=== PATIENT | female | born 1960 | race Caucasian/White ===

== ENCOUNTER 2017-06-15 10:55 | Inpatient (IN) | payer SELFPAY ==
[2017-06-15 11:48] LABS: #Basophils 0.1 thou/uL (0.0-0.2); #Eosinphils 0.2 thou/uL (0.0-0.7); #Lymphocytes 1.5 thou/uL (1.20-3.40); #Monocytes 0.4 thou/uL (0.11-0.59); #Neutrophils 4.1 thou/uL (1.40-6.50); %Basophils 1.2 % (0.0-1.0); %Eosinophils 2.7 % (0.0-10.0); %Lymphocytes 24.5 % (21.0-51.0); %Monocytes 6.5 % (0.0-10.0); Hematocrit 38.6 % (36.0-47.0); Red Blood Cell (RBC) Count 3.83 mill/uL (4.20-5.40); White Blood Cell (WBC) Count 6.3 thou/uL (4.8-10.8)
[2017-06-15 11:56] LABS: PTT 31.5 SEC (22.9-36.1); Prothrombin Time 13.4 SEC (12.0-14.7)
[2017-06-15 12:23] LABS: Digoxin Less than 0.15 ng/mL (0.8-2.0)
[2017-06-15 12:25] LABS: ALT (SGPT) 10 U/L (8-55); AST (SGOT) 24 U/L (5-34); Alkaline Phosphatase 63 U/L (40-150); Anion Gap 16 mmol/L (10-20); BUN (Urea Nitrogen) 21 mg/dL (9.8-20.1); Bilirubin, Total 0.4 mg/dL (0.2-1.2); CK (CPK) 1558 U/L (29-168); Calc. Creatinine Clearance 0 mL/min (70-130); Calcium 10.1 mg/dL (7.8-10.44); Carbon Dioxide 27 mmol/L (22-29); Chloride 98 mmol/L (98-107); Estimated GFR-MDRD 39; Lipase 15 U/L (8-78); Protein, Total 7.9 g/dL (6.0-8.3)
[2017-06-15 12:27] LABS: Troponin I 0.085 ng/mL (< 0.028)
--- NOTE | 2017-06-15 13:12 | RAD ---
PORTABLE AP CHEST: Date: 06-15-17 History: Right sided numbness and weakness since one day ago. Cough. High blood pressure. Comparison: None. FINDINGS: Patient is rotated to the right which accentuates the cardiac silhouette and bronchovascular marking s. There is evidence of bibasilar atelectasis. Pulmonary vasculature is within normal limits. Osseou s structures appear intact. IMPRESSION: 1. Bibasilar atelectasis. Otherwise, no acute cardiopulmonary process. 2. Limited evaluation of cardiac silhouette due to patient rotation. POS: AMADNEEP
[2017-06-15] MEDS ORDERED: hydrALAZINE 20 MG/ML VIAL ONE (13:28)
[2017-06-15] MEDS ORDERED: hydrALAZINE 20 MG/ML VIAL SLOW IVP PRN (14:12)
--- NOTE | 2017-06-15 14:12 | PDOC.EVN ---
Event Note - Event Note Event Note: 224107 H&P Dictated 1. R/O Stroke 2. HTN 3. Weakness 4. Rhabomyolysis 5. Abnormal cardiac enzymes Plan; see orders
--- NOTE | 2017-06-15 14:17 | CT ---
CT HEAD WITHOUT IV CONTRAST: Date: 06-15-17 History: Right sided weakness, unable to control saliva. Comparison: None. FINDINGS: There is a low density focus seen within the left basal ganglia, suggestive of a lacunar infarction of an indeterminate age. There is scattered low density areas of in the periventricular white matter which are nonspecific, probably reflective of mild chronic small vessel ischemic changes. There is no evidence of an acute cortical infarction, hemorrhage, or mass effect or midline shift. There is o pacification of right sided mastoid air cells. Left mastoid air cells and visualized paranasal sinus es are clear. Vascular calcifications are seen in the carotid siphons. IMPRESSION: 1. Lacunar infarction of indeterminate age left basal ganglia. 2. Mild chronic small vessel ischemic changes. 3. Mastoid effusions on the right. POS: KIMANI
[2017-06-15 15:28] LABS: Troponin I 0.105 ng/mL (< 0.028)
--- NOTE | 2017-06-15 16:12 | HP ---
CHIEF COMPLAINT: Fall, dysarthria, right-sided weakness. HISTORY OF PRESENT ILLNESS: The patient is a 56-year-old female with past medical history of hypert ension, now came to the ER because of the fall. The patient said she lives with her brother at home . She had a fall approximately 1 week back. Since then, she is having right-sided weakness and hav ing trouble speaking. The patient was also complaining of dysarthria and some right-sided facial dr oop. Today, the patient called paramedics because of brother was having elevated blood sugars, so [facility] brought both the patients to the ER. Upon ER arrival, the patient was found to have right -sided weakness, so the patient was currently getting admitted. The patient denies any headache, de nies any nausea, denies any vomiting, denies any chest pain, denies any trouble breathing, denies an y dizziness, does have some trouble speaking. Denies any complaints. Patient also complains of gen eralized weakness, not able to get up much from the bed. Denies any cough, denies sputum production . PAST MEDICAL HISTORY: As per HPI. PAST SURGICAL HISTORY: Hernia repair. SOCIAL HISTORY: Positive for smoking, denies alcohol, denies any drugs. FAMILY HISTORY: Positive for diabetes. MEDICATIONS: Not available at this time from the patient. ALLERGIES: PENICILLIN. REVIEW OF SYSTEMS: CONSTITUTIONAL: Denies any fever, denies any chills. HEENT: Eyes, no vision problems. Ears, denies hearing loss. Neck, denies any neck pain. CARDIOVASCULAR SYSTEM: Denies any chest pain. Denies any palpations. RESPIRATORY SYSTEM: Denies any cough, denies sputum production. GASTROINTESTINAL: Denies nausea or vomiting. CRANIAL NERVE SYSTEM: Positive for right-sided weakness. Positive for dysarthria. INTEGUMENTARY: Denies. GENITOURINARY: Denies dysuria. MUSCULOSKELETAL: Denies any joint deformities. All other review of systems are reviewed and are ne gative. PHYSICAL EXAMINATION: CONSTITUTIONAL/VITAL SIGNS: At the time of H\T\P performed, blood pressure is 130/70, afebrile, pul se ox 97%. GENERAL: The patient appears comfortable. HEENT: Pupils equal, round, and reactive to light. Anterior naris patent. Nose normal. Ears, nor mal. Teeth oral cavity, no teeth seen. Tongue is moist. NECK: Supple. No JVD. CARDIOVASCULAR SYSTEM: S1, S2 present. Regular rate and rhythm, no murmurs, no rubs, no gallops. RESPIRATORY SYSTEM: No wheezing, no rhonchi. Breath sounds bilaterally. GASTROINTESTINAL: Soft, nontender, no guarding, no organomegaly, no masses felt. MUSCULOSKELETAL: Right-sided weakness present. Right upper extremity strength is 2-3/5. Right low er extremity strength 3/5. Positive for dysarthria, positive for mild aphasia. Positive for right- sided facial droop. PSYCHIATRIC: Mood is appropriate at this time. INTEGUMENTARY: No obvious rashes seen. Positive for right lower extremity black eschar seen. Posi tive for aberration. LABORATORY DATA: At the time of H\T\P performed, white count 6.3, hemoglobin 12.9, platelet count i s 240. PT 13.4, INR 1. BMP showed sodium 137, potassium 4.3, chloride 98, CO2 27, BUN 21, creatini ne 1.39. CK 1558, CK-MB 7, troponin 0.085. BNP 81.5. Digoxin was less than 0.15. CT head report is pending. No obvious bleed seen. Chest x-ray, possible bibasilar atelectasis. ASSESSMENT AND PLAN: The patient is a 56-year-old female. 1. Rule out stroke, right-sided weakness plus dysarthria. Plan to consult Neurology to evaluate th e patient. Plan to do MRI brain and carotid ultrasound. Plan to monitor the patient closely. Plan to get PT, OT and rehabilitation evaluation. 2. Rhabdomyolysis. Monitor CK level closely. Continue serial CK levels. Continue IV fluids. 3. Abnormal cardiac enzymes. EKG, no acute ST changes by the ED physician. Plan to check serial c ardiac enzymes. Plan to check 2D echo. We will evaluate LV function. We will repeat EKG. 4. History of hypertension. Monitor blood pressure, slowly continue p.r.n. BP meds. 5. Generalized weakness. Plan to check TSH and vitamin B12 levels also. The case was discussed in detail with the patient.
[2017-06-15] MEDS: Sodium Chloride 0.9% 1,000 ML IV SCH (16:26)
--- NOTE | 2017-06-15 17:18 | CON ---
DATE OF CONSULTATION: 06/15/2017 NEUROLOGY CONSULTATION CONSULTING PHYSICIAN: Hospitalist Service. IMPRESSION: 1. Lacunar stroke with right-sided weakness. 2. Severe hypertension. 3. Hyperlipidemia. 4. Tobacco use. PLAN: 1. Continue aspirin. 2. Titrate a statin to address her cholesterol issues. 3. Carotid ultrasound. 4. Echocardiogram. 5. PT and OT evaluations. 6. Tobacco cessation. Ms. Livingston is a 56-year-old white female with a known history of hypertension and hyperlipidemia, w ho came in with right-sided weakness for the last [address] of the brain revealed a lacunar infarc tion in the left basal ganglia. There is no evidence of hemorrhage. She has no complaint of headac he, nausea, vomiting, vertigo, blurred vision, double vision, numbness or difficulty swallowing. Sh e has noted a change in her speech. PAST MEDICAL HISTORY: As listed above. ALLERGIES: PENICILLIN, SULFA. MEDICATIONS: Reviewed. SOCIAL HISTORY: One pack per day tobacco use. FAMILY HISTORY: Noncontributory. REVIEW OF SYSTEMS: Otherwise, negative. PHYSICAL EXAMINATION: GENERAL: She is an overweight middle-aged woman lying in bed, in no distress. HEENT: Pupils are equal and reactive. Conjunctivae clear. She has got periorbital edema bilateral ly. Oropharynx is clear. NECK: No lymphadenopathy. EXTREMITIES: No cyanosis. NEUROLOGIC: She was alert and cooperative. Her speech is fluent with a mildly dysarthric quality. Cranial nerves were notable only for right facial droop. Motor exam showed white partial antigravi ty strength in the right arm and leg. Sensation was subjectively intact bilaterally. Plantar respo nses were downgoing. Gait was not testable. CT images were reviewed. EKG shows normal sinus rhythm with a right bundle branch block and left anterior fascicular block. LABORATORY STUDIES: Showed an elevated CK with a positive MB and troponin and otherwise unremarkabl e. SUMMARY: A middle-aged woman with severe hypertension, who presents with a lacunar stroke in the le ft basal ganglia consistent with right-sided weakness. She also has a positive CK and troponin sugg estive of possible myocardial infarction, may require further cardiac workup at your discretion. Un fortunately, she does not have any finding. Therefore, rehab placement will be unlikely, need to ad dress her risk factors and probably discharge her home with family for recuperation.
[2017-06-15 18:29] LABS: Troponin I 0.097 ng/mL (< 0.028)
--- NOTE | 2017-06-15 20:58 | ULT ---
CAROTID DUPLEX ULTRASOUND 06/15/17 INDICATION: Rule out stenosis. FINDINGS: There is mild to moderate atherosclerotic irregularity seen diffusely throughout the common carotid and internal carotid arteries bilaterally. There is a prominent area of atherosclerotic irregularity involving the proximal right ICA. The peak systolic velocity measured within the right ICA was 179 cm/s and on the left ICA was 158 cm/s. The peak systolic velocity seen within the right CCA was 129 cm/s where as the left was 157 cm/s. The right IC/CC ratio is 1.5 and on the left is 1.1. There is antegrade flow within both vertebral a rteries. IMPRESSION: 1. Based on the velocity measurements, there is moderate atherosclerotic narrowing involving th e proximal right ICA. This is between 50 to 69% luminal caliber stenosis based on the systolic veloc ity measurements. There is high grade flow seen within the proximal right external carotid artery to 255 cm/s. Similar appearing elevated velocities are seen within the left ECA. Due to the extent of the atherosclerotic disease, the patient would likely benefit from a CTA of the neck utilizing IV co ntrast to further evaluate the regions of stenosis involving the distal carotid bulb and right ICA. 2. No hemodynamically significant stenosis involving the left internal carotid artery. POS: KIMANI
[2017-06-15] MEDS: Atorvastatin Calcium 40 MG TAB PO SCH (21:56)
[2017-06-15] MEDS: Heparin 5,000 UNITS/ML VIAL SC SCH (21:57)
[2017-06-15 23:31] LABS: Troponin I 0.083 ng/mL (< 0.028)
[2017-06-16] MEDS: Sodium Chloride 0.9% 1,000 ML IV SCH ×2 (01:13→13:57)
--- NOTE | 2017-06-16 03:44 | PDOC.EVN ---
Event Note - Event Note Event Note: RN called - Pt had 3 sec pause. Will monitor. TSH was abnormal. Will add free T4. ?Cardiology consult per primary MD
[2017-06-16 05:16] LABS: Anion Gap 13 mmol/L (10-20); BUN (Urea Nitrogen) 16 mg/dL (9.8-20.1); Calc. Creatinine Clearance 82 mL/min (70-130); Calcium 9.9 mg/dL (7.8-10.44); Carbon Dioxide 30 mmol/L (22-29); Chloride 99 mmol/L (98-107); Cholesterol 509 mg/dl (< 200 Desired); Estimated GFR-MDRD 45; Magnesium 2.4 mg/dL (1.6-2.6); Phosphorus 3.1 mg/dL (2.3-4.7)
[2017-06-16 05:26] LABS: Troponin I 0.076 ng/mL (< 0.028)
[2017-06-16] MEDS ORDERED: hydrALAZINE 20 MG/ML VIAL SLOW IVP PRN (07:05)
--- NOTE | 2017-06-16 08:56 | PDOC.PN ---
- Subjective Encounter Start Date: 06/16/17 Encounter Start Time: 09:00 Subjective: Patient with persistent right sided weakness, dysarthria, and dysphagia. No -: chest pain. No N/V. Did have a 3 second sinus pause overnight. - Objective MAR Reviewed: Yes Vital Signs & Weight: Vital Signs (12 hours) Temp Pulse Resp BP Pulse Ox 06/16/17 07:45 97.5 F L 85 24 H 191/101 H 95 06/16/17 04:15 97.8 F 65 18 203/118 H 92 L 06/16/17 00:00 97.9 F 57 L 16 167/91 H 98 Weight Weight 224 lb 7.983 oz I&O: 06/15/17 06/16/17 06/17/17 06:59 06:59 06:59 Intake Total 1400 Balance 1400 Result Diagrams: 06/15/17 11:42 06/16/17 04:27 Phys Exam - Physical Examination Constitutional: NAD HEENT: moist MMs Respiratory: no wheezing, no rales, no rhonchi Cardiovascular: RRR, no significant murmur Gastrointestinal: soft, positive bowel sounds decreased strength RU/LE, right facial droop Psychiatric: normal affect, A&O x 3 Dx/Plan (1) Acute CVA (cerebrovascular accident) Code(s): I63.9 - CEREBRAL INFARCTION, UNSPECIFIED Status: Acute Comment: Left basal ganglia lacunar stroke (2) Elevated troponin Code(s): R74.8 - ABNORMAL LEVELS OF OTHER SERUM ENZYMES Status: Acute Comment: indeterminate, trending down (3) Sinus pause Code(s): I45.5 - OTHER SPECIFIED HEART BLOCK Status: Acute Comment: 3 second pause (4) Hypertension Code(s): I10 - ESSENTIAL (PRIMARY) HYPERTENSION Status: Acute Comment: Severe elevations after stroke, start to bring down slowly (5) Rhabdomyolysis Code(s): M62.82 - RHABDOMYOLYSIS Status: Acute Plan: recheck CK (6) Hyperlipidemia Code(s): E78.5 - HYPERLIPIDEMIA, UNSPECIFIED Status: Acute Qualifiers: Hyperlipidemia type: mixed hyperlipidemia Qualified Code(s): E78.2 - Mixed hyperlipidemia Comment: LDL and TG in 500s. Starting statin. May need fenofibrate eventually as well. - Plan cont current plan of care Cardiology consultation. Appreciate neuro input. * . - Discharge Day Encounter end time: 10:00
[2017-06-16] MEDS ORDERED: Aspirin 81 mg Enteric Coated Tablet PO SCH (09:00)
[2017-06-16] MEDS: Heparin 5,000 UNITS/ML VIAL SC SCH ×2 (09:49→21:09)
[2017-06-16] MEDS ORDERED: Aspirin 300 MG Suppository PR SCH (11:30)
--- NOTE | 2017-06-16 19:38 | CON ---
DATE OF CONSULTATION: 06/16/2017 PRIMARY CARE PHYSICIAN: [facility]. REFERRING PHYSICIAN: Dr. Hairston. REASON FOR CARDIOLOGY CONSULTATION: Three-second pause and indeterminate troponins. HISTORY OF PRESENT ILLNESS: Mrs. Livingston is a 56-year-old female with a significant histo ry of hypertension, hypothyroidism, and dyslipidemia who started having numbness and slurred speech for 2 days. Actually, the patient's brother called EMS for his abnormal blood sugar level and when the EMS arrived her house, they noticed the patient having slurry speech and right arm numbness. Th e patient was transferred to the emergency department and patient was transferred to emergency depar tment and CT of the brain revealed she has was found to have lacunar infarction in her left basal ga nglia. Prior to these events, she has dyspnea on exertion when she walked long distance or doing ho usekeeping and also she has had leg swelling in her bilateral lower extremities which did improve ov ernight. She has a significant a medical history of hypertension, hypothyroidism, and dyslipidemia which she was diagnosed about 3-4 years ago at [facility]. However, she has not taken any medic ations since then because she did not have any financial support for her medications. During initia l cardiologic consult assessment, patient denies any headache, blurry vision, chest pain or discomfo rt in her chest or palpitations or fluttering in her chest, nausea, dizziness or lightheadedness, di aphoresis or any other cardiac complaints. Around 3:30 in the morning on 06/16/2017, her laboratory record shows 3-second of pause x1. At that time, she was sleeping. She did not have any cardiac related symptoms at that time and the patient 's echocardiogram today which revealed EF of 50%-55%, moderate left ventricular hypertrophy, mild mi tral valve regurgitation and tricuspid regurgitation and also patient's carotid Doppler study reveal ed she has moderate atherosclerotic narrowing in the proximal right ICA and elevated velocity in her left DAY. PAST MEDICAL HISTORY: 1. Hypertension. 2. Hypothyroidism. 3. Dyslipidemia. 4. Noncompliance to medications. 5. Current smoker. PAST SURGICAL HISTORY: Hernia repair. FAMILY HISTORY: Noncontributory because she is adopted. SOCIAL HISTORY: She is . She lives with her brother who was not blood related. She has 3 children who live well. She is a current smoker. She smokes one pack a day. She denies alcohol o r illicit drug abuse. ALLERGIES: She is allergic to PENICILLIN and SULFA drug. CURRENT MEDICATIONS: She was prescribed some blood pressure, thyroid and cholesterol medications ab out 3-4 years ago at the [facility], but she cannot remember at this time. REVIEW OF SYSTEMS: The following complete review of systems was negative, unless otherwise mentione d in the HPI or below. CONSTITUTIONAL: Weight loss, weight gain, sense of well being, ability to conduct usual activities, exercise tolerance before she had a stroke. SKIN: The skin rash, itching, change in hair growth or loss, nail change, breast lump, tenderness, swelling, nipple discharge. EYES: She wears glasses, but negative for vision change, double vision, tearing, blind spots, pain. HEENT: Headache, vertigo, lightheadedness, nose bleeding, obstruction, no discharge, dental difficu lty, gingival bleeding, denture, neck stiffness, pain, tenderness, mass in the thyroid or other area s. CARDIOVASCULAR: Precordial pain, substernal distress, palpitations, syncope, dyspnea on exertion, o rthopnea, nocturnal dyspnea, cyanosis, heart murmur, varicosis, claudication. RESPIRATORY: Pain, wheezes, stridor, cough, hemoptysis, fever or night sweats. GASTROINTESTINAL: Poor appetite, dysphagia, indigestion, abdominal pain, heartburn, irritation, donald sea, vomiting, jaundice, constipation, or diarrhea, abnormal stool, bloody stool, recent change in b owel habit. GENITOURINARY: Urgency, frequency, dysuria, nocturia, hematuria, polyuria, oliguria, unusual color in urine. MUSCULOSKELETAL: Pains, redness or heat of muscle or joint, limitation, of motion, muscular weaknes s, atrophy, cramps before stroke. NEUROLOGIC: Convulsion, paralysis, tremor, incoordination, difficulty with memory of speech, sensor y or motor disturbance or muscular discoordination. PSYCHIATRIC: Emotional problem, anxiety, depression, previous psychiatric care, unusual perception hallucination. PHYSICAL EXAMINATION: VITAL SIGNS: Blood pressure 189/106, heart rate 63, respiratory rate 18, O2 sat 94% with room air, temperature 97.9. GENERAL: Well-developed, well-nourished without any acute distress. HEAD: Normocephalic, atraumatic. EYES: Extraocular muscle movement intact. ENT: Oral and nasal mucosa are moist without lesion. NECK: No JVD. Supple and normal range of motion. LUNGS: Clear to auscultate bilaterally, but diminished at the bases. No wheezing, rales or rhonchi noted. CARDIOVASCULAR: Regular rate and rhythm. Normal S1, S2. There are no S3 or S4. No significant mu rmur, hives, thrill, bruit or rub noted. There are 2+ pulses in bilateral dorsal pedis, posterior t ibial, and popliteal. Carotid pulse present without bruit or thrill, no edema in her lower extremit ies. ABDOMEN: Soft and nontender or mass to palpate, nondistended. Bowel sounds are present. MUSCULOSKELETAL: Able to move all extremities except right lower extremities and some little moveme nt for right upper extremities. SKIN: Warm and dry. No skin rash, lesion or bruise noted. NEUROLOGIC: Alert, oriented x4, awake. Normal affect. Nonfocal, but slurry speech and facial droo ping on the right side. PSYCHIATRIC: Mood and affect are normal. EKG: A 12-lead EKG in the ER revealed normal sinus rhythm with heart rate 71 with right bundle bran ch block and left anterior fascicular block and the telemetry records at 323 in the morning of 06/16 showing the 3-second pause. At that time, patient's heart rates getting slower, slower and fi ed, the patient's heart rate going to 3 seconds and slowly coming back to normal rate. ASSESSMENT AND PLAN: 1. One episode of 3-second pause. At that time, patient's heart rates are getting slower and gradu ally going back to normal heart rate after that one episode of a 3-second pause and at that time she was symptomatic. She does not have any other episodes of pauses after this episode. At this momen t, we would like to continue to monitor the patient's heart rhythm and heart rate on the telemetry. 2. Lacunar infarction in the left basal ganglia. She was seen by neurologist. 3. Indeterminate troponin level. Her troponin level is trending down, could be due to demand ische dinesh from high blood pressure and hypertension urgency. However; due to the right bundle venu bloc k, there are no other EKG records showing whether this is her first time to have right bundle venu block, we do not have any medical records to compare, we might consider the patient to have a stres s test or further cardiac study. 5. Hypertension. Her blood pressure has been 150-200. However, due to her stroke, we like to keep the blood pressure tends to be higher than normal and we would like to start some blood pressure me dication as appropriate. 6. Hyperlipidemia. Once patient is able to start taking a p.o. medication, we would like to start some statin medication for her cholesterol level. 7. Hypothyroidism. Her TSH was 99.4241 on 06/15/2017. It might be benefit for the patient to star t having some thyroid medication. 8. Acute kidney insufficiency. The patient's creatinine level is slightly better than yesterday wi th normal saline. We would like to continue to monitor. 9. Rhabdomyolysis. The patient's CK-MB was 7.0. She is receiving normal saline at this moment. W e have to continue to monitor. Thank you very much for Cardiology Service to participate in the care of this patient. We will foll ow along with the patient care team and make further recommendations as appropriate.
[2017-06-16] MEDS: Atorvastatin Calcium 40 MG TAB PO SCH (21:10)
--- NOTE | 2017-06-16 23:36 | MRI ---
MRI OF THE BRAIN WITHOUT CONTRAST 06/16/17 INDICATION: Right sided weakness and slurred speech. TECHNIQUE: Multiplanar and multisequence MR images are obtained of the brain without IV contrast. Comparisons a re made with a CT examination dated 06/15/17. FINDINGS: As seen corresponding to the area of hypodensity within the recent noncontrast CT of the brain, is a n area of restricted diffusion involving the left caudate and left globus pallidus consistent with s mall lacunar infarctions. There is mild chronic small vessel white matter ischemic change. There is some corresponding T2 signal abnormality involving the lacunar infarctions. No additional suspicious region of restricted diffusion is evident. There are appropriate flow voids within the major intrac ranial vessels. No midline shift is evident. There is extensive effusion within the right mastoid ai r cells. IMPRESSION: 1. Subacute appearing lacunar infarctions involving the left basal ganglia, particularly the r egion of the left caudate body and left globus pallidus. 2. Mild chronic small vessel white matter ischemic change. 3. Right mastoid effusion. POS: AMANDEEP
--- NOTE | 2017-06-17 01:23 | ADD-CON ---
ADDENDUM DATE OF CONSULTATION: 06/16/2017 INDICATION FOR CONSULTATION: A 56-year-old female status post CVA with a 3-second pause, actually a ppears to be more of a bradycardia than an actual pause. The heart rate did slow down, however, and there was a distance of 3 seconds between the two QRSs. However, she was sleeping at that time, wa s most likely asymptomatic. She has had no previous cardiac history that she is aware of. She was brought to the emergency room after she had some right-sided weakness and was unable to either speak clearly or get out of the bed very easily. She lives with her brother, both of them were admitted to the hospital, both of them have diabetes. I believe he is in the Intensive Care Unit and she is on the Stroke Unit. It appears that she did have a CVA, but the heart rate appears to be stable. F rom a cardiac standpoint, she appears to be in good condition at this time. She did have an echocar diogram, which shows a normal ejection fraction and no other acute cardiac events have been noted. Her EKG did not show any acute changes. Her cardiac enzymes are indeterminate; they have actually s lightly gone up, but now is starting to trend downwards. The peak troponin I was 0.083, which certa inly could be indicative of her cerebral event. Her cholesterol level is also significantly elevate d as well as her triglyceride level, but there is no indication that she has had any previous cardia c history. Please refer to the notes already dictated by the nurse practitioner. I would agree with the assess ment and plan. We will continue to follow her very carefully. Should she have any further bradycar dic episodes, we will need to address that perhaps for this may just be due to hypoxia or due to her recurrent CVA. She will need to be carefully observed, but at this time, she appeared just to have some significant sinus bradycardia. The heart rate has recovered. If necessary, we can try a low dose of dopamine to increase the heart rate. In the emergency room, she did have a right bundle bra nch block with a left anterior fascicular block, but no acute ST segment changes were noted that wou ld indicate underlying ischemia and she denies any chest pain. Her chest was clear to auscultation. Cardiovascular exam revealed a regular rate and rhythm. She did have a systolic murmur at the [facility] er left anterior chest, most likely compatible with some mild pulmonary valve flow not necessarily r egurgitation. There were no gross echocardiogram findings to indicate any significant abnormalities as far as any stenotic lesions. She did have some very mild aortic valve regurgitation. At this t candy, we will be more than happy to continue to follow the patient with you. In the future, even she may need to undergo pacemaker insertion certainly with her right bundle branch block and left anter ior fascicular block with the bradycardia. She may eventually need a pacemaker, but would certainly want her to recover from her CVA and to determine whether or not she continues to have bradycardia or not.
[2017-06-17] MEDS: Sodium Chloride 0.9% 1,000 ML IV SCH (06:27)
--- NOTE | 2017-06-17 08:44 | PDOC.CTH ---
<Feliciano Mann - Last Filed: 06/17/17 09:59> Cardiology Progress Note - Objective Vital Signs Temp Pulse Resp BP BP BP Pulse Ox 06/17/17 07:20 97.8 F 68 14 159/97 H 94 L 06/17/17 04:06 97.4 F L 65 12 153/90 H 91 L 06/17/17 01:34 64 156/74 H 06/17/17 00:36 56 L 191/103 H 06/17/17 00:03 97.5 F L 56 L 12 191/103 H 94 L Admit Weight 224 lb 7.968 oz Weight 224 lb 7.968 oz 06/16/17 06/17/17 06/18/17 06:59 06:59 06:59 Intake Total 1400 1805 Balance 1400 1805 - Labs Result Diagrams: 06/15/17 11:42 06/16/17 04:27 Troponin/CKMB CK-MB (CK-2) 7.0 ng/mL (0-6.6) H* 06/15/17 11:36 Troponin I 0.076 ng/mL (< 0.028) H 06/16/17 04:27 - Assessment/Plan Pt. seen and eval. Several pauses last pm with up to 4.5 seconds. This appears to be sinus bradycardia that decreases further. The episodes occur while she is sleeping and she appears to have sleep apnea. If she does not have a problem with the swallowing study that is to be done today then I suggest we ask pulmonary to see her and try a CPAP mask. If she still has pauses ( which are still asymptomatic by the way ) then we can consider a pacemaker. In the interim we need to address her hypothyroidism. This may be the cause of the bradycardia, facial edema and swollen tongue. I pedro and evaluated the pt. and I agree with the remainder of the A/P by the [employer]. <Mayelin Hurley - Last Filed: 06/17/17 13:30> Cardiology Progress Note - Subjective The pt was seen and examined. No overnight events. No cardiac complaints. She has been up to bedside commode with assists. She can move her Rt extremities better than yesterday, especially her Rt lower ext. Another pause, 3.9 sec, early this AM with very low O2 Sat per RN. The pt was asymptomatic during the episode. - Objective Vital Signs Temp Pulse Resp BP BP BP Pulse Ox 06/17/17 07:20 97.8 F 68 14 159/97 H 94 L 06/17/17 04:06 97.4 F L 65 12 153/90 H 91 L 06/17/17 01:34 64 156/74 H 06/17/17 00:36 56 L 191/103 H 06/17/17 00:03 97.5 F L 56 L 12 191/103 H 94 L 06/16/17 21:08 97.4 F L 59 L 16 92 L Admit Weight 224 lb 7.968 oz Weight 224 lb 7.968 oz 06/16/17 06/17/17 06/18/17 06:59 06:59 06:59 Intake Total 1400 1805 Balance 1400 1805 - Physical Examination General/Neuro: alert & oriented x3 Neck: no JVD present Lungs: CTA Heart: RRR Abdomen: other: Extremities: other: (No edema) - Telemetry Telemetry Rhythm: SR 70-80s - Labs Result Diagrams: 06/15/17 11:42 06/16/17 04:27 Troponin/CKMB CK-MB (CK-2) 7.0 ng/mL (0-6.6) H* 06/15/17 11:36 Troponin I 0.076 ng/mL (< 0.028) H 06/16/17 04:27 - Assessment/Plan 1. Multiple pauses - 3.9 sec pause at 0321 on 06/17/17 with low O2Sat; also possible 2ndary to hypothyroidism; her thyroid medication was started from today 2. S/p Basal ganglia lacunar stroke - managed by neurologist 3. HTN - treding down slowly with current medication; cont. monitor 4. Hypothyroidism - Thyroid medication was started from today by PCP 5. Rhabdomyolysis - cont. monitor 6. myxoedema - her thyroid medication was started from today by PCP MAR Reviewed Review of Systems - Review of Systems Constitutional: reports: no symptoms reported EENTM: reports: no symptoms reported Respiratory: reports: no symptoms reported Cardiac (ROS): reports: no symptoms reported ABD/GI: reports: no symptoms reported : reports: no symptoms reported Musculoskeletal: reports: see HPI Skin: reports: no symptoms reported Neurological: reports: no symptoms reported Endocrine: reports: no symptoms reported
[2017-06-17] MEDS ORDERED: Aspirin 300 MG Suppository PR SCH (09:00)
[2017-06-17] MEDS: Heparin 5,000 UNITS/ML VIAL SC SCH ×2 (10:51→21:41)
[2017-06-17] MEDS ORDERED: Ondansetron ODT 4 MG TAB PO PRN (11:25)
[2017-06-17] MEDS ORDERED: Senokot 8.6 MG TAB PO PRN (11:25)
[2017-06-17] MEDS ORDERED: Nitroglycerin 0.4 MG TAB (25 Tab Bottle) PO PRN (11:25)
[2017-06-17] MEDS ORDERED: Ondansetron HCl/PF 4 MG/2 ML Vial IVP PRN (11:25)
[2017-06-17] MEDS ORDERED: Levothyroxine Sodium 150 MCG TAB PO SCH (11:30)
[2017-06-17] MEDS ORDERED: Sodium Chloride 0.9% 1,000 ML IV SCH (11:30)
[2017-06-17] MEDS ORDERED: Aspirin 325 MG TAB PO SCH (11:30)
--- NOTE | 2017-06-17 11:35 | PDOC.PN ---
- Subjective Encounter Start Date: 06/17/17 Encounter Start Time: 11:34 Patient seen and examined. No new complaints. No overnight events. No new focal deficits. - Objective Resuscitation Status: Resuscitation Status FULL:Full Resuscitation MAR Reviewed: Yes Vital Signs & Weight: Vital Signs (12 hours) Temp Pulse Resp BP BP BP Pulse Ox 06/17/17 11:15 97.2 F L 70 14 149/95 H 96 06/17/17 08:00 97.8 F 68 14 90 L 06/17/17 07:20 97.8 F 68 14 159/97 H 94 L 06/17/17 04:06 97.4 F L 65 12 153/90 H 91 L 06/17/17 01:34 64 156/74 H 06/17/17 00:36 56 L 191/103 H 06/17/17 00:03 97.5 F L 56 L 12 191/103 H 94 L Weight Admit Weight 224 lb 7.968 oz Weight 224 lb 7.968 oz I&O: 06/16/17 06/17/17 06/18/17 06:59 06:59 06:59 Intake Total 1400 1805 Balance 1400 1805 Result Diagrams: 06/18/17 04:42 06/18/17 04:42 Radiology Reviewed by me: Yes (MRI - Acute CVA) EKG Reviewed by me: Yes (Tele SB/ sinus pause earlier) Phys Exam - Physical Examination Constitutional: NAD HEENT: PERRLA, moist MMs, sclera anicteric tongue swollen Respiratory: no wheezing, no rales, no rhonchi Symmetrical Cardiovascular: RRR, no rub No heaves/pulsations Gastrointestinal: soft, non-tender, no distention, positive bowel sounds Musculoskeletal: edema present (1 + with chronic facial swelling) Neurological: moves all 4 limbs No new focal findings Psychiatric: normal affect, A&O x 3 Skin: no rash Dx/Plan (1) Acute CVA (cerebrovascular accident) Code(s): I63.9 - CEREBRAL INFARCTION, UNSPECIFIED Status: Acute Comment: Left basal ganglia lacunar stroke (2) Dyslipidemia Code(s): E78.5 - HYPERLIPIDEMIA, UNSPECIFIED Status: Chronic (3) Hypothyroidism Code(s): E03.9 - HYPOTHYROIDISM, UNSPECIFIED Status: Acute (4) Elevated troponin Code(s): R74.8 - ABNORMAL LEVELS OF OTHER SERUM ENZYMES Status: Acute Comment: indeterminate, trending down (5) Hypertension, uncontrolled Code(s): I10 - ESSENTIAL (PRIMARY) HYPERTENSION Status: Acute (6) Carotid stenosis, right Code(s): I65.21 - OCCLUSION AND STENOSIS OF RIGHT CAROTID ARTERY Status: Acute Comment: Moderate 50-69 % ( Stroke on the other side), Will avoid contrast exposure due to CKD/rhabdomyolysis (7) Sinus pause Code(s): I45.5 - OTHER SPECIFIED HEART BLOCK Status: Acute Comment: 3 second pause (8) Rhabdomyolysis Code(s): M62.82 - RHABDOMYOLYSIS Status: Acute (9) CKD (chronic kidney disease) stage 3, GFR 30-59 ml/min Code(s): N18.3 - CHRONIC KIDNEY DISEASE, STAGE 3 (MODERATE) Status: Chronic (10) Swallowing dysfunction Code(s): R13.10 - DYSPHAGIA, UNSPECIFIED Status: Acute (11) VALENTINA (obstructive sleep apnea) Code(s): G47.33 - OBSTRUCTIVE SLEEP APNEA (ADULT) (PEDIATRIC) Status: Suspected - Plan cont current plan of care, PT/OT, speech therapy, DVT proph w/heparin, DVT proph w/SCDs * Cardiology following * Start Levothyroxine * Change ASA to PO * Sleep study as outpt * Tob cessation * Add Procardia XL * Neurology input appreciated * CTA neck as outpt * DC IVF * Hold Statin due to Rhabdomyolysis Review of Systems - Review of Systems Respiratory: negative: Cough, Dry, Shortness of Breath, Hemoptysis, SOB with Excertion, Pleuritic Pain, Sputum, Wheezing Cardiovascular: negative: Chest Pain, Palpitations, Orthopnea, Paroxysmal Noc. Dyspnea, Edema, Light Headedness, Other Gastrointestinal: negative: Nausea, Vomiting, Abdominal Pain, Diarrhea, Constipation, Melena, Hematochezia, Other - Medications/Allergies Allergies/Adverse Reactions: Allergies Allergy/AdvReac Type Severity Reaction Status Date / Time Penicillins Allergy Verified 06/15/17 14:48 Sulfa (Sulfonamide Allergy Verified 06/15/17 14:48 Antibiotics) Medications: Current Medications Acetaminophen (Tylenol) 650 mg PO Q4H PRN PRN Reason: Headache/Fever or Pain Aspirin (Ecotrin) 325 mg PO DAILY [facility] Aspirin (Aspirin) 325 mg PO NOW [facility] Stop: 06/17/17 13:30 Atorvastatin Calcium (Lipitor) 40 mg PO HS [facility] Last Admin: 06/16/17 21:10 Dose: Not Given Docusate Sodium (Colace) 100 mg PO BID [facility] Famotidine (Pepcid) 20 mg PO BID [facility] Heparin Sodium (Porcine) (Heparin) 5,000 units SC Q12HR [facility] Last Admin: 06/17/17 10:51 Dose: 5,000 units Hydralazine HCl (Apresoline) 10 mg SLOW IVP Q4H PRN PRN Reason: BP > 180 Last Admin: 06/17/17 00:36 Dose: 10 mg Sodium Chloride (Normal Saline 0.9%) 1,000 mls @ 50 mls/hr IV .Q20H [facility] Levothyroxine Sodium (Synthroid) 150 mcg PO 0600 [facility] Levothyroxine Sodium (Synthroid) 150 mcg PO NOW [facility] Stop: 06/17/17 13:30 Nitroglycerin (Nitrostat) 0.4 mg PO Q5MIN PRN PRN Reason: Chest Pain Ondansetron HCl (Zofran Odt) 4 mg PO Q6H PRN PRN Reason: Nausea/Vomiting Ondansetron HCl (Zofran) 4 mg IVP Q6H PRN PRN Reason: Nausea/Vomiting Senna (Senokot) 2 tab PO HSPRN PRN PRN Reason: Constipation Sodium Chloride (Flush - Normal Saline) 10 ml IVF Q12HR [facility] Last Admin: 06/17/17 10:51 Dose: 10 ml Sodium Chloride (Flush - Normal Saline) 10 ml IVF PRN PRN PRN Reason: Saline Flush
[2017-06-17] MEDS ORDERED: NIFEdipine XL 30 MG TAB PO SCH (12:30)
--- NOTE | 2017-06-17 12:59 | RAD ---
MODIFIED BARIUM SWALLOW WITH SPEECH THERAPY: Date: 06/17/17 HISTORY: Dysphagia following cerebral infarction, I69.391. Dysphagia unspecified, R13.10. Feeding difficulties, R63.3. COMPARISON: None. TECHNIQUE/FINDINGS: The patient was brought to the fluoroscopy suite. All questions were answered. Fluoroscopy was perfo rmed for a speech pathologist. The patient was initially given thin liquid contrast. The patient azra erated this well. The swallowing was slightly delayed, although there is no penetration or aspiratio n. Next, pudding consistency contrast was given. Swallow was delayed, although no penetration or asp iration. With contrast-coated cracker, there is mild penetration which cleared. This did not go belo w the vocal cords. No aspiration. IMPRESSION: Fluoroscopy for speech pathologist. Please see their findings for further details. POS: KIMANI
[2017-06-17] MEDS: Acetaminophen 325 MG TAB PO PRN (15:13)
[2017-06-17] MEDS: Docusate 100 MG CAP PO SCH (21:40)
[2017-06-17] MEDS: Famotidine 20 MG TAB PO SCH (21:40)
[2017-06-17] MEDS: Atorvastatin Calcium 40 MG TAB PO SCH (21:40)
[2017-06-18 04:51] LABS: #Basophils 0.1 thou/uL (0.0-0.2); #Eosinphils 0.2 thou/uL (0.0-0.7); #Lymphocytes 1.5 thou/uL (1.20-3.40); #Monocytes 0.3 thou/uL (0.11-0.59); #Neutrophils 2.8 thou/uL (1.40-6.50); %Eosinophils 3.8 % (0.0-10.0); %Monocytes 6.7 % (0.0-10.0); Hematocrit 36.9 % (36.0-47.0); Red Blood Cell (RBC) Count 3.67 mill/uL (4.20-5.40); White Blood Cell (WBC) Count 4.8 thou/uL (4.8-10.8)
[2017-06-18 05:05] LABS: ALT (SGPT) 8 U/L (8-55); AST (SGOT) 23 U/L (5-34); Alkaline Phosphatase 60 U/L (40-150); Anion Gap 15 mmol/L (10-20); BUN (Urea Nitrogen) 13 mg/dL (9.8-20.1); Bilirubin, Total 0.5 mg/dL (0.2-1.2); CK (CPK) 1462 U/L (29-168); Calc. Creatinine Clearance 77 mL/min (70-130); Calcium 10.2 mg/dL (7.8-10.44); Carbon Dioxide 28 mmol/L (22-29); Chloride 97 mmol/L (98-107); Estimated GFR-MDRD 44; Globulin 2.9 g/dL (2.4-3.5); Protein, Total 7.5 g/dL (6.0-8.3)
[2017-06-18] MEDS: Levothyroxine Sodium 150 MCG TAB PO SCH (06:15)
--- NOTE | 2017-06-18 08:18 | PDOC.PN ---
- Subjective Encounter Start Date: 06/18/17 Encounter Start Time: 08:16 Patient seen and examined. No new complaints. No overnight events. Feels better. No new focal deficits. - Objective Resuscitation Status: Resuscitation Status FULL:Full Resuscitation MAR Reviewed: Yes Vital Signs & Weight: Vital Signs (12 hours) Temp Pulse Resp BP Pulse Ox 06/18/17 07:20 97.5 F L 61 18 144/89 H 93 L 06/18/17 04:26 97.5 F L 60 12 137/86 94 L 06/18/17 02:59 93 L 06/18/17 00:47 97.5 F L 93 16 117/76 92 L 06/17/17 20:28 97.5 F L 93 16 Weight Admit Weight 224 lb 7.968 oz Weight 218 lb 6.4 oz I&O: 06/17/17 06/18/17 06/19/17 06:59 06:59 06:59 Intake Total 1805 810 Balance 1805 810 Result Diagrams: 06/18/17 04:42 06/18/17 04:42 EKG Reviewed by me: Yes (Tele SR) Phys Exam - Physical Examination Constitutional: NAD Respiratory: no wheezing, no rhonchi Cardiovascular: RRR, no rub Gastrointestinal: soft, non-tender, no distention, positive bowel sounds Musculoskeletal: no edema Neurological: moves all 4 limbs No new focal deficits. Psychiatric: A&O x 3 Dx/Plan (1) Acute CVA (cerebrovascular accident) Code(s): I63.9 - CEREBRAL INFARCTION, UNSPECIFIED Status: Acute Comment: Left basal ganglia lacunar stroke (2) Dyslipidemia Code(s): E78.5 - HYPERLIPIDEMIA, UNSPECIFIED Status: Chronic Comment: No Statins due to Rhabdomyolysis (3) Hypothyroidism Code(s): E03.9 - HYPOTHYROIDISM, UNSPECIFIED Status: Acute (4) Elevated troponin Code(s): R74.8 - ABNORMAL LEVELS OF OTHER SERUM ENZYMES Status: Acute Comment: prob due to Acute CVA (5) Carotid stenosis, right Code(s): I65.21 - OCCLUSION AND STENOSIS OF RIGHT CAROTID ARTERY Status: Acute Comment: Moderate 50-69 % ( Stroke on the other side), Will avoid contrast exposure due to CKD/rhabdomyolysis (6) Sinus pause Code(s): I45.5 - OTHER SPECIFIED HEART BLOCK Status: Acute Comment: 3 second pause - prob due to sleep apnea in the setting of hypothyroidism (7) Rhabdomyolysis Code(s): M62.82 - RHABDOMYOLYSIS Status: Acute Comment: prob due to hypothyroidism (8) CKD (chronic kidney disease) stage 3, GFR 30-59 ml/min Code(s): N18.3 - CHRONIC KIDNEY DISEASE, STAGE 3 (MODERATE) Status: Chronic (9) Swallowing dysfunction Code(s): R13.10 - DYSPHAGIA, UNSPECIFIED Status: Acute Comment: on modified diet (10) VALENTINA (obstructive sleep apnea) Code(s): G47.33 - OBSTRUCTIVE SLEEP APNEA (ADULT) (PEDIATRIC) Status: Suspected (11) Tobacco dependence Code(s): F17.200 - NICOTINE DEPENDENCE, UNSPECIFIED, UNCOMPLICATED Status: Acute (12) Hypertension Code(s): I10 - ESSENTIAL (PRIMARY) HYPERTENSION Status: Acute - Plan cont current plan of care, PT/OT, speech therapy, DVT proph w/heparin, DVT proph w/SCDs * Cardiology/Neurology following * Cont Levothyroxine/ASA/Procardia XL * Sleep study as outpt * Tob cessation - counselled. * CTA neck as outpt * DC planning - ? Rehab - any Review of Systems - Review of Systems Constitutional: negative: Fever, Chills, Sweats, Weakness, Malaise, Other Respiratory: negative: Cough, Dry, Shortness of Breath, Hemoptysis, SOB with Excertion, Pleuritic Pain, Sputum, Wheezing Cardiovascular: negative: Chest Pain, Palpitations, Orthopnea, Paroxysmal Noc. Dyspnea, Edema, Light Headedness, Other Gastrointestinal: negative: Nausea, Vomiting, Abdominal Pain, Diarrhea, Constipation, Melena, Hematochezia, Other - Medications/Allergies Allergies/Adverse Reactions: Allergies Allergy/AdvReac Type Severity Reaction Status Date / Time Penicillins Allergy Verified 06/15/17 14:48 Sulfa (Sulfonamide Allergy Verified 06/15/17 14:48 Antibiotics) Medications: Current Medications Acetaminophen (Tylenol) 650 mg PO Q4H PRN PRN Reason: Headache/Fever or Pain Last Admin: 06/17/17 15:13 Dose: 650 mg Aspirin (Ecotrin) 325 mg PO DAILY [facility] Docusate Sodium (Colace) 100 mg PO BID [facility] Last Admin: 06/17/17 21:40 Dose: 100 mg Famotidine (Pepcid) 20 mg PO BID [facility] Last Admin: 06/17/17 21:40 Dose: 20 mg Heparin Sodium (Porcine) (Heparin) 5,000 units SC Q12HR [facility] Last Admin: 06/17/17 21:41 Dose: 5,000 units Hydralazine HCl (Apresoline) 10 mg SLOW IVP Q4H PRN PRN Reason: BP > 180 Last Admin: 06/17/17 00:36 Dose: 10 mg Levothyroxine Sodium (Synthroid) 150 mcg PO 0600 [facility] Last Admin: 06/18/17 06:15 Dose: 150 mcg Nifedipine (Procardia Xl) 30 mg PO DAILY [facility] Nitroglycerin (Nitrostat) 0.4 mg PO Q5MIN PRN PRN Reason: Chest Pain Ondansetron HCl (Zofran Odt) 4 mg PO Q6H PRN PRN Reason: Nausea/Vomiting Ondansetron HCl (Zofran) 4 mg IVP Q6H PRN PRN Reason: Nausea/Vomiting Senna (Senokot) 2 tab PO HSPRN PRN PRN Reason: Constipation Sodium Chloride (Flush - Normal Saline) 10 ml IVF Q12HR [facility] Last Admin: 06/17/17 21:41 Dose: 10 ml Sodium Chloride (Flush - Normal Saline) 10 ml IVF PRN PRN PRN Reason: Saline Flush
[2017-06-18] MEDS: Heparin 5,000 UNITS/ML VIAL SC SCH ×2 (09:53→21:17)
[2017-06-18] MEDS: Famotidine 20 MG TAB PO SCH ×2 (09:53→21:17)
[2017-06-18] MEDS: Aspirin 325 mg Enteric Coated Tablet PO SCH (09:53)
[2017-06-18] MEDS: Docusate 100 MG CAP PO SCH ×2 (09:53→21:17)
[2017-06-18] MEDS: NIFEdipine XL 30 MG TAB PO SCH (09:53)
--- NOTE | 2017-06-18 09:59 | PDOC.CTH ---
<Mayelin Hurley - Last Filed: 06/18/17 09:57> Cardiology Progress Note - Subjective The pt was seen and examined. No overnight events. No cardiac complaints. Overnight, her HR was down to 30s, but no pauses. She can move her Lt lower extremity well today. The pt would like to stop smoking - Objective Vital Signs Temp Pulse Resp BP Pulse Ox 06/18/17 09:55 93 L 06/18/17 07:20 97.5 F L 61 18 144/89 H 93 L 06/18/17 04:26 97.5 F L 60 12 137/86 94 L 06/18/17 02:59 93 L 06/18/17 00:47 97.5 F L 93 16 117/76 92 L Admit Weight 224 lb 7.968 oz Weight 218 lb 6.4 oz 06/17/17 06/18/17 06/19/17 06:59 06:59 06:59 Intake Total 1805 810 Balance 1805 810 - Physical Examination General/Neuro: alert & oriented x3 Neck: no JVD present Lungs: CTA Heart: RRR Abdomen: soft Extremities: other: (No edema) - Telemetry Telemetry Rhythm: SR 60s - Labs Result Diagrams: 06/18/17 04:42 06/18/17 04:42 Troponin/CKMB CK-MB (CK-2) 7.0 ng/mL (0-6.6) H* 06/15/17 11:36 Troponin I 0.076 ng/mL (< 0.028) H 06/16/17 04:27 - Assessment/Plan 1. Multiple pauses - Hx 3.9 sec pause at 0321 on 06/17/17 with low O2Sat; Bradycardia HR down to 30s but No pause over last night; her thyroid medication was started from yesterday 2. S/p Basal ganglia lacunar stroke - her mobility has been improved today; managed by neurologist 3. HTN - treding down slowly with current medication; cont. monitor 4. Hypothyroidism - Thyroid medication was started from today by PCP 5. Rhabdomyolysis - cont. monitor 6. myxoedema - her thyroid medication was started from today by PCP MAR Reviewed Review of Systems - Review of Systems Constitutional: reports: no symptoms reported EENTM: reports: no symptoms reported Respiratory: reports: no symptoms reported Cardiac (ROS): reports: no symptoms reported ABD/GI: reports: no symptoms reported : reports: no symptoms reported Musculoskeletal: reports: no symptoms reported <Feliciano Mann - Last Filed: 06/18/17 15:17> Cardiology Progress Note - Objective Vital Signs Temp Pulse Pulse Pulse Resp BP BP 06/18/17 13:45 66 77 141/87 H 143/94 H 06/18/17 11:20 97.6 F 64 16 06/18/17 09:55 06/18/17 09:53 61 06/18/17 08:00 97.5 F L 61 18 06/18/17 07:20 97.5 F L 61 18 06/18/17 04:26 97.5 F L 60 12 BP Pulse Ox Pulse Ox 06/18/17 13:45 93 L 06/18/17 11:20 142/87 H 93 L 06/18/17 09:55 93 L 06/18/17 09:53 06/18/17 08:00 06/18/17 07:20 144/89 H 93 L 06/18/17 04:26 137/86 94 L Admit Weight 224 lb 7.968 oz Weight 218 lb 6.4 oz 06/17/17 06/18/17 06/19/17 06:59 06:59 06:59 Intake Total 1805 810 Balance 1805 810 - Labs Result Diagrams: 06/18/17 04:42 06/18/17 04:42 Troponin/CKMB CK-MB (CK-2) 7.0 ng/mL (0-6.6) H* 06/15/17 11:36 Troponin I 0.076 ng/mL (< 0.028) H 06/16/17 04:27 - Assessment/Plan Pt. seen and eval. by me. She is feeling better already after starting thyroid replacement. The HR is stable while awake. I suspect this is due to the myxedema. I would not suggest a pacemaker at this time unless she has symptomatic bradycardia. Hopefully the bradycardia will resolve when the thyroid function returns.. I agree with the A/P by the [employer].
[2017-06-19] MEDS: Levothyroxine Sodium 150 MCG TAB PO SCH (05:45)
[2017-06-19] MEDS: Heparin 5,000 UNITS/ML VIAL SC SCH ×2 (08:52→20:44)
[2017-06-19] MEDS: Docusate 100 MG CAP PO SCH ×2 (08:53→20:43)
[2017-06-19] MEDS: NIFEdipine XL 30 MG TAB PO SCH (08:53)
[2017-06-19] MEDS: Aspirin 325 mg Enteric Coated Tablet PO SCH (08:53)
[2017-06-19] MEDS: Famotidine 20 MG TAB PO SCH ×2 (08:53→20:44)
--- NOTE | 2017-06-19 09:56 | PDOC.PN ---
- Subjective Encounter Start Date: 06/19/17 Encounter Start Time: 08:30 Patient seen and examined. No new complaints. No overnight events. Feels better. No CP/SOB/new focal deficits. - Objective Resuscitation Status: Resuscitation Status FULL:Full Resuscitation MAR Reviewed: Yes Vital Signs & Weight: Vital Signs (12 hours) Temp Pulse Resp BP BP Pulse Ox 06/19/17 08:53 62 132/90 06/19/17 04:30 93 L 06/19/17 03:20 96.3 F L 54 L 16 151/91 H 93 L 06/18/17 23:22 97.4 F L 61 12 138/90 92 L Weight Admit Weight 224 lb 7.968 oz Weight 218 lb 6.4 oz I&O: 06/18/17 06/19/17 06/20/17 06:59 06:59 05:59 Intake Total 810 1980 Balance 810 1979 Result Diagrams: 06/18/17 04:42 06/18/17 04:42 EKG Reviewed by me: Yes (Tele SR) Phys Exam - Physical Examination Constitutional: NAD Respiratory: no wheezing, no rhonchi Cardiovascular: RRR, no rub Gastrointestinal: soft, non-tender, positive bowel sounds Musculoskeletal: no edema Neurological: moves all 4 limbs No new focal deficits. Psychiatric: A&O x 3 Dx/Plan (1) Acute CVA (cerebrovascular accident) Code(s): I63.9 - CEREBRAL INFARCTION, UNSPECIFIED Status: Acute Comment: Left basal ganglia lacunar stroke (2) Dyslipidemia Code(s): E78.5 - HYPERLIPIDEMIA, UNSPECIFIED Status: Chronic Comment: No Statins due to Rhabdomyolysis (3) Hypothyroidism Code(s): E03.9 - HYPOTHYROIDISM, UNSPECIFIED Status: Acute (4) Elevated troponin Code(s): R74.8 - ABNORMAL LEVELS OF OTHER SERUM ENZYMES Status: Acute Comment: prob due to Acute CVA (5) Carotid stenosis, right Code(s): I65.21 - OCCLUSION AND STENOSIS OF RIGHT CAROTID ARTERY Status: Acute Comment: Moderate 50-69 % ( Stroke on the other side), Will avoid contrast exposure due to CKD/rhabdomyolysis (6) Sinus pause Code(s): I45.5 - OTHER SPECIFIED HEART BLOCK Status: Acute Comment: 3 second pause - prob due to sleep apnea in the setting of hypothyroidism (7) Rhabdomyolysis Code(s): M62.82 - RHABDOMYOLYSIS Status: Acute Comment: prob due to hypothyroidism (8) CKD (chronic kidney disease) stage 3, GFR 30-59 ml/min Code(s): N18.3 - CHRONIC KIDNEY DISEASE, STAGE 3 (MODERATE) Status: Chronic (9) Swallowing dysfunction Code(s): R13.10 - DYSPHAGIA, UNSPECIFIED Status: Acute Comment: on modified diet (10) VALENTINA (obstructive sleep apnea) Code(s): G47.33 - OBSTRUCTIVE SLEEP APNEA (ADULT) (PEDIATRIC) Status: Suspected Comment: Needs sleep study as outpt (11) Tobacco dependence Code(s): F17.200 - NICOTINE DEPENDENCE, UNSPECIFIED, UNCOMPLICATED Status: Acute Comment: Counselled (12) Hypertension Code(s): I10 - ESSENTIAL (PRIMARY) HYPERTENSION Status: Chronic - Plan cont current plan of care, DVT proph w/heparin, DVT proph w/SCDs * Cont Levothyroxine/ASA/Procardia XL * cont therapy * Sleep study as outpt * CTA neck as outpt * DC planning - ? Rehab - any * AM labs Review of Systems - Review of Systems Respiratory: negative: Cough, Dry, Shortness of Breath, Hemoptysis, SOB with Excertion, Pleuritic Pain, Sputum, Wheezing Cardiovascular: negative: Chest Pain, Palpitations, Orthopnea, Paroxysmal Noc. Dyspnea, Edema, Light Headedness, Other Gastrointestinal: negative: Nausea, Vomiting, Abdominal Pain, Diarrhea, Constipation, Melena, Hematochezia, Other - Medications/Allergies Allergies/Adverse Reactions: Allergies Allergy/AdvReac Type Severity Reaction Status Date / Time Penicillins Allergy Verified 06/15/17 14:48 Sulfa (Sulfonamide Allergy Verified 06/15/17 14:48 Antibiotics) Medications: Current Medications Acetaminophen (Tylenol) 650 mg PO Q4H PRN PRN Reason: Headache/Fever or Pain Last Admin: 06/17/17 15:13 Dose: 650 mg Aspirin (Ecotrin) 325 mg PO DAILY [facility] Last Admin: 06/19/17 08:53 Dose: 325 mg Docusate Sodium (Colace) 100 mg PO BID [facility] Last Admin: 06/19/17 08:53 Dose: 100 mg Famotidine (Pepcid) 20 mg PO BID [facility] Last Admin: 06/19/17 08:53 Dose: 20 mg Fish Oil (Fish Oil) 1,000 mg PO BID [facility] Heparin Sodium (Porcine) (Heparin) 5,000 units SC Q12HR [facility] Last Admin: 06/19/17 08:52 Dose: 5,000 units Hydralazine HCl (Apresoline) 10 mg SLOW IVP Q4H PRN PRN Reason: BP > 180 Last Admin: 06/17/17 00:36 Dose: 10 mg Levothyroxine Sodium (Synthroid) 150 mcg PO 0600 [facility] Last Admin: 06/19/17 05:45 Dose: 150 mcg Nifedipine (Procardia Xl) 30 mg PO DAILY [facility] Last Admin: 06/19/17 08:53 Dose: 30 mg Nitroglycerin (Nitrostat) 0.4 mg PO Q5MIN PRN PRN Reason: Chest Pain Ondansetron HCl (Zofran Odt) 4 mg PO Q6H PRN PRN Reason: Nausea/Vomiting Ondansetron HCl (Zofran) 4 mg IVP Q6H PRN PRN Reason: Nausea/Vomiting Senna (Senokot) 2 tab PO HSPRN PRN PRN Reason: Constipation Sodium Chloride (Flush - Normal Saline) 10 ml IVF Q12HR [facility] Last Admin: 06/19/17 08:52 Dose: 10 ml Sodium Chloride (Flush - Normal Saline) 10 ml IVF PRN PRN PRN Reason: Saline Flush
[2017-06-19] MEDS: Fish Oil 1,000 MG CAP PO SCH (20:43)
[2017-06-19] MEDS: Atorvastatin Calcium 40 MG TAB PO SCH (20:44)
[2017-06-20] MEDS ORDERED: ISOVUE-370 76%-LOCM 1 ML ONE (02:08)
[2017-06-20] MEDS: Acetaminophen 325 MG TAB PO PRN (02:36)
[2017-06-20 05:09] LABS: #Basophils 0.1 thou/uL (0.0-0.2); #Eosinphils 0.2 thou/uL (0.0-0.7); #Lymphocytes 1.9 thou/uL (1.20-3.40); #Monocytes 0.5 thou/uL (0.11-0.59); #Neutrophils 3.3 thou/uL (1.40-6.50); %Basophils 1.3 % (0.0-1.0); %Lymphocytes 31.7 % (21.0-51.0); %Monocytes 7.9 % (0.0-10.0); Hematocrit 36.5 % (36.0-47.0); Mean Platelet Volume 9.6 fL (7.4-10.4); Red Blood Cell (RBC) Count 3.63 mill/uL (4.20-5.40); White Blood Cell (WBC) Count 6.1 thou/uL (4.8-10.8)
[2017-06-20 05:25] LABS: Anion Gap 17 mmol/L (10-20); BUN (Urea Nitrogen) 15 mg/dL (9.8-20.1); CK (CPK) 1368 U/L (29-168); Calc. Creatinine Clearance 76 mL/min (70-130); Calcium 10.1 mg/dL (7.8-10.44); Carbon Dioxide 30 mmol/L (22-29); Chloride 95 mmol/L (98-107); Estimated GFR-MDRD 43
[2017-06-20] MEDS: Levothyroxine Sodium 150 MCG TAB PO SCH (06:26)
[2017-06-20] MEDS: Heparin 5,000 UNITS/ML VIAL SC SCH ×2 (08:24→21:06)
[2017-06-20] MEDS: NIFEdipine XL 30 MG TAB PO SCH (08:25)
[2017-06-20] MEDS: Fish Oil 1,000 MG CAP PO SCH ×2 (08:26→21:06)
[2017-06-20] MEDS: Docusate 100 MG CAP PO SCH ×2 (08:26→21:06)
[2017-06-20] MEDS: Famotidine 20 MG TAB PO SCH (08:26)
[2017-06-20] MEDS: Aspirin 325 mg Enteric Coated Tablet PO SCH (08:26)
--- NOTE | 2017-06-20 09:54 | CON ---
DATE OF ADMISSION: 06/15/2017 DATE OF CONSULTATION: 06/20/2017 HISTORY OF PRESENT ILLNESS: Ms. Livingston is a 57-year-old woman who presented to the emergency room with history of right arm weakness, fall, and speech difficulties lasting over a week at home. Her brother who would have trouble at home and ambulance came to pick him up and they brought her in at the same time. Since being in the hospital, she has had improvement of the weakness and improvement of her speech. She currently has movement of her right arm and some fly winder strength. There is still some discoordin ation present. She has difficulty feeding herself, but otherwise is able to get up and move with a walker. Her speech is still very difficult to understand and she hunts for word some but according to her has improved greatly since admission. Since admission, she has had a carotid ultrasound performed. Ultrasound shows peak systolic velocit ies in the left internal carotid artery of 158 cm per second, peak systolic velocity in the right in ternal carotid artery was 179 cm per second, ratio on the left is 1.1 and ratio on the right is 1.5. These were both consistent with 50-69% stenoses bilaterally. She has had no further anatomic work up for carotid systems. Of note, since she has been in the hospital, she has had a positive CK-MB w ith high of 7.0. Her troponin peaked at 0.10. She was seen by Dr. Mann and is currently being zhao gegenet conservatively. I have been asked to see her to further evaluate her carotid system. PAST MEDICAL HISTORY: None. PAST SURGICAL HISTORY: Hernia repair. SOCIAL HISTORY: She uses tobacco, but does not use alcohol or any other drugs. ALLERGIES: PENICILLIN. HOME MEDICATIONS: Aspirin only. REVIEW OF SYSTEMS: Reviewed in the chart and is negative except as above. PHYSICAL EXAMINATION: GENERAL: This is a well-developed and well-nourished woman, resting comfortably in bed. VITAL SIGNS: Temperature is 97.6, pulse is 65 and regular, and blood pressure is 172/96. NECK: Supple. She has no carotid bruits. CHEST: Clear bilaterally. HEART: Rhythm is regular, without murmur. ABDOMEN: Obese, soft and nontender. EXTREMITIES: No edema. VASCULAR: She has palpable carotid, radial and femoral pulses bilaterally. ASSESSMENT AND PLAN: This is a 57-year-old woman who was on no medical treatment at home and has lopez d a left lacunar infarct in her left cerebrum. Carotid ultrasound shows bilateral moderate-grade st enosis. I have ordered a CT angiogram to further evaluate her carotid systems, currently I would co ntinue her medical regimen as has been ordered. We will evaluate her carotid system with the CT ang iogram and make further recommendations.
--- NOTE | 2017-06-20 10:08 | PDOC.PN ---
- Subjective Encounter Start Date: 06/20/17 Encounter Start Time: 10:06 Patient seen and examined. No new complaints. No overnight events. No new focal deficits. No CP. Had BM. Feels better. - Objective Resuscitation Status: Resuscitation Status FULL:Full Resuscitation MAR Reviewed: Yes Vital Signs & Weight: Vital Signs (12 hours) Temp Pulse Resp BP BP Pulse Ox 06/20/17 08:25 65 172/96 H 06/20/17 07:41 97.6 F 65 12 172/96 H 95 06/20/17 04:19 98.5 F 63 14 146/89 H 96 06/20/17 03:33 95 06/20/17 00:00 97.6 F 59 L 14 134/87 95 Weight Admit Weight 224 lb 7.968 oz Weight 219 lb 12.8 oz I&O: 06/19/17 06/20/17 06/21/17 07:59 06:59 06:59 Intake Total 120 Balance 120 Result Diagrams: 06/20/17 04:14 06/20/17 04:14 EKG Reviewed by me: Yes (Tele SB, pause earlier today) Phys Exam - Physical Examination Constitutional: NAD Respiratory: no wheezing, no rhonchi Cardiovascular: RRR, no rub Gastrointestinal: soft, non-tender, positive bowel sounds Musculoskeletal: no edema Neurological: moves all 4 limbs Dx/Plan (1) Acute CVA (cerebrovascular accident) Code(s): I63.9 - CEREBRAL INFARCTION, UNSPECIFIED Status: Acute Comment: Left basal ganglia lacunar stroke (2) Dyslipidemia Code(s): E78.5 - HYPERLIPIDEMIA, UNSPECIFIED Status: Chronic (3) Hypothyroidism Code(s): E03.9 - HYPOTHYROIDISM, UNSPECIFIED Status: Acute (4) Elevated troponin Code(s): R74.8 - ABNORMAL LEVELS OF OTHER SERUM ENZYMES Status: Acute Comment: prob due to Acute CVA (5) Carotid stenosis, right Code(s): I65.21 - OCCLUSION AND STENOSIS OF RIGHT CAROTID ARTERY Status: Acute Comment: Moderate 50-69 % ( Stroke on the other side) (6) Sinus pause Code(s): I45.5 - OTHER SPECIFIED HEART BLOCK Status: Acute Comment: prob due to sleep apnea in the setting of hypothyroidism (7) Rhabdomyolysis Code(s): M62.82 - RHABDOMYOLYSIS Status: Acute Comment: prob due to hypothyroidism (8) CKD (chronic kidney disease) stage 3, GFR 30-59 ml/min Code(s): N18.3 - CHRONIC KIDNEY DISEASE, STAGE 3 (MODERATE) Status: Chronic (9) Swallowing dysfunction Code(s): R13.10 - DYSPHAGIA, UNSPECIFIED Status: Acute Comment: on modified diet (10) VALENTINA (obstructive sleep apnea) Code(s): G47.33 - OBSTRUCTIVE SLEEP APNEA (ADULT) (PEDIATRIC) Status: Suspected Comment: Needs sleep study as outpt (11) Tobacco dependence Code(s): F17.200 - NICOTINE DEPENDENCE, UNSPECIFIED, UNCOMPLICATED Status: Acute Comment: Counselled (12) Hypertension Code(s): I10 - ESSENTIAL (PRIMARY) HYPERTENSION Status: Chronic - Plan cont current plan of care, PT/OT, speech therapy, DVT proph w/heparin, DVT proph w/SCDs * Cont current meds including Levothyroxine/ASA/Procardia XL * Sleep study as outpt * CTA neck ordered. * DC planning - ? Rehab - any * cont supportive care * IVF after CTA due to CKD Review of Systems - Review of Systems Respiratory: negative: Cough, Dry, Shortness of Breath, Hemoptysis, SOB with Excertion, Pleuritic Pain, Sputum, Wheezing Cardiovascular: negative: Chest Pain, Palpitations, Orthopnea, Paroxysmal Noc. Dyspnea, Edema, Light Headedness, Other Gastrointestinal: negative: Nausea, Vomiting, Abdominal Pain, Diarrhea, Constipation, Melena, Hematochezia, Other - Medications/Allergies Allergies/Adverse Reactions: Allergies Allergy/AdvReac Type Severity Reaction Status Date / Time Penicillins Allergy Verified 06/15/17 14:48 Sulfa (Sulfonamide Allergy Verified 06/15/17 14:48 Antibiotics) Medications: Current Medications Acetaminophen (Tylenol) 650 mg PO Q4H PRN PRN Reason: Headache/Fever or Pain Last Admin: 06/20/17 02:36 Dose: 650 mg Aspirin (Ecotrin) 325 mg PO DAILY [facility] Last Admin: 06/20/17 08:26 Dose: 325 mg Atorvastatin Calcium (Lipitor) 40 mg PO HS [facility] Last Admin: 06/19/17 20:44 Dose: 40 mg Cyanocobalamin (Vitamin B-12) 1,000 mcg PO DAILY [facility] Docusate Sodium (Colace) 100 mg PO BID [facility] Last Admin: 06/20/17 08:26 Dose: 100 mg Fish Oil (Fish Oil) 1,000 mg PO BID [facility] Last Admin: 06/20/17 08:26 Dose: 1,000 mg Heparin Sodium (Porcine) (Heparin) 5,000 units SC Q12HR [facility] Last Admin: 06/20/17 08:24 Dose: 5,000 units Hydralazine HCl (Apresoline) 10 mg SLOW IVP Q4H PRN PRN Reason: BP > 180 Last Admin: 06/17/17 00:36 Dose: 10 mg Sodium Chloride (1/2 Normal Saline) 1,000 mls @ 50 mls/hr IV .Q20H [facility] Stop: 06/21/17 06:16 Levothyroxine Sodium (Synthroid) 150 mcg PO 0600 [facility] Last Admin: 06/20/17 06:26 Dose: 150 mcg Multivitamins (Theragran) 1 tab PO DAILY [facility] Nifedipine (Procardia Xl) 30 mg PO DAILY [facility] Last Admin: 06/20/17 08:25 Dose: 30 mg Nitroglycerin (Nitrostat) 0.4 mg PO Q5MIN PRN PRN Reason: Chest Pain Ondansetron HCl (Zofran Odt) 4 mg PO Q6H PRN PRN Reason: Nausea/Vomiting Ondansetron HCl (Zofran) 4 mg IVP Q6H PRN PRN Reason: Nausea/Vomiting Senna (Senokot) 2 tab PO HSPRN PRN PRN Reason: Constipation Sodium Chloride (Flush - Normal Saline) 10 ml IVF Q12HR [facility] Last Admin: 06/20/17 08:26 Dose: Not Given Sodium Chloride (Flush - Normal Saline) 10 ml IVF PRN PRN PRN Reason: Saline Flush
[2017-06-20] MEDS: Sodium Chloride 0.45% 1,000 ML IV SCH (15:05)
--- NOTE | 2017-06-20 19:02 | CT ---
CTA NECK WITH/WITHOUT CONTRAST AND 3D VOLUME RENDERING. Clinical history: Left hemispheric lacunar infarction. FINDINGS: There is prominent density encompassing the vasculature of the imaged mediastinum, currently incompl etely imaged. There is a rounded fluid density of the posterior subcutaneous tissues of the upper th orax to the left of midline. There is heterogeneity of the thyroid gland. Prominent soft tissues of the oropharynx, subglottic airway and larynx are present with associated narrowing of the aerodigest denice tract, mildly prominent at the supraglottic larynx. Scattered nonspecific lymph nodes are presen t. There is atherosclerotic irregularity with demonstrated calcified and non-calcified plaque at the imaged aortic arch. There is a moderate degree of focal stenosis involving the proximal left subcla vian artery due to calcified and noncalcified plaque. Mild atherosclerosis is seen at the right subc lavian artery. Motion artifact limits evaluation and distorts evaluation of the carotid arteries. Th ere is a moderate focal stenosis involving the junction at the distal right common carotid artery an d origin of the right internal carotid artery. There is prominent atherosclerotic plaque calcified a nd non-calcified involving the distal left common/proximal left cervical internal carotid artery wit h associated moderate stenosis. Suggestion of focal ectasia involving the intracranial aspect of the distal right carotid artery although [place] is not reliably assessed on the basis of this exam. There is also a component of dolichoectatic appearance of the terminal left ICA. Suggestion o f a focal high grade stenosis at the origin of the right vertebral artery which is nondominant. Eval uation of the left vertebral artery reveals atherosclerotic plaque at is proximal aspect with mild a ssociated stenosis. There is a considerable amount of degenerative change. IMPRESSION: 1. Prominent, advanced for age, vascular disease with prominent focal stenosis involving the junctio n of the distal right common and cervical right internal carotid artery as well as a prominent degre e of plaque involving the junction of the left common carotid and cervical ICA. 2. Focal high grade stenosis at origin of the right vertebral artery. 3. Prominent abnormal soft tissues at the mediastinum incompletely assessed as well as marked abnorm al soft tissue hypertrophy of the aerodigestive tract with prominent luminal attenuation at the leve l of the supraglottic larynx. For the density of the mediastinum, the possibility of periaortic benigno maame cannot be excluded and warrants close clinical management and followup imaging with dedicated C TA Thorax. Telephone call placed to patient's physician, Regino Jackson, at 1700 hours 06-20-17. POS: EMIGDIO
[2017-06-20] MEDS: Atorvastatin Calcium 40 MG TAB PO SCH (21:06)
[2017-06-21] MEDS: Levothyroxine Sodium 150 MCG TAB PO SCH (05:22)
[2017-06-21] MEDS: Sodium Chloride 0.45% 1,000 ML IV SCH (05:23)
--- NOTE | 2017-06-21 08:13 | PDOC.CTH ---
<Feliciano Mann - Last Filed: 06/21/17 17:00> Cardiology Progress Note - Objective Vital Signs Temp Pulse Resp BP Pulse Ox 06/21/17 15:30 97.9 F 79 18 116/94 H 06/21/17 11:30 98.4 F 67 20 172/101 H 92 L 06/21/17 08:30 97.5 F L 67 18 06/21/17 08:27 67 06/21/17 07:20 97.5 F L 67 18 136/95 H 93 L 06/21/17 05:21 94 L Admit Weight 224 lb 7.968 oz Weight 221 lb 6.4 oz 06/20/17 06/21/17 06/22/17 06:59 06:59 06:59 Intake Total 1190 Balance 1190 - Labs Result Diagrams: 06/20/17 04:14 06/20/17 04:14 Troponin/CKMB CK-MB (CK-2) 7.0 ng/mL (0-6.6) H* 06/15/17 11:36 Troponin I 0.076 ng/mL (< 0.028) H 06/16/17 04:27 - Assessment/Plan Pt. was seen and evaluated by me. She continues to improve. She has been ambulating in the sanchez with assistance.I agree with the A/P by the RN ADVICE. Chest is clear. CV: RRR. No significant edema. There is no indication for a pacemaker at this time. <Mayelin Hurley - Last Filed: 06/21/17 17:35> Cardiology Progress Note - Subjective The pt was seen and examined. No overnight events. No cardiac complaints. The pt can move all exts without any difficulties. - Objective Vital Signs Temp Pulse Resp BP Pulse Ox 06/21/17 07:20 97.5 F L 67 18 136/95 H 93 L 06/21/17 05:21 94 L 06/21/17 04:16 97.3 F L 69 12 186/98 H 94 L 06/20/17 23:43 97.5 F L 60 12 170/93 H 96 06/20/17 20:35 97.8 F 72 18 92 L Admit Weight 224 lb 7.968 oz Weight 221 lb 6.4 oz 06/20/17 06/21/17 06/22/17 06:59 06:59 06:59 Intake Total 1190 Balance 1190 - Physical Examination General/Neuro: alert & oriented x3 Neck: no JVD present Lungs: CTA Heart: RRR Abdomen: soft Extremities: other: (No edemas) - Telemetry Telemetry Rhythm: SR - Labs Result Diagrams: 06/20/17 04:14 06/20/17 04:14 Troponin/CKMB CK-MB (CK-2) 7.0 ng/mL (0-6.6) H* 06/15/17 11:36 Troponin I 0.076 ng/mL (< 0.028) H 06/16/17 04:27 - Assessment/Plan 1. Multiple pauses - Hx 3.9 sec pause at 0321 on 06/17/17 with low O2Sat; No more episodes of pauses 2. S/p Basal ganglia lacunar stroke - her mobility has been improved today; managed by neurologist 3. HTN - trending down slowly with current medication; cont. monitor 4. Hypothyroidism - She has tolerate Thyroid medication. She stated she will continue taking the medication with her BP med 5. Rhabdomyolysis - cont. monitor 6. myxoedema - She has tolerated thyroid medication 7. High grade stenosis in Rt vertebral artery - followed by CT surgeon YOUNG Reviewed Review of Systems - Review of Systems Constitutional: reports: no symptoms reported EENTM: reports: no symptoms reported Respiratory: reports: no symptoms reported Cardiac (ROS): reports: no symptoms reported ABD/GI: reports: no symptoms reported : reports: no symptoms reported Musculoskeletal: reports: no symptoms reported Skin: reports: no symptoms reported Neurological: reports: no symptoms reported
[2017-06-21] MEDS: Heparin 5,000 UNITS/ML VIAL SC SCH ×2 (08:27→20:34)
[2017-06-21] MEDS: Aspirin 325 mg Enteric Coated Tablet PO SCH (08:27)
[2017-06-21] MEDS: Cyanocobalamin (Vitamin B-12) 1,000 MCG TAB PO SCH (08:27)
[2017-06-21] MEDS: Docusate 100 MG CAP PO SCH ×2 (08:27→20:34)
[2017-06-21] MEDS: NIFEdipine XL 60 MG TAB PO SCH (08:27)
[2017-06-21] MEDS: Multivit, Therapeutic 1 TAB PO SCH (08:27)
[2017-06-21] MEDS: Fish Oil 1,000 MG CAP PO SCH ×2 (08:27→20:34)
--- NOTE | 2017-06-21 09:19 | CON ---
DATE OF CONSULTATION: 06/21/2017 The patient was seen in consultation by Dr. Regino Jackson for evaluation of stridor. BRIEF HISTORY: This is a 56-year-old female who was admitted for stroke-like symptoms. She has a r aspy hoarse voice. They did a CT angio as part of the stroke protocol and noticed a possible pinpoi nt airway of the glottic and superficial airway. Otherwise she reports some dyspnea on exertion and a hoarse voice that has been present for the past several years. She does have a history of signif icant smoking. PAST MEDICAL HISTORY: Hypertension, TIA/CVA. PHYSICAL EXAMINATION: GENERAL: The patient is resting fairly comfortably in the bed in no acute distress. HEENT: Voice is harsh and raspy, a mild amount of inspiratory stridor. Neck; no lymphadenopathy, n o masses. Oral cavity, pharynx and mucosa is intact. Nasal cavity is clear anteriorly. PROCEDURE: After topical anesthesia and decongestant, flexible laryngoscopy was performed at the [facility]. Nasal cavity and nasopharynx were clear. Bilateral true vocal cords were fully mobile. Pir iform sinuses, vallecula, epiglottis were all within normal limits. The tongue base appears to be w ithin normal limits as well. There is some mild posterior glottic edema and changes more cons istent with reflux than any concerning mucosal lesions. The subglottic airway that was visualized a ppears to be patent. ASSESSMENT: 1. Dysphonia likely related to history of smoking, chronic laryngitis and reflux disease, no acute airway concerns at this point. Please reconsult us for any further concerns at [phone]. 2. Also, recommend an ultrasound of thyroid and follow up as outpatient with us.
--- NOTE | 2017-06-21 13:36 | PDOC.PN ---
- Subjective Encounter Start Date: 06/21/17 Encounter Start Time: 09:00 Patient seen and examined. No new complaints. No overnight events - Objective Resuscitation Status: Resuscitation Status FULL:Full Resuscitation MAR Reviewed: Yes Vital Signs & Weight: Vital Signs (12 hours) Temp Pulse Resp BP Pulse Ox 06/21/17 11:30 98.4 F 67 20 172/101 H 92 L 06/21/17 08:30 97.5 F L 67 18 06/21/17 08:27 67 06/21/17 07:20 97.5 F L 67 18 136/95 H 93 L 06/21/17 05:21 94 L 06/21/17 04:16 97.3 F L 69 12 186/98 H 94 L Weight Admit Weight 224 lb 7.968 oz Weight 221 lb 6.4 oz I&O: 06/20/17 06/21/17 06/22/17 06:59 06:59 06:59 Intake Total 1190 Balance 1190 Result Diagrams: 06/20/17 04:14 06/20/17 04:14 EKG Reviewed by me: Yes (Tele SB) Phys Exam - Physical Examination Constitutional: NAD Respiratory: no wheezing, no rhonchi Cardiovascular: RRR, no rub Gastrointestinal: soft, non-tender, positive bowel sounds Musculoskeletal: no edema Neurological: moves all 4 limbs No new focal deficits. Psychiatric: A&O x 3 Dx/Plan (1) Acute CVA (cerebrovascular accident) Code(s): I63.9 - CEREBRAL INFARCTION, UNSPECIFIED Status: Acute Comment: Left basal ganglia lacunar stroke (2) Dyslipidemia Code(s): E78.5 - HYPERLIPIDEMIA, UNSPECIFIED Status: Chronic (3) Hypothyroidism Code(s): E03.9 - HYPOTHYROIDISM, UNSPECIFIED Status: Acute (4) Elevated troponin Code(s): R74.8 - ABNORMAL LEVELS OF OTHER SERUM ENZYMES Status: Acute Comment: prob due to Acute CVA (5) Sinus pause Code(s): I45.5 - OTHER SPECIFIED HEART BLOCK Status: Acute Comment: prob due to sleep apnea in the setting of hypothyroidism (6) Rhabdomyolysis Code(s): M62.82 - RHABDOMYOLYSIS Status: Acute Comment: prob due to hypothyroidism (7) CKD (chronic kidney disease) stage 3, GFR 30-59 ml/min Code(s): N18.3 - CHRONIC KIDNEY DISEASE, STAGE 3 (MODERATE) Status: Chronic (8) Swallowing dysfunction Code(s): R13.10 - DYSPHAGIA, UNSPECIFIED Status: Acute Comment: on modified diet (9) VALENTINA (obstructive sleep apnea) Code(s): G47.33 - OBSTRUCTIVE SLEEP APNEA (ADULT) (PEDIATRIC) Status: Suspected Comment: Needs sleep study as outpt (10) Tobacco dependence Code(s): F17.200 - NICOTINE DEPENDENCE, UNSPECIFIED, UNCOMPLICATED Status: Acute Comment: Counselled (11) Hypertension Code(s): I10 - ESSENTIAL (PRIMARY) HYPERTENSION Status: Chronic (12) Carotid stenosis Code(s): I65.29 - OCCLUSION AND STENOSIS OF UNSPECIFIED CAROTID ARTERY Status : Chronic - Plan cont current plan of care, DVT proph w/heparin, DVT proph w/SCDs * ENT input appreciated * CV following * Cont to monitor * Cont ASA/ Procardia XL/Levothyroxine * DC planning * Cont to monitor * Thyroid ultrasound per ENt rec. Review of Systems - Review of Systems Respiratory: negative: Cough, Dry, Shortness of Breath, Hemoptysis, SOB with Excertion, Pleuritic Pain, Sputum, Wheezing Cardiovascular: negative: Chest Pain, Palpitations, Orthopnea, Paroxysmal Noc. Dyspnea, Edema, Light Headedness, Other Gastrointestinal: negative: Nausea, Vomiting, Abdominal Pain, Diarrhea, Constipation, Melena, Hematochezia, Other - Medications/Allergies Allergies/Adverse Reactions: Allergies Allergy/AdvReac Type Severity Reaction Status Date / Time Penicillins Allergy Verified 06/15/17 14:48 Sulfa (Sulfonamide Allergy Verified 06/15/17 14:48 Antibiotics) Medications: Current Medications Acetaminophen (Tylenol) 650 mg PO Q4H PRN PRN Reason: Headache/Fever or Pain Last Admin: 06/20/17 02:36 Dose: 650 mg Aspirin (Ecotrin) 325 mg PO DAILY [facility] Last Admin: 06/21/17 08:27 Dose: 325 mg Atorvastatin Calcium (Lipitor) 40 mg PO HS [facility] Last Admin: 06/20/17 21:06 Dose: 40 mg Cyanocobalamin (Vitamin B-12) 1,000 mcg PO DAILY [facility] Last Admin: 06/21/17 08:27 Dose: 1,000 mcg Docusate Sodium (Colace) 100 mg PO BID [facility] Last Admin: 06/21/17 08:27 Dose: 100 mg Fish Oil (Fish Oil) 1,000 mg PO BID [facility] Last Admin: 06/21/17 08:27 Dose: 1,000 mg Heparin Sodium (Porcine) (Heparin) 5,000 units SC Q12HR [facility] Last Admin: 06/21/17 08:27 Dose: 5,000 units Hydralazine HCl (Apresoline) 10 mg SLOW IVP Q4H PRN PRN Reason: BP > 180 Last Admin: 06/17/17 00:36 Dose: 10 mg Levothyroxine Sodium (Synthroid) 150 mcg PO 0600 [facility] Last Admin: 06/21/17 05:22 Dose: 150 mcg Multivitamins (Theragran) 1 tab PO DAILY [facility] Last Admin: 06/21/17 08:27 Dose: 1 tab Nifedipine (Procardia Xl) 60 mg PO DAILY [facility] Last Admin: 06/21/17 08:27 Dose: 60 mg Nitroglycerin (Nitrostat) 0.4 mg PO Q5MIN PRN PRN Reason: Chest Pain Ondansetron HCl (Zofran Odt) 4 mg PO Q6H PRN PRN Reason: Nausea/Vomiting Ondansetron HCl (Zofran) 4 mg IVP Q6H PRN PRN Reason: Nausea/Vomiting Senna (Senokot) 2 tab PO HSPRN PRN PRN Reason: Constipation Sodium Chloride (Flush - Normal Saline) 10 ml IVF Q12HR [facility] Last Admin: 06/21/17 08:27 Dose: Not Given Sodium Chloride (Flush - Normal Saline) 10 ml IVF PRN PRN PRN Reason: Saline Flush
--- NOTE | 2017-06-21 14:26 | ULT ---
THYROID ULTRASOUND: DATE: 06/21/17. COMPARISON: None. HISTORY: Hypothyroidism, abnormal TSH levels. Neck swelling. TECHNIQUE: Multiplanar, pizarro scale sonographic imaging of the thyroid gland obtained. FINDINGS: The thyroid parenchyma is heterogeneous in echotexture, with diffuse decreased echogenicity noted. The right lobe of the thyroid gland measures 2.0 x 4.5 x 2.1 cm. The left lobe of the thyroid gland measures 1.5 x 4.3 x 1.4 cm. The thyroid isthmus measures 3 mm in AP dimension. No discrete thyro id nodule is seen. IMPRESSION: Diffuse mild heterogeneity of the thyroid parenchyma with no discrete thyroid nodule seen. POS: AMANDEEPH
--- NOTE | 2017-06-21 18:38 | CON ---
DATE OF CONSULTATION: 06/21/2017 SERVICE: Pulmonary Medicine. REASON FOR CONSULTATION: Abnormal CT findings. HISTORY OF PRESENT ILLNESS: The patient is a 57-year-old white female with past medical history sig nificant for tobacco abuse and gastroesophageal reflux disease. She was in her usual state of healt h when she presented to the hospital with stroke type symptoms. During the course of the hospital s bala, multiple studies were performed which ultimately led to additional things that needed to be wor ked up. On this particular instance, she was being worked up for her stroke and an image of the nec k was performed demonstrating some diffuse thickening of the larynx and supraglottic structures. EN T evaluation suggested that all the findings looked consistent with Alonzo's edema. Outpatient foll owup was indicated. She was also witnessed to have horrendous episodes of sleep apnea resulting in intermittent hypoxemia and sinus pauses. She has been long thought to have obstructive sleep apnea and has been asked to undergo outpatient polysomnogram. Unfortunately, she has never been able to a fford this type of procedure and is completely unfunded presently. She admits to me that she has ac tually never looked into getting on any health insurance program. Otherwise, she is slowly returnin g to her usual state of health and she has no specific complaints. PAST MEDICAL HISTORY: 1. Hypertension. 2. History of stroke. 3. Peripheral vascular disease. 4. Sinus pauses. 5. Obstructive sleep apnea, suspected. 6. Gastroesophageal reflux disease. PAST SURGICAL HISTORY: Hernia repair. SOCIAL HISTORY: The patient smokes a half pack a day and has done so for the better part of 40 year s. She denies any significant alcohol use. She denies illicit drug use at this time. FAMILY HISTORY: Noncontributory. ALLERGIES: PENICILLIN, SULFA. MEDICATIONS: List of inpatient medications were reviewed. No updates were made at this time. REVIEW OF SYSTEMS: General, head, ears, eyes, nose, throat, cardiovascular, respiratory, GI, , mu sculoskeletal, neurologic and skin is negative except as mentioned in the HPI. In particular, she h as no difficulty breathing, or cough outside of when she is eating. LABORATORY DATA: CBC is unremarkable other than a hemoglobin of 11.7. Creatinine 1.29 stable. Bas ic metabolic profile is otherwise unremarkable. CK 1368 which is down trending since presentation. Troponin is down trending to 0.076. Liver function studies were previously unremarkable. TSH was quite elevated with a T4 that was extraordinarily low. BNP was unremarkable. INR 1.0. IMAGIN. Thyroid ultrasound demonstrates a heterogeneous thyroid without any discrete nodules identified. 2. CTA of the head and neck demonstrates diffuse edema of the aerodigestive tract limited to the la rynx and supraglottic structures. There is no significant involvement of the trachea so far as I ca n tell. 3. Modified barium swallow demonstrates no evidence of penetration or aspiration. The swallow was slightly delayed. With cracker, she had minimal penetration with no aspiration. 4. MRI of the brain demonstrates subacute appearing lacunar infarct involving the left basal gangli a. Mild chronic ischemic changes are otherwise present. 5. Echocardiogram demonstrates an ejection fraction of 50-55% with moderate concentric left ventric ular hypertrophy. Small valvular abnormalities are otherwise identified. 6. Carotid Doppler demonstrates moderate narrowing of the proximal right ICA. 7. Chest x-ray demonstrates bibasilar atelectasis with no other acute cardiopulmonary abnormality. ASSESSMENT: 1. Alonzo's edema. 2. Obstructive sleep apnea, suspected. 3. Hypothyroidism, new diagnosis. 4. Peripheral vascular disease. 5. Sinus pauses. PLAN: The patient will require an outpatient polysomnogram to evaluate her sleep apnea. Most of th e edema that were identifying in the head and neck region is limited to the larynx and supraglottic structures and includes the digestive tract including proximal esophagus. Based on ENT''s evaluatio n, it is consistent with reflux disease and there is no discrete lesion that needs to be sampled. F urthermore, they were able to minimally see some of the trachea. They said that the glottic structu res were not involved. Based on my review of the CT scan, it does not look as though the trachea is edematous. Furthermore, she does not have any symptoms of difficulty breathing or cough that would be suggestive of a tracheal issue. I have asked for the patient to look into whether or not she co uld qualify for any resources in the outpatient setting. I will have case management work with the patient to see if they can find her an insurance program that she may qualify for her. If not, we w ill see if [facility] can arrange for an outpatient polysomnogram through one of their programs that may be available. I have asked her to follow up with me in the outpatient setting and that is her responsibility in order to set that appointment up. At this point, she has no further requirement f or inpatient pulmonary or critical care opinion. As such, I will sign off. Please call with additi onal questions or concerns moving forward.
[2017-06-21] MEDS: Atorvastatin Calcium 40 MG TAB PO SCH (20:34)
[2017-06-22] MEDS: Acetaminophen 325 MG TAB PO PRN (01:44)
[2017-06-22] MEDS: Levothyroxine Sodium 150 MCG TAB PO SCH (05:33)
[2017-06-22] MEDS: Heparin 5,000 UNITS/ML VIAL SC SCH ×2 (09:20→20:25)
[2017-06-22] MEDS: Docusate 100 MG CAP PO SCH ×2 (09:20→20:25)
[2017-06-22] MEDS: Cyanocobalamin (Vitamin B-12) 1,000 MCG TAB PO SCH (09:21)
[2017-06-22] MEDS: Fish Oil 1,000 MG CAP PO SCH ×2 (09:21→20:25)
[2017-06-22] MEDS: NIFEdipine XL 60 MG TAB PO SCH (09:21)
[2017-06-22] MEDS: Aspirin 325 mg Enteric Coated Tablet PO SCH (09:21)
[2017-06-22] MEDS: Multivit, Therapeutic 1 TAB PO SCH (09:22)
--- NOTE | 2017-06-22 10:02 | PDOC.CTH ---
<Mayelin Hurley - Last Filed: 06/22/17 10:03> Cardiology Progress Note - Subjective The pt was seen and examined. No cardiac complaints. Total 4 pauses overnight , longest was 4.7 sec at 0648. The pt was sleeping at that time. She walked 200ft without losing balance yesterday. - Objective Vital Signs Temp Pulse Resp BP Pulse Ox 06/22/17 09:21 70 06/22/17 08:00 97.7 F 70 18 177/101 H 93 L 06/22/17 06:59 93 L 06/22/17 03:43 97.7 F 79 16 151/109 H 91 L 06/21/17 23:38 97.7 F 63 14 153/93 H 93 L Admit Weight 224 lb 7.968 oz Weight 212 lb 6.4 oz 06/21/17 06/22/17 06/23/17 06:59 06:59 06:59 Intake Total 1190 1440 Balance 1190 1440 - Physical Examination General/Neuro: alert & oriented x3 Neck: no JVD present Lungs: CTA Heart: RRR Abdomen: soft Extremities: other: (No edemas) - Telemetry Telemetry Rhythm: SR - Labs Result Diagrams: 06/20/17 04:14 06/20/17 04:14 Troponin/CKMB CK-MB (CK-2) 7.0 ng/mL (0-6.6) H* 06/15/17 11:36 Troponin I 0.076 ng/mL (< 0.028) H 06/16/17 04:27 - Assessment/Plan 1. Multiple pauses - Multiple pauses overnight until this AM, longest was 4.7 sec pause at 0648 today. The pt was asymptomatic. 2. S/p Basal ganglia lacunar stroke - her mobility has been improved today; Per PT, she walked 200ft without any abnormalities. managed by neurologist 3. HTN - trending down slowly with current medication; cont. monitor 4. Hypothyroidism - She has tolerate Thyroid medication. She stated she will continue taking the medication with her BP med 5. Rhabdomyolysis - cont. monitor 6. myxoedema - She has tolerated thyroid medication 7. 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 Sleep Apnea - Sleep study as outpt per Derrick Car Operator 9. Tobocco abuse - Smoking cessation education given MAR Reviewed Review of Systems - Review of Systems Constitutional: reports: no symptoms reported EENTM: reports: no symptoms reported Respiratory: reports: no symptoms reported Cardiac (ROS): reports: no symptoms reported ABD/GI: reports: no symptoms reported : reports: no symptoms reported Musculoskeletal: reports: no symptoms reported <Feliciano Mann - Last Filed: 06/22/17 15:41> Cardiology Progress Note - Objective Vital Signs Temp Pulse Pulse Pulse Resp BP BP 06/22/17 15:36 97.7 F 73 18 06/22/17 11:35 97.9 F 67 18 06/22/17 09:21 70 06/22/17 08:42 77 77 202/111 H 156/101 H 06/22/17 08:00 97.7 F 70 18 06/22/17 06:59 06/22/17 03:43 97.7 F 79 16 BP Pulse Ox 06/22/17 15:36 132/69 91 L 06/22/17 11:35 139/73 92 L 06/22/17 09:21 06/22/17 08:42 06/22/17 08:00 177/101 H 93 L 06/22/17 06:59 93 L 06/22/17 03:43 151/109 H 91 L Admit Weight 224 lb 7.968 oz Weight 212 lb 6.4 oz 06/21/17 06/22/17 06/23/17 06:59 06:59 06:59 Intake Total 1190 1440 Balance 1190 1440 - Labs Result Diagrams: 06/20/17 04:14 06/20/17 04:14 Troponin/CKMB CK-MB (CK-2) 7.0 ng/mL (0-6.6) H* 06/15/17 11:36 Troponin I 0.076 ng/mL (< 0.028) H 06/16/17 04:27 - Assessment/Plan Pt. seen and evaluated by me.I agree with the A/P by the RIGGING SUPERVISOR.The only time the pt. has pauses is when she is sleeping. She appears to have sleep apnea. I would like to see if the pauses resolve with a CPAP mask.If not, the she will need a pacemaker. Overall she seems to be doing better. She is ambulating and the edema is decreasing.
--- NOTE | 2017-06-22 20:18 | PDOC.PN ---
- Subjective Encounter Start Date: 06/22/17 Encounter Start Time: 10:00 Patient seen and examined. No new complaints. No overnight events. Feels better - Objective Resuscitation Status: Resuscitation Status FULL:Full Resuscitation MAR Reviewed: Yes Vital Signs & Weight: Vital Signs (12 hours) Temp Pulse Pulse Pulse Resp BP BP 06/22/17 19:37 97.5 F L 71 18 06/22/17 15:36 97.7 F 73 18 06/22/17 13:35 86 76 147/83 H 169/82 H 06/22/17 11:35 97.9 F 67 18 06/22/17 09:21 70 06/22/17 08:42 77 77 202/111 H 156/101 H BP Pulse Ox Pulse Ox Pulse Ox 06/22/17 19:37 126/74 90 L 06/22/17 15:36 132/69 91 L 06/22/17 13:35 92 L 96 06/22/17 11:35 139/73 92 L 06/22/17 09:21 06/22/17 08:42 Weight Admit Weight 224 lb 7.968 oz Weight 212 lb 6.4 oz I&O: 06/21/17 06/22/17 06/23/17 06:59 06:59 06:59 Intake Total 1190 1440 700 Balance 1190 1440 700 Result Diagrams: 06/20/17 04:14 06/20/17 04:14 EKG Reviewed by me: Yes (Tele SB/pause) Phys Exam - Physical Examination Constitutional: NAD Respiratory: no wheezing, no rhonchi Cardiovascular: RRR, no rub Gastrointestinal: soft, non-tender, positive bowel sounds Musculoskeletal: no edema Neurological: moves all 4 limbs no new focal def. Dx/Plan (1) Acute CVA (cerebrovascular accident) Code(s): I63.9 - CEREBRAL INFARCTION, UNSPECIFIED Status: Acute Comment: Left basal ganglia lacunar stroke - started on ASA (2) Dyslipidemia Code(s): E78.5 - HYPERLIPIDEMIA, UNSPECIFIED Status: Chronic (3) Hypothyroidism Code(s): E03.9 - HYPOTHYROIDISM, UNSPECIFIED Status: Acute Comment: Started on Levothyroxine this admission (4) Elevated troponin Code(s): R74.8 - ABNORMAL LEVELS OF OTHER SERUM ENZYMES Status: Acute Comment: prob due to Acute CVA (5) Sinus pause Code(s): I45.5 - OTHER SPECIFIED HEART BLOCK Status: Acute Comment: prob due to sleep apnea in the setting of hypothyroidism (6) Rhabdomyolysis Code(s): M62.82 - RHABDOMYOLYSIS Status: Acute Comment: prob due to hypothyroidism (7) CKD (chronic kidney disease) stage 3, GFR 30-59 ml/min Code(s): N18.3 - CHRONIC KIDNEY DISEASE, STAGE 3 (MODERATE) Status: Chronic (8) Swallowing dysfunction Code(s): R13.10 - DYSPHAGIA, UNSPECIFIED Status: Acute Comment: on modified diet (9) VALENTINA (obstructive sleep apnea) Code(s): G47.33 - OBSTRUCTIVE SLEEP APNEA (ADULT) (PEDIATRIC) Status: Suspected Comment: Needs sleep study as outpt (10) Tobacco dependence Code(s): F17.200 - NICOTINE DEPENDENCE, UNSPECIFIED, UNCOMPLICATED Status: Acute Comment: Counselled (11) Hypertension Code(s): I10 - ESSENTIAL (PRIMARY) HYPERTENSION Status: Chronic (12) Carotid stenosis Code(s): I65.29 - OCCLUSION AND STENOSIS OF UNSPECIFIED CAROTID ARTERY Status : Chronic Comment: on ASA (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 - OTHER DISEASES OF VOCAL CORDS Status: Acute - Plan cont current plan of care, PT/OT, aids social worker, speech therapy, DVT proph w/ heparin, DVT proph w/SCDs * Cont current meds includingASA/ Procardia XL/Levothyroxine * DC planning - Await Rehab input * Cont to monitor Review of Systems - Review of Systems Respiratory: negative: Cough, Dry, Shortness of Breath, Hemoptysis, SOB with Excertion, Pleuritic Pain, Sputum, Wheezing Cardiovascular: negative: Chest Pain, Palpitations, Orthopnea, Paroxysmal Noc. Dyspnea, Edema, Light Headedness, Other Gastrointestinal: negative: Nausea, Vomiting, Abdominal Pain, Diarrhea, Constipation, Melena, Hematochezia, Other - Medications/Allergies Allergies/Adverse Reactions: Allergies Allergy/AdvReac Type Severity Reaction Status Date / Time Penicillins Allergy Verified 06/15/17 14:48 Sulfa (Sulfonamide Allergy Verified 06/15/17 14:48 Antibiotics) Medications: Current Medications Acetaminophen (Tylenol) 650 mg PO Q4H PRN PRN Reason: Headache/Fever or Pain Last Admin: 06/22/17 01:44 Dose: 650 mg Aspirin (Ecotrin) 325 mg PO DAILY [facility] Last Admin: 06/22/17 09:21 Dose: 325 mg Atorvastatin Calcium (Lipitor) 40 mg PO HS [facility] Last Admin: 06/21/17 20:34 Dose: 40 mg Cyanocobalamin (Vitamin B-12) 1,000 mcg PO DAILY [facility] Last Admin: 06/22/17 09:21 Dose: 1,000 mcg Docusate Sodium (Colace) 100 mg PO BID [facility] Last Admin: 06/22/17 09:20 Dose: 100 mg Fish Oil (Fish Oil) 1,000 mg PO BID [facility] Last Admin: 06/22/17 09:21 Dose: 1,000 mg Heparin Sodium (Porcine) (Heparin) 5,000 units SC Q12HR [facility] Last Admin: 06/22/17 09:20 Dose: 5,000 units Hydralazine HCl (Apresoline) 10 mg SLOW IVP Q4H PRN PRN Reason: BP > 180 Last Admin: 06/17/17 00:36 Dose: 10 mg Levothyroxine Sodium (Synthroid) 150 mcg PO 0600 [facility] Last Admin: 06/22/17 05:33 Dose: 150 mcg Multivitamins (Theragran) 1 tab PO DAILY [facility] Last Admin: 06/22/17 09:22 Dose: 1 tab Nifedipine (Procardia Xl) 60 mg PO DAILY [facility] Last Admin: 06/22/17 09:21 Dose: 60 mg Nitroglycerin (Nitrostat) 0.4 mg PO Q5MIN PRN PRN Reason: Chest Pain Ondansetron HCl (Zofran Odt) 4 mg PO Q6H PRN PRN Reason: Nausea/Vomiting Ondansetron HCl (Zofran) 4 mg IVP Q6H PRN PRN Reason: Nausea/Vomiting Senna (Senokot) 2 tab PO HSPRN PRN PRN Reason: Constipation Sodium Chloride (Flush - Normal Saline) 10 ml IVF Q12HR [facility] Last Admin: 06/22/17 20:16 Dose: Not Given Sodium Chloride (Flush - Normal Saline) 10 ml IVF PRN PRN PRN Reason: Saline Flush
[2017-06-22] MEDS: Atorvastatin Calcium 40 MG TAB PO SCH (20:25)
[2017-06-23] MEDS: Levothyroxine Sodium 150 MCG TAB PO SCH (05:05)
[2017-06-23] MEDS: NIFEdipine XL 60 MG TAB PO SCH (08:13)
[2017-06-23] MEDS: Cyanocobalamin (Vitamin B-12) 1,000 MCG TAB PO SCH (08:14)
[2017-06-23] MEDS: Aspirin 325 mg Enteric Coated Tablet PO SCH (08:14)
[2017-06-23] MEDS: Docusate 100 MG CAP PO SCH ×2 (08:15→20:57)
[2017-06-23] MEDS: Heparin 5,000 UNITS/ML VIAL SC SCH ×2 (08:16→20:59)
[2017-06-23] MEDS: Fish Oil 1,000 MG CAP PO SCH ×2 (08:18→21:00)
[2017-06-23] MEDS: Multivit, Therapeutic 1 TAB PO SCH (08:19)
[2017-06-23] MEDS: Acetaminophen 325 MG TAB PO PRN (08:19)
--- NOTE | 2017-06-23 08:35 | PDOC.CTH ---
<Mayelin Hurley - Last Filed: 06/23/17 08:28> Cardiology Progress Note - Subjective The pt was seen and examined. No cardiac complaints. No pauses overnight last night; however, her HR dropped to 30s early this AM. Asymptomatic. She could not tolerate Nasal CPAP last night due to burning like discomfort. She would like to try full mask CPAP tonight. - Objective Vital Signs Temp Pulse Resp BP BP Pulse Ox 06/23/17 08:13 65 134/80 06/23/17 07:14 98.0 F 65 16 134/80 93 L 06/23/17 06:34 92 L 06/23/17 03:49 97.5 F L 61 16 126/72 90 L 06/23/17 00:13 97.4 F L 77 16 139/78 93 L Admit Weight 224 lb 7.968 oz Weight 216 lb 11.2 oz 06/22/17 06/23/17 06/24/17 06:59 06:59 06:59 Intake Total 1440 1420 Balance 1440 1420 - Physical Examination General/Neuro: alert & oriented x3 Neck: no JVD present Lungs: CTA Heart: RRR Abdomen: soft Extremities: other: (No edemas) - Telemetry Telemetry Rhythm: SR 70s - Labs Result Diagrams: 06/20/17 04:14 06/20/17 04:14 Troponin/CKMB CK-MB (CK-2) 7.0 ng/mL (0-6.6) H* 06/15/17 11:36 Troponin I 0.076 ng/mL (< 0.028) H 06/16/17 04:27 - Assessment/Plan 1. Hx of Multiple pauses - longest was 4.7 sec pause at 0648 on 06/22/17. No pauses overnight last night; however, HR dropped to 30s early this AM. The pt was asymptomatic during the episodes. She could not tolerate nasal CPAP last night. Change to Full mask CPAP. Sleep Apnea education given to the pt. 2. S/p Basal ganglia lacunar stroke - her mobility has been improved today; Per Pt, she walked 230ft without any abnormalities yesterday; managed by neurologist 3. HTN - trending down slowly with current medication; cont. monitor 4. Hypothyroidism - She has tolerate Thyroid medication. Re-educated the benefit of thyroid medication to the pt today 5. Rhabdomyolysis - stable; cont. monitor 6. myxoedema - She has tolerated thyroid medication 7. 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 Sleep Apnea - Sleep study as outpt per Food Services Manager; Strongly recommend to wear CPAP overnight. The pt agreed to wear CPAP with Full mask. 9. Tobocco abuse - Smoking cessation education given MAR Reviewed Review of Systems - Review of Systems Constitutional: reports: see HPI EENTM: reports: no symptoms reported Respiratory: reports: see HPI Cardiac (ROS): reports: no symptoms reported ABD/GI: reports: no symptoms reported : reports: no symptoms reported Musculoskeletal: reports: no symptoms reported Skin: reports: no symptoms reported Neurological: reports: no symptoms reported <Feliciano Mann - Last Filed: 06/23/17 19:05> Cardiology Progress Note - Subjective Pt. seen and eval. by me. I agree with the A/P by the ALMOND HULLER. The pt. says she feels better overall and will try again to wear the CPAP mask. Chest clear, RRR. - Objective Vital Signs Temp Pulse Pulse Pulse Resp BP BP 06/23/17 15:17 98.4 F 79 20 06/23/17 11:09 98.1 F 71 20 06/23/17 08:41 69 69 183/82 H 06/23/17 08:13 65 134/80 06/23/17 08:00 98.0 F 65 16 06/23/17 07:14 98.0 F 65 16 BP BP Pulse Ox 06/23/17 15:17 175/91 H 92 L 06/23/17 11:09 125/86 94 L 06/23/17 08:41 144/97 H 06/23/17 08:13 06/23/17 08:00 97 06/23/17 07:14 134/80 93 L Admit Weight 224 lb 7.968 oz Weight 216 lb 11.2 oz 06/22/17 06/23/17 06/24/17 06:59 06:59 06:59 Intake Total 1440 1420 680 Balance 1440 1420 680 - Labs Result Diagrams: 06/20/17 04:14 06/20/17 04:14 Troponin/CKMB CK-MB (CK-2) 7.0 ng/mL (0-6.6) H* 06/15/17 11:36 Troponin I 0.076 ng/mL (< 0.028) H 06/16/17 04:27
--- NOTE | 2017-06-23 15:45 | PDOC.PN ---
- Subjective Encounter Start Date: 06/23/17 Encounter Start Time: 12:00 Patient seen and examined. No new complaints. No overnight events. - Objective Resuscitation Status: Resuscitation Status FULL:Full Resuscitation MAR Reviewed: Yes Vital Signs & Weight: Vital Signs (12 hours) Temp Pulse Pulse Pulse Resp BP BP 06/23/17 15:17 98.4 F 79 20 06/23/17 11:09 98.1 F 71 20 06/23/17 08:41 69 69 183/82 H 06/23/17 08:13 65 134/80 06/23/17 08:00 98.0 F 65 16 06/23/17 07:14 98.0 F 65 16 06/23/17 06:34 06/23/17 03:49 97.5 F L 61 16 BP BP Pulse Ox 06/23/17 15:17 175/91 H 92 L 06/23/17 11:09 125/86 94 L 06/23/17 08:41 144/97 H 06/23/17 08:13 06/23/17 08:00 97 06/23/17 07:14 134/80 93 L 06/23/17 06:34 92 L 06/23/17 03:49 126/72 90 L Weight Admit Weight 224 lb 7.968 oz Weight 216 lb 11.2 oz I&O: 06/22/17 06/23/17 06/24/17 06:59 06:59 06:59 Intake Total 1440 1420 Balance 1440 1420 Result Diagrams: 06/20/17 04:14 06/20/17 04:14 EKG Reviewed by me: Yes (Tele SB earlier) Phys Exam - Physical Examination Constitutional: NAD Respiratory: no wheezing, no rhonchi Cardiovascular: RRR, no rub Gastrointestinal: soft, non-tender, positive bowel sounds Musculoskeletal: no edema Neurological: non-focal, moves all 4 limbs Dx/Plan (1) Acute CVA (cerebrovascular accident) Code(s): I63.9 - CEREBRAL INFARCTION, UNSPECIFIED Status: Acute Comment: Left basal ganglia lacunar stroke - started on ASA (2) Dyslipidemia Code(s): E78.5 - HYPERLIPIDEMIA, UNSPECIFIED Status: Chronic Comment: on Statins (3) Hypothyroidism Code(s): E03.9 - HYPOTHYROIDISM, UNSPECIFIED Status: Acute Comment: Started on Levothyroxine this admission (4) Elevated troponin Code(s): R74.8 - ABNORMAL LEVELS OF OTHER SERUM ENZYMES Status: Acute Comment: prob due to Acute CVA (5) Sinus pause Code(s): I45.5 - OTHER SPECIFIED HEART BLOCK Status: Acute Comment: prob due to sleep apnea in the setting of hypothyroidism (6) Rhabdomyolysis Code(s): M62.82 - RHABDOMYOLYSIS Status: Acute Comment: prob due to hypothyroidism (7) CKD (chronic kidney disease) stage 3, GFR 30-59 ml/min Code(s): N18.3 - CHRONIC KIDNEY DISEASE, STAGE 3 (MODERATE) Status: Chronic (8) Swallowing dysfunction Code(s): R13.10 - DYSPHAGIA, UNSPECIFIED Status: Acute Comment: on modified diet (9) VALENTINA (obstructive sleep apnea) Code(s): G47.33 - OBSTRUCTIVE SLEEP APNEA (ADULT) (PEDIATRIC) Status: Suspected Comment: Needs sleep study as outpt, Unable to tolerate CPAP last night (10) Tobacco dependence Code(s): F17.200 - NICOTINE DEPENDENCE, UNSPECIFIED, UNCOMPLICATED Status: Acute Comment: Counselled (11) Hypertension Code(s): I10 - ESSENTIAL (PRIMARY) HYPERTENSION Status: Chronic (12) Carotid stenosis Code(s): I65.29 - OCCLUSION AND STENOSIS OF UNSPECIFIED CAROTID ARTERY Status : Chronic Comment: on ASA (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 - OTHER DISEASES OF VOCAL CORDS Status: Chronic - Plan cont current plan of care, PT/OT, social worker psychiatric, speech therapy, DVT proph w/ heparin, DVT proph w/SCDs * Cont supportive care * AM labs * DC to Rehab if accepted and cleared by Cardiology * CPAP trial tonight - autopap Review of Systems - Review of Systems Respiratory: negative: Cough, Dry, Shortness of Breath, Hemoptysis, SOB with Excertion, Pleuritic Pain, Sputum, Wheezing Cardiovascular: negative: Chest Pain, Palpitations, Orthopnea, Paroxysmal Noc. Dyspnea, Edema, Light Headedness, Other Gastrointestinal: negative: Nausea, Vomiting, Abdominal Pain, Diarrhea, Constipation, Melena, Hematochezia, Other - Medications/Allergies Allergies/Adverse Reactions: Allergies Allergy/AdvReac Type Severity Reaction Status Date / Time Penicillins Allergy Verified 06/15/17 14:48 Sulfa (Sulfonamide Allergy Verified 06/15/17 14:48 Antibiotics) Medications: Current Medications Acetaminophen (Tylenol) 650 mg PO Q4H PRN PRN Reason: Headache/Fever or Pain Last Admin: 06/23/17 08:19 Dose: 650 mg Aspirin (Ecotrin) 325 mg PO DAILY [facility] Last Admin: 06/23/17 08:14 Dose: 325 mg Atorvastatin Calcium (Lipitor) 40 mg PO HS [facility] Last Admin: 06/22/17 20:25 Dose: 40 mg Cyanocobalamin (Vitamin B-12) 1,000 mcg PO DAILY [facility] Last Admin: 06/23/17 08:14 Dose: 1,000 mcg Docusate Sodium (Colace) 100 mg PO BID [facility] Last Admin: 06/23/17 08:15 Dose: 100 mg Famotidine (Pepcid) 20 mg PO BID [facility] Fish Oil (Fish Oil) 1,000 mg PO BID [facility] Last Admin: 06/23/17 08:18 Dose: 1,000 mg Heparin Sodium (Porcine) (Heparin) 5,000 units SC Q12HR [facility] Last Admin: 06/23/17 08:16 Dose: 5,000 units Hydralazine HCl (Apresoline) 10 mg SLOW IVP Q4H PRN PRN Reason: BP > 180 Last Admin: 06/17/17 00:36 Dose: 10 mg Levothyroxine Sodium (Synthroid) 150 mcg PO 0600 [facility] Last Admin: 06/23/17 05:05 Dose: 150 mcg Multivitamins (Theragran) 1 tab PO DAILY [facility] Last Admin: 06/23/17 08:19 Dose: 1 tab Nifedipine (Procardia Xl) 60 mg PO DAILY [facility] Last Admin: 06/23/17 08:13 Dose: 60 mg Nitroglycerin (Nitrostat) 0.4 mg PO Q5MIN PRN PRN Reason: Chest Pain Ondansetron HCl (Zofran Odt) 4 mg PO Q6H PRN PRN Reason: Nausea/Vomiting Ondansetron HCl (Zofran) 4 mg IVP Q6H PRN PRN Reason: Nausea/Vomiting Senna (Senokot) 2 tab PO HSPRN PRN PRN Reason: Constipation Sodium Chloride (Flush - Normal Saline) 10 ml IVF Q12HR [facility] Last Admin: 06/23/17 08:24 Dose: Not Given Sodium Chloride (Flush - Normal Saline) 10 ml IVF PRN PRN PRN Reason: Saline Flush
[2017-06-23] MEDS: Famotidine 20 MG TAB PO SCH (20:59)
[2017-06-23] MEDS: Atorvastatin Calcium 40 MG TAB PO SCH (20:59)
[2017-06-24] MEDS: Acetaminophen 325 MG TAB PO PRN (02:24)
[2017-06-24] MEDS: Levothyroxine Sodium 150 MCG TAB PO SCH (05:35)
[2017-06-24 06:04] LABS: Hematocrit 35.2 % (36.0-47.0)
[2017-06-24 06:21] LABS: Anion Gap 19 mmol/L (10-20); BUN (Urea Nitrogen) 18 mg/dL (9.8-20.1); CK (CPK) 1236 U/L (29-168); Calc. Creatinine Clearance 94 mL/min (70-130); Calcium 9.9 mg/dL (7.8-10.44); Carbon Dioxide 25 mmol/L (22-29); Chloride 97 mmol/L (98-107); Estimated GFR-MDRD 55; Magnesium 2.4 mg/dL (1.6-2.6)
--- NOTE | 2017-06-24 08:23 | PDOC.CTH ---
<Mayelin Hurley - Last Filed: 06/24/17 08:19> Cardiology Progress Note - Subjective The pt was seen and examined. No overnight events. No cardiac complaints. She could tolerate Nasal CPAP for 3 hours last night. Multiple pauses last night, 2.7-3.9 sec. The pt was asymptomatic. - Objective Vital Signs Temp Pulse Resp BP Pulse Ox 06/24/17 04:00 98.0 F 72 16 133/85 93 L 06/23/17 23:48 98.3 F 71 16 124/75 94 L 06/23/17 20:52 98.3 F 71 16 94 L 06/23/17 20:45 97.7 F 73 20 108/71 92 L Admit Weight 224 lb 7.968 oz Weight 216 lb 11.2 oz 06/23/17 06/24/17 06/25/17 06:59 06:59 06:59 Intake Total 1420 1160 Output Total 2 Balance 1420 1158 - Physical Examination General/Neuro: alert & oriented x3 Neck: no JVD present Lungs: CTA Heart: RRR Abdomen: soft Extremities: other: (No edemas) - Telemetry Telemetry Rhythm: SR 66; hx of SB 30-40s - Labs Result Diagrams: 06/24/17 05:27 06/24/17 05:27 Troponin/CKMB CK-MB (CK-2) 7.0 ng/mL (0-6.6) H* 06/15/17 11:36 Troponin I 0.076 ng/mL (< 0.028) H 06/16/17 04:27 - Assessment/Plan 1. Hx of Multiple pauses - Mulpitple pauses overlast night, from 2.7-3.9 sec. with Bradycardia from 30-40s. The pt was asymptomatic during the episodes. She was on nasal Cpap about 3 hrs. Possible Change to Full mask CPAP tonight. Sleep Apnea education given to the pt. 2. S/p Basal ganglia lacunar stroke - her mobility has been improved. Managed by neurologist 3. HTN - stable with current medication; cont. monitor 4. Hypothyroidism - on Thyroid medication. 5. Rhabdomyolysis - stable; cont. monitor 6. 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 Sleep Apnea - Sleep study as outpt per Change Management Specialist; Strongly recommend to wear Facial CPAP overnight. 9. Tobocco abuse - Smoking cessation education given MAR Reviewed <Feliciano Mann - Last Filed: 06/24/17 16:09> Cardiology Progress Note - Objective Vital Signs Temp Pulse Pulse Pulse Resp BP BP 06/24/17 12:00 98.3 F 73 20 06/24/17 09:34 72 06/24/17 09:14 77 72 188/84 H 128/75 06/24/17 08:00 98.3 F 72 20 BP Pulse Ox Pulse Ox Pulse Ox 06/24/17 12:00 147/72 H 93 L 06/24/17 09:34 06/24/17 09:14 100 82 L 06/24/17 08:00 113/75 96 Admit Weight 224 lb 7.968 oz Weight 216 lb 11.2 oz 06/23/17 06/24/17 06/25/17 06:59 06:59 06:59 Intake Total 1420 1160 960 Output Total 2 Balance 1420 1158 960 - Labs Result Diagrams: 06/24/17 05:27 06/24/17 05:27 Troponin/CKMB CK-MB (CK-2) 7.0 ng/mL (0-6.6) H* 06/15/17 11:36 Troponin I 0.076 ng/mL (< 0.028) H 06/16/17 04:27 - Assessment/Plan Pt. seen and eval. I agree with the A/P by the EXTRUSION DIE COORDINATOR.Still having pauses when sleeping, actually she has braycardia. No definite pauses. She may eventually need a pacemaker. It would be beneficial to observe if she continues to have bradycardia if she has a CPAP mask that she can wear.
[2017-06-24] MEDS: Fish Oil 1,000 MG CAP PO SCH ×2 (09:33→20:29)
[2017-06-24] MEDS: Famotidine 20 MG TAB PO SCH ×2 (09:33→20:29)
[2017-06-24] MEDS: Cyanocobalamin (Vitamin B-12) 1,000 MCG TAB PO SCH (09:33)
[2017-06-24] MEDS: Aspirin 325 mg Enteric Coated Tablet PO SCH (09:33)
[2017-06-24] MEDS: Docusate 100 MG CAP PO SCH ×2 (09:33→20:29)
[2017-06-24] MEDS: Multivit, Therapeutic 1 TAB PO SCH (09:34)
[2017-06-24] MEDS: Heparin 5,000 UNITS/ML VIAL SC SCH ×2 (09:34→20:30)
[2017-06-24] MEDS: NIFEdipine XL 60 MG TAB PO SCH (09:34)
[2017-06-24 12:44] VITALS: BMI 38.3
--- NOTE | 2017-06-24 13:00 | PDOC.PN ---
- Subjective Encounter Start Date: 06/24/17 Encounter Start Time: 10:00 Patient seen and examined. No new complaints. Overnight events noted - sinus pause last night - Objective Resuscitation Status: Resuscitation Status FULL:Full Resuscitation MAR Reviewed: Yes Vital Signs & Weight: Vital Signs (12 hours) Temp Pulse Resp BP Pulse Ox 06/24/17 12:00 98.3 F 73 20 147/72 H 93 L 06/24/17 09:34 72 06/24/17 08:00 98.3 F 72 20 113/75 96 06/24/17 04:00 98.0 F 72 16 133/85 93 L Weight Admit Weight 224 lb 7.968 oz Weight 216 lb 11.2 oz I&O: 06/23/17 06/24/17 06/25/17 06:59 06:59 06:59 Intake Total 1420 1160 480 Output Total 2 Balance 1420 1158 480 Result Diagrams: 06/24/17 05:27 06/24/17 05:27 EKG Reviewed by me: Yes (Tele SB) Phys Exam - Physical Examination Constitutional: NAD Respiratory: no wheezing, no rhonchi Cardiovascular: RRR, no rub Gastrointestinal: soft, non-tender, positive bowel sounds Neurological: moves all 4 limbs no new focal deficits. Dx/Plan (1) Acute CVA (cerebrovascular accident) Code(s): I63.9 - CEREBRAL INFARCTION, UNSPECIFIED Status: Acute Comment: Left basal ganglia lacunar stroke - started on ASA (2) Dyslipidemia Code(s): E78.5 - HYPERLIPIDEMIA, UNSPECIFIED Status: Chronic Comment: on Statins (3) Hypothyroidism Code(s): E03.9 - HYPOTHYROIDISM, UNSPECIFIED Status: Acute Comment: Started on Levothyroxine this admission (4) Elevated troponin Code(s): R74.8 - ABNORMAL LEVELS OF OTHER SERUM ENZYMES Status: Acute Comment: prob due to Acute CVA (5) Sinus pause Code(s): I45.5 - OTHER SPECIFIED HEART BLOCK Status: Acute Comment: prob due to sleep apnea in the setting of hypothyroidism (6) Rhabdomyolysis Code(s): M62.82 - RHABDOMYOLYSIS Status: Acute Comment: prob due to hypothyroidism (7) CKD (chronic kidney disease) stage 3, GFR 30-59 ml/min Code(s): N18.3 - CHRONIC KIDNEY DISEASE, STAGE 3 (MODERATE) Status: Chronic (8) Swallowing dysfunction Code(s): R13.10 - DYSPHAGIA, UNSPECIFIED Status: Acute Comment: on modified diet (9) VALENTINA (obstructive sleep apnea) Code(s): G47.33 - OBSTRUCTIVE SLEEP APNEA (ADULT) (PEDIATRIC) Status: Suspected Comment: Needs sleep study as outpt, Unable to tolerate CPAP last night (10) Tobacco dependence Code(s): F17.200 - NICOTINE DEPENDENCE, UNSPECIFIED, UNCOMPLICATED Status: Acute Comment: Counselled (11) Hypertension Code(s): I10 - ESSENTIAL (PRIMARY) HYPERTENSION Status: Chronic (12) Carotid stenosis Code(s): I65.29 - OCCLUSION AND STENOSIS OF UNSPECIFIED CAROTID ARTERY Status : Chronic Comment: on ASA (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 - OTHER DISEASES OF VOCAL CORDS Status: Chronic - Plan cont current plan of care, PT/OT, social media analyst, speech therapy, DVT proph w/ heparin, DVT proph w/SCDs * Cont current meds as below * DC to rehab if accepted if ok with Cardiology * Unable to tolerate nasal or nasal pillows CPAP * Will need Sleep study as outpt * Meds from $4 list at dc (Zehra Rendon) Review of Systems - Review of Systems Respiratory: negative: Cough, Dry, Shortness of Breath, Hemoptysis, SOB with Excertion, Pleuritic Pain, Sputum, Wheezing Cardiovascular: negative: Chest Pain, Palpitations, Orthopnea, Paroxysmal Noc. Dyspnea, Edema, Light Headedness, Other Gastrointestinal: negative: Nausea, Vomiting, Abdominal Pain, Diarrhea, Constipation, Melena, Hematochezia, Other - Medications/Allergies Allergies/Adverse Reactions: Allergies Allergy/AdvReac Type Severity Reaction Status Date / Time Penicillins Allergy Verified 06/15/17 14:48 Sulfa (Sulfonamide Allergy Verified 06/15/17 14:48 Antibiotics) Medications: Current Medications Acetaminophen (Tylenol) 650 mg PO Q4H PRN PRN Reason: Headache/Fever or Pain Last Admin: 06/24/17 02:24 Dose: 650 mg Aspirin (Ecotrin) 325 mg PO DAILY [facility] Last Admin: 06/24/17 09:33 Dose: 325 mg Atorvastatin Calcium (Lipitor) 10 mg PO [facility] Cyanocobalamin (Vitamin B-12) 1,000 mcg PO DAILY [facility] Last Admin: 06/24/17 09:33 Dose: 1,000 mcg Docusate Sodium (Colace) 100 mg PO BID [facility] Last Admin: 06/24/17 09:33 Dose: 100 mg Famotidine (Pepcid) 20 mg PO BID [facility] Last Admin: 06/24/17 09:33 Dose: 20 mg Fish Oil (Fish Oil) 1,000 mg PO BID [facility] Last Admin: 06/24/17 09:33 Dose: 1,000 mg Heparin Sodium (Porcine) (Heparin) 5,000 units SC Q12HR [facility] Last Admin: 06/24/17 09:34 Dose: 5,000 units Hydralazine HCl (Apresoline) 10 mg SLOW IVP Q4H PRN PRN Reason: BP > 180 Last Admin: 06/17/17 00:36 Dose: 10 mg Levothyroxine Sodium (Synthroid) 150 mcg PO 0600 [facility] Last Admin: 06/24/17 05:35 Dose: 150 mcg Multivitamins (Theragran) 1 tab PO DAILY [facility] Last Admin: 06/24/17 09:34 Dose: 1 tab Nifedipine (Procardia Xl) 60 mg PO DAILY [facility] Last Admin: 06/24/17 09:34 Dose: 60 mg Nitroglycerin (Nitrostat) 0.4 mg PO Q5MIN PRN PRN Reason: Chest Pain Ondansetron HCl (Zofran Odt) 4 mg PO Q6H PRN PRN Reason: Nausea/Vomiting Ondansetron HCl (Zofran) 4 mg IVP Q6H PRN PRN Reason: Nausea/Vomiting Senna (Senokot) 2 tab PO HSPRN PRN PRN Reason: Constipation Sodium Chloride (Flush - Normal Saline) 10 ml IVF Q12HR [facility] Last Admin: 06/24/17 09:35 Dose: Not Given Sodium Chloride (Flush - Normal Saline) 10 ml IVF PRN PRN PRN Reason: Saline Flush
[2017-06-24] MEDS: Atorvastatin Calcium 10 MG TAB PO SCH (20:30)
[2017-06-25] MEDS: Levothyroxine Sodium 150 MCG TAB PO SCH (05:05)
[2017-06-25] MEDS: Fish Oil 1,000 MG CAP PO SCH ×2 (09:13→20:48)
[2017-06-25] MEDS: Cyanocobalamin (Vitamin B-12) 1,000 MCG TAB PO SCH (09:13)
[2017-06-25] MEDS: NIFEdipine XL 60 MG TAB PO SCH (09:13)
[2017-06-25] MEDS: Heparin 5,000 UNITS/ML VIAL SC SCH ×2 (09:14→20:47)
[2017-06-25] MEDS: Multivit, Therapeutic 1 TAB PO SCH (09:14)
[2017-06-25] MEDS: Famotidine 20 MG TAB PO SCH ×2 (09:14→20:47)
[2017-06-25] MEDS: Docusate 100 MG CAP PO SCH ×2 (09:14→20:47)
[2017-06-25] MEDS: Aspirin 325 mg Enteric Coated Tablet PO SCH (09:14)
[2017-06-25] MEDS ORDERED: guaiFENesin ER 600 MG TAB PO SCH (11:00)
--- NOTE | 2017-06-25 11:33 | PDOC.CTH ---
<Mayelin Hurley - Last Filed: 06/25/17 12:54> Cardiology Progress Note - Subjective The pt was seen and examined. No overnight events. No cardiac complaints. She has walked for 360ft today with a walker. - Objective Vital Signs Temp Pulse Resp BP Pulse Ox 06/25/17 07:33 98.5 F 83 14 140/79 92 L 06/25/17 07:24 94 L 06/25/17 04:27 98.3 F 55 L 18 177/84 H 90 L 06/25/17 04:02 98 F 71 16 112/69 06/25/17 00:50 98 F 71 16 112/69 92 L Admit Weight 224 lb 7.968 oz Weight 216 lb 12.8 oz 06/24/17 06/25/17 06/26/17 06:59 06:59 06:59 Intake Total 1160 1560 Output Total 2 Balance 1158 1560 - Physical Examination General/Neuro: alert & oriented x3 Neck: no JVD present Lungs: CTA Heart: RRR Abdomen: soft Extremities: other: (No edema) - Telemetry Telemetry Rhythm: SR with HR 70s - Labs Result Diagrams: 06/24/17 05:27 06/24/17 05:27 Troponin/CKMB CK-MB (CK-2) 7.0 ng/mL (0-6.6) H* 06/15/17 11:36 Troponin I 0.076 ng/mL (< 0.028) H 06/16/17 04:27 - Assessment/Plan 1. Hx of Multiple pauses - No pauses, but HR down to 40-50s last night. She was on nasal Cpap about 30 minutes. Sleep Apnea education given to the pt. D/c home with 30 days EVR 2. S/p Basal ganglia lacunar stroke - her mobility has been improved. Managed by neurologist 3. HTN - stable with current medication; cont. monitor 4. Hypothyroidism - on Thyroid medication. 5. Rhabdomyolysis - stable; cont. monitor 6. myxoedema - Improving with thyroid medication 7. 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 Sleep Apnea - Sleep study as outpt per Quality Director; Strongly recommend to wear Facial CPAP overnight. 9. Tobocco abuse - Smoking cessation education given MAR Reviewed * The pt will d/c with 30 day-EVR for monitoring her HR. Review of Systems - Review of Systems Constitutional: reports: no symptoms reported EENTM: reports: no symptoms reported Respiratory: reports: no symptoms reported Cardiac (ROS): reports: no symptoms reported ABD/GI: reports: no symptoms reported : reports: no symptoms reported Musculoskeletal: reports: no symptoms reported Skin: reports: no symptoms reported Neurological: reports: no symptoms reported <Feliciano Mann - Last Filed: 06/25/17 13:34> Cardiology Progress Note - Objective Vital Signs Temp Pulse Pulse Pulse Resp BP BP 06/25/17 11:33 98.6 F 75 16 06/25/17 08:38 79 73 140/79 172/80 H 06/25/17 07:47 98.5 F 83 14 06/25/17 07:33 98.5 F 83 14 06/25/17 07:24 06/25/17 04:27 98.3 F 55 L 18 06/25/17 04:02 98 F 71 16 BP Pulse Ox Pulse Ox Pulse Ox 06/25/17 11:33 154/69 H 93 L 06/25/17 08:38 95 92 L 06/25/17 07:47 92 L 06/25/17 07:33 140/79 92 L 06/25/17 07:24 94 L 06/25/17 04:27 177/84 H 90 L 06/25/17 04:02 112/69 Admit Weight 224 lb 7.968 oz Weight 216 lb 12.8 oz 06/24/17 06/25/17 06/26/17 06:59 06:59 06:59 Intake Total 1160 1560 Output Total 2 Balance 1158 1560 - Labs Result Diagrams: 06/24/17 05:27 06/24/17 05:27 Troponin/CKMB CK-MB (CK-2) 7.0 ng/mL (0-6.6) H* 06/15/17 11:36 Troponin I 0.076 ng/mL (< 0.028) H 06/16/17 04:27 - Assessment/Plan Pt. seen and eval. I agreee with the A/P bythe LENS GENERATING MACHINE TENDER . No pacemaker indicated at this time.Event monitor may be helpful to determine if she has any symptomatic bradycardia. thus far she has had asymptomatic tiffany.
--- NOTE | 2017-06-25 12:17 | PDOC.PN ---
- Subjective Encounter Start Date: 06/25/17 Encounter Start Time: 12:16 Subjective: c/o short lasting episode of right arm weakness-few seconds -: no facial droop,speech problems -: refusing to wear CPAP - Objective Resuscitation Status: Resuscitation Status FULL:Full Resuscitation MAR Reviewed: Yes Vital Signs & Weight: Vital Signs (12 hours) Temp Pulse Resp BP Pulse Ox 06/25/17 11:33 98.6 F 75 16 154/69 H 93 L 06/25/17 07:47 98.5 F 83 14 92 L 06/25/17 07:33 98.5 F 83 14 140/79 92 L 06/25/17 07:24 94 L 06/25/17 04:27 98.3 F 55 L 18 177/84 H 90 L 06/25/17 04:02 98 F 71 16 112/69 06/25/17 00:50 98 F 71 16 112/69 92 L Weight Admit Weight 224 lb 7.968 oz Weight 216 lb 12.8 oz I&O: 06/24/17 06/25/17 06/26/17 06:59 06:59 06:59 Intake Total 1160 1560 Output Total 2 Balance 1158 1560 Result Diagrams: 06/24/17 05:27 06/24/17 05:27 Additional Labs: Laboratory Tests 06/15/17 06/15/17 06/16/17 11:42 11:42 04:27 Creatinine 1.39 H 1.23 H Creatine Kinase 1558 H Free T4 TSH 3rd Generation 99.4241 H 06/16/17 06/18/17 06/20/17 04:27 04:42 04:14 Creatinine 1.26 H 1.29 H Creatine Kinase 1462 H 1368 H Free T4 Less than 0.40 L TSH 3rd Generation 06/24/17 05:27 Creatinine 1.03 Creatine Kinase 1236 H Free T4 TSH 3rd Generation Phys Exam - Physical Examination Constitutional: NAD HEENT: PERRLA, moist MMs, sclera anicteric, oral pharynx no lesions Neck: no nodes, no JVD, supple, full ROM Respiratory: no wheezing, no rales, no rhonchi, clear to auscultation bilateral Cardiovascular: RRR, no significant murmur, no rub, gallop Gastrointestinal: soft, non-tender, no distention, positive bowel sounds Musculoskeletal: no edema, pulses present Dx/Plan (1) Acute CVA (cerebrovascular accident) Code(s): I63.9 - CEREBRAL INFARCTION, UNSPECIFIED Status: Acute Comment: Left basal ganglia lacunar stroke - started on ASA (2) Hypothyroidism Code(s): E03.9 - HYPOTHYROIDISM, UNSPECIFIED Status: Acute Comment: Started on Levothyroxine this admission (3) Rhabdomyolysis Code(s): M62.82 - RHABDOMYOLYSIS Status: Acute Comment: prob due to hypothyroidism (4) Sinus pause Code(s): I45.5 - OTHER SPECIFIED HEART BLOCK Status: Acute Comment: prob due to sleep apnea in the setting of hypothyroidism (5) Swallowing dysfunction Code(s): R13.10 - DYSPHAGIA, UNSPECIFIED Status: Acute Comment: on modified diet (6) Tobacco dependence Code(s): F17.200 - NICOTINE DEPENDENCE, UNSPECIFIED, UNCOMPLICATED Status: Acute Comment: Counselled (7) CKD (chronic kidney disease) stage 3, GFR 30-59 ml/min Code(s): N18.3 - CHRONIC KIDNEY DISEASE, STAGE 3 (MODERATE) Status: Chronic (8) Carotid stenosis Code(s): I65.29 - OCCLUSION AND STENOSIS OF UNSPECIFIED CAROTID ARTERY Status : Chronic Comment: on ASA (9) Dyslipidemia Code(s): E78.5 - HYPERLIPIDEMIA, UNSPECIFIED Status: Chronic Comment: on Statins (10) Hypertension Code(s): I10 - ESSENTIAL (PRIMARY) HYPERTENSION Status: Chronic (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 Review of Systems - Review of Systems Constitutional: negative: Fever, Chills, Sweats, Weakness, Malaise, Other Respiratory: negative: Cough, Dry, Shortness of Breath, Hemoptysis, SOB with Excertion, Pleuritic Pain, Sputum, Wheezing Cardiovascular: negative: Chest Pain, Palpitations, Orthopnea, Paroxysmal Noc. Dyspnea, Edema, Light Headedness, Other Gastrointestinal: negative: Nausea, Vomiting, Abdominal Pain, Diarrhea, Constipation, Melena, Hematochezia, Other Genitourinary: negative: Dysuria, Frequency, Incontinence, Hematuria, Retention , Other Musculoskeletal: negative: Neck Pain, Shoulder Pain, Arm Pain, Back Pain, Hand Pain, Leg Pain, Foot Pain, Other Neurological: Weakness - Medications/Allergies Allergies/Adverse Reactions: Allergies Allergy/AdvReac Type Severity Reaction Status Date / Time Penicillins Allergy Verified 06/15/17 14:48 Sulfa (Sulfonamide Allergy Verified 06/15/17 14:48 Antibiotics) Medications: Current Medications Acetaminophen (Tylenol) 650 mg PO Q4H PRN PRN Reason: Headache/Fever or Pain Last Admin: 06/24/17 02:24 Dose: 650 mg Aspirin (Ecotrin) 325 mg PO DAILY [facility] Last Admin: 06/25/17 09:14 Dose: 325 mg Atorvastatin Calcium (Lipitor) 10 mg PO HS [facility] Last Admin: 06/24/17 20:30 Dose: 10 mg Cyanocobalamin (Vitamin B-12) 1,000 mcg PO DAILY [facility] Last Admin: 06/25/17 09:13 Dose: 1,000 mcg Docusate Sodium (Colace) 100 mg PO BID [facility] Last Admin: 06/25/17 09:14 Dose: 100 mg Famotidine (Pepcid) 20 mg PO BID [facility] Last Admin: 06/25/17 09:14 Dose: 20 mg Fish Oil (Fish Oil) 1,000 mg PO BID [facility] Last Admin: 06/25/17 09:13 Dose: 1,000 mg Guaifenesin (Mucinex) 1,200 mg PO Q12HR [facility] Guaifenesin (Mucinex) 1,200 mg PO NOW [facility] Stop: 06/25/17 13:00 Last Admin: 06/25/17 11:11 Dose: 1,200 mg Heparin Sodium (Porcine) (Heparin) 5,000 units SC Q12HR [facility] Last Admin: 06/25/17 09:14 Dose: 5,000 units Hydralazine HCl (Apresoline) 10 mg SLOW IVP Q4H PRN PRN Reason: BP > 180 Last Admin: 06/17/17 00:36 Dose: 10 mg Levothyroxine Sodium (Synthroid) 150 mcg PO 0600 [facility] Last Admin: 06/25/17 05:05 Dose: 150 mcg Multivitamins (Theragran) 1 tab PO DAILY [facility] Last Admin: 06/25/17 09:14 Dose: 1 tab Nifedipine (Procardia Xl) 60 mg PO DAILY [facility] Last Admin: 06/25/17 09:13 Dose: 60 mg Nitroglycerin (Nitrostat) 0.4 mg PO Q5MIN PRN PRN Reason: Chest Pain Ondansetron HCl (Zofran Odt) 4 mg PO Q6H PRN PRN Reason: Nausea/Vomiting Ondansetron HCl (Zofran) 4 mg IVP Q6H PRN PRN Reason: Nausea/Vomiting Senna (Senokot) 2 tab PO HSPRN PRN PRN Reason: Constipation Sodium Chloride (Flush - Normal Saline) 10 ml IVF Q12HR [facility] Last Admin: 06/25/17 09:14 Dose: Not Given Sodium Chloride (Flush - Normal Saline) 10 ml IVF PRN PRN PRN Reason: Saline Flush
[2017-06-25] MEDS: Atorvastatin Calcium 10 MG TAB PO SCH (20:48)
[2017-06-25] MEDS: guaiFENesin ER 600 MG TAB PO SCH (20:49)
[2017-06-26] MEDS: Levothyroxine Sodium 150 MCG TAB PO SCH (06:04)
[2017-06-26] MEDS: Aspirin 325 mg Enteric Coated Tablet PO SCH (09:17)
[2017-06-26] MEDS: guaiFENesin ER 600 MG TAB PO SCH (09:17)
[2017-06-26] MEDS: Famotidine 20 MG TAB PO SCH (09:17)
[2017-06-26] MEDS: NIFEdipine XL 60 MG TAB PO SCH (09:17)
[2017-06-26] MEDS: Docusate 100 MG CAP PO SCH (09:17)
[2017-06-26] MEDS: Cyanocobalamin (Vitamin B-12) 1,000 MCG TAB PO SCH (09:18)
[2017-06-26] MEDS: Fish Oil 1,000 MG CAP PO SCH (09:18)
[2017-06-26] MEDS: Multivit, Therapeutic 1 TAB PO SCH (09:18)
[2017-06-26] MEDS: Heparin 5,000 UNITS/ML VIAL SC SCH (09:18)
--- NOTE | 2017-06-26 10:31 | PDOC.CTH ---
Cardiology Progress Note - Subjective The pt was seen and examined. No overnight events. No cardiac complaints. Per Tele record, no pauses but HR down to 40s at 0443 this AM. She was sleeping at that time and asymptomatic. - Objective Vital Signs Temp Pulse Resp BP Pulse Ox 06/26/17 09:17 75 06/26/17 07:17 98.0 F 75 18 162/79 H 94 L 06/26/17 06:58 94 L 06/26/17 04:16 97.7 F 78 16 173/85 H 94 L 06/25/17 23:09 98.1 F 81 16 162/85 H 93 L Admit Weight 224 lb 7.968 oz Weight 216 lb 12.8 oz 06/25/17 06/26/17 06/27/17 06:59 06:59 06:59 Intake Total 1560 1200 Balance 1560 1200 - Physical Examination General/Neuro: alert & oriented x3 Neck: no JVD present Lungs: CTA Heart: RRR Abdomen: soft Extremities: other: (No edemas) - Telemetry Telemetry Rhythm: SR - Labs Result Diagrams: 06/24/17 05:27 06/24/17 05:27 Troponin/CKMB CK-MB (CK-2) 7.0 ng/mL (0-6.6) H* 06/15/17 11:36 Troponin I 0.076 ng/mL (< 0.028) H 06/16/17 04:27 - Assessment/Plan 1. Hx of Multiple pauses - No pauses, but again HR down to 40s last night. No pacemaker indicated at this time. Sleep Apnea education given to the pt. D/c home with 30 days EVR 2. S/p Basal ganglia lacunar stroke - her mobility has been improved. Managed by neurologist 3. HTN - Start Lisinopril 10mg daily. cont. monitor 4. Hypothyroidism - on Thyroid medication. 5. Rhabdomyolysis - stable; cont. monitor 6. myxoedema - Improving with thyroid medication 7. 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 Sleep Apnea - Sleep study as outpt per Software Packaging Engineer; Strongly recommend to wear Facial CPAP overnight. 9. Tobocco abuse - Smoking cessation education given MAR Reviewed * 30 day-EVR will be sent to [facility]. Review of Systems - Review of Systems Constitutional: reports: no symptoms reported EENTM: reports: no symptoms reported Respiratory: reports: no symptoms reported Cardiac (ROS): reports: no symptoms reported ABD/GI: reports: no symptoms reported : reports: no symptoms reported Musculoskeletal: reports: no symptoms reported Skin: reports: no symptoms reported
[2017-06-26] MEDS ORDERED: Lisinopril 10 MG TAB PO SCH (11:00)
--- NOTE | 2017-06-26 11:05 | PDOC.PN ---
- Subjective Encounter Start Date: 06/26/17 Encounter Start Time: 11:04 Subjective: feels good. no new complains. mo overnight events.eager to go to rehab -: no muscle weakness - Objective Resuscitation Status: Resuscitation Status FULL:Full Resuscitation MAR Reviewed: Yes Vital Signs & Weight: Vital Signs (12 hours) Temp Pulse Resp BP Pulse Ox 06/26/17 09:17 75 06/26/17 07:17 98.0 F 75 18 162/79 H 94 L 06/26/17 06:58 94 L 06/26/17 04:16 97.7 F 78 16 173/85 H 94 L 06/25/17 23:09 98.1 F 81 16 162/85 H 93 L Weight Admit Weight 224 lb 7.968 oz Weight 216 lb 12.8 oz I&O: 06/25/17 06/26/17 06/27/17 06:59 06:59 06:59 Intake Total 1560 1200 Balance 1560 1200 Result Diagrams: 06/24/17 05:27 06/24/17 05:27 Phys Exam - Physical Examination Constitutional: NAD HEENT: PERRLA, moist MMs, sclera anicteric, oral pharynx no lesions Neck: no nodes, no JVD, supple, full ROM Respiratory: no wheezing, no rales, no rhonchi, clear to auscultation bilateral Cardiovascular: RRR, no significant murmur, no rub, gallop Gastrointestinal: soft, non-tender, no distention, positive bowel sounds Musculoskeletal: no edema, pulses present Neurological: non-focal, normal sensation, moves all 4 limbs Psychiatric: normal affect, A&O x 3 Skin: no rash Dx/Plan (1) Acute CVA (cerebrovascular accident) Code(s): I63.9 - CEREBRAL INFARCTION, UNSPECIFIED Status: Acute Comment: Left basal ganglia lacunar stroke - started on ASA (2) Hypothyroidism Code(s): E03.9 - HYPOTHYROIDISM, UNSPECIFIED Status: Acute Comment: Started on Levothyroxine this admission (3) Rhabdomyolysis Code(s): M62.82 - RHABDOMYOLYSIS Status: Acute Comment: prob due to hypothyroidism (4) Sinus pause Code(s): I45.5 - OTHER SPECIFIED HEART BLOCK Status: Acute Comment: prob due to sleep apnea in the setting of hypothyroidism. (5) Swallowing dysfunction Code(s): R13.10 - DYSPHAGIA, UNSPECIFIED Status: Acute Comment: on modified diet (6) Tobacco dependence Code(s): F17.200 - NICOTINE DEPENDENCE, UNSPECIFIED, UNCOMPLICATED Status: Acute Comment: Counselled (7) CKD (chronic kidney disease) stage 3, GFR 30-59 ml/min Code(s): N18.3 - CHRONIC KIDNEY DISEASE, STAGE 3 (MODERATE) Status: Chronic (8) Carotid stenosis Code(s): I65.29 - OCCLUSION AND STENOSIS OF UNSPECIFIED CAROTID ARTERY Status : Chronic Comment: on ASA (9) Dyslipidemia Code(s): E78.5 - HYPERLIPIDEMIA, UNSPECIFIED Status: Chronic Comment: on Statins (10) Hypertension Code(s): I10 - ESSENTIAL (PRIMARY) HYPERTENSION Status: Chronic (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 -: reminded of the need to keep all OP appointments. -: tobaccoo counselling doen. meds reconciled. -: Event monitor to be delivered to her per cardiology.Discussed w cardiology -: cont ASA,statin * . Review of Systems - Review of Systems Constitutional: negative: Fever, Chills, Sweats, Weakness, Malaise, Other Respiratory: negative: Cough, Dry, Shortness of Breath, Hemoptysis, SOB with Excertion, Pleuritic Pain, Sputum, Wheezing Cardiovascular: negative: Chest Pain, Palpitations, Orthopnea, Paroxysmal Noc. Dyspnea, Edema, Light Headedness, Other Gastrointestinal: negative: Nausea, Vomiting, Abdominal Pain, Diarrhea, Constipation, Melena, Hematochezia, Other Genitourinary: negative: Dysuria, Frequency, Incontinence, Hematuria, Retention , Other Musculoskeletal: negative: Neck Pain, Shoulder Pain, Arm Pain, Back Pain, Hand Pain, Leg Pain, Foot Pain, Other Neurological: negative: Weakness, Numbness, Incoordination, Change in Speech, Confusion, Seizures, Other - Medications/Allergies Allergies/Adverse Reactions: Allergies Allergy/AdvReac Type Severity Reaction Status Date / Time Penicillins Allergy Verified 06/15/17 14:48 Sulfa (Sulfonamide Allergy Verified 06/15/17 14:48 Antibiotics) Medications: Current Medications Acetaminophen (Tylenol) 650 mg PO Q4H PRN PRN Reason: Headache/Fever or Pain Last Admin: 06/24/17 02:24 Dose: 650 mg Aspirin (Ecotrin) 325 mg PO DAILY [facility] Last Admin: 06/26/17 09:17 Dose: 325 mg Atorvastatin Calcium (Lipitor) 10 mg PO HS [facility] Last Admin: 06/25/17 20:48 Dose: 10 mg Cyanocobalamin (Vitamin B-12) 1,000 mcg PO DAILY [facility] Last Admin: 06/26/17 09:18 Dose: 1,000 mcg Docusate Sodium (Colace) 100 mg PO BID [facility] Last Admin: 06/26/17 09:17 Dose: 100 mg Famotidine (Pepcid) 20 mg PO BID [facility] Last Admin: 06/26/17 09:17 Dose: 20 mg Fish Oil (Fish Oil) 1,000 mg PO BID [facility] Last Admin: 06/26/17 09:18 Dose: 1,000 mg Guaifenesin (Mucinex) 1,200 mg PO Q12HR [facility] Last Admin: 06/26/17 09:17 Dose: 1,200 mg Heparin Sodium (Porcine) (Heparin) 5,000 units SC Q12HR [facility] Last Admin: 06/26/17 09:18 Dose: 5,000 units Hydralazine HCl (Apresoline) 10 mg SLOW IVP Q4H PRN PRN Reason: BP > 180 Last Admin: 06/17/17 00:36 Dose: 10 mg Levothyroxine Sodium (Synthroid) 150 mcg PO 0600 [facility] Last Admin: 06/26/17 06:04 Dose: 150 mcg Lisinopril (Zestril) 10 mg PO DAILY [facility] Lisinopril (Zestril) 10 mg PO NOW [facility] Stop: 06/26/17 13:00 Multivitamins (Theragran) 1 tab PO DAILY [facility] Last Admin: 06/26/17 09:18 Dose: 1 tab Nifedipine (Procardia Xl) 60 mg PO DAILY [facility] Last Admin: 06/26/17 09:17 Dose: 60 mg Nitroglycerin (Nitrostat) 0.4 mg PO Q5MIN PRN PRN Reason: Chest Pain Ondansetron HCl (Zofran Odt) 4 mg PO Q6H PRN PRN Reason: Nausea/Vomiting Ondansetron HCl (Zofran) 4 mg IVP Q6H PRN PRN Reason: Nausea/Vomiting Senna (Senokot) 2 tab PO HSPRN PRN PRN Reason: Constipation Sodium Chloride (Flush - Normal Saline) 10 ml IVF Q12HR [facility] Last Admin: 06/26/17 09:18 Dose: Not Given Sodium Chloride (Flush - Normal Saline) 10 ml IVF PRN PRN PRN Reason: Saline Flush
--- NOTE | 2017-06-26 11:22 | DIS ---
DATE OF ADMISSION: 06/15/2017 DATE OF DISCHARGE: 06/26/2017 CONDITION AT THE TIME OF DISCHARGE: Stable and improved. DISCHARGE DISPOSITION: Inpatient rehabilitation at [facility]. DISCHARGE MEDICATIONS: Are as follows; Mucinex 1200 mg p.o. q.12 hours as needed, Senokot 2 tablets as needed, Zofran oral 4 mg every 6 hours as needed, sublingual nitroglycerin 0.4 mg every 5 minute s as needed, nifedipine 60 mg daily, multivitamin daily, Synthroid 150 mcg daily, fish oil 1000 mg p .o. b.i.d., famotidine 20 mg p.o. b.i.d., docusate 100 mg p.o. b.i.d., vitamin B12 1000 mcg daily, L ipitor 10 mg daily, aspirin 325 mg daily, and Tylenol extra strength as needed. DISCHARGE DIAGNOSES: 1. Acute left basal ganglia lacunar stroke. 2. New diagnosis of hypothyroidism. 3. Rhabdomyolysis. 4. Sinus pauses and sinus bradycardia. 5. Swallowing dysfunction on a modified diet. 6. Tobacco dependence. 7. Chronic kidney disease stage 2 to 3. 8. New diagnosis of carotid stenosis. 9. Dyslipidemia. 10. Hypertension. 11. Alonzo's edema of vocal cords. 12. Obstructive sleep apnea. CONSULTATIONS IN-HOUSE: Include, 1. Neurology, Dr. Marlo West. 2. Cardiology, Dr. Mann. 3. Vascular Surgery, Dr. Regino Jackson. 4. ENT, Dr. Rubén Glass. 5. Pulmonary medicine, Dr. Rodney. PRIMARY CARE PHYSICIAN: [facility]. PROCEDURES DONE IN THE HOSPITAL: 1. CT scan of the brain upon presentation on 06/15/2017, which showed lacunar infarction of indeter minate age in the left basal ganglia and chronic small vessel ischemic changes. 2. Carotid Doppler ultrasound which shows moderate stenosis in the proximal right ICA and high grad e flow seen within the proximal right external carotid artery. 3. Transthoracic echocardiogram which shows concentric left ventricular hypertrophy and an ejection fraction estimated at 50% to 55% with mild mitral, aortic, and tricuspid regurgitation. 4. MRI of the brain on 06/16/2017, which showed subacute appearing lacunar infarcts in the left bas al ganglia and right mastoid effusion. 5. Modified barium swallow speech test, which shows no penetration or aspiration. 6. CT angio of the neck on 06/20/2017, which shows prominent vascular disease with prominent focal stenosis at the junction of the distal right common and cervical right internal carotid artery as we ll as block in the left common carotid and cervical internal carotid artery. Focal high grade steno sis at the origin of the right vertebral artery was seen as well. Incidental finding in this CT sca n was abnormal prominence of the soft tissue at the mediastinum as well as marked abnormal soft tiss ue hypertrophy of aerodigestive tract with prominent luminal attenuation at the level of supraglotti c larynx was seen. 7. Thyroid ultrasound on 06/21/2017 which shows diffuse mild heterogenicity without any discrete no dules. HISTORY OF PRESENT ILLNESS: Mr. Livingston is a 57-year-old lifelong smoker without any significant wi dical care, who presented to the emergency room for complaints of right-sided weakness and trouble s peaking. She had right-sided facial droop as well. Upon presentation, a CT scan of the head was do ne, which suggested age indeterminate lacunar infarction. The patient gave history of a fall one we ek prior to presentation. Her creatinine kinase was found to be elevated at 1558 with troponin of 0 .085 and CK-MB of 7. Otherwise, she was hemodynamically stable and was admitted to stroke floor to rule out stroke and treatment of rhabdomyolysis. Her elevated cardiac enzymes were thought to be li noah secondary to rhabdomyolysis, but echocardiogram was ordered as part of the stroke workup. Eliud mckeon see admission history and physical for further details. HOSPITAL COURSE: The patient was seen initially by Neurology for the CT scan findings. These findi ngs were confirmed by MRI and the patient was started on aspirin and statin. Team was consulted and the patient had improvement in her weakness and dysarthria. Speech therapy was also consulted and she underwent modified barium speech swallow testing. Diet was adjusted based on the speech therapi st recommendation. Because of elevated cardiac enzymes, transthoracic echocardiogram was ordered with the above-mention ed results. The patient was also experiencing pauses on telemetry and for this reason, Cardiology w as consulted. Dr. Mann saw the patient and she was monitored throughout the hospitalization. She w as found to have severe sleep apnea and CPAP was recommended to her. There was a question whether h er sinus pauses and bradycardia is being caused by severe sleep apnea when she sleeps. The patient was rather asymptomatic during these episodes. CPAP was ordered for her, but she was rather intoler ant of it and would not wear it despite multiple attempts. Eventually, it was thought that she woul d benefit from an event monitor. She continued to have sinus pauses here and there with heart rate down to 30s or 40s without symptoms while she was sleeping at night. Cardiology will arrange the ev ent monitor after discharge. They have so far clear the patient for discharge. With regards to her sleep apnea: Pulmonary Medicine was consulted and Dr. Rodney saw the patient. His recommendations were to continue to encourage the use of CPAP and outpatient sleep study. She is instructed to follow up with Pulmonary Medicine as an outpatient. Given the findings of significant swelling in the mediastinum: ENT was consulted and Dr. Glass saw the patient. He performed a flexible laryngoscopy at bedside and his diagnosis was mild posterior glottic edema consistent with reflux with chronic laryngitis. No acute intervention was recommended . He did recommend thyroid ultrasound, which was done with the above-mentioned results. [facility] and her TSH was grossly elevated at 99.4. Free T3 was less than 0.4. For this reason, she was started on levothyroxine. Her cardiac enzymes eventually trended down. She was also seen by vascular surgeon, Dr. Jackson, for the findings of carotid ultrasound concerning for right-sided stenosis. CT angio was done with the above-mentioned results. Dr. Jackson's recommen dations were once again outpatient followup and medical management with aspirin and statins for now. Eventually, the patient recovered up to the point where she could be discharged and rehabilitation w as arranged for her. She was unfunded and a any bed was made available at [facility] with the help of the case management. At this morning, she has been accepted and will be discharged issues remained hemodynamically stable and is walking in the hallways with the help of the physical therapist. She was seen and examined today prior to discharge. Please see hospitalist progress note for further detail including face-to -face interaction. Total time spent in the discharge of this patient 38 minutes. All medications were reconciled and d ischarge plan was discussed with the patient who verbalized understanding.
[2017-06-26 12:22] VITALS: BP 134/80
[2017-06-26 12:59] VITALS: TEMP 98
--- NOTE | 2017-06-26 14:18 | EKG ---
Test Reason : Blood Pressure : / mmHG Vent. Rate : 071 BPM Atrial Rate : 071 BPM P-R Int : 154 ms QRS Dur : 154 ms QT Int : 434 ms P-R-T Axes : 049 -83 026 degrees QTc Int : 471 ms Normal sinus rhythm Right bundle branch block Left anterior fascicular block Bifascicular block Abnormal ECG Confirmed by RENATO REDDING ([id number]), science editor IRMA ROGERS ([id number] on 06/26/2017 2:18:27 PM Referred By: Confirmed By:RENATO REDDING
[2017-06-27] MEDS ORDERED: Lisinopril 10 MG TAB PO SCH (09:00)
== END 2017-06-26 11:36 | DRG 65 ==
LOC: ERS 10:55 → 2SE 15:33
PROVIDERS: ADMIT Internal Medicine; ATTEND Internal Medicine
DX: I63.59 Cerebral infarction due to unspecified occlusion or stenosis of other cerebral artery (principal); G81.91 Hemiplegia, unspecified affecting right dominant side; M62.82 Rhabdomyolysis; N17.9 Acute kidney failure, unspecified; J38.4 Edema of larynx; N18.3 Chronic kidney disease, stage 3 (moderate); I45.2 Bifascicular block; Z91.81 History of falling; F17.210 Nicotine dependence, cigarettes, uncomplicated; E03.9 Hypothyroidism, unspecified; R00.1 Bradycardia, unspecified; I12.9 Hypertensive chronic kidney disease with stage 1 through stage 4 chronic kidney disease, or unspecified chronic kidney disease; E78.5 Hyperlipidemia, unspecified; G47.33 Obstructive sleep apnea (adult) (pediatric); I65.21 Occlusion and stenosis of right carotid artery; I08.3 Combined rheumatic disorders of mitral, aortic and tricuspid valves; J37.0 Chronic laryngitis; K21.9 Gastro-esophageal reflux disease without esophagitis; Z86.73 Personal history of transient ischemic attack (TIA), and cerebral infarction without residual deficits; I73.9 Peripheral vascular disease, unspecified; Z88.0 Allergy status to penicillin; Z88.2 Allergy status to sulfonamides; Z91.14 Patient's other noncompliance with medication regimen; I65.01 Occlusion and stenosis of right vertebral artery
CPT/HCPCS: 36415; 70450; 70498; 70551; 71010; 74230; 76536; 80048; 80053; 80061; 80162; 82550; 82553; 82607; 83690; 83735; 83880; 84100; 84439; 84443; 84484; 85014; 85018; 85025; 85049; 85610; 85730; 93005; 93306; 93880; 94660; 94760; 96361; 96374; A4216; G8978-GP-CM; G8979-GP-CK; G8987-GO-CK; G8988-GO-CI; G8996-GN-CI; G8996-GN-CL; G8996-GN-CN; G8997-GN-CI; G8997-GN-CJ; G8997-GN-CL; J0360; J1644

== ENCOUNTER 2017-10-16 14:14 | Emergency (ER) | payer SELFPAY ==
[2017-10-16] MEDS ORDERED: Lidocaine 1% (PF) 30 ML VIAL ONE (14:44)
[2017-10-16] MEDS ORDERED: Adacel (T-DAP) 0.5 ML VIAL ONE (14:47)
== END 2017-10-16 16:05 | disposition home or self-care (01) ==
LOC: ERS 14:14
DX: L72.3 Sebaceous cyst (principal); E03.9 Hypothyroidism, unspecified; E78.5 Hyperlipidemia, unspecified; I10 Essential (primary) hypertension; F17.210 Nicotine dependence, cigarettes, uncomplicated; Z79.82 Long term (current) use of aspirin; Z79.899 Other long term (current) drug therapy
CPT/HCPCS: 10060; 90471; 90715; J2001

== ENCOUNTER 2017-10-19 17:28 | Emergency (ER) | payer MEDICAID, SELFPAY | END 2017-10-19 19:03 | disposition home or self-care (01) | LOC: ERS 17:28 | DX: Z48.817 Encounter for surgical aftercare following surgery on the skin and subcutaneous tissue (principal); E78.5 Hyperlipidemia, unspecified; I10 Essential (primary) hypertension; E03.9 Hypothyroidism, unspecified; F17.210 Nicotine dependence, cigarettes, uncomplicated | CPT/HCPCS: 99282 ==

== ENCOUNTER 2017-10-20 17:34 | Inpatient (IN) | payer MEDICAID, SELFPAY ==
[2017-10-20] MEDS ORDERED: methylPREDNISolone Sod Succ/PF 125 MG/2 ML VIAL ONE (17:37)
[2017-10-20] MEDS ORDERED: Magnesium Sulfate 2 GM/100 ML BAG ONE (17:38)
[2017-10-20] MEDS ORDERED: Albuterol Sulfate 2.5 mg/3 ml Neb ONE (17:44)
[2017-10-20] MEDS ORDERED: Albuterol Sulfate 2.5 mg/0.5 ml Neb ONE (17:44)
[2017-10-20 17:59] LABS: INR-International Normal Ratio 1.1; PTT 29.2 SEC (22.9-36.1); Prothrombin Time 14.3 SEC (12.0-14.7)
[2017-10-20 18:09] LABS: Hemoglobin 11.2 g/dL (12.0-16.0); Mean Corpuscular Volume 91.6 fl (81.0-99.0); Red Blood Cell (RBC) Count 3.88 mill/uL (4.20-5.40)
[2017-10-20 18:10] LABS: Mean Corpuscular HGB CONC 31.6 g/dL (32.0-36.0); Mean Corpuscular Hemoglobin 28.9 pg (27.0-31.0); Platelet Count 512 thou/uL (130-400); RBC Distribution Width 14.6 % (11.5-14.5)
[2017-10-20 18:13] LABS: BHCG - Serum Negative (NEGATIVE); Pregs Control Background? CLEAR/WHITE (CLR/WHITE); Pregs Control Bar Appear? YES (CONTROL BAR)
[2017-10-20] MEDS ORDERED: fentaNYL Citrate/PF 2,000 MCG in Sodium Chloride 0.9% 60 ML IV SCH (18:15)
[2017-10-20 18:23] LABS: ALT (SGPT) 10 U/L (8-55); AST (SGOT) 12 U/L (5-34); Acetaminophen Less than 6.0 mcg/mL (10.0-30.0); Albumin 3.6 g/dL (3.5-5.0); Alcohol Less than 10 mg/dL (Less than 10); Alkaline Phosphatase 125 U/L (40-150); Anion Gap 22 mmol/L (10-20); BUN (Urea Nitrogen) 14 mg/dL (9.8-20.1); Bilirubin, Total Less than 0.2 mg/dL (0.2-1.2); Calc. Creatinine Clearance 0 mL/min (70-130); Calcium 9.6 mg/dL (7.8-10.44); Carbon Dioxide 13 mmol/L (22-29); Chloride 104 mmol/L (98-107); Estimated GFR-MDRD 68; Globulin 2.7 g/dL (2.4-3.5); Glucose 368 mg/dL (70-105); Magnesium 2.1 mg/dL (1.6-2.6); Potassium 3.8 mmol/L (3.5-5.1); Protein, Total 6.3 g/dL (6.0-8.3); Salicylate Less than 8.0 mg/dL (15.0-30.0); Sodium 135 mmol/L (136-145)
[2017-10-20 18:23] LABS: Actual Bicarbonate (HCO3a) 19.8 mEq/L (22-26); Base Excess (BEa) -11.9 mEq/L (0 (+/-) 2.5); CO2 Tension 79.4 mmHg (35.0-45.0); Hematocrit-ABG 36.3 % (36.0-47.0); Hemoglobin (Hb) 10.8 g/dL (12.0-16.0); pH, Arterial 7.01 (7.35-7.45)
[2017-10-20 18:24] LABS: Analyzer IN Cardio ER; Calcium, Ionized 1.3 mmol/L (1.12-1.30)
[2017-10-20 18:25] LABS: Puncture Site RB
[2017-10-20 18:27] LABS: Anisocytosis SLIGHT = 6-15 cells (100X) (0-5/hpf); Band 2 % (5-11); Eosinophils 5 % (0-10); Large Platelets SLIGHT; Lymphocytes 40 % (21-51); MDiff Complete? YES; Metamyelocyte 2 % (0-0); Monocytes 6 % (0-10); Neutrophil 40 % (42-75); PLT Morphology Comment Appears Increased; Polychromasia SLIGHT = 2-3 cells (100X) (0-2/hpf); Reactive Lymphocytes 4 % (0-10)
[2017-10-20 18:53] LABS: Bilirubin Negative (Negative); Blood, Urine Large (Negative); Clarity CLOUDY (Clear); Glucose, Urine (Dipstick) 500 mg/dL (Negative); Leukocyte Negative (Negative); Nitrite Negative (Negative); Protein, Urine (Dipstick) 300 mg/dL (Neg-Trace); Specific Gravity, Urine 1.017 (1.002-1.036); pH, Urine 5.5 (5.0-9.0)
[2017-10-20 18:55] LABS: Bacteria/HPF 1+ HPF (None Seen); Hyaline Casts/LPF 0-3 HYALINE CAST LPF (0-3 Hyaline); RBC/HPF GREATER THAN 50-TNTC HPF (0-3); Squamous Epithelial 0-3 HPF (0-3); WBC/HPF 21-50 HPF (0-3)
[2017-10-20 19:07] LABS: Amphetamine Not Detected (NotDetected); Barbiturates Screen Not Detected (NotDetected); Benzodiazepine Screen Not Detected (NotDetected); Cocaine Metabolite Screen Not Detected (NotDetected); Medtox Control Line Valid? VALID (VALID); Medtox Reader # READER 1; Methadone Not Detected (NotDetected); Methamphetamine Not Detected (NotDetected); Opiate Screen Not Detected (NotDetected); Oxycodone Screen Not Detected (NotDetected); Phencyclidine (PCP) Not Detected (NotDetected); THC/Cannabinoid Screen Not Detected (NotDetected); Tricyclic Screen Not Detected (NotDetected)
--- NOTE | 2017-10-20 19:07 | RAD ---
CHEST ONE VIEW 10/20/17 HISTORY: Emergency exam. COMPARISON: Radiograph 03/15/17. FINDINGS: Patient is intubated with endotracheal tube tip above the sindi approximately 4.5 cm. Left basilar a nd right middle lobe air space opacity. There is also atelectasis in the right lower lobe. No pneumot horax. IMPRESSION: 1. Scattered basilar and right upper lobe air space opacity may reflect infection or atelectasis . Followup recommended. 2. Endotracheal tube craniad to the sindi 4.5 cm. 3. Enteric tube tip below diaphragm out of field of view. POS: [facility]
[2017-10-20] MEDS ORDERED: Piperacillin/Tazobactam 3.375 GM in Sodium Chloride 0.9% 100 ML IVPB SCH (19:30)
[2017-10-20 20:16] LABS: CO2 Tension 80.6 mmHg (35.0-45.0); O2 Tension (PaO2) 183.3 mmHg (80.0-100.0); pH, Arterial 7.03 (7.35-7.45)
[2017-10-20 20:17] LABS: Analyzer IN Cardio ER; Base Excess (BEa) -10.5 mEq/L (0 (+/-) 2.5); Calcium, Ionized 1.3 mmol/L (1.12-1.30); Hematocrit-ABG 37.7 % (36.0-47.0); Hemoglobin (Hb) 11.1 g/dL (12.0-16.0)
[2017-10-20 20:18] LABS: Puncture Site RR
[2017-10-20] MEDS ORDERED: Morphine 2 MG/ML SYRINGE SLOW IVP PRN (20:45)
[2017-10-20] MEDS ORDERED: Fentanyl BOLUS 250 ML IVPB PRN (20:45)
[2017-10-20] MEDS ORDERED: DISCONTINUE PREVIOUS NARCOTIC PAIN MEDICATIONS AND BENZODIAZEPINES FS SCH (20:45)
[2017-10-20] MEDS ORDERED: Lorazepam 2 MG/ML VIAL SLOW IVP PRN (20:45)
[2017-10-20] MEDS ORDERED: Acetaminophen 650 MG/20.3 ML UDCUP PO PRN (20:46)
[2017-10-20] MEDS ORDERED: Sodium Chloride 0.9% 1,000 ML IV SCH (20:46)
[2017-10-20] MEDS ORDERED: Albuterol Sulfate 2.5 mg/3 ml Neb NEB PRN (20:47)
[2017-10-20] MEDS ORDERED: Norepinephrine 8 MG in Dextrose 5% in Water 250 ML IVPB PRN (21:17)
[2017-10-20] MEDS ORDERED: Acetaminophen 650 MG Suppository PR PRN (21:17)
[2017-10-20] MEDS ORDERED: Milk Of Magnesia 30 ML UDCUP PO PRN (21:17)
[2017-10-20] MEDS ORDERED: Senokot 8.6 MG TAB PO PRN (21:17)
[2017-10-20] MEDS ORDERED: Acetaminophen 325 MG TAB PO PRN (21:17)
[2017-10-20] MEDS ORDERED: Bisacodyl 5 MG TAB PO PRN (21:17)
[2017-10-20] MEDS ORDERED: Ondansetron HCl/PF 4 MG/2 ML Vial IVP PRN ×2 (21:17)
[2017-10-20] MEDS ORDERED: Calcium Carbonate 500 MG ChewTAB PO PRN (21:17)
[2017-10-20] MEDS ORDERED: Mag-Al 1200 mg/1200 mg/30 ML UDCUP PO PRN ×2 (21:17)
--- NOTE | 2017-10-20 21:24 | CT ---
CT BRAIN WITHOUT CONTRAST: 10/20/17 HISTORY: Altered mental status. COMPARISON: CT brain 06/15/17. FINDINGS: No acute territorial infarct or hemorrhage. No midline shift or mass effect. Old left lacunar infarct . Mild microvascular ischemic changes. Calvarium is intact. Paranasal sinuses and mastoids are clear. IMPRESSION: No acute intracranial abnormality. POS: [facility]
[2017-10-20] MEDS ORDERED: Furosemide 40 MG/4 ML VIAL SLOW IVP SCH (21:30)
[2017-10-20] MEDS ORDERED: Cefepime 2 GM, Syringe 2.5 ML in Sodium Chloride 0.9% 10 ML SLOW IVP SCH (22:00)
[2017-10-20 22:01] LABS: Actual Bicarbonate (HCO3a) 20.8 mEq/L (22-26); Base Excess (BEa) -10.2 mEq/L (0 (+/-) 2.5); O2 Tension (PaO2) 89.3 mmHg (80.0-100.0); pH, Arterial 7.07 (7.35-7.45)
[2017-10-20 22:02] LABS: Calcium, Ionized 1.3 mmol/L (1.12-1.30); Hematocrit-ABG 40.5 % (36.0-47.0); Hemoglobin (Hb) 11.6 g/dL (12.0-16.0); Puncture Site LRA
[2017-10-20] MEDS ORDERED: Sodium Bicarb 50 MEQ/50 ML Abboject 8.4% SYRINGE IVP SCH (22:15)
[2017-10-20] MEDS ORDERED: Sodium Bicarb 50 MEQ/50 ML Abboject 8.4% SYRINGE ONE ×2 (22:20→22:21)
[2017-10-20 22:21] LABS: Lactic Acid 2.1 mmol/L (0.5-2.2)
[2017-10-20] MEDS ORDERED: Dextrose 50% Abboject 50 ML SYRINGE SLOW IVP PRN (22:47)
[2017-10-20] MEDS ORDERED: HumaLOG 300 UNITS/3 ML VIAL SC PRN (22:47)
[2017-10-20] MEDS ORDERED: Dextrose 5% in Water 1,000 ML IV PRN (22:47)
[2017-10-20] MEDS ORDERED: Norepinephrine 8 MG in Sodium Chloride 0.9% 250 ML 250 ML IVPB PRN (23:00)
[2017-10-20 23:19] LABS: Hemoglobin A1c 5.5 % (4.0-6.0)
--- NOTE | 2017-10-20 23:47 | HP ---
PRIMARY CARE PHYSICIAN: None. CHIEF COMPLAINT: Extreme shortness of breath, hypoxia, and subsequent intubation. HISTORY OF PRESENTING ILLNESS: Ms. Livingston is a 57-year-old female with past medical histo ry of severe sleep apnea, CVA, sinus pauses, chronic kidney disease, tobacco dependence, carotid sten osis, hypertension, and dyslipidemia: who presented to the emergency room with above-mentioned compla int. History is mainly obtained by the record review as the patient is currently intubated and sedat ed and no history is obtainable. The patient was brought in by emergency room with complaints of significant shortness of breath that began 30-40 minutes prior to arrival. Not much history is obtainable from that time. Reportedly, th e patient was found sitting outside with terrible breathing. She was found to be cyanotic around the lips and became unresponsive en route requiring endotracheal intubation. Her vital signs upon presentation included a blood pressure 127/100, pulse of 135. Temperature 98.6. A 12-lead EKG, which showed sinus tachycardia, otherwise unremarkable. Her chest x-ray was rather equivocal without any significant pleural effusion, edema, or infiltrate. She does have some scatter ed bibasilar and right upper lobe opacities, which can be either atelectasis versus infection. Her l abs done on examination showed significant leukocytosis with 19,000 WBCs without any significant band emia. She was significantly hypoxic with pH of 7.01, pCO2 of 79, pO2 of 124 on ventilator. Her seru m chemistries show significant lactic acidosis with lactic acid of 9.8. Her BNP is elevated over 300 0. TSH is 0.1042. Urinalysis showed proteinuria, glucosuria, multiple rbcs, wbcs, and bacteria. Ur ine drug screen and serum drug screen was unremarkable. A CT scan of the head was done, which did no t show any acute intracranial abnormalities. She is now being admitted to the critical care unit for acute hypoxic respiratory failure of unclear etiology. PAST MEDICAL HISTORY: 1. Hypothyroidism. 2. History of cerebrovascular accident. 3. History of sinus pauses and bradycardia. 4. History of swallowing dysfunction. 5. Tobacco dependence. 6. Chronic kidney disease. 7. Carotid artery stenosis. 8. Dyslipidemia. 9. Hypertension. 10. Obstructive sleep apnea. The patient was admitted in 06/2017, at which time she was diagnosed w ith sleep apnea, but was very intolerant of the CPAP. PAST SURGICAL HISTORY: Hernia repair. PSYCHIATRIC HISTORY: Unknown. SOCIAL HISTORY: Historically she smokes 4 packs per week of cigarettes. No history of alcohol or dr ug abuse. FAMILY HISTORY: As per the record review, no significant family history of coronary artery disease o r stroke. Positive for diabetes. ALLERGIES: Include PENICILLIN. CURRENT MEDICATIONS: Unknown. This will be further confirmed in the morning through her pharmacy. She was discharged on 150 mcg of Synthroid after her last hospitalization along with aspirin 325 mg a nd Lipitor 10 mg daily among others as well as Procardia 60 mg daily. REVIEW OF SYSTEMS: Unobtainable as the patient is currently intubated and sedated. LABORATORY EXAMINATION: CBC shows WBCs 19, hemoglobin 11.2, platelet count of 512, neutrophils low a t 40%, bands 2%. PT, PTT, INR within normal limits. ABG most recently showed pH of 7.07, pCO2 of 74, pO2 of 89. Serum chemistry: Sodium 135, bicarbonat e 13, anion gap 22, GFR estimated at 68, blood sugar 368. Lactic acid 9.8. BNP over 3000. Ammonia 61. Liver enzymes within normal limits. Serum test negative. TSH is 0.10. Urinalysis: 300 protein, 400-500 glucose, large blood, and multiple rbcs and wbcs and bacteria. Chest x-ray by my review shows bibasilar atelectasis versus infiltrate. Twelve-lead EKG shows sinus tachycardia without any acute ST or T-wave changes by my review. CT scan of the brain by my review shows no acute intracranial abnormalities. PHYSICAL EXAMINATION: VITAL SIGNS: Most recent vital signs temperature 98.2, pulse of 94, respirations 24, saturating 94% on ventilator, blood pressure 96/56. GENERAL: She is still under the effect of the sedative received in the emergency room. Currently, s he is off sedation, but remains unresponsive and is intubated. HEENT: Endotracheal tube in place. No acute distress. Mucous membrane is moist and pink. Pupils a re reactive to light sluggishly at pinpoint. Head is normocephalic, atraumatic. NECK: Supple without any lymphadenopathy, JVD, or bruit. CHEST: Clear to auscultation except for loud rhonchi. CARDIOVASCULAR: Regular rate and rhythm is regular without any murmur, rubs, or gallops. ABDOMEN: Distended, soft with positive bowel sounds. EXTREMITIES: Free of any cyanosis, clubbing, or edema, but she reportedly had cyanosis of her toes u jacey presentation. Her right toe appears somewhat erythematous, but it is not warm. Pedal pulses are felt bilaterally. NEUROLOGIC: Limited because of sedation and intubation. SKIN: Free of any rashes or bruises. PSYCHIATRIC: Cannot be completed because of the sedation. IMPRESSION AND PLAN: 1. Acute hypoxic respiratory failure. The etiology is unclear at this time. It can be secondary to fluid overload given the elevated BNP. The patient does not have any history of congestive heart fa ilure per se and her last echocardiogram done in 05/2018 did not show any systolic or diastolic dysfu nction. At this time, infectious etiology can also not be ruled out given the leukocytosis, but most likely her symptoms are related to underlying undiagnosed chronic obstructive pulmonary disease as w ell as horrible sleep apnea. At this time, Pulmonary Critical Care Medicine has been consulted by olga cox ER physician and she will be continued on endotracheal intubation and vent support as per the puldarlyn mahmood team. Continue supportive care. We will add nebulizers and IV steroids along with empiric IV a ntibiotics at this time. Blood cultures have been sent to the emergency room, and we will follow the results. ABG as per Pulmonary Medicine, when the patient's blood pressure is a little bit stable, maira cox will attempt to give her some diuretics and obtain another echocardiogram to assess for any cardiom yopathy that might have happened in the last few months. We will check D-dimer and obtain a CT angio as positive to rule out pulmonary embolism. 2. Sepsis, most likely source is urine, but pneumonia could also not be ruled out. We will continue her on empiric IV antibiotics and follow the results of the culture. Lactic acid has trended down t owards normal. She has received bicarbonate as per the Pulmonary Medicine. 3. Lactic acidosis secondary to either hypoxia or sepsis or both. Repeat lactic acid is within norm al limits. 4. Elevated BNP. We will obtain transthoracic echocardiogram and start her on Lasix, as the blood p ressure permits. 5. History of hypothyroidism. The patient's TSH historically has been as high as 99 and then 60 in 06/2017. It seems like that she is compliant with her thyroid medication. At this time, she appears to be hyperthyroid and we will hold her thyroid medications. 6. Hyperglycemia. The etiology of this is unclear at this time. The patient does not have any hist ory of diabetes for her chart review. We will check a hemoglobin A1c. She has received Solu-Medrol in the emergency room and this might be obscuring the results a bit. We will provide her with insuli n sliding scale for coverage as necessary. 7. History of sleep apnea. 8. History of hypertension. We will resume her home medications once the blood pressure stabilizes and if it is required. 9. Deep venous thrombosis and gastrointestinal prophylaxis. 10. Add p.r.n. medication order. Disposition: Ms. Livingston is currently being admitted to CCU for acute hypoxic respiratory failure. Total time spent in taking care of this patient is 35 minutes. Further management will depend upon h er clinical course.
[2017-10-21] MEDS: Propofol 1,000 MG/100 ML VIAL IV PRN ×3 (01:09→15:55)
--- NOTE | 2017-10-21 04:00 | CON ---
DATE OF CONSULTATION: 10/20/2017 HISTORY: Ms. Livingston is a 57-year-old female who apparently EMS was summoned today. She was intubated in the field by EMS. She is mechanically ventilated in the emergency department, where consulted to assist in her management in the ICU. PAST MEDICAL HISTORY: 1. Remarkable for probable sleep apnea per Dr. Rodney's note in 2017. At that time, this has never been worked up. 2. Hypertension. 3. Cerebrovascular accident. 4. Peripheral vascular disease. 5. Reflux disease. 6. History of sinus pauses. 7. History of herniorrhaphy. When she was seen at the end of the last year, she is smoking half pack a day. She is not drinking and denied using drugs. ALLERGIES: Reported to PENICILLIN and SULFA. FAMILY HISTORY: Negative for lung disease in early age. MEDICATION LIST: Unavailable. REVIEW OF SYSTEMS: Not obtainable. There was no family in the room. PHYSICAL EXAMINATION: VITAL SIGNS: Blood pressure was 114/75 on arrival in the ICU. She was evaluated by me in the emergency department, heart rate is 76, respiratory rate is 21 on mechanical ventilation. HEENT: Pupils reactive. Sclerae is anicteric. NECK: Supple. LUNGS: Remarkable for tight inspiratory and expiratory wheezes. She is connected to one of the trauma ventilator, so I cannot really assess her expiratory time, but I do not think she is exhaling completely. HEART: Regular rhythm, no S3. ABDOMEN: Soft and nontender. EXTREMITIES: Without clubbing, cyanosis, or edema. NEUROLOGIC: Not assessable since she was chemically paralyzed. LABORATORY DATA: White count 19, hemoglobin 11.2, platelets 512. Sodium 135, potassium 3.8, chloride 104, bicarbonate 13, BUN 14, creatinine 0.86. Blood gas 7.01, pCO2 of 79, pO2 of 124. Second blood gas 7.03, pCO2 of 80, pO2 of 183. I have ordered another blood gas when she arrives in the ICU. IMPRESSION: Chronic obstructive pulmonary disease exacerbation with possible coexistent community-acquired pneumonia. Zosyn was ordered in the emergency room. She has had steroids in the emergency room. She had magnesium in the emergency room. IV fluids have been ordered. She will need to continue with nebulized treatments q.3 hours, steroids, DVT prophylaxis, antibiotics, and sedation protocol. We will be happy to follow while she is in the hospital. Critical care time 35 min. MACK
[2017-10-21 05:11] LABS: Anion Gap 17 mmol/L (10-20); BUN (Urea Nitrogen) 16 mg/dL (9.8-20.1); Calc. Creatinine Clearance 94 mL/min (70-130); Carbon Dioxide 23 mmol/L (22-29); Chloride 106 mmol/L (98-107); Estimated GFR-MDRD 72; Glucose 186 mg/dL (70-105); Potassium 3.3 mmol/L (3.5-5.1); Sodium 143 mmol/L (136-145)
[2017-10-21 05:13] LABS: Band 7 % (5-11); Hemoglobin 11.9 g/dL (12.0-16.0); Lymphocytes 3 % (21-51); MDiff Complete? YES; Mean Corpuscular HGB CONC 32.7 g/dL (32.0-36.0); Mean Corpuscular Volume 88.4 fl (81.0-99.0); Mean Platelet Volume 8.6 fL (7.4-10.4); Metamyelocyte 1 % (0-0); Monocytes 2 % (0-10); Neutrophil 87 % (42-75); PLT Morphology Comment Appears Adequate; Platelet Count 328 thou/uL (130-400); RBC Distribution Width 14.4 % (11.5-14.5); Red Blood Cell (RBC) Count 4.11 mill/uL (4.20-5.40); White Blood Cell (WBC) Count 16.4 thou/uL (4.8-10.8)
[2017-10-21] MEDS ORDERED: Artificial Tears 18 DROP/0.9 ML EA EYE PRN (07:22)
[2017-10-21] MEDS ORDERED: hydrALAZINE 20 MG/ML VIAL SLOW IVP PRN (07:22)
[2017-10-21] MEDS ORDERED: Eucerin (Mineral Oil/Petrolatum,White) 30 gm Jar TOP PRN (07:22)
[2017-10-21] MEDS ORDERED: Bisacodyl 10 MG SUPP PR PRN (07:22)
[2017-10-21 08:01] LABS: Actual Bicarbonate (HCO3a) 23.4 mEq/L (22-26); Base Excess (BEa) -1.6 mEq/L (0 (+/-) 2.5); CO2 Tension 40.6 mmHg (35.0-45.0); Calcium, Ionized 1.2 mmol/L (1.12-1.30); Hematocrit-ABG 31.5 % (36.0-47.0); Hemoglobin (Hb) 9.7 g/dL (12.0-16.0); O2 Tension (PaO2) 75.2 mmHg (80.0-100.0); Puncture Site RBA; pH, Arterial 7.38 (7.35-7.45)
--- NOTE | 2017-10-21 08:06 | RAD ---
1 VIEW CHEST: Date: 10/21/17 HISTORY: Respiratory distress. Intubated patient. COMPARISON: 10/20/17. FINDINGS: Redemonstration of endotracheal and nasogastric tube. Stable configuration of cardiac silhouette. Int erval development of veil-like opacities involving both lung bases due to pleural effusion. Superimpo sed parenchymal changes cannot be excluded. Patchy interstitial opacities throughout the lung parench yma do remain. No pneumothorax. IMPRESSION: 1. Bibasilar pleural and parenchymal changes. 2. Patchy interstitial opacities through the lung parenchyma suggesting edema or infiltrate. Continu ed surveillance. POS: KIMANI
[2017-10-21 08:45] LABS: Free T4 (Free Thyroxine) 1.23 ng/dL (0.70-1.48)
[2017-10-21] MEDS: Enoxaparin Sodium 40 MG/0.4 ML SYRINGE SC SCH (08:50)
[2017-10-21] MEDS: Cefepime 2 GM, Syringe 2.5 ML in Sodium Chloride 0.9% 10 ML SLOW IVP SCH ×2 (08:54→20:29)
[2017-10-21] MEDS ORDERED: Cefepime 2 GM in Sodium Chloride 0.9% 100 ML IVPB SCH (09:00)
[2017-10-21] MEDS ORDERED: Famotidine 40 MG/4 ML VIAL SLOW IVP SCH (09:00)
[2017-10-21] MEDS ORDERED: FLU VACC QS2017-18 36 mo. & older 0.5 ML SYRINGE IM ONE (09:00)
--- NOTE | 2017-10-21 10:13 | PDOC.PN ---
- Subjective Encounter Start Date: 10/21/17 Encounter Start Time: 09:40 -: old records requested/rev Patient seen and examined. pt is intubated, awake. No overnight events - Objective MAR Reviewed: Yes Vital Signs & Weight: Vital Signs (12 hours) Temp Pulse Resp BP Pulse Ox 10/21/17 10:00 18 10/21/17 08:53 115 H 10/21/17 08:00 28 H 10/21/17 07:47 121 H 10/21/17 07:29 99.0 F 110 H 24 H 98 10/21/17 07:00 99.0 F 10/21/17 06:00 24 H 10/21/17 04:00 24 H 10/21/17 03:00 98.2 F 115 H 28 H 95 10/21/17 02:55 107 H 119/67 10/21/17 02:00 24 H 10/21/17 01:30 113 H 26 H 100 10/21/17 00:14 100 24 H 100 10/21/17 00:00 24 H 10/20/17 23:05 96 87/54 L Weight Weight 173 lb 15.115 oz Most Recent Monitor Data Heart Rate from ECG 116 NIBP 100/54 NIBP BP-Mean 70 Respiration from ECG 17 SpO2 95 I&O: 10/20/17 10/21/17 10/22/17 06:59 06:59 06:59 Intake Total 599.2 0 Output Total 2270 320 Balance -1670.8 -320 Result Diagrams: 10/21/17 04:44 10/21/17 04:44 Additional Labs: Accuchecks 10/21/17 10/20/17 05:31 22:56 POC Glucose 168 H 325 H Radiology Reviewed by me: Yes (chest xray) EKG Reviewed by me: Yes (tachycardia) Phys Exam - Physical Examination Constitutional: NAD intubated, awake HEENT: PERRLA, sclera anicteric Neck: no JVD, supple Respiratory: no wheezing, no rales, no rhonchi Cardiovascular: RRR, no significant murmur, no rub tachycardia Gastrointestinal: soft, non-tender, no distention, positive bowel sounds Musculoskeletal: no edema, pulses present Neurological: moves all 4 limbs Lymphatic: no nodes Skin: no rash, normal turgor Dx/Plan (1) Acidosis, metabolic, with respiratory acidosis Code(s): E87.4 - MIXED DISORDER OF ACID-BASE BALANCE Status: Resolved (2) Acute respiratory failure with hypoxia and hypercapnia Code(s): J96.01 - ACUTE RESPIRATORY FAILURE WITH HYPOXIA; J96.02 - ACUTE RESPIRATORY FAILURE WITH HYPERCAPNIA Status: Acute Comment: on vent (3) COPD exacerbation Code(s): J44.1 - CHRONIC OBSTRUCTIVE PULMONARY DISEASE W (ACUTE) EXACERBATION Status: Acute (4) Community acquired bacterial pneumonia Code(s): J15.9 - UNSPECIFIED BACTERIAL PNEUMONIA Status: Acute (5) Sepsis with acute organ dysfunction Code(s): A41.9 - SEPSIS, UNSPECIFIED ORGANISM; R65.20 - SEVERE SEPSIS WITHOUT SEPTIC SHOCK Status: Acute (6) CKD (chronic kidney disease) stage 3, GFR 30-59 ml/min Code(s): N18.3 - CHRONIC KIDNEY DISEASE, STAGE 3 (MODERATE) Status: Chronic (7) Carotid stenosis Code(s): I65.29 - OCCLUSION AND STENOSIS OF UNSPECIFIED CAROTID ARTERY Status : Chronic Comment: (8) Dyslipidemia Code(s): E78.5 - HYPERLIPIDEMIA, UNSPECIFIED Status: Chronic Comment: (9) Hypertension Code(s): I10 - ESSENTIAL (PRIMARY) HYPERTENSION Status: Chronic (10) Hypothyroidism Code(s): E03.9 - HYPOTHYROIDISM, UNSPECIFIED Status: Chronic Comment: (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 - OTHER DISEASES OF VOCAL CORDS Status: Chronic (12) Tobacco dependence Code(s): F17.200 - NICOTINE DEPENDENCE, UNSPECIFIED, UNCOMPLICATED Status: Chronic Comment: (13) VALENTINA (obstructive sleep apnea) Code(s): G47.33 - OBSTRUCTIVE SLEEP APNEA (ADULT) (PEDIATRIC) Status: Suspected Comment: (14) Elevated brain natriuretic peptide (BNP) level Code(s): R79.89 - OTHER SPECIFIED ABNORMAL FINDINGS OF BLOOD CHEMISTRY Status : Acute - Plan cont current plan of care, continue antibiotics * check free T4 and T3, CK, cardiac enzyme * vent as per pulmonary * medication reviewed as below * symptomatic treatment * continue empiric antibiotics * follow culture. Review of Systems - Review of Systems Other: unable to review due to intubated status - Medications/Allergies Allergies/Adverse Reactions: Allergies Allergy/AdvReac Type Severity Reaction Status Date / Time Penicillins Allergy Verified 06/15/17 14:48 Sulfa (Sulfonamide Allergy Verified 06/15/17 14:48 Antibiotics) Medications: Current Medications Acetaminophen (Tylenol Elixir) 650 mg PO Q6H PRN PRN Reason: Fever > 101 or Mild Pain Acetaminophen (Tylenol) 650 mg GA Q6H PRN PRN Reason: Fever > 101 or Mild Pain Al Hydroxide/Mg Hydroxide (Maalox) 30 ml PO Q6H PRN PRN Reason: Heartburn or Indigestion Albuterol/Ipratropium (Duoneb) 3 ml NEB Q6H PRN PRN Reason: SOB &/or Wheezing Last Admin: 10/21/17 01:30 Dose: 3 ml Albuterol/Ipratropium (Duoneb) 3 ml NEB [id number] JOSH Artificial Tears (Tears Naturale) 0 drop EA EYE PRN PRN PRN Reason: Dry Eyes Bisacodyl (Dulcolax) 10 mg PO DAILYPRN PRN PRN Reason: Constipation Bisacodyl (Dulcolax) 10 mg GA DAILYPRN PRN PRN Reason: Constipation Calcium Carbonate (Tums) 1,000 mg PO Q4H PRN PRN Reason: Heartburn or Indigestion Dextrose/Water (Dextrose 50%) 25 gm SLOW IVP PRN PRN PRN Reason: Hypoglycemia Enoxaparin Sodium (Lovenox) 40 mg SC 0900 [facility] Last Admin: 10/21/17 08:50 Dose: 40 mg Famotidine (Pepcid) 20 mg SLOW IVP Q12HR JOSH Last Admin: 10/21/17 09:49 Dose: 20 mg Glucagon (Glucagon) 1 mg IM PRN PRN PRN Reason: Hypoglycemia Hydralazine HCl (Apresoline) 10 mg SLOW IVP Q4H PRN PRN Reason: Systolic BP > 180 Fentanyl Citrate 2,000 mcg/ (Sodium Chloride) 100 mls @ 0 mls/hr IV INF JOSH; Per Protocol PRN Reason: Protocol Stop: 11/19/17 20:45 Fentanyl Citrate (Fentanyl Bolus) 250 mls @ 0 mls/hr IVPB PRN PRN; As Directed PRN Reason: Breakthrough pain Stop: 11/19/17 20:45 Levofloxacin 750 mg/ Device 150 mls @ 100 mls/hr IVPB Q24HR JOSH Last Admin: 10/20/17 21:51 Dose: 150 mls Cefepime HCl 2 gm/ Syringe 2.5 (ml/ Sodium Chloride) 12.5 mls @ 150 mls/hr SLOW IVP Q12HR [facility] Last Admin: 10/21/17 08:54 Dose: 12.5 mls Dextrose/Water (D5w) 1,000 mls @ 0 mls/hr IV .Q0M PRN; As Directed PRN Reason: Hypoglycemia Insulin Human Lispro (Humalog) 0 units SC .MILD SLIDING SCALE PRN PRN Reason: Mild Correctional Scale Insulin Human Lispro (Humalog) 0 units SC .BEDTIME SLIDING SC PRN PRN Reason: Bedtime Correctional Scale Last Admin: 10/20/17 22:56 Dose: 4 unit Magnesium Hydroxide (Milk Of Magnesium) 30 ml PO Q8H PRN PRN Reason: Constipation Methylprednisolone Sodium Succinate (Solu-Medrol) 40 mg IVP DAILY [facility] Last Admin: 10/21/17 08:52 Dose: 40 mg Mineral Oil/White Petrolatum (Eucerin Cream) 0 gm TOP BIDPRN PRN PRN Reason: Dry Skin Ondansetron HCl (Zofran) 4 mg IVP Q6H PRN PRN Reason: Nausea/Vomiting Potassium Chloride (Klor-Con) 40 meq PO Q4H [facility] Stop: 10/21/17 12:46 Last Admin: 10/21/17 08:52 Dose: 40 meq Propofol (Diprivan) 1,000 mg IV INF PRN; Protocol PRN Reason: TO ACHIEVE GUAMAN SCORE 2-3 Stop: 11/19/17 20:45 Last Admin: 10/21/17 09:06 Dose: 1,000 mg Senna (Senokot) 2 tab PO HSPRN PRN PRN Reason: Constipation Sodium Chloride (Flush - Normal Saline) 10 ml IVF Q12HR [facility] Last Admin: 10/21/17 08:53 Dose: 10 ml Sodium Chloride (Flush - Normal Saline) 10 ml IVF PRN PRN PRN Reason: Saline Flush
[2017-10-21] MEDS: HumaLOG 300 UNITS/3 ML VIAL SC PRN ×2 (10:48→16:06)
[2017-10-21 11:22] LABS: CKMB 7.1 ng/mL (0-6.6); Troponin I 2.273 ng/mL (< 0.028)
--- NOTE | 2017-10-21 14:00 | CON ---
CARDIOLOGY CONSULTATION NOTE DATE OF CONSULTATION: 10/21/2017 REASON FOR CONSULTATION: Elevated troponins, possible heart failure. PRIMARY FINAL TESTER: Aniya Mann M.D. HISTORY OF PRESENT ILLNESS: Ms. Livingston is a 57-year-old white female who comes to the hospital for shortness of breath. She has a history of COPD and a recent CVA. She also has significant peripheral vascular disease. She was found at home outside severely short of breath, cyanotic around the lips. EMS was called. She was found to be severely hypoxic and lost consciousness and had to be intubated in the field. She was brought and intubated. During her workup, her troponins are slightly elevated and her BNP is much higher than what it has ever been, so Cardiology is consulted for further evaluation and care. Currently, she remains sedated and intubated and unable to give me any history. PAST MEDICAL HISTORY: 1. Hypothyroidism. 2. Recent cerebrovascular accident. 3. Sinus pauses in the setting of an acute CVA, not an indication for pacemaker. 4. Systolic dysfunction due to CVA. 5. Tobacco abuse, continued. 6. Chronic kidney disease. 7. Carotid artery stenosis. 8. Hyperlipidemia. 9. Hypertension. 10. Obstructive sleep apnea. PAST SURGICAL HISTORY: Hernia repair. SOCIAL HISTORY: Smokes 4 packs a week. No drug or alcohol use. FAMILY HISTORY: Noncontributory. ALLERGIES: PENICILLIN. OUTPATIENT MEDICATIONS: Per chart review: 1. Docusate. 2. Vitamin B12. 3. Lipitor 10 mg at bedtime. 4. Aspirin 325 a day. 5. Tylenol. 6. Mucinex p.r.n. 7. Senokot. 8. Zofran p.r.n. 9. Nitroglycerin sublingual p.r.n. 10. Nifedipine 60 mg a day. 11. Multivitamin daily. 12. Synthroid 150 mg a day. 13. Fish oil. 14. Pepcid AC. REVIEW OF SYSTEMS: Unobtainable as the patient is sedated and intubated. PHYSICAL EXAMINATION: VITAL SIGNS: Temperature 100.6, pulse 79, respiration rate 16 and satting 97% on 38% FiO2. blood pressure 124 over 68 GENERAL: Sedated and intubated. LUNGS: Have reduced breath sounds bilaterally. CARDIOVASCULAR: S1 and S2, distant heart sounds. ABDOMEN: Soft. Positive bowel sounds. EXTREMITIES: No edema. SKIN: Warm and dry. LABORATORY WORK: Reviewed. CBC with a white count of 19. Coags with mildly elevated D-dimer, but normal coags. ABG was reviewed, much better now. She was in hypercapnic respiratory insufficiency with a CO2 of 80 and a pH of 7.0. Chemistries were reviewed, unremarkable except for a glucose of 368. Lactic acid of 9.8. BNP was 3114 and troponin was 2.2. UA showed 300 protein, 500 glucose, large blood, greater than 50 red cells, 21-50 white cells and 1+ bacteria. Toxicology was unremarkable. IMAGING DATA: EKG was reviewed and it shows sinus tachycardia with LVH and early repol and a nonspecific intraventricular conduction delay. ASSESSMENT AND PLAN: 1. Non-ST elevation myocardial infarction: May be demand ischemia. However, at this point, she does have significant vascular disease and a significant history of ongoing tobacco use. This also may be a non-ST elevation myocardial infarction. We will recommend full anticoagulation given, we are not exactly sure what may be going on. We will get a stat echocardiogram to assess left ventricular function as it was normal on her last admission. 2. Acute hypoxic hypercapnic respiratory insufficiency: Followed by Dr. Arthur and Pulmonary. 3. Acute on chronic heart failure. BNP is very high, suspicious for LV dysfunction new onset. Echocardiogram pending. Would agree with continued diuresis Thank you for letting participate in the care of patient. We will follow. MACK
--- NOTE | 2017-10-21 15:07 | PRG ---
DATE OF SERVICE: 10/21/2017 SERVICE: Pulmonary Medicine. INTERVAL HISTORY: The patient is doing poorly from a respiratory standpoint. Her requirements on the ventilator actually a little bit improved. That being said, she continues to have persistent obstructive airflow limitation. I put her on a CPAP trial, and she did not last more than about 15 minutes before she seemed to decompensate a little bit with increasing tachypnea and lower lung volumes. As such, sedation was restarted after putting her back on mechanical ventilation with multiple adjustments. Ultimately, I put her on pressure control ventilation, she seemed to tolerate this quite a bit better. PHYSICAL EXAMINATION: VITAL SIGNS: Afebrile, pulse 123, blood pressure 135/75, respirations 18, saturation 97% on 27% FiO2 and a PEEP of 5. She got a Ji temperature probe in place demonstrating a T-max of 100.8. HEENT: Normocephalic and atraumatic. Sclerae are white, conjunctivae pink. Oral and nasal mucosa is moist without lesions. LUNGS: Decent air entry. There is a prolonged expiratory phase with wheezing. I do not appreciate crackles or rhonchi. HEART: Normal rate and regular. ABDOMEN: Soft, nontender and nondistended. Bowel sounds are positive. MUSCULOSKELETAL: No cyanosis or clubbing. There is trace pitting in the bilateral lower extremities. NEUROLOGIC: Grossly nonfocal. LABORATORY DATA: WBC 16.4, hemoglobin 11.9 and platelets 328,000. Neutrophils are 87%. PH 7.38, pCO2 of 41 and pO2 of 75. This was on 60% FiO2 at that time. Troponin 2.273, basic metabolic profile is otherwise unremarkable. BNP 3114. TSH is low at 0.1. Liver function studies are unremarkable. Lactate was originally at 9.8, but has improved to 2.1. Urinalysis has many red blood cells, but very few white blood cells. Urine drug screen is unremarkable. Blood culture x2 and influenza are negative to date. IMAGING DATA: Chest x-ray demonstrates bibasilar pleural and parenchymal changes. Patchy interstitial opacities through the lung parenchyma suggestive of edema or infiltrate. Pulmonary vascular congestion is evident. ASSESSMENT: 1. Acute hypoxic and hypercapnic respiratory failure. 2. Chronic obstructive pulmonary disease with acute exacerbation. 3. Non-ST elevation myocardial infarction. PLAN: We will continue her antibiotics, nebulized medications and steroids. I will back off the steroids to once daily. Pulmonary Critical Care will continue to follow while the patient remains in this location. We will give her spontaneous breathing trial and when she meets criteria, extubation will be considered. Unfortunately, today is not that day. I will continue to follow closely during this hospital stay. CRITICAL CARE TIME: 30 minutes. MACK
[2017-10-21] MEDS ORDERED: Furosemide 40 MG/4 ML VIAL SLOW IVP SCH (17:15)
[2017-10-21] MEDS: Famotidine/PF 20 mg/2ml Vial SLOW IVP SCH (20:36)
[2017-10-22] MEDS: fentaNYL Citrate/PF 2,000 MCG in Sodium Chloride 0.9% 60 ML IV SCH ×2 (00:01→23:40)
[2017-10-22] MEDS: Propofol 1,000 MG/100 ML VIAL IV PRN ×2 (00:10→22:55)
[2017-10-22 04:53] LABS: Anion Gap 13 mmol/L (10-20); BUN (Urea Nitrogen) 21 mg/dL (9.8-20.1); Calc. Creatinine Clearance 104 mL/min (70-130); Calcium 9.6 mg/dL (7.8-10.44); Carbon Dioxide 25 mmol/L (22-29); Chloride 106 mmol/L (98-107); Estimated GFR-MDRD 81; Glucose 140 mg/dL (70-105); Potassium 4.2 mmol/L (3.5-5.1); Sodium 140 mmol/L (136-145)
[2017-10-22 05:21] LABS: Band 5 % (5-11); Hemoglobin 10.2 g/dL (12.0-16.0); Lymphocytes 6 % (21-51); MDiff Complete? YES; Mean Corpuscular HGB CONC 33.6 g/dL (32.0-36.0); Mean Corpuscular Hemoglobin 29.9 pg (27.0-31.0); Mean Corpuscular Volume 89.1 fl (81.0-99.0); Mean Platelet Volume 8.9 fL (7.4-10.4); Metamyelocyte 1 % (0-0); Monocytes 3 % (0-10); Neutrophil 85 % (42-75); PLT Morphology Comment Appears Adequate; Platelet Count 324 thou/uL (130-400); RBC Distribution Width 14.7 % (11.5-14.5); RBC Morphology Normal; Red Blood Cell (RBC) Count 3.41 mill/uL (4.20-5.40); White Blood Cell (WBC) Count 16.3 thou/uL (4.8-10.8)
[2017-10-22] MEDS: Enoxaparin Sodium 40 MG/0.4 ML SYRINGE SC SCH (09:21)
[2017-10-22] MEDS: Furosemide 40 MG/4 ML VIAL SLOW IVP SCH (10:11)
[2017-10-22] MEDS: Cefepime 2 GM, Syringe 2.5 ML in Sodium Chloride 0.9% 10 ML SLOW IVP SCH ×2 (10:11→20:29)
[2017-10-22] MEDS: Famotidine/PF 20 mg/2ml Vial SLOW IVP SCH ×2 (10:11→20:30)
--- NOTE | 2017-10-22 10:53 | PDOC.PN ---
- Subjective Encounter Start Date: 10/22/17 Encounter Start Time: 10:00 pt is intubated, Patient seen and examined. No overnight events - Objective MAR Reviewed: Yes Vital Signs & Weight: Vital Signs (12 hours) Temp Pulse Resp BP Pulse Ox 10/22/17 08:00 16 10/22/17 07:45 98.7 F 92 14 97 10/22/17 07:00 98.7 F 10/22/17 06:38 116 H 130/77 10/22/17 06:36 107 H 19 96 10/22/17 02:41 111 H 114/62 10/22/17 00:00 113 H 150/82 H Weight Admit Weight 173 lb 8.061 oz Weight 168 lb 13.985 oz Most Recent Monitor Data Heart Rate from ECG 98 NIBP 119/65 NIBP BP-Mean 73 Respiration from ECG 17 SpO2 98 I&O: 10/21/17 10/22/17 10/23/17 06:59 06:59 06:59 Intake Total 599.2 2091 30 Output Total 2270 2547 230 Balance -1670.8 -456 -200 Result Diagrams: 10/22/17 04:19 10/22/17 04:19 Additional Labs: Accuchecks 10/22/17 10/21/17 10/21/17 06:18 22:15 16:01 POC Glucose 142 H 157 H 157 H 10/21/17 10:45 POC Glucose 160 H Radiology Reviewed by me: Yes (echo) EKG Reviewed by me: Yes (tachycardia) Phys Exam - Physical Examination Constitutional: NAD intubated, awake HEENT: PERRLA, sclera anicteric Neck: no JVD, supple Respiratory: no wheezing, no rales, no rhonchi Cardiovascular: RRR, no significant murmur, no rub tachycardia Gastrointestinal: soft, non-tender, no distention, positive bowel sounds Musculoskeletal: no edema, pulses present Lymphatic: no nodes Skin: no rash, normal turgor Dx/Plan (1) Acidosis, metabolic, with respiratory acidosis Code(s): E87.4 - MIXED DISORDER OF ACID-BASE BALANCE Status: Resolved (2) Acute respiratory failure with hypoxia and hypercapnia Code(s): J96.01 - ACUTE RESPIRATORY FAILURE WITH HYPOXIA; J96.02 - ACUTE RESPIRATORY FAILURE WITH HYPERCAPNIA Status: Acute Comment: on vent (3) COPD exacerbation Code(s): J44.1 - CHRONIC OBSTRUCTIVE PULMONARY DISEASE W (ACUTE) EXACERBATION Status: Acute (4) Community acquired bacterial pneumonia Code(s): J15.9 - UNSPECIFIED BACTERIAL PNEUMONIA Status: Acute (5) Sepsis with acute organ dysfunction Code(s): A41.9 - SEPSIS, UNSPECIFIED ORGANISM; R65.20 - SEVERE SEPSIS WITHOUT SEPTIC SHOCK Status: Acute (6) CKD (chronic kidney disease) stage 3, GFR 30-59 ml/min Code(s): N18.3 - CHRONIC KIDNEY DISEASE, STAGE 3 (MODERATE) Status: Chronic (7) Carotid stenosis Code(s): I65.29 - OCCLUSION AND STENOSIS OF UNSPECIFIED CAROTID ARTERY Status : Chronic Comment: (8) Dyslipidemia Code(s): E78.5 - HYPERLIPIDEMIA, UNSPECIFIED Status: Chronic Comment: (9) Hypertension Code(s): I10 - ESSENTIAL (PRIMARY) HYPERTENSION Status: Chronic (10) Hypothyroidism Code(s): E03.9 - HYPOTHYROIDISM, UNSPECIFIED Status: Chronic Comment: (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 - OTHER DISEASES OF VOCAL CORDS Status: Chronic (12) Tobacco dependence Code(s): F17.200 - NICOTINE DEPENDENCE, UNSPECIFIED, UNCOMPLICATED Status: Chronic Comment: (13) VALENTINA (obstructive sleep apnea) Code(s): G47.33 - OBSTRUCTIVE SLEEP APNEA (ADULT) (PEDIATRIC) Status: Suspected Comment: (14) Elevated brain natriuretic peptide (BNP) level Code(s): R79.89 - OTHER SPECIFIED ABNORMAL FINDINGS OF BLOOD CHEMISTRY Status : Acute (15) Acute systolic heart failure Code(s): I50.21 - ACUTE SYSTOLIC (CONGESTIVE) HEART FAILURE Status: Acute (16) Moderate mitral regurgitation Code(s): I34.0 - NONRHEUMATIC MITRAL (VALVE) INSUFFICIENCY Status: Acute (17) Moderate tricuspid regurgitation Code(s): I07.1 - RHEUMATIC TRICUSPID INSUFFICIENCY Status: Acute (18) NSTEMI (non-ST elevated myocardial infarction) Code(s): I21.4 - NON-ST ELEVATION (NSTEMI) MYOCARDIAL INFARCTION Status: Acute - Plan cont current plan of care, continue antibiotics, respiratory therapy, DVT proph w/lovenox * cardiology following * may need cardiac cath once stable * pulmonary managing vent * continue empiric antibiotics * medication reviewed as below * symptomatic treatment. * continue lasix * continue solumedrol Review of Systems - Review of Systems Other: unable to review due to intubated status - Medications/Allergies Allergies/Adverse Reactions: Allergies Allergy/AdvReac Type Severity Reaction Status Date / Time Penicillins Allergy Verified 06/15/17 14:48 Sulfa (Sulfonamide Allergy Verified 06/15/17 14:48 Antibiotics) Medications: Current Medications Acetaminophen (Tylenol Elixir) 650 mg PO Q6H PRN PRN Reason: Fever > 101 or Mild Pain Acetaminophen (Tylenol) 650 mg FL Q6H PRN PRN Reason: Fever > 101 or Mild Pain Al Hydroxide/Mg Hydroxide (Maalox) 30 ml PO Q6H PRN PRN Reason: Heartburn or Indigestion Albuterol/Ipratropium (Duoneb) 3 ml NEB Q6H PRN PRN Reason: SOB &/or Wheezing Last Admin: 10/21/17 01:30 Dose: 3 ml Albuterol/Ipratropium (Duoneb) 3 ml NEB [id number] [facility] Last Admin: 10/22/17 06:36 Dose: 3 ml Artificial Tears (Tears Naturale) 0 drop EA EYE PRN PRN PRN Reason: Dry Eyes Bisacodyl (Dulcolax) 10 mg PO DAILYPRN PRN PRN Reason: Constipation Bisacodyl (Dulcolax) 10 mg FL DAILYPRN PRN PRN Reason: Constipation Calcium Carbonate (Tums) 1,000 mg PO Q4H PRN PRN Reason: Heartburn or Indigestion Dextrose/Water (Dextrose 50%) 25 gm SLOW IVP PRN PRN PRN Reason: Hypoglycemia Enoxaparin Sodium (Lovenox) 40 mg SC 0900 [facility] Last Admin: 10/22/17 09:21 Dose: 40 mg Famotidine (Pepcid) 20 mg SLOW IVP Q12HR [facility] Last Admin: 10/22/17 10:11 Dose: 20 mg Furosemide (Lasix) 40 mg SLOW IVP DAILY [facility] Last Admin: 10/22/17 10:11 Dose: 40 mg Glucagon (Glucagon) 1 mg IM PRN PRN PRN Reason: Hypoglycemia Hydralazine HCl (Apresoline) 10 mg SLOW IVP Q4H PRN PRN Reason: Systolic BP > 180 Fentanyl Citrate 2,000 mcg/ (Sodium Chloride) 100 mls @ 0 mls/hr IV INF JOSH; Per Protocol PRN Reason: Protocol Stop: 11/19/17 20:45 Last Admin: 10/22/17 00:01 Dose: 100 mls Fentanyl Citrate (Fentanyl Bolus) 250 mls @ 0 mls/hr IVPB PRN PRN; As Directed PRN Reason: Breakthrough pain Stop: 11/19/17 20:45 Levofloxacin 750 mg/ Device 150 mls @ 100 mls/hr IVPB Q24HR [facility] Last Admin: 10/21/17 22:29 Dose: 150 mls Cefepime HCl 2 gm/ Syringe 2.5 (ml/ Sodium Chloride) 12.5 mls @ 150 mls/hr SLOW IVP Q12HR [facility] Last Admin: 10/22/17 10:11 Dose: 12.5 mls Dextrose/Water (D5w) 1,000 mls @ 0 mls/hr IV .Q0M PRN; As Directed PRN Reason: Hypoglycemia Insulin Human Lispro (Humalog) 0 units SC .MILD SLIDING SCALE PRN PRN Reason: Mild Correctional Scale Last Admin: 10/21/17 16:06 Dose: 2 unit Insulin Human Lispro (Humalog) 0 units SC .BEDTIME SLIDING SC PRN PRN Reason: Bedtime Correctional Scale Last Admin: 10/20/17 22:56 Dose: 4 unit Magnesium Hydroxide (Milk Of Magnesium) 30 ml PO Q8H PRN PRN Reason: Constipation Methylprednisolone Sodium Succinate (Solu-Medrol) 40 mg IVP DAILY [facility] Last Admin: 10/22/17 10:12 Dose: 40 mg Mineral Oil/White Petrolatum (Eucerin Cream) 0 gm TOP BIDPRN PRN PRN Reason: Dry Skin Ondansetron HCl (Zofran) 4 mg IVP Q6H PRN PRN Reason: Nausea/Vomiting Propofol (Diprivan) 1,000 mg IV INF PRN; Protocol PRN Reason: TO ACHIEVE GUAMAN SCORE 2-3 Stop: 11/19/17 20:45 Last Admin: 10/22/17 00:10 Dose: 1,000 mg Senna (Senokot) 2 tab PO HSPRN PRN PRN Reason: Constipation Sodium Chloride (Flush - Normal Saline) 10 ml IVF Q12HR [facility] Last Admin: 10/22/17 10:11 Dose: 10 ml Sodium Chloride (Flush - Normal Saline) 10 ml IVF PRN PRN PRN Reason: Saline Flush
--- NOTE | 2017-10-22 13:00 | PRG ---
DATE OF SERVICE: 10/22/2017 SERVICE: Pulmonary Medicine. INTERVAL HISTORY: The patient is doing fine from a respiratory standpoint, put on a CPAP trial. Slo wly over a period of 30 minutes, she had increasing tachycardia, tachypnea with decreasing lung volum es. She started to desaturate towards the end of our CPAP trial. She was put back on mechanical mehreen tilation of these other things went away. She is clearly not ready for extubation today. She cannot provide with any additional elements of the history. Other than this, there were no overnight event s. PHYSICAL EXAMINATION: VITAL SIGNS: Afebrile currently. T-max overnight 100.6. Pulse 93, blood pressure 88/53, respiratio ns 11, and saturation 93% on 40% FiO2. GENERAL: The patient is awake and alert, in no apparent distress. LUNGS: Decent air entry bilaterally. There is a prolonged expiratory phase with both crackles and w heezing. No rhonchi. HEART: Normal rate, regular. ABDOMEN: Soft, nontender, nondistended. Bowel sounds are positive. MUSCULOSKELETAL: No cyanosis or clubbing. There is trace to 1+ pitting in the bilateral lower extre mities. NEUROLOGIC: Grossly nonfocal. LABORATORY DATA: WBC 16.3, hemoglobin 10.2, platelets 324,000. BUN 21. Basic metabolic profile is otherwise unremarkable. Blood cultures x2 and influenza are negative. ASSESSMENT: 1. Acute hypoxic and hypercapnic respiratory failure. 2. Chronic obstructive pulmonary disease with acute exacerbation. 3. Non-ST elevation myocardial infarction. 4. Acute on chronic systolic heart failure. DISCUSSION AND PLAN: The patient has a new onset systolic heart failure. Cardiology is following. The patient is not prepared for extubation at this time. She did do better on the CPAP trial than sh e did yesterday. This will be repeated hopefully on a daily basis and when she meets criteria, extub ation will be considered. We will continue making efforts and diuresing the patient down to euvolemi a. Pulmonary Critical Care will continue to follow. Critical care time: 30 minutes.
--- NOTE | 2017-10-22 13:51 | PDOC.CTH ---
<Mayelin Hurley - Last Filed: 10/22/17 13:55> Cardiology Progress Note - Subjective The pt seen and examined. No overnight events. Still on Mechanical Vent support with Vent sedation. - Objective Vital Signs Temp Pulse Resp BP Pulse Ox 10/22/17 12:00 99.1 F 15 10/22/17 11:44 94 80/45 L 10/22/17 10:00 16 10/22/17 08:00 16 10/22/17 07:45 98.7 F 92 14 97 10/22/17 07:00 98.7 F 10/22/17 06:38 116 H 130/77 10/22/17 06:36 107 H 19 96 10/22/17 02:41 111 H 114/62 Admit Weight 173 lb 8.061 oz Weight 168 lb 13.985 oz 10/21/17 10/22/17 10/23/17 06:59 06:59 06:59 Intake Total 599.2 2091 60 Output Total 2270 9787 670 Balance -1670.8 -456 -610 - Physical Examination Neck: no JVD present Lungs: other: (diminished at bases) Heart: RRR Abdomen: soft Extremities: other: (No edema) - Telemetry Telemetry Rhythm: SR 90-100s - Labs Result Diagrams: 10/22/17 04:19 10/22/17 04:19 Troponin/CKMB CK-MB (CK-2) 7.1 ng/mL (0-6.6) H* 10/21/17 10:45 Troponin I 2.273 ng/mL (< 0.028) H* 10/21/17 10:45 - Assessment/Plan 1. NSTEMI - Increase Lovenox to 80mg subq BID; cont. monitor 2. Acute Resp. failure 2ndary to COPD exacerbation - on Vent support; managed by accounts receivable processor 3. Acute on Chronic systolic HF - on Lasix 40mg IV daily; cont. monitor 4. Hypothyroidism - TSH 0.1042; her thyroid med is on hold 5. HTN - BP meds are on hold for hypotensive; cont. monitor 6. Sepsis - Lactic acid level on 10/20/17 was 9.8; managed by PCP 7. CKD stage 3 - stable 8. Sleep Apnea 9. Tobacco abuse - MAR reviewed * Echo on 10/21/17 showed EF 20-25%, apical akinesis, dilated LV, mod MR, mild AR, mild-mod TR, PAP 65mmHg Review of Systems - Review of Systems Constitutional: reports: see HPI EENTM: reports: see HPI Respiratory: reports: see HPI Cardiac (ROS): reports: see HPI ABD/GI: reports: see HPI : reports: see HPI Musculoskeletal: reports: see HPI <Feliciano Mann Dustin - Last Filed: 10/22/17 22:30> Cardiology Progress Note - Objective Vital Signs Temp Pulse Resp BP Pulse Ox 10/22/17 22:27 115 H 10/22/17 18:45 122 H 10/22/17 18:44 111 H 16 89 L 10/22/17 16:00 99.1 F 21 H 10/22/17 15:25 103 H 97/55 L 10/22/17 14:00 16 10/22/17 13:54 104 H 14 95 10/22/17 12:00 99.1 F 15 10/22/17 11:44 94 80/45 L Admit Weight 173 lb 8.061 oz Weight 168 lb 13.985 oz 10/21/17 10/22/17 10/23/17 06:59 06:59 06:59 Intake Total 599.2 2091 702.2 Output Total 2270 7467 1815 Balance -1670.8 -456 -1112.8 - Labs Result Diagrams: 10/22/17 04:19 10/22/17 04:19 Troponin/CKMB CK-MB (CK-2) 7.1 ng/mL (0-6.6) H* 10/21/17 10:45 Troponin I 2.273 ng/mL (< 0.028) H* 10/21/17 10:45 - Assessment/Plan Pt. seen and eval. by me. I agree with the A/P by the LEAK DETECTION ENGINEER.
[2017-10-22] MEDS: HumaLOG 300 UNITS/3 ML VIAL SC PRN (17:01)
[2017-10-22] MEDS: Enoxaparin Sodium 80 MG/0.8 ML SYRINGE SC SCH (20:29)
[2017-10-23 06:30] LABS: Anion Gap 13 mmol/L (10-20); BUN (Urea Nitrogen) 30 mg/dL (9.8-20.1); Calc. Creatinine Clearance 103 mL/min (70-130); Calcium 9.5 mg/dL (7.8-10.44); Carbon Dioxide 29 mmol/L (22-29); Chloride 103 mmol/L (98-107); Estimated GFR-MDRD 86; Glucose 109 mg/dL (70-105); Potassium 4.3 mmol/L (3.5-5.1); Sodium 141 mmol/L (136-145)
[2017-10-23 06:37] LABS: Band 1 % (5-11); Lymphocytes 9 % (21-51); MDiff Complete? YES; Mean Corpuscular HGB CONC 32.5 g/dL (32.0-36.0); Mean Corpuscular Hemoglobin 28.9 pg (27.0-31.0); Mean Corpuscular Volume 88.8 fl (81.0-99.0); Mean Platelet Volume 8.9 fL (7.4-10.4); Monocytes 4 % (0-10); Neutrophil 86 % (42-75); PLT Morphology Comment Appears Adequate; Platelet Count 319 thou/uL (130-400); RBC Distribution Width 14.7 % (11.5-14.5); Red Blood Cell (RBC) Count 3.47 mill/uL (4.20-5.40); White Blood Cell (WBC) Count 18.7 thou/uL (4.8-10.8)
[2017-10-23] MEDS: Famotidine/PF 20 mg/2ml Vial SLOW IVP SCH ×2 (09:28→20:10)
[2017-10-23] MEDS: Enoxaparin Sodium 80 MG/0.8 ML SYRINGE SC SCH ×2 (09:28→20:10)
[2017-10-23] MEDS: Furosemide 40 MG/4 ML VIAL SLOW IVP SCH (09:28)
[2017-10-23] MEDS: Cefepime 2 GM, Syringe 2.5 ML in Sodium Chloride 0.9% 10 ML SLOW IVP SCH ×2 (09:28→20:10)
--- NOTE | 2017-10-23 09:54 | PDOC.PN ---
- Subjective Encounter Start Date: 10/23/17 Encounter Start Time: 09:20 Patient seen and examined. pt is on vent, awake, yesterday she failed spontaneous trial, C-diff is now positive, No overnight events - Objective MAR Reviewed: Yes Vital Signs & Weight: Vital Signs (12 hours) Pulse Resp BP Pulse Ox 10/23/17 07:07 101 H 135/84 10/23/17 07:06 102 H 17 95 10/23/17 04:00 17 10/23/17 02:26 86 10/23/17 01:12 108 H 18 94 L 10/22/17 22:27 115 H Weight Admit Weight 173 lb 8.061 oz Weight 162 lb 11.218 oz Most Recent Monitor Data Heart Rate from ECG 101 NIBP 123/81 NIBP BP-Mean 86 Respiration from ECG 18 SpO2 95 I&O: 10/22/17 10/23/17 10/24/17 06:59 06:59 07:59 Intake Total 2091 1384.2 Output Total 0353 2082 Balance -456 -697.8 Result Diagrams: 10/23/17 05:32 10/23/17 05:32 Additional Labs: Accuchecks 10/23/17 10/22/17 10/22/17 06:34 20:29 16:56 POC Glucose 118 H 137 H 161 H 10/22/17 10/22/17 13:01 11:32 POC Glucose 161 H 105 Radiology Reviewed by me: Yes (chest xray) EKG Reviewed by me: Yes (tachycardia) Phys Exam - Physical Examination Constitutional: NAD on vent HEENT: PERRLA, sclera anicteric Neck: no JVD, supple Respiratory: no wheezing, no rales, no rhonchi Cardiovascular: RRR, no significant murmur, no rub tachycardia Gastrointestinal: soft, no distention, positive bowel sounds Musculoskeletal: no edema, pulses present Lymphatic: no nodes Skin: no rash, normal turgor Dx/Plan (1) Acidosis, metabolic, with respiratory acidosis Code(s): E87.4 - MIXED DISORDER OF ACID-BASE BALANCE Status: Resolved (2) Acute respiratory failure with hypoxia and hypercapnia Code(s): J96.01 - ACUTE RESPIRATORY FAILURE WITH HYPOXIA; J96.02 - ACUTE RESPIRATORY FAILURE WITH HYPERCAPNIA Status: Acute Comment: on vent (3) COPD exacerbation Code(s): J44.1 - CHRONIC OBSTRUCTIVE PULMONARY DISEASE W (ACUTE) EXACERBATION Status: Acute (4) Community acquired bacterial pneumonia Code(s): J15.9 - UNSPECIFIED BACTERIAL PNEUMONIA Status: Acute (5) Sepsis with acute organ dysfunction Code(s): A41.9 - SEPSIS, UNSPECIFIED ORGANISM; R65.20 - SEVERE SEPSIS WITHOUT SEPTIC SHOCK Status: Acute (6) CKD (chronic kidney disease) stage 3, GFR 30-59 ml/min Code(s): N18.3 - CHRONIC KIDNEY DISEASE, STAGE 3 (MODERATE) Status: Chronic (7) Carotid stenosis Code(s): I65.29 - OCCLUSION AND STENOSIS OF UNSPECIFIED CAROTID ARTERY Status : Chronic Comment: (8) Dyslipidemia Code(s): E78.5 - HYPERLIPIDEMIA, UNSPECIFIED Status: Chronic Comment: (9) Hypertension Code(s): I10 - ESSENTIAL (PRIMARY) HYPERTENSION Status: Chronic (10) Hypothyroidism Code(s): E03.9 - HYPOTHYROIDISM, UNSPECIFIED Status: Chronic Comment: (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 - OTHER DISEASES OF VOCAL CORDS Status: Chronic (12) Tobacco dependence Code(s): F17.200 - NICOTINE DEPENDENCE, UNSPECIFIED, UNCOMPLICATED Status: Chronic Comment: (13) VALENTINA (obstructive sleep apnea) Code(s): G47.33 - OBSTRUCTIVE SLEEP APNEA (ADULT) (PEDIATRIC) Status: Suspected Comment: (14) Elevated brain natriuretic peptide (BNP) level Code(s): R79.89 - OTHER SPECIFIED ABNORMAL FINDINGS OF BLOOD CHEMISTRY Status : Acute (15) Acute systolic heart failure Code(s): I50.21 - ACUTE SYSTOLIC (CONGESTIVE) HEART FAILURE Status: Acute (16) Moderate mitral regurgitation Code(s): I34.0 - NONRHEUMATIC MITRAL (VALVE) INSUFFICIENCY Status: Acute (17) Moderate tricuspid regurgitation Code(s): I07.1 - RHEUMATIC TRICUSPID INSUFFICIENCY Status: Acute (18) NSTEMI (non-ST elevated myocardial infarction) Code(s): I21.4 - NON-ST ELEVATION (NSTEMI) MYOCARDIAL INFARCTION Status: Acute (19) C. difficile colitis Status: Acute - Plan cont current plan of care, continue antibiotics, respiratory therapy * add IV flagyl for c-diff inection * vent as per pulmonary * continue lasix * cardiology following * medication reviewed as below * symptomatic treatment. Review of Systems - Review of Systems Other: unable to review due to intubated status - Medications/Allergies Allergies/Adverse Reactions: Allergies Allergy/AdvReac Type Severity Reaction Status Date / Time Penicillins Allergy Verified 06/15/17 14:48 Sulfa (Sulfonamide Allergy Verified 06/15/17 14:48 Antibiotics) Medications: Current Medications Acetaminophen (Tylenol Elixir) 650 mg PO Q6H PRN PRN Reason: Fever > 101 or Mild Pain Acetaminophen (Tylenol) 650 mg ND Q6H PRN PRN Reason: Fever > 101 or Mild Pain Al Hydroxide/Mg Hydroxide (Maalox) 30 ml PO Q6H PRN PRN Reason: Heartburn or Indigestion Albuterol/Ipratropium (Duoneb) 3 ml NEB Q6H PRN PRN Reason: SOB &/or Wheezing Last Admin: 10/21/17 01:30 Dose: 3 ml Albuterol/Ipratropium (Duoneb) 3 ml NEB [id number] [facility] Last Admin: 10/23/17 07:06 Dose: 3 ml Artificial Tears (Tears Naturale) 0 drop EA EYE PRN PRN PRN Reason: Dry Eyes Bisacodyl (Dulcolax) 10 mg PO DAILYPRN PRN PRN Reason: Constipation Bisacodyl (Dulcolax) 10 mg ND DAILYPRN PRN PRN Reason: Constipation Calcium Carbonate (Tums) 1,000 mg PO Q4H PRN PRN Reason: Heartburn or Indigestion Dextrose/Water (Dextrose 50%) 25 gm SLOW IVP PRN PRN PRN Reason: Hypoglycemia Enoxaparin Sodium (Lovenox) 80 mg SC 0900,2100 [facility] Last Admin: 10/22/17 20:29 Dose: 80 mg Famotidine (Pepcid) 20 mg SLOW IVP Q12HR [facility] Last Admin: 10/22/17 20:30 Dose: 20 mg Furosemide (Lasix) 40 mg SLOW IVP DAILY [facility] Last Admin: 10/22/17 10:11 Dose: 40 mg Glucagon (Glucagon) 1 mg IM PRN PRN PRN Reason: Hypoglycemia Hydralazine HCl (Apresoline) 10 mg SLOW IVP Q4H PRN PRN Reason: Systolic BP > 180 Fentanyl Citrate 2,000 mcg/ (Sodium Chloride) 100 mls @ 0 mls/hr IV INF JOSH; Per Protocol PRN Reason: Protocol Stop: 11/19/17 20:45 Last Admin: 10/22/17 23:40 Dose: 100 mls Fentanyl Citrate (Fentanyl Bolus) 250 mls @ 0 mls/hr IVPB PRN PRN; As Directed PRN Reason: Breakthrough pain Stop: 11/19/17 20:45 Levofloxacin 750 mg/ Device 150 mls @ 100 mls/hr IVPB Q24HR [facility] Last Admin: 10/22/17 22:55 Dose: 150 mls Cefepime HCl 2 gm/ Syringe 2.5 (ml/ Sodium Chloride) 12.5 mls @ 150 mls/hr SLOW IVP Q12HR [facility] Last Admin: 10/22/17 20:29 Dose: 12.5 mls Dextrose/Water (D5w) 1,000 mls @ 0 mls/hr IV .Q0M PRN; As Directed PRN Reason: Hypoglycemia Metronidazole 500 mg/ Device 100 mls @ 100 mls/hr IVPB Q8HR [facility] Insulin Human Lispro (Humalog) 0 units SC .MILD SLIDING SCALE PRN PRN Reason: Mild Correctional Scale Last Admin: 10/22/17 17:01 Dose: 2 unit Insulin Human Lispro (Humalog) 0 units SC .BEDTIME SLIDING SC PRN PRN Reason: Bedtime Correctional Scale Last Admin: 10/20/17 22:56 Dose: 4 unit Loperamide HCl (Imodium) 1 mg PO Q4H PRN PRN Reason: Diarrhea/Loose Stools Last Admin: 10/22/17 14:40 Dose: 1 mg Magnesium Hydroxide (Milk Of Magnesium) 30 ml PO Q8H PRN PRN Reason: Constipation Methylprednisolone Sodium Succinate (Solu-Medrol) 40 mg IVP DAILY [facility] Last Admin: 10/22/17 10:12 Dose: 40 mg Mineral Oil/White Petrolatum (Eucerin Cream) 0 gm TOP BIDPRN PRN PRN Reason: Dry Skin Ondansetron HCl (Zofran) 4 mg IVP Q6H PRN PRN Reason: Nausea/Vomiting Propofol (Diprivan) 1,000 mg IV INF PRN; Protocol PRN Reason: TO ACHIEVE GUAMAN SCORE 2-3 Stop: 11/19/17 20:45 Last Admin: 10/22/17 22:55 Dose: 1,000 mg Senna (Senokot) 2 tab PO HSPRN PRN PRN Reason: Constipation Sodium Chloride (Flush - Normal Saline) 10 ml IVF Q12HR [facility] Last Admin: 10/22/17 20:30 Dose: 10 ml Sodium Chloride (Flush - Normal Saline) 10 ml IVF PRN PRN PRN Reason: Saline Flush
--- NOTE | 2017-10-23 09:56 | RAD ---
PORTABLE CHEST: Date: 10/23/17 COMPARISON: 10/21/17. HISTORY: Shortness of breath. FINDINGS: Endotracheal and NG tubes are in satisfactory position. Heart size is enlarged. Increased parahilar l beth markings and lower lobe pleural and parenchymal changes are noted improved as compared to the luci or study. Some of the parahilar changes appear somewhat worsened. IMPRESSION: 1. Endotracheal and NG tubes in satisfactory position. 2. Cardiomegaly with pulmonary vascular engorgement. Parahilar markings are slightly more prominent than on the prior study. Bibasilar pleural and parenchymal lung changes are relatively stable. POS: [facility]
--- NOTE | 2017-10-23 10:53 | PRG ---
DATE OF SERVICE: 10/23/2017 SUBJECTIVE: Ms. Livingston is awake and she moves all extremities. PHYSICAL EXAMINATION: VITAL SIGNS: Heart rate 71, blood pressure 135/84, respiratory rate 17, oximetry is 95%. LUNGS: Clear anteriorly. She is no longer wheezing like she was when she presented. HEART: Regular rhythm. S1 and S2 are normal. ABDOMEN: Soft and nontender. EXTREMITIES: Without asymmetry. IMAGING DATA: Chest radiograph still shows bilateral alveolar infiltrates. This is a dramatic fletcher e from her admission film. I have reviewed this. LABORATORY DATA: White count 18.7, hemoglobin 10.0, platelets 319,000. Sodium 141, potassium 4.3, chloride 103, bicarbonate 29, BUN 30, creatinine 0.7. There is no blood gas. Intake and output is negative 697 mL. IMPRESSION: 1. Acute respiratory failure secondary to bronchospasm. She was intubated in the field. 2. Newly diagnosed cardiomyopathy. 3. Chronic obstructive pulmonary disease with an exacerbation. 4. Non-ST elevation myocardial infarction. It would seem to be highly likely that she has underlying coronary artery disease contributing to her cardiomyopathy, most likely this is ischemic cardiomyopathy. She will continue with gentle diuresis. Hopefully, as her pulmonary compliance improves, we can cont inue trying to wean. Other problems include probable sleep apnea, hypertension, history of CVA, peripheral vascular diseas e, history of reflux disease, history of herniorrhaphy and has a history of penicillin and sulfa into lerance. She will continue with light sedation. Slow weaning as tolerated. CRITICAL CARE TIME: 30 minutes.
[2017-10-23] MEDS: metroNIDAZOLE 500 MG in Premix Bag 1 BAG IVPB SCH ×2 (14:35→21:38)
[2017-10-23] MEDS: Propofol 1,000 MG/100 ML VIAL IV PRN (16:14)
[2017-10-23] MEDS: HumaLOG 300 UNITS/3 ML VIAL SC PRN (16:45)
[2017-10-23] MEDS: fentaNYL Citrate/PF 2,000 MCG in Sodium Chloride 0.9% 60 ML IV SCH (22:26)
[2017-10-24] MEDS: Propofol 1,000 MG/100 ML VIAL IV PRN ×2 (00:38→09:17)
[2017-10-24 05:22] LABS: Anion Gap 15 mmol/L (10-20); BUN (Urea Nitrogen) 35 mg/dL (9.8-20.1); Calc. Creatinine Clearance 96 mL/min (70-130); Calcium 9.5 mg/dL (7.8-10.44); Carbon Dioxide 29 mmol/L (22-29); Chloride 101 mmol/L (98-107); Estimated GFR-MDRD 80; Glucose 96 mg/dL (70-105); Potassium 4.3 mmol/L (3.5-5.1); Sodium 141 mmol/L (136-145)
[2017-10-24 05:39] LABS: Hemoglobin 10.1 g/dL (12.0-16.0); Mean Corpuscular HGB CONC 32.5 g/dL (32.0-36.0); Mean Corpuscular Hemoglobin 28.8 pg (27.0-31.0); Mean Corpuscular Volume 88.5 fl (81.0-99.0); Platelet Count 300 thou/uL (130-400); White Blood Cell (WBC) Count 13.8 thou/uL (4.8-10.8)
[2017-10-24 05:40] LABS: Band 2 % (5-11); Lymphocytes 4 % (21-51); MDiff Complete? YES; Monocytes 5 % (0-10); Neutrophil 89 % (42-75); Nucleated RBC 1 % (0); PLT Morphology Comment Appears Adequate; RBC Morphology Normal
[2017-10-24] MEDS: metroNIDAZOLE 500 MG in Premix Bag 1 BAG IVPB SCH ×3 (05:50→21:11)
[2017-10-24] MEDS: Enoxaparin Sodium 80 MG/0.8 ML SYRINGE SC SCH ×2 (09:10→21:11)
[2017-10-24] MEDS: Furosemide 40 MG/4 ML VIAL SLOW IVP SCH (09:10)
[2017-10-24] MEDS: Cefepime 2 GM, Syringe 2.5 ML in Sodium Chloride 0.9% 10 ML SLOW IVP SCH ×2 (09:18→21:13)
[2017-10-24] MEDS: Famotidine/PF 20 mg/2ml Vial SLOW IVP SCH (09:30)
--- NOTE | 2017-10-24 09:31 | PDOC.PN ---
- Subjective Encounter Start Date: 10/24/17 Encounter Start Time: 08:50 Patient seen and examined. No overnight events pt is intubated, awake, has good urine output - Objective MAR Reviewed: Yes Vital Signs & Weight: Vital Signs (12 hours) Temp Pulse Resp Pulse Ox 10/24/17 08:00 99.3 F 18 10/24/17 07:41 99.3 F 98 15 96 10/24/17 06:00 20 10/24/17 04:00 100.3 F H 16 10/24/17 03:13 105 H 10/24/17 03:00 16 10/24/17 00:00 99 F 14 10/23/17 23:27 111 H 15 94 L 10/23/17 22:00 21 H Weight Admit Weight 173 lb 8.061 oz Weight 161 lb 9.581 oz Most Recent Monitor Data Heart Rate from ECG 91 NIBP 86/61 NIBP BP-Mean 71 Respiration from ECG 14 SpO2 96 I&O: 10/23/17 10/24/17 10/25/17 05:59 06:59 06:59 Intake Total Output Total 100 Balance -100 Result Diagrams: 10/24/17 05:02 10/24/17 05:02 Additional Labs: Accuchecks 10/23/17 10/23/17 10/23/17 21:42 16:35 09:56 POC Glucose 150 H 225 H 124 H Radiology Reviewed by me: Yes (chest xray) EKG Reviewed by me: Yes (sinus tachycardia) Phys Exam - Physical Examination Constitutional: NAD intubated HEENT: PERRLA, sclera anicteric Neck: no JVD Respiratory: no wheezing, no rales, no rhonchi reduced air entry at base Cardiovascular: RRR, no significant murmur, no rub tachycardia Gastrointestinal: soft, non-tender, no distention, positive bowel sounds Musculoskeletal: no edema, pulses present scd+, echols+ Neurological: moves all 4 limbs Lymphatic: no nodes Skin: no rash, normal turgor Dx/Plan (1) Acidosis, metabolic, with respiratory acidosis Code(s): E87.4 - MIXED DISORDER OF ACID-BASE BALANCE Status: Resolved (2) Acute respiratory failure with hypoxia and hypercapnia Code(s): J96.01 - ACUTE RESPIRATORY FAILURE WITH HYPOXIA; J96.02 - ACUTE RESPIRATORY FAILURE WITH HYPERCAPNIA Status: Acute Comment: on vent (3) COPD exacerbation Code(s): J44.1 - CHRONIC OBSTRUCTIVE PULMONARY DISEASE W (ACUTE) EXACERBATION Status: Acute (4) Community acquired bacterial pneumonia Code(s): J15.9 - UNSPECIFIED BACTERIAL PNEUMONIA Status: Acute (5) Sepsis with acute organ dysfunction Code(s): A41.9 - SEPSIS, UNSPECIFIED ORGANISM; R65.20 - SEVERE SEPSIS WITHOUT SEPTIC SHOCK Status: Acute (6) CKD (chronic kidney disease) stage 3, GFR 30-59 ml/min Code(s): N18.3 - CHRONIC KIDNEY DISEASE, STAGE 3 (MODERATE) Status: Chronic (7) Carotid stenosis Code(s): I65.29 - OCCLUSION AND STENOSIS OF UNSPECIFIED CAROTID ARTERY Status : Chronic Comment: (8) Dyslipidemia Code(s): E78.5 - HYPERLIPIDEMIA, UNSPECIFIED Status: Chronic Comment: (9) Hypertension Code(s): I10 - ESSENTIAL (PRIMARY) HYPERTENSION Status: Chronic (10) Hypothyroidism Code(s): E03.9 - HYPOTHYROIDISM, UNSPECIFIED Status: Chronic Comment: (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 - OTHER DISEASES OF VOCAL CORDS Status: Chronic (12) Tobacco dependence Code(s): F17.200 - NICOTINE DEPENDENCE, UNSPECIFIED, UNCOMPLICATED Status: Chronic Comment: (13) VALENTINA (obstructive sleep apnea) Code(s): G47.33 - OBSTRUCTIVE SLEEP APNEA (ADULT) (PEDIATRIC) Status: Suspected Comment: (14) Elevated brain natriuretic peptide (BNP) level Code(s): R79.89 - OTHER SPECIFIED ABNORMAL FINDINGS OF BLOOD CHEMISTRY Status : Acute (15) Acute systolic heart failure Code(s): I50.21 - ACUTE SYSTOLIC (CONGESTIVE) HEART FAILURE Status: Acute (16) Moderate mitral regurgitation Code(s): I34.0 - NONRHEUMATIC MITRAL (VALVE) INSUFFICIENCY Status: Acute (17) Moderate tricuspid regurgitation Code(s): I07.1 - RHEUMATIC TRICUSPID INSUFFICIENCY Status: Acute (18) NSTEMI (non-ST elevated myocardial infarction) Code(s): I21.4 - NON-ST ELEVATION (NSTEMI) MYOCARDIAL INFARCTION Status: Acute - Plan cont current plan of care, continue antibiotics, respiratory therapy * continue lasix * continue vent management as per pulmonary * medication reviewed as below * symptomatic treatment * continue iv flagyl. * continue cefepime, levaquin, solumedrol Review of Systems - Review of Systems Other: unable to review due to intubated status - Medications/Allergies Allergies/Adverse Reactions: Allergies Allergy/AdvReac Type Severity Reaction Status Date / Time Penicillins Allergy Verified 06/15/17 14:48 Sulfa (Sulfonamide Allergy Verified 06/15/17 14:48 Antibiotics) Medications: Current Medications Acetaminophen (Tylenol Elixir) 650 mg PO Q6H PRN PRN Reason: Fever > 101 or Mild Pain Acetaminophen (Tylenol) 650 mg WI Q6H PRN PRN Reason: Fever > 101 or Mild Pain Al Hydroxide/Mg Hydroxide (Maalox) 30 ml PO Q6H PRN PRN Reason: Heartburn or Indigestion Albuterol/Ipratropium (Duoneb) 3 ml NEB Q6H PRN PRN Reason: SOB &/or Wheezing Last Admin: 10/21/17 01:30 Dose: 3 ml Albuterol/Ipratropium (Duoneb) 3 ml NEB [id number] [facility] Last Admin: 10/23/17 23:27 Dose: 3 ml Artificial Tears (Tears Naturale) 0 drop EA EYE PRN PRN PRN Reason: Dry Eyes Bisacodyl (Dulcolax) 10 mg PO DAILYPRN PRN PRN Reason: Constipation Bisacodyl (Dulcolax) 10 mg WI DAILYPRN PRN PRN Reason: Constipation Calcium Carbonate (Tums) 1,000 mg PO Q4H PRN PRN Reason: Heartburn or Indigestion Dextrose/Water (Dextrose 50%) 25 gm SLOW IVP PRN PRN PRN Reason: Hypoglycemia Enoxaparin Sodium (Lovenox) 80 mg SC 0900,2100 [facility] Last Admin: 10/24/17 09:10 Dose: 80 mg Famotidine (Pepcid) 20 mg SLOW IVP Q12HR [facility] Furosemide (Lasix) 40 mg SLOW IVP DAILY [facility] Last Admin: 10/24/17 09:10 Dose: 40 mg Glucagon (Glucagon) 1 mg IM PRN PRN PRN Reason: Hypoglycemia Hydralazine HCl (Apresoline) 10 mg SLOW IVP Q4H PRN PRN Reason: Systolic BP > 180 Fentanyl Citrate 2,000 mcg/ (Sodium Chloride) 100 mls @ 0 mls/hr IV INF JOSH; Per Protocol PRN Reason: Protocol Stop: 11/19/17 20:45 Last Admin: 10/23/17 22:26 Dose: 100 mls Fentanyl Citrate (Fentanyl Bolus) 250 mls @ 0 mls/hr IVPB PRN PRN; As Directed PRN Reason: Breakthrough pain Stop: 11/19/17 20:45 Levofloxacin 750 mg/ Device 150 mls @ 100 mls/hr IVPB Q24HR [facility] Last Admin: 10/23/17 22:28 Dose: 150 mls Cefepime HCl 2 gm/ Syringe 2.5 (ml/ Sodium Chloride) 12.5 mls @ 150 mls/hr SLOW IVP Q12HR [facility] Last Admin: 10/24/17 09:18 Dose: 12.5 mls Dextrose/Water (D5w) 1,000 mls @ 0 mls/hr IV .Q0M PRN; As Directed PRN Reason: Hypoglycemia Metronidazole 500 mg/ Device 100 mls @ 100 mls/hr IVPB Q8HR [facility] Last Admin: 10/24/17 05:50 Dose: 100 mls Insulin Human Lispro (Humalog) 0 units SC .MILD SLIDING SCALE PRN PRN Reason: Mild Correctional Scale Last Admin: 10/23/17 16:45 Dose: 3 unit Insulin Human Lispro (Humalog) 0 units SC .BEDTIME SLIDING SC PRN PRN Reason: Bedtime Correctional Scale Last Admin: 10/20/17 22:56 Dose: 4 unit Loperamide HCl (Imodium) 1 mg PO Q4H PRN PRN Reason: Diarrhea/Loose Stools Last Admin: 10/22/17 14:40 Dose: 1 mg Magnesium Hydroxide (Milk Of Magnesium) 30 ml PO Q8H PRN PRN Reason: Constipation Methylprednisolone Sodium Succinate (Solu-Medrol) 40 mg IVP DAILY [facility] Last Admin: 10/24/17 09:10 Dose: 40 mg Mineral Oil/White Petrolatum (Eucerin Cream) 0 gm TOP BIDPRN PRN PRN Reason: Dry Skin Ondansetron HCl (Zofran) 4 mg IVP Q6H PRN PRN Reason: Nausea/Vomiting Propofol (Diprivan) 1,000 mg IV INF PRN; Protocol PRN Reason: TO ACHIEVE GUAMAN SCORE 2-3 Stop: 11/19/17 20:45 Last Admin: 10/24/17 09:17 Dose: 1,000 mg Senna (Senokot) 2 tab PO HSPRN PRN PRN Reason: Constipation Sodium Chloride (Flush - Normal Saline) 10 ml IVF Q12HR [facility] Last Admin: 10/24/17 09:10 Dose: 10 ml Sodium Chloride (Flush - Normal Saline) 10 ml IVF PRN PRN PRN Reason: Saline Flush
--- NOTE | 2017-10-24 12:18 | RAD ---
PORTABLE CHEST: Date: 10/24/17 COMPARISON: 10/23/17. HISTORY: Shortness of breath. FINDINGS: Heart size is enlarged. Endotracheal and NG tubes are in satisfactory position. Parahilar markings ar e less prominent than the prior examination. IMPRESSION: Cardiomegaly with resolving pulmonary edema change. POS: [facility]
[2017-10-24] MEDS: HumaLOG 300 UNITS/3 ML VIAL SC PRN (13:11)
[2017-10-24] MEDS: Acetaminophen 650 MG/20.3 ML UDCUP PO PRN (14:48)
--- NOTE | 2017-10-24 16:19 | PRG ---
DATE OF SERVICE: 10/24/2017 SUBJECTIVE: Miki will awaken. OBJECTIVE: VITAL SIGNS: Heart rates 114, blood pressure 101/72, respiratory rates in the teens. Oximetry is in the low 90s, Ji temperature is 101.7. LUNGS: Clear anteriorly. HEART: Regular rhythm. ABDOMEN: Soft and nontender. LABORATORY DATA: White count 13.8, hemoglobin 10.1, platelets 300,000. Sodium 141, potassium 4.3, chloride 101, bicarb 29, BUN 35, creatinine 0.75. There is no blood gas t meg. Chest radiographs improved. This was reviewed by me. Intake and output was negative 1285 mL. IMPRESSION: 1. Congestive heart failure with pulmonary edema with an improving radiograph with stable gas exchan ge. 2. Chronic obstructive pulmonary disease exacerbation with horrible bronchospasm on admission. This is improved dramatically. 3. Non-ST elevation myocardial infarction. 4. Low grade temperature elevation, that is a bladder temperature, so subtracting a degree. She is still less than 101. She is on broad antimicrobial therapy. PLAN: We will continue current care. We will decrease her ventilatory support. She may be a candid ate for spontaneous breathing trial in the morning. Critical care time was 30 minutes.
[2017-10-24] MEDS ORDERED: Sodium Chloride 0.9% 1,000 ML IV SCH (18:00)
[2017-10-24] MEDS: Famotidine 40 MG/4 ML VIAL SLOW IVP SCH (21:11)
[2017-10-25] MEDS: Propofol 1,000 MG/100 ML VIAL IV PRN (01:58)
[2017-10-25] MEDS: fentaNYL Citrate/PF 2,000 MCG in Sodium Chloride 0.9% 60 ML IV SCH (01:58)
[2017-10-25 05:03] LABS: Anion Gap 14 mmol/L (10-20); BUN (Urea Nitrogen) 32 mg/dL (9.8-20.1); Calc. Creatinine Clearance 109 mL/min (70-130); Calcium 9.2 mg/dL (7.8-10.44); Carbon Dioxide 28 mmol/L (22-29); Chloride 101 mmol/L (98-107); Estimated GFR-MDRD Greater than 90; Glucose 97 mg/dL (70-105); Potassium 4.5 mmol/L (3.5-5.1); Sodium 138 mmol/L (136-145)
[2017-10-25 05:06] LABS: Band 3 % (5-11); Hemoglobin 10.4 g/dL (12.0-16.0); Lymphocytes 10 % (21-51); MDiff Complete? YES; Mean Corpuscular Hemoglobin 29.2 pg (27.0-31.0); Mean Corpuscular Volume 91.2 fl (81.0-99.0); Monocytes 4 % (0-10); Neutrophil 83 % (42-75); PLT Morphology Comment Appears Adequate; Platelet Count 290 thou/uL (130-400); Red Blood Cell (RBC) Count 3.58 mill/uL (4.20-5.40); White Blood Cell (WBC) Count 13.5 thou/uL (4.8-10.8)
[2017-10-25] MEDS: metroNIDAZOLE 500 MG in Premix Bag 1 BAG IVPB SCH ×3 (05:59→20:59)
--- NOTE | 2017-10-25 08:17 | RAD ---
CHEST 1 VIEW: Date: 10/25/17 HISTORY: Chest pain. Follow-up. COMPARISON: 10/24/17. FINDINGS: Cardiac silhouette remains magnified and enlarged. Pulmonary vasculature is engorged. Patchy bibasila r infiltrates and pleural fluid, left greater than right, are similar in appearance to the prior stud y. Mediastinum is midline. Lines and tubes appear unchanged in position. No evidence of pneumothorax. compliance monitor leads overlie the chest. IMPRESSION: Pulmonary vascular congestion and other findings are stable. POS: [facility]
[2017-10-25] MEDS: Enoxaparin Sodium 80 MG/0.8 ML SYRINGE SC SCH (09:08)
[2017-10-25] MEDS: Saccharomyces boulardii 250 MG CAP PER TUBE SCH (09:10)
[2017-10-25] MEDS: Furosemide 40 MG/4 ML VIAL SLOW IVP SCH (09:10)
[2017-10-25] MEDS: Cefepime 2 GM, Syringe 2.5 ML in Sodium Chloride 0.9% 10 ML SLOW IVP SCH (09:12)
[2017-10-25] MEDS: Famotidine 40 MG/4 ML VIAL SLOW IVP SCH (09:19)
--- NOTE | 2017-10-25 10:16 | PDOC.PN ---
- Subjective Encounter Start Date: 10/25/17 Encounter Start Time: 09:10 pt is not moving her right side, no fever, awake on vent - Objective MAR Reviewed: Yes Vital Signs & Weight: Vital Signs (12 hours) Temp Pulse Resp Pulse Ox 10/25/17 09:59 93 19 94 L 10/25/17 09:45 105 H 23 H 96 10/25/17 06:00 13 10/25/17 04:00 98.8 F 17 10/25/17 02:00 20 10/25/17 00:00 98.7 F 18 10/24/17 23:53 83 11 L 96 Weight Admit Weight 173 lb 8.061 oz Weight 160 lb 11.472 oz Most Recent Monitor Data Heart Rate from ECG 63 NIBP 95/54 NIBP BP-Mean 61 Respiration from ECG 7 SpO2 97 I&O: 10/24/17 10/25/17 10/26/17 06:59 06:59 06:59 Intake Total 2508.9 Output Total 1955 35 Balance 553.9 -35 Result Diagrams: 10/25/17 04:46 10/25/17 04:46 Additional Labs: Accuchecks 10/24/17 10/24/17 10/24/17 21:24 18:26 13:07 POC Glucose 159 H 153 H 167 H Radiology Reviewed by me: Yes (chest xray) EKG Reviewed by me: Yes (nsr) Phys Exam - Physical Examination Constitutional: NAD intubated, awake HEENT: PERRLA, sclera anicteric Neck: no JVD, supple Respiratory: no wheezing, no rales, no rhonchi Cardiovascular: RRR, no significant murmur, no rub Gastrointestinal: soft, non-tender, no distention, positive bowel sounds Musculoskeletal: no edema, pulses present scd+, echols+ right side weakness Lymphatic: no nodes Skin: no rash, normal turgor Dx/Plan (1) Acidosis, metabolic, with respiratory acidosis Code(s): E87.4 - MIXED DISORDER OF ACID-BASE BALANCE Status: Resolved (2) Acute respiratory failure with hypoxia and hypercapnia Code(s): J96.01 - ACUTE RESPIRATORY FAILURE WITH HYPOXIA; J96.02 - ACUTE RESPIRATORY FAILURE WITH HYPERCAPNIA Status: Acute Comment: on vent (3) COPD exacerbation Code(s): J44.1 - CHRONIC OBSTRUCTIVE PULMONARY DISEASE W (ACUTE) EXACERBATION Status: Acute (4) Community acquired bacterial pneumonia Code(s): J15.9 - UNSPECIFIED BACTERIAL PNEUMONIA Status: Acute (5) Sepsis with acute organ dysfunction Code(s): A41.9 - SEPSIS, UNSPECIFIED ORGANISM; R65.20 - SEVERE SEPSIS WITHOUT SEPTIC SHOCK Status: Acute (6) CKD (chronic kidney disease) stage 3, GFR 30-59 ml/min Code(s): N18.3 - CHRONIC KIDNEY DISEASE, STAGE 3 (MODERATE) Status: Chronic (7) Carotid stenosis Code(s): I65.29 - OCCLUSION AND STENOSIS OF UNSPECIFIED CAROTID ARTERY Status : Chronic Comment: (8) Dyslipidemia Code(s): E78.5 - HYPERLIPIDEMIA, UNSPECIFIED Status: Chronic Comment: (9) Hypertension Code(s): I10 - ESSENTIAL (PRIMARY) HYPERTENSION Status: Chronic (10) Hypothyroidism Code(s): E03.9 - HYPOTHYROIDISM, UNSPECIFIED Status: Chronic Comment: (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 - OTHER DISEASES OF VOCAL CORDS Status: Chronic (12) Tobacco dependence Code(s): F17.200 - NICOTINE DEPENDENCE, UNSPECIFIED, UNCOMPLICATED Status: Chronic Comment: (13) VALENTINA (obstructive sleep apnea) Code(s): G47.33 - OBSTRUCTIVE SLEEP APNEA (ADULT) (PEDIATRIC) Status: Suspected Comment: (14) Elevated brain natriuretic peptide (BNP) level Code(s): R79.89 - OTHER SPECIFIED ABNORMAL FINDINGS OF BLOOD CHEMISTRY Status : Acute (15) Acute systolic heart failure Code(s): I50.21 - ACUTE SYSTOLIC (CONGESTIVE) HEART FAILURE Status: Acute (16) Moderate mitral regurgitation Code(s): I34.0 - NONRHEUMATIC MITRAL (VALVE) INSUFFICIENCY Status: Acute (17) Moderate tricuspid regurgitation Code(s): I07.1 - RHEUMATIC TRICUSPID INSUFFICIENCY Status: Acute (18) NSTEMI (non-ST elevated myocardial infarction) Code(s): I21.4 - NON-ST ELEVATION (NSTEMI) MYOCARDIAL INFARCTION Status: Acute (19) C. difficile colitis Status: Acute (20) CVA (cerebral vascular accident) Code(s): I63.9 - CEREBRAL INFARCTION, UNSPECIFIED Status: Acute - Plan cont current plan of care * MRI brain today * continue cefepime, levaquin and flagyl * continue lasix and solumedrol * medication reviewed as below * symptomatic treatment * vent management per pulmonary * cardiology on case. Review of Systems - Review of Systems Other: unable to review due to intubated status - Medications/Allergies Allergies/Adverse Reactions: Allergies Allergy/AdvReac Type Severity Reaction Status Date / Time Penicillins Allergy Verified 06/15/17 14:48 Sulfa (Sulfonamide Allergy Verified 06/15/17 14:48 Antibiotics) Medications: Current Medications Acetaminophen (Tylenol Elixir) 650 mg PO Q6H PRN PRN Reason: Fever > 101 or Mild Pain Last Admin: 10/24/17 14:48 Dose: 650 mg Acetaminophen (Tylenol) 650 mg SC Q6H PRN PRN Reason: Fever > 101 or Mild Pain Al Hydroxide/Mg Hydroxide (Maalox) 30 ml PO Q6H PRN PRN Reason: Heartburn or Indigestion Albuterol/Ipratropium (Duoneb) 3 ml NEB Q6H PRN PRN Reason: SOB &/or Wheezing Last Admin: 10/21/17 01:30 Dose: 3 ml Albuterol/Ipratropium (Duoneb) 3 ml NEB [id number] [facility] Last Admin: 10/25/17 09:45 Dose: 3 ml Artificial Tears (Tears Naturale) 0 drop EA EYE PRN PRN PRN Reason: Dry Eyes Bisacodyl (Dulcolax) 10 mg PO DAILYPRN PRN PRN Reason: Constipation Bisacodyl (Dulcolax) 10 mg SC DAILYPRN PRN PRN Reason: Constipation Calcium Carbonate (Tums) 1,000 mg PO Q4H PRN PRN Reason: Heartburn or Indigestion Dextrose/Water (Dextrose 50%) 25 gm SLOW IVP PRN PRN PRN Reason: Hypoglycemia Enoxaparin Sodium (Lovenox) 80 mg SC 0900,2100 [facility] Last Admin: 10/25/17 09:08 Dose: 80 mg Famotidine (Pepcid) 20 mg SLOW IVP Q12HR [facility] Last Admin: 10/25/17 09:19 Dose: 20 mg Furosemide (Lasix) 40 mg SLOW IVP DAILY [facility] Last Admin: 10/25/17 09:10 Dose: 40 mg Glucagon (Glucagon) 1 mg IM PRN PRN PRN Reason: Hypoglycemia Hydralazine HCl (Apresoline) 10 mg SLOW IVP Q4H PRN PRN Reason: Systolic BP > 180 Fentanyl Citrate 2,000 mcg/ (Sodium Chloride) 100 mls @ 0 mls/hr IV INF JOSH; Per Protocol PRN Reason: Protocol Stop: 11/19/17 20:45 Last Admin: 10/25/17 01:58 Dose: 100 mls Fentanyl Citrate (Fentanyl Bolus) 250 mls @ 0 mls/hr IVPB PRN PRN; As Directed PRN Reason: Breakthrough pain Stop: 11/19/17 20:45 Levofloxacin 750 mg/ Device 150 mls @ 100 mls/hr IVPB Q24HR [facility] Last Admin: 10/24/17 21:11 Dose: 150 mls Cefepime HCl 2 gm/ Syringe 2.5 (ml/ Sodium Chloride) 12.5 mls @ 150 mls/hr SLOW IVP Q12HR [facility] Last Admin: 10/25/17 09:12 Dose: 12.5 mls Dextrose/Water (D5w) 1,000 mls @ 0 mls/hr IV .Q0M PRN; As Directed PRN Reason: Hypoglycemia Metronidazole 500 mg/ Device 100 mls @ 100 mls/hr IVPB Q8HR [facility] Last Admin: 10/25/17 05:59 Dose: 100 mls Insulin Human Lispro (Humalog) 0 units SC .MILD SLIDING SCALE PRN PRN Reason: Mild Correctional Scale Last Admin: 10/24/17 13:11 Dose: 2 unit Insulin Human Lispro (Humalog) 0 units SC .BEDTIME SLIDING SC PRN PRN Reason: Bedtime Correctional Scale Last Admin: 10/20/17 22:56 Dose: 4 unit Loperamide HCl (Imodium) 1 mg PO Q4H PRN PRN Reason: Diarrhea/Loose Stools Last Admin: 10/24/17 19:50 Dose: 1 mg Magnesium Hydroxide (Milk Of Magnesium) 30 ml PO Q8H PRN PRN Reason: Constipation Methylprednisolone Sodium Succinate (Solu-Medrol) 40 mg IVP DAILY [facility] Last Admin: 10/25/17 09:10 Dose: 40 mg Mineral Oil/White Petrolatum (Eucerin Cream) 0 gm TOP BIDPRN PRN PRN Reason: Dry Skin Ondansetron HCl (Zofran) 4 mg IVP Q6H PRN PRN Reason: Nausea/Vomiting Propofol (Diprivan) 1,000 mg IV INF PRN; Protocol PRN Reason: TO ACHIEVE GUAMAN SCORE 2-3 Stop: 11/19/17 20:45 Last Admin: 10/25/17 01:58 Dose: 1,000 mg Saccharomyces Boulardii (Florastor) 250 mg PER TUBE DAILY [facility] Last Admin: 10/25/17 09:10 Dose: 250 mg Senna (Senokot) 2 tab PO HSPRN PRN PRN Reason: Constipation Sodium Chloride (Flush - Normal Saline) 10 ml IVF Q12HR [facility] Last Admin: 10/25/17 09:20 Dose: 10 ml Sodium Chloride (Flush - Normal Saline) 10 ml IVF PRN PRN PRN Reason: Saline Flush
--- NOTE | 2017-10-25 10:55 | PRG ---
DATE OF SERVICE: 10/25/2017 Ms. Livingston's status today has changed. She is not moving her right side. This is felt to be a new f inding. PHYSICAL EXAMINATION: VITAL SIGNS: Blood pressure 192/86, pulse 93, respirations 20. LUNGS: Clear to auscultation. CARDIAC: Regular rate and rhythm. ABDOMEN: Soft, nontender, nondistended. EXTREMITIES: No edema. NEUROLOGIC: Right upper and right lower extremities with no significant movement. She is moving the left upper and lower extremities to command. IMPRESSION: 1. Non-Q myocardial infarction. 2. Right-sided weakness. 3. Sepsis. 4. Respiratory failure. 5. Acute on chronic systolic heart failure. RECOMMENDATIONS: Ms. Livingston is currently on Lovenox 80 mg b.i.d. due to recent non-ST segment eleva tion [place]. CT scan of the brain has been ordered. We will hold Lovenox until CT scan performed. CT s can of the brain was performed on 10/20/2017 with no acute abnormalities. It appears she has receive d a total of 2-1/2 days of Lovenox. Otherwise, from a CV standpoint, I have no further recommendatio ns.
--- NOTE | 2017-10-25 16:31 | PRG ---
DATE OF SERVICE: 10/25/2017 SERVICE: Pulmonary Medicine. INTERVAL HISTORY: The patient is breathing very comfortably today. She has a dense right-sided stephen plegia. She seems to have some right-sided neglect as well. Outside of that, there has been no sign ificant interval change to her condition. She did have a stroke a couple of months ago. I am not ex actly certain what her baseline is, but will be looking into that shortly. She has been on a sedatio n holiday for about an hour. She is in a place where she can probably tolerate a spontaneous breathi ng trial once again. PHYSICAL EXAMINATION: VITAL SIGNS: Afebrile, pulse 102, blood pressure 99/72, respirations 19, saturation 95% on 31% FiO2 and a PEEP of 5. GENERAL: The patient is awake and alert. She is following some simple commands on the left. HEENT: Normocephalic, atraumatic. Sclerae are white, conjunctivae pink. Oral and nasal mucosa is m oist without lesions. LUNGS: Excellent air entry. There is a little prolongation to the expiratory phase, but there is no wheezing today. No crackles or rhonchi are present either. HEART: Normal rate, regular. ABDOMEN: Soft, nontender, nondistended. Bowel sounds are positive. MUSCULOSKELETAL: No cyanosis or clubbing. No pitting in the bilateral lower extremities. NEUROLOGIC: Grossly nonfocal. LABORATORY DATA: WBC 13.5, hemoglobin 10.4, platelets 290,000. Neutrophils 83,000. Basic metabolic profile is completely unremarkable. C. difficile antigen and toxin are positive. Stool lactoferrin was also positive. IMAGING: Chest x-ray demonstrates pulmonary vascular congestion, but otherwise stable findings of e chest. ASSESSMENT: 1. Acute hypoxic and hypercapnic respiratory failure. 2. Chronic obstructive pulmonary disease with acute exacerbation. 3. Non-ST elevation myocardial infarction. 4. Acute on chronic systolic heart failure. 5. Clostridium difficile colitis. 6. Severe sepsis, improving. PLAN: We will continue antibiotics, nebulize medications, and steroids. The patient will be placed on a spontaneous breathing trial. If she meets criteria, extubation will be considered. All of her antibiotics directed at lung issues will be suspended. Pulmonary Critical Care will continue to foll ow while the patient remains in this location. Once she has been off of her sedation for an extended period of time, if she is not at her baseline, repeat imaging of the head will be considered.
[2017-10-26] MEDS: metroNIDAZOLE 500 MG in Premix Bag 1 BAG IVPB SCH ×3 (05:38→21:33)
--- NOTE | 2017-10-26 09:34 | PRG ---
DATE OF SERVICE: 10/26/2017 SERVICE: Pulmonary Medicine. INTERVAL HISTORY: The patient is doing great from cardiovascular and respiratory standpoint. She de nies any shortness of breath or chest discomfort. Her hemiplegia on the right side is much more dens e than it was previously. She also seems to have some degree of neglect over there. It is my unders tanding that prior to this hospitalization, she was more mobile, up and walking around. As such, the re is a possibility that she had extension of her previous lesion. That will be investigated today. Otherwise, there were no overnight events. PHYSICAL EXAMINATION: VITAL SIGNS: Afebrile, pulse 117/88, respirations 15, saturation 94% on 2 liters nasal cannula. GENERAL: The patient is awake and alert. She is in no apparent distress. LUNGS: Excellent air entry. Slightly prolonged expiratory phase with minimal wheezing. Rhonchi are present, but clear with cough on command. HEART: Normal rate, regular. ABDOMEN: Soft, nontender, and nondistended. Bowel sounds are positive. MUSCULOSKELETAL: No cyanosis or clubbing. No pitting in the bilateral lower extremities. NEUROLOGIC: Dense hemiplegia. Right-sided neglect is evident. LABORATORY DATA: WBC 13.5, hemoglobin 10.4, platelets 83,000. ASSESSMENT: 1. Acute hypoxic and hypercapnic respiratory failure. 2. Chronic obstructive pulmonary disease with acute exacerbation. 3. Non-ST elevation myocardial infarction. 4. Acute on chronic systolic heart failure, currently euvolemic. 5. Clostridium difficile colitis. 6. Severe sepsis, improving. DISCUSSION AND PLAN: We will transition the patient to the ICU to the Neuro Unit. We will get an MR I of the brain today. Lasix will be interrupted as the patient is currently euvolemic and does not h ave a lot of access to free water. Pulmonary or Critical Care will continue to follow for the time sarah resendez.
--- NOTE | 2017-10-26 09:44 | PDOC.PN ---
- Subjective Encounter Start Date: 10/26/17 Encounter Start Time: 09:10 pt was extubated yesreday, pt has right side weakness, no overnight event - Objective MAR Reviewed: Yes Vital Signs & Weight: Vital Signs (12 hours) Temp Pulse Resp Pulse Ox 10/26/17 07:22 90 15 94 L 10/26/17 04:00 98.3 F 10/26/17 00:29 88 16 95 10/26/17 00:00 98.2 F Weight Admit Weight 173 lb 8.061 oz Weight 153 lb 14.122 oz Most Recent Monitor Data Heart Rate from ECG 97 NIBP 117/88 NIBP BP-Mean 95 Respiration from ECG 18 SpO2 98 I&O: 10/25/17 10/26/17 10/27/17 06:59 06:59 06:59 Intake Total 2508.9 342 0 Output Total 1955 1790 30 Balance 553.9 -1448 -30 Result Diagrams: 10/25/17 04:46 10/25/17 04:46 Additional Labs: Accuchecks 10/26/17 10/25/17 10/25/17 05:38 21:07 16:14 POC Glucose 101 116 H 144 H 10/25/17 12:06 POC Glucose 140 H EKG Reviewed by me: Yes Phys Exam - Physical Examination Constitutional: NAD HEENT: PERRLA, moist MMs, sclera anicteric Neck: no JVD, supple Respiratory: no wheezing, no rales, no rhonchi Cardiovascular: RRR, no significant murmur, no rub Gastrointestinal: soft, non-tender, no distention, positive bowel sounds Musculoskeletal: no edema, pulses present right side weakness Psychiatric: normal affect Skin: no rash, normal turgor Dx/Plan (1) Acidosis, metabolic, with respiratory acidosis Code(s): E87.4 - MIXED DISORDER OF ACID-BASE BALANCE Status: Resolved (2) Acute respiratory failure with hypoxia and hypercapnia Code(s): J96.01 - ACUTE RESPIRATORY FAILURE WITH HYPOXIA; J96.02 - ACUTE RESPIRATORY FAILURE WITH HYPERCAPNIA Status: Acute Comment: on vent (3) COPD exacerbation Code(s): J44.1 - CHRONIC OBSTRUCTIVE PULMONARY DISEASE W (ACUTE) EXACERBATION Status: Acute (4) Community acquired bacterial pneumonia Code(s): J15.9 - UNSPECIFIED BACTERIAL PNEUMONIA Status: Acute (5) Sepsis with acute organ dysfunction Code(s): A41.9 - SEPSIS, UNSPECIFIED ORGANISM; R65.20 - SEVERE SEPSIS WITHOUT SEPTIC SHOCK Status: Acute (6) CKD (chronic kidney disease) stage 3, GFR 30-59 ml/min Code(s): N18.3 - CHRONIC KIDNEY DISEASE, STAGE 3 (MODERATE) Status: Chronic (7) Carotid stenosis Code(s): I65.29 - OCCLUSION AND STENOSIS OF UNSPECIFIED CAROTID ARTERY Status : Chronic Comment: (8) Dyslipidemia Code(s): E78.5 - HYPERLIPIDEMIA, UNSPECIFIED Status: Chronic Comment: (9) Hypertension Code(s): I10 - ESSENTIAL (PRIMARY) HYPERTENSION Status: Chronic (10) Hypothyroidism Code(s): E03.9 - HYPOTHYROIDISM, UNSPECIFIED Status: Chronic Comment: (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 - OTHER DISEASES OF VOCAL CORDS Status: Chronic (12) Tobacco dependence Code(s): F17.200 - NICOTINE DEPENDENCE, UNSPECIFIED, UNCOMPLICATED Status: Chronic Comment: (13) VALENTINA (obstructive sleep apnea) Code(s): G47.33 - OBSTRUCTIVE SLEEP APNEA (ADULT) (PEDIATRIC) Status: Suspected Comment: (14) Elevated brain natriuretic peptide (BNP) level Code(s): R79.89 - OTHER SPECIFIED ABNORMAL FINDINGS OF BLOOD CHEMISTRY Status : Acute (15) Acute systolic heart failure Code(s): I50.21 - ACUTE SYSTOLIC (CONGESTIVE) HEART FAILURE Status: Acute (16) Moderate mitral regurgitation Code(s): I34.0 - NONRHEUMATIC MITRAL (VALVE) INSUFFICIENCY Status: Acute (17) Moderate tricuspid regurgitation Code(s): I07.1 - RHEUMATIC TRICUSPID INSUFFICIENCY Status: Acute (18) NSTEMI (non-ST elevated myocardial infarction) Code(s): I21.4 - NON-ST ELEVATION (NSTEMI) MYOCARDIAL INFARCTION Status: Acute (19) C. difficile colitis Status: Acute (20) CVA (cerebral vascular accident) Code(s): I63.9 - CEREBRAL INFARCTION, UNSPECIFIED Status: Acute - Plan cont current plan of care, continue antibiotics * hold lasix * today MRI * transfer to stroke floor * medication reviewed as below * symptomatic treatment. Review of Systems - Review of Systems Other: not reliable due to her level of cognitive status - Medications/Allergies Allergies/Adverse Reactions: Allergies Allergy/AdvReac Type Severity Reaction Status Date / Time Penicillins Allergy Verified 06/15/17 14:48 Sulfa (Sulfonamide Allergy Verified 06/15/17 14:48 Antibiotics) Medications: Current Medications Acetaminophen (Tylenol Elixir) 650 mg PO Q6H PRN PRN Reason: Fever > 101 or Mild Pain Last Admin: 10/24/17 14:48 Dose: 650 mg Acetaminophen (Tylenol) 650 mg UT Q6H PRN PRN Reason: Fever > 101 or Mild Pain Al Hydroxide/Mg Hydroxide (Maalox) 30 ml PO Q6H PRN PRN Reason: Heartburn or Indigestion Albuterol/Ipratropium (Duoneb) 3 ml NEB Q6H PRN PRN Reason: SOB &/or Wheezing Last Admin: 10/21/17 01:30 Dose: 3 ml Albuterol/Ipratropium (Duoneb) 3 ml NEB [id number] [facility] Last Admin: 10/26/17 07:22 Dose: 3 ml Artificial Tears (Tears Naturale) 0 drop EA EYE PRN PRN PRN Reason: Dry Eyes Bisacodyl (Dulcolax) 10 mg PO DAILYPRN PRN PRN Reason: Constipation Bisacodyl (Dulcolax) 10 mg UT DAILYPRN PRN PRN Reason: Constipation Calcium Carbonate (Tums) 1,000 mg PO Q4H PRN PRN Reason: Heartburn or Indigestion Dextrose/Water (Dextrose 50%) 25 gm SLOW IVP PRN PRN PRN Reason: Hypoglycemia Glucagon (Glucagon) 1 mg IM PRN PRN PRN Reason: Hypoglycemia Hydralazine HCl (Apresoline) 10 mg SLOW IVP Q4H PRN PRN Reason: Systolic BP > 180 Dextrose/Water (D5w) 1,000 mls @ 0 mls/hr IV .Q0M PRN; As Directed PRN Reason: Hypoglycemia Metronidazole 500 mg/ Device 100 mls @ 100 mls/hr IVPB Q8HR [facility] Last Admin: 10/26/17 05:38 Dose: 100 mls Insulin Human Lispro (Humalog) 0 units SC .MILD SLIDING SCALE PRN PRN Reason: Mild Correctional Scale Last Admin: 10/24/17 13:11 Dose: 2 unit Insulin Human Lispro (Humalog) 0 units SC .BEDTIME SLIDING SC PRN PRN Reason: Bedtime Correctional Scale Last Admin: 10/20/17 22:56 Dose: 4 unit Loperamide HCl (Imodium) 1 mg PO Q4H PRN PRN Reason: Diarrhea/Loose Stools Last Admin: 10/24/17 19:50 Dose: 1 mg Magnesium Hydroxide (Milk Of Magnesium) 30 ml PO Q8H PRN PRN Reason: Constipation Mineral Oil/White Petrolatum (Eucerin Cream) 0 gm TOP BIDPRN PRN PRN Reason: Dry Skin Ondansetron HCl (Zofran) 4 mg IVP Q6H PRN PRN Reason: Nausea/Vomiting Saccharomyces Boulardii (Florastor) 250 mg PER TUBE DAILY [facility] Last Admin: 10/25/17 09:10 Dose: 250 mg Senna (Senokot) 2 tab PO HSPRN PRN PRN Reason: Constipation Sodium Chloride (Flush - Normal Saline) 10 ml IVF Q12HR [facility] Last Admin: 10/25/17 20:59 Dose: 10 ml Sodium Chloride (Flush - Normal Saline) 10 ml IVF PRN PRN PRN Reason: Saline Flush
[2017-10-26] MEDS: Saccharomyces boulardii 250 MG CAP PER TUBE SCH (12:10)
--- NOTE | 2017-10-26 12:33 | MRI ---
NONCONTRAST ENHANCED MRI IMAGES BRAIN: HISTORY: Stroke. COMPARISON: Comparison is made to a previous comparison MRI from 06/16/17. FINDINGS: Multiplanar, multisequence noncontrast-enhanced MRI images of the brain obtained. Images demonstrate areas of diffusion restriction with T2 signal abnormality seen in the left high fr ontal lobe, left parietal lobe, left head of the caudate, as well as some areas of T2 signal abnormal ity in the left basal ganglion which appear to have been present on the previous comparison exam like ly representing old area of stroke. Areas of signal abnormality with diffusion restriction seen in t he right and left cerebellar hemispheres as well as left parietooccipital region and right centrum se miovale and posterior aspect of the right frontal lobe. 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 These areas all, except for the left basal ganglion changes, likely represent s ubacute areas of stroke. The areas of stroke appear to be in multiple vascular distributions possibly suggesting a cardiac or more central source as they involve the right and left anterior circulation as well as the posterior circulation. IMPRESSION: Extensive areas of signal abnormality with diffusion restriction compatible with multivascular distri bution areas of subacute stroke. POS: KIMANI
[2017-10-26] MEDS: Furosemide 40 MG/4 ML VIAL SLOW IVP SCH (14:36)
[2017-10-26] MEDS ORDERED: Sodium Chloride 0.9% 500 ML IV SCH (15:45)
--- NOTE | 2017-10-26 19:35 | PDOC.CTH ---
Cardiology Progress Note - Subjective No new issues from cardiac perspective. - Objective Vital Signs Temp Pulse Resp BP Pulse Ox 10/26/17 19:26 97 20 92 L 10/26/17 17:34 100/54 L 10/26/17 15:38 97.9 F 93 18 71/60 L 93 L 10/26/17 14:32 98.0 F 89 16 83/72 L 94 L 10/26/17 12:00 98.1 F 10/26/17 08:00 98.0 F 101 H 21 H 94 L Admit Weight 173 lb 8.061 oz Weight 153 lb 14.122 oz 10/25/17 10/26/17 10/27/17 06:59 06:59 06:59 Intake Total 2508.9 342 980 Output Total 1955 1790 185 Balance 553.9 -1448 795 - Physical Examination General/Neuro: NAD Neck: no JVD present Lungs: unlabored respirations Heart: RRR Abdomen: NT/ND Extremities: other: (no edema.) - Telemetry Telemetry Rhythm: NSR - Labs Result Diagrams: 10/25/17 04:46 10/25/17 04:46 Troponin/CKMB CK-MB (CK-2) 7.1 ng/mL (0-6.6) H* 10/21/17 10:45 Troponin I 2.273 ng/mL (< 0.028) H* 10/21/17 10:45 - Assessment/Plan 1. NSTEMI 2. Sepsis 3. COPD with exacerbation 4. Acute on chronic systolic heart failure. 5. C-Diff colitis. PLAN: - Discontinue Lovenox for good as she already had 48 hrs of anticoagulation. - No hemorrhagic CVA seen on imaging. - Will repeat echo and if her LV function remains low will need lifevest before discharge.
--- NOTE | 2017-10-26 21:59 | CON ---
DATE OF CONSULTATION: 10/26/2017 REFERRING PHYSICIAN: Isauro Tony MD REASON FOR CONSULTATION: Stroke. HISTORY OF PRESENT ILLNESS: Ms. Livingston is a pleasant 57-year-old female who has been cons ulted for evaluation of stroke. History was obtained from the patient's medical chart, as well as th e patient's brother who was present at bedside. Apparently, the patient has a history of stroke in , from which she had recovered. She had called her brother on the day of admission with the co mplaint that she was having difficulty with breathing. She actually had asked him to call EMS to hel p her take to the emergency room. When EMS had arrived, she was having difficulty with expressing he rself and not able to talk. She was in respiratory failure and had to be intubated. She was extubat ed only yesterday and was noted to be densely right hemiplegic, for which she had MRI brain done, whi ch showed extensive areas of stroke in multiple vascular territory, more so on the left MCA distribut ion. I am being asked to further evaluate this patient. PAST MEDICAL HISTORY: Significant for hypertension, dyslipidemia, chronic kidney disease, hypothyroi dism, history of stroke, history of sinus pauses and bradycardia, history of swallowing dysfunction, carotid artery stenosis, and obstructive sleep apnea. PAST SURGICAL HISTORY: Significant for hernia repair. SOCIAL HISTORY: She smokes 4 packs per week of cigarettes. She has no history of alcohol or illicit drug use. FAMILY HISTORY: Noncontributory. CURRENT MEDICATIONS: Please review MAR. ALLERGIES: Include PENICILLIN. REVIEW OF SYSTEMS: As mentioned, which was negative. PHYSICAL EXAMINATION: VITAL SIGNS: Blood pressure of 100/54, pulse of 97, temperature of 97.9, respirations are 20, O2 sat s of 92% on room air. GENERAL: Well-developed, well-nourished female in no apparent distress. RESPIRATORY: Clear to auscultation bilaterally. CARDIOVASCULAR: Regular rate and rhythm. NEUROLOGIC: Mental status: The patient is awake, alert, oriented x2. Speech and language: Mild ex pressive aphasia noted. Cranial nerves: Pupils are 3 mm and reactive. She has right hemineglect. There is a right hemianopia noted. Face appears symmetric. Motor exam showed flaccid right upper ex tremity and right lower extremity. She has 0 to 5 strength in the right upper and right lower extrem ity. Her strength in the left upper extremity is 4/5 with more prominent weakness in the distal uppe r extremity than the proximal upper extremity. Sensory: She has neglect on the right side. Deep te ndon reflexes: Brisk reflexes in both upper and lower extremities. Babinski, plantar responses exte nsor on the right and equivocal on the left. Gait, Romberg, coordination could not be tested. LABORATORY DATA: Reviewed, which included CBC, BMP, urinalysis, which is significant for WBC of 13.5 , hemoglobin of 10.4, hematocrit of 32.6, otherwise unremarkable. IMAGING STUDIES: MRI brain without contrast was reviewed. Findings are as noted in HPI section. IMPRESSION: 1. Large area of multifocal cardioembolic ischemic infarct. 2. Right hemiparesis, due to large area of multifocal cardioembolic ischemic infarct. 3. Left upper extremity weakness, due to large area of multifocal cardioembolic ischemic infarct. 4. Aphasia, due to large area of multifocal cardioembolic ischemic infarct. Ms. Livingston is a pleasant 57-year-old female who presented with respiratory failure. She w as found to have weakness in right upper and lower extremities. Her MRI does show multifocal ischemi c infarct, which would suggest cardioembolic in origin. At this time, I would recommend continuing h er on weight-based Lovenox for anticoagulation therapy. She may need to be started on Coumadin for s econdary stroke prevention. She will need inpatient PT, OT, speech. Continue supportive care. Thank you for consultation.
[2017-10-27] MEDS: metroNIDAZOLE 500 MG in Premix Bag 1 BAG IVPB SCH ×3 (06:56→22:17)
[2017-10-27 07:32] LABS: #Eosinphils 0.2 thou/uL (0.0-0.7); #Monocytes 0.8 thou/uL (0.11-0.59); #Neutrophils 12.9 thou/uL (1.40-6.50); %Basophils 0.3 % (0.0-1.0); %Eosinophils 1.4 % (0.0-10.0); %Lymphocytes 12.4 % (21.0-51.0); %Monocytes 5.1 % (0.0-10.0); %Neutrophils 80.8 % (42.0-75.0); Mean Corpuscular HGB CONC 31.9 g/dL (32.0-36.0); Mean Corpuscular Hemoglobin 28.8 pg (27.0-31.0); Mean Corpuscular Volume 90.1 fl (81.0-99.0); Mean Platelet Volume 8.9 fL (7.4-10.4); Platelet Count 293 thou/uL (130-400); RBC Distribution Width 15.3 % (11.5-14.5); Red Blood Cell (RBC) Count 4.17 mill/uL (4.20-5.40); White Blood Cell (WBC) Count 15.9 thou/uL (4.8-10.8)
[2017-10-27 07:43] LABS: Anion Gap 15 mmol/L (10-20); BUN (Urea Nitrogen) 31 mg/dL (9.8-20.1); Calc. Creatinine Clearance 118 mL/min (70-130); Calcium 9.2 mg/dL (7.8-10.44); Carbon Dioxide 23 mmol/L (22-29); Cardiac Risk 7.6 (Less than 4.5); Chloride 106 mmol/L (98-107); Cholesterol 251 mg/dl (< 200 Desired); Estimated GFR-MDRD Greater than 90; Glucose 104 mg/dL (70-105); HDL Cholesterol 33 mg/dL (>60 Neg Risk); LDL Cholesterol, Calculated 139 mg/dL; Potassium 3.8 mmol/L (3.5-5.1); Sodium 140 mmol/L (136-145); Triglycerides 395 mg/dL (Less than 150)
[2017-10-27 07:47] LABS: CKMB 3.8 ng/mL (0-6.6)
[2017-10-27 07:57] LABS: Troponin I 1.086 ng/mL (< 0.028)
--- NOTE | 2017-10-27 08:58 | PRG ---
DATE OF SERVICE: 10/27/2017 SERVICE: Pulmonary Medicine. INTERVAL HISTORY: The patient is doing okay from a respiratory standpoint. She has poor cough. She is able to clear most of her secretions. She is more talkative today. She appears to have increasi ng strength. She still has fairly dense hemiplegia. Otherwise, there have been no overnight events. PHYSICAL EXAMINATION: VITAL SIGNS: Afebrile, pulse 93, blood pressure 109/75, respirations 20, saturation 92% on room air. GENERAL: The patient is awake and alert. She is in no apparent distress. LUNGS: Decent air entry with rhonchi present throughout. There is a prolonged expiratory phase. Sh e coughs and changes the air movement. No crackles are appreciated. HEART: Normal rate and regular. ABDOMEN: Soft, nontender, nondistended. Bowel sounds are positive. MUSCULOSKELETAL: No cyanosis or clubbing. No pitting in the bilateral lower extremities. NEUROLOGIC: There is a dense hemiplegia on the right. LABORATORY DATA: WBC 15.9, hemoglobin 12.0, platelets 293,000. Neutrophil count is 81% and stable. Basic metabolic profile is unremarkable. Triglycerides are elevated. Total cholesterol is also raphael vated, but the LDL is at a reasonable range. BNP has down trended to 1800, troponin has improved to 1.08. TSH fell within the normal limits. IMAGING: MRI of the brain demonstrates extensive areas of signal abnormality with diffusion restrict ion compatible with multivascular distributions of subacute stroke. ASSESSMENT: 1. Acute hypoxic and hypercapnic respiratory failure. 2. Chronic obstructive pulmonary disease with acute exacerbation. 3. Non-ST elevation myocardial infarction. 4. CVA, likely cardioembolic. 5. Acute on chronic systolic heart failure, currently euvolemic. 6. Clostridium difficile colitis. 7. Severe sepsis, resolving. DISCUSSION AND PLAN: The patient had a significant improvement and has stabilized nicely from a resp iratory standpoint. That being said, she is still having some swallowing difficulties and I wonder w hether or not she truly is protecting her airway. I will continue to follow, intermittently through time as she is at very high risk of having aspiration related complication and developed pneumonia in a couple of days, if not weeks. Pulmonary will continue to follow intermittently during this hospit al stay. There are certainly no signs of infectious symptoms at this point. C. difficile colitis se ems to be improving. She will need 14 days' worth of the Flagyl, which we will continue in [facility] for the time being. I will follow intermittently for the rest of the hospital stay, but if she get s into trouble, give me a call sooner.
--- NOTE | 2017-10-27 09:01 | PDOC.PN ---
- Subjective Encounter Start Date: 10/27/17 Encounter Start Time: 07:05 pt has right side weakness, no fever, BP improved, on room air - Objective MAR Reviewed: Yes Vital Signs & Weight: Vital Signs (12 hours) Temp Pulse Resp BP BP Pulse Ox 10/27/17 08:12 92 L 10/27/17 08:06 93 20 92 L 10/27/17 08:00 98.4 F 89 16 109/75 91 L 10/27/17 05:04 98.0 F 95 94/73 93 L 10/27/17 00:35 97.2 F L 101 H 18 108/78 129/83 100 10/27/17 00:21 111 H 24 H 94 L 10/26/17 21:57 108/79 10/26/17 21:55 85/74 L Weight Admit Weight 173 lb 8.061 oz Weight 164 lb Most Recent Monitor Data Heart Rate from ECG 88 NIBP 110/96 NIBP BP-Mean 103 Respiration from ECG 23 SpO2 95 I&O: 10/26/17 10/27/17 10/28/17 06:59 06:59 06:59 Intake Total 342 1180 Output Total 1790 1215 Balance -1448 -35 Result Diagrams: 10/27/17 07:21 10/27/17 07:21 Additional Labs: Accuchecks 10/27/17 10/26/17 10/26/17 06:51 21:34 16:17 POC Glucose 96 121 H 123 H 10/26/17 11:31 POC Glucose 112 H EKG Reviewed by me: Yes Phys Exam - Physical Examination Constitutional: NAD HEENT: PERRLA, moist MMs, sclera anicteric Neck: no JVD, supple Respiratory: no wheezing, no rales, no rhonchi Cardiovascular: RRR, no significant murmur, no rub Gastrointestinal: soft, non-tender, no distention, positive bowel sounds Musculoskeletal: no edema, pulses present right side weakness Psychiatric: normal affect Skin: no rash, normal turgor Dx/Plan (1) Acidosis, metabolic, with respiratory acidosis Code(s): E87.4 - MIXED DISORDER OF ACID-BASE BALANCE Status: Resolved (2) Acute respiratory failure with hypoxia and hypercapnia Code(s): J96.01 - ACUTE RESPIRATORY FAILURE WITH HYPOXIA; J96.02 - ACUTE RESPIRATORY FAILURE WITH HYPERCAPNIA Status: Resolved Comment: (3) COPD exacerbation Code(s): J44.1 - CHRONIC OBSTRUCTIVE PULMONARY DISEASE W (ACUTE) EXACERBATION Status: Acute Comment: controlled (4) Community acquired bacterial pneumonia Code(s): J15.9 - UNSPECIFIED BACTERIAL PNEUMONIA Status: Acute (5) Sepsis with acute organ dysfunction Code(s): A41.9 - SEPSIS, UNSPECIFIED ORGANISM; R65.20 - SEVERE SEPSIS WITHOUT SEPTIC SHOCK Status: Acute (6) CKD (chronic kidney disease) stage 3, GFR 30-59 ml/min Code(s): N18.3 - CHRONIC KIDNEY DISEASE, STAGE 3 (MODERATE) Status: Chronic (7) Carotid stenosis Code(s): I65.29 - OCCLUSION AND STENOSIS OF UNSPECIFIED CAROTID ARTERY Status : Chronic Comment: (8) Dyslipidemia Code(s): E78.5 - HYPERLIPIDEMIA, UNSPECIFIED Status: Chronic Comment: (9) Hypertension Code(s): I10 - ESSENTIAL (PRIMARY) HYPERTENSION Status: Chronic (10) Hypothyroidism Code(s): E03.9 - HYPOTHYROIDISM, UNSPECIFIED Status: Chronic Comment: (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 - OTHER DISEASES OF VOCAL CORDS Status: Chronic (12) Tobacco dependence Code(s): F17.200 - NICOTINE DEPENDENCE, UNSPECIFIED, UNCOMPLICATED Status: Chronic Comment: (13) VALENTINA (obstructive sleep apnea) Code(s): G47.33 - OBSTRUCTIVE SLEEP APNEA (ADULT) (PEDIATRIC) Status: Suspected Comment: (14) Acute systolic heart failure Code(s): I50.21 - ACUTE SYSTOLIC (CONGESTIVE) HEART FAILURE Status: Acute (15) Moderate mitral regurgitation Code(s): I34.0 - NONRHEUMATIC MITRAL (VALVE) INSUFFICIENCY Status: Acute (16) Moderate tricuspid regurgitation Code(s): I07.1 - RHEUMATIC TRICUSPID INSUFFICIENCY Status: Acute (17) NSTEMI (non-ST elevated myocardial infarction) Code(s): I21.4 - NON-ST ELEVATION (NSTEMI) MYOCARDIAL INFARCTION Status: Acute (18) C. difficile colitis Status: Acute (19) CVA (cerebral vascular accident) Code(s): I63.9 - CEREBRAL INFARCTION, UNSPECIFIED Status: Acute Qualifiers: Laterality of affected vessel: unspecified - Plan cont current plan of care, continue antibiotics, PT/OT, social media intern, DVT proph w/lovenox, DVT proph w/SCDs * continue flagyl * add aspirin * add lipitor * checked cardiac enzyme, cbc, bmp, bnp * today repeat echo * if low EF, will need life vest * will need rehab on discharge * stroke team evaluation * pt is not on BP meds for now, due to her low BP * medication reviewed as below * symptomatic treatment. Review of Systems - Review of Systems Constitutional: negative: fever, chills, sweats, weakness, malaise, other Eyes: negative: Pain, Vision Change, Conjunctivae Inflammation, Eyelid Inflammation, Redness, Other ENT: negative: Ear Pain, Ear Discharge, Nose Pain, Nose Discharge, Nose Congestion, Mouth Pain, Mouth Swelling, Throat Pain, Throat Swelling, Other Respiratory: negative: Cough, Dry, Shortness of Breath, Hemoptysis, SOB with Excertion, Pleuritic Pain, Sputum, Wheezing Cardiovascular: negative: chest pain, palpitations, orthopnea, paroxysmal nocturnal dyspnea, edema, light headedness, other Gastrointestinal: negative: Nausea, Vomiting, Abdominal Pain, Diarrhea, Constipation, Melena, Hematochezia, Other Genitourinary: negative: Dysuria, Frequency, Incontinence, Hematuria, Retention , Other Musculoskeletal: negative: Neck Pain, Shoulder Pain, Arm Pain, Back Pain, Hand Pain, Leg Pain, Foot Pain, Other Skin: negative: Rash, Lesions, Praful, Bruising, Other Neurological: Weakness. negative: Numbness, Incoordination, Change in Speech, Confusion, Seizures, Other - Medications/Allergies Allergies/Adverse Reactions: Allergies Allergy/AdvReac Type Severity Reaction Status Date / Time Penicillins Allergy Verified 06/15/17 14:48 Sulfa (Sulfonamide Allergy Verified 06/15/17 14:48 Antibiotics) Medications: Current Medications Acetaminophen (Tylenol Elixir) 650 mg PO Q6H PRN PRN Reason: Fever > 101 or Mild Pain Last Admin: 10/24/17 14:48 Dose: 650 mg Al Hydroxide/Mg Hydroxide (Maalox) 30 ml PO Q6H PRN PRN Reason: Heartburn or Indigestion Albuterol/Ipratropium (Duoneb) 3 ml NEB Q6H PRN PRN Reason: SOB &/or Wheezing Last Admin: 10/21/17 01:30 Dose: 3 ml Albuterol/Ipratropium (Duoneb) 3 ml NEB [id number] [facility] Last Admin: 10/27/17 08:06 Dose: 3 ml Artificial Tears (Tears Naturale) 0 drop EA EYE PRN PRN PRN Reason: Dry Eyes Aspirin (Aspirin) 325 mg PO DAILY [facility] Atorvastatin Calcium (Lipitor) 20 mg PO HS [facility] Bisacodyl (Dulcolax) 10 mg PO DAILYPRN PRN PRN Reason: Constipation Bisacodyl (Dulcolax) 10 mg [place] DAILYPRN PRN PRN Reason: Constipation Calcium Carbonate (Tums) 1,000 mg PO Q4H PRN PRN Reason: Heartburn or Indigestion Dextrose/Water (Dextrose 50%) 25 gm SLOW IVP PRN PRN PRN Reason: Hypoglycemia Famotidine (Pepcid) 20 mg PO BID [facility] Glucagon (Glucagon) 1 mg IM PRN PRN PRN Reason: Hypoglycemia Hydralazine HCl (Apresoline) 10 mg SLOW IVP Q4H PRN PRN Reason: Systolic BP > 180 Dextrose/Water (D5w) 1,000 mls @ 0 mls/hr IV .Q0M PRN; As Directed PRN Reason: Hypoglycemia Metronidazole 500 mg/ Device 100 mls @ 100 mls/hr IVPB Q8HR [facility] Last Admin: 10/27/17 06:56 Dose: 100 mls Insulin Human Lispro (Humalog) 0 units SC .MILD SLIDING SCALE PRN PRN Reason: Mild Correctional Scale Last Admin: 10/24/17 13:11 Dose: 2 unit Insulin Human Lispro (Humalog) 0 units SC .BEDTIME SLIDING SC PRN PRN Reason: Bedtime Correctional Scale Last Admin: 10/20/17 22:56 Dose: 4 unit Loperamide HCl (Imodium) 1 mg PO Q4H PRN PRN Reason: Diarrhea/Loose Stools Last Admin: 10/24/17 19:50 Dose: 1 mg Magnesium Hydroxide (Milk Of Magnesium) 30 ml PO Q8H PRN PRN Reason: Constipation Mineral Oil/White Petrolatum (Eucerin Cream) 0 gm TOP BIDPRN PRN PRN Reason: Dry Skin Ondansetron HCl (Zofran) 4 mg IVP Q6H PRN PRN Reason: Nausea/Vomiting Saccharomyces Boulardii (Florastor) 250 mg PO DAILY [facility] Senna (Senokot) 2 tab PO HSPRN PRN PRN Reason: Constipation Sodium Chloride (Flush - Normal Saline) 10 ml IVF Q12HR [facility] Last Admin: 10/26/17 21:36 Dose: 10 ml Sodium Chloride (Flush - Normal Saline) 10 ml IVF PRN PRN PRN Reason: Saline Flush
[2017-10-27] MEDS: Aspirin 325 MG TAB PO SCH (09:58)
[2017-10-27] MEDS: Famotidine 20 MG TAB PO SCH ×2 (09:58→22:18)
[2017-10-27] MEDS: Saccharomyces boulardii 250 MG CAP PO SCH (09:58)
--- NOTE | 2017-10-27 16:21 | PDOC.CTH ---
Cardiology Progress Note - Subjective No new issues. - Objective Vital Signs Temp Pulse Pulse Pulse Resp BP BP 10/27/17 12:00 98.5 F 97 16 10/27/17 09:22 101 H 103 H 85/72 L 88/65 L 10/27/17 08:12 10/27/17 08:06 93 20 10/27/17 08:00 98.4 F 93 20 10/27/17 07:24 93 96/67 10/27/17 05:04 98.0 F 95 BP BP Pulse Ox 10/27/17 12:00 106/79 92 L 10/27/17 09:22 10/27/17 08:12 92 L 10/27/17 08:06 92 L 10/27/17 08:00 109/75 92 L 10/27/17 07:24 10/27/17 05:04 94/73 93 L Admit Weight 173 lb 8.061 oz Weight 164 lb 10/26/17 10/27/17 10/28/17 06:59 06:59 06:59 Intake Total 342 1180 Output Total 1790 1215 Balance -1448 -35 - Physical Examination General/Neuro: NAD Neck: no JVD present Lungs: unlabored respirations Heart: RRR Abdomen: NT/ND Extremities: + edema B (1+) - Telemetry Telemetry Rhythm: NSR - Labs Result Diagrams: 10/27/17 07:21 10/27/17 07:21 Troponin/CKMB CK-MB (CK-2) 3.8 ng/mL (0-6.6) 10/27/17 07:21 Troponin I 1.086 ng/mL (< 0.028) H* 10/27/17 07:21 - Assessment/Plan 1. NSTEMI 2. Sepsis 3. COPD with exacerbation 4. Acute on chronic systolic heart failure. 5. C-Diff colitis. 6. No documented afib or aflutter. PLAN: - No hemorrhagic CVA seen on imaging. - Repeat echo pending to evaluate for need of lifevest before discharge. - Will need LINQ before discharge due to embolic stroke and possibly needing full anticoagulation usp.
[2017-10-27] MEDS: Atorvastatin Calcium 20 MG TAB PO SCH (22:18)
[2017-10-28] MEDS: metroNIDAZOLE 500 MG in Premix Bag 1 BAG IVPB SCH ×3 (05:56→21:13)
--- NOTE | 2017-10-28 08:43 | PDOC.CTH ---
Cardiology Progress Note - Subjective The pt seen and examined. No overnight events. No cardiac complaints. No afib/ aflutter on Tele record. - Objective Vital Signs Temp Pulse Resp BP BP Pulse Ox 10/28/17 07:46 97.6 F 74 20 114/80 100 10/28/17 07:22 83 20 10/28/17 04:00 98.8 F 83 20 105/77 93 L 10/28/17 00:00 97.7 F 62 20 95/59 L 92 L Admit Weight 173 lb 8.061 oz Weight 172 lb 5 oz 10/27/17 10/28/17 10/29/17 06:59 06:59 06:59 Intake Total 1180 200 Output Total 1215 750 Balance -35 -550 - Physical Examination General/Neuro: alert & oriented x3 Neck: no JVD present Lungs: CTA Heart: RRR Abdomen: soft Extremities: other: (No edema) - Telemetry Telemetry Rhythm: SR 80s - Labs Result Diagrams: 10/27/17 07:21 10/27/17 07:21 Troponin/CKMB CK-MB (CK-2) 3.8 ng/mL (0-6.6) 10/27/17 07:21 Troponin I 1.086 ng/mL (< 0.028) H* 10/27/17 07:21 - Assessment/Plan 1. NSTEMI - Increase Lovenox to 80mg subq BID; cont. monitor 2. Acute on Chronic systolic HF - on Lasix 40mg IV daily; cont. monitor 4. HTN - well controlled with no BP med at this moment; cont. monitor 6. Sepsis - on IV antibiotics; managed by PCP 7. CKD stage 3 - stable 8. COPD exacerbation - stable with RA 9. Hypothyroidism - TSH on 10/27/17 was 3.6; managed by PCP 10. Sleep Apnea 11. Tobacco abuse - Ex smoker, quit in 2018 12. C-diff - managed by PCP YOUNG reviewed * Echo on 10/21/17 showed EF 20-25%, apical akinesis, dilated LV, mod MR, mild AR, mild-mod TR, PAP 65mmHg * Repeat echo was taken yesterday and the result is pending at this time; Possible Lifevest before discharge. * LINQ possible this PM before discharge due to embolic stroke and possibly needing full anticoagulation intermediate. Explained the procedure and the risks of the LINQ placement. The risks included, but not limited to: infection, hemorrhage, hematoma, perforation. She voiced understanding and agreed to proceed the procedure. Review of Systems - Review of Systems Constitutional: reports: no symptoms reported EENTM: reports: no symptoms reported Respiratory: reports: no symptoms reported Cardiac (ROS): reports: no symptoms reported ABD/GI: reports: no symptoms reported : reports: no symptoms reported Musculoskeletal: reports: no symptoms reported
[2017-10-28] MEDS: Aspirin 325 MG TAB PO SCH (08:50)
[2017-10-28] MEDS: Enoxaparin Sodium 40 MG/0.4 ML SYRINGE SC SCH (08:51)
[2017-10-28] MEDS: Famotidine 20 MG TAB PO SCH ×2 (09:02→21:13)
[2017-10-28] MEDS: Saccharomyces boulardii 250 MG CAP PO SCH (09:02)
--- NOTE | 2017-10-28 09:38 | PDOC.PN ---
- Subjective Encounter Start Date: 10/28/17 Encounter Start Time: 08:40 Patient seen and examined. No new complaints. No overnight events - Objective MAR Reviewed: Yes Vital Signs & Weight: Vital Signs (12 hours) Temp Pulse Resp BP BP Pulse Ox 10/28/17 07:46 97.6 F 74 20 114/80 100 10/28/17 07:22 83 20 10/28/17 04:00 98.8 F 83 20 105/77 93 L 10/28/17 00:00 97.7 F 62 20 95/59 L 92 L Weight Admit Weight 173 lb 8.061 oz Weight 172 lb 5 oz Most Recent Monitor Data Heart Rate from ECG 88 NIBP 110/96 NIBP BP-Mean 103 Respiration from ECG 23 SpO2 95 I&O: 10/27/17 10/28/17 10/29/17 06:59 06:59 06:59 Intake Total 1180 200 Output Total 1215 750 Balance -35 -550 Result Diagrams: 10/27/17 07:21 10/27/17 07:21 Additional Labs: Accuchecks 10/28/17 10/27/17 10/27/17 05:48 19:58 16:18 POC Glucose 108 110 111 H 10/27/17 12:11 POC Glucose 114 H EKG Reviewed by me: Yes Phys Exam - Physical Examination Constitutional: NAD HEENT: PERRLA, moist MMs, sclera anicteric Neck: no JVD, supple Respiratory: no wheezing, no rales, no rhonchi Cardiovascular: RRR, no significant murmur, no rub Gastrointestinal: soft, non-tender, no distention, positive bowel sounds Musculoskeletal: no edema, pulses present right side weakness Psychiatric: normal affect Skin: no rash, normal turgor Dx/Plan (1) Acidosis, metabolic, with respiratory acidosis Code(s): E87.4 - MIXED DISORDER OF ACID-BASE BALANCE Status: Resolved (2) Acute respiratory failure with hypoxia and hypercapnia Code(s): J96.01 - ACUTE RESPIRATORY FAILURE WITH HYPOXIA; J96.02 - ACUTE RESPIRATORY FAILURE WITH HYPERCAPNIA Status: Resolved Comment: (3) COPD exacerbation Code(s): J44.1 - CHRONIC OBSTRUCTIVE PULMONARY DISEASE W (ACUTE) EXACERBATION Status: Acute Comment: controlled (4) Community acquired bacterial pneumonia Code(s): J15.9 - UNSPECIFIED BACTERIAL PNEUMONIA Status: Acute (5) Sepsis with acute organ dysfunction Code(s): A41.9 - SEPSIS, UNSPECIFIED ORGANISM; R65.20 - SEVERE SEPSIS WITHOUT SEPTIC SHOCK Status: Acute (6) CKD (chronic kidney disease) stage 3, GFR 30-59 ml/min Code(s): N18.3 - CHRONIC KIDNEY DISEASE, STAGE 3 (MODERATE) Status: Chronic (7) Carotid stenosis Code(s): I65.29 - OCCLUSION AND STENOSIS OF UNSPECIFIED CAROTID ARTERY Status : Chronic Comment: (8) Dyslipidemia Code(s): E78.5 - HYPERLIPIDEMIA, UNSPECIFIED Status: Chronic Comment: (9) Hypertension Code(s): I10 - ESSENTIAL (PRIMARY) HYPERTENSION Status: Chronic (10) Hypothyroidism Code(s): E03.9 - HYPOTHYROIDISM, UNSPECIFIED Status: Chronic Comment: (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 - OTHER DISEASES OF VOCAL CORDS Status: Chronic (12) Tobacco dependence Code(s): F17.200 - NICOTINE DEPENDENCE, UNSPECIFIED, UNCOMPLICATED Status: Chronic Comment: (13) VALENTINA (obstructive sleep apnea) Code(s): G47.33 - OBSTRUCTIVE SLEEP APNEA (ADULT) (PEDIATRIC) Status: Suspected Comment: (14) Acute systolic heart failure Code(s): I50.21 - ACUTE SYSTOLIC (CONGESTIVE) HEART FAILURE Status: Acute (15) Moderate mitral regurgitation Code(s): I34.0 - NONRHEUMATIC MITRAL (VALVE) INSUFFICIENCY Status: Acute (16) Moderate tricuspid regurgitation Code(s): I07.1 - RHEUMATIC TRICUSPID INSUFFICIENCY Status: Acute (17) NSTEMI (non-ST elevated myocardial infarction) Code(s): I21.4 - NON-ST ELEVATION (NSTEMI) MYOCARDIAL INFARCTION Status: Acute (18) C. difficile colitis Status: Acute (19) CVA (cerebral vascular accident) Code(s): I63.9 - CEREBRAL INFARCTION, UNSPECIFIED Status: Acute Qualifiers: Laterality of affected vessel: unspecified - Plan cont current plan of care, continue antibiotics, PT/OT, aids social worker * continue flagyl * cardiology following * will need placement * overall stable and improving * medication reviewed as below * symptomatic treatment. * repeat echo result pending Review of Systems - Review of Systems Constitutional: negative: fever, chills, sweats, weakness, malaise, other ENT: negative: Ear Pain, Ear Discharge, Nose Pain, Nose Discharge, Nose Congestion, Mouth Pain, Mouth Swelling, Throat Pain, Throat Swelling, Other Respiratory: negative: Cough, Dry, Shortness of Breath, Hemoptysis, SOB with Excertion, Pleuritic Pain, Sputum, Wheezing Cardiovascular: negative: chest pain, palpitations, orthopnea, paroxysmal nocturnal dyspnea, edema, light headedness, other Gastrointestinal: negative: Nausea, Vomiting, Abdominal Pain, Diarrhea, Constipation, Melena, Hematochezia, Other Genitourinary: negative: Dysuria, Frequency, Incontinence, Hematuria, Retention , Other Musculoskeletal: negative: Neck Pain, Shoulder Pain, Arm Pain, Back Pain, Hand Pain, Leg Pain, Foot Pain, Other - Medications/Allergies Allergies/Adverse Reactions: Allergies Allergy/AdvReac Type Severity Reaction Status Date / Time Penicillins Allergy Verified 06/15/17 14:48 Sulfa (Sulfonamide Allergy Verified 06/15/17 14:48 Antibiotics) Medications: Current Medications Acetaminophen (Tylenol Elixir) 650 mg PO Q6H PRN PRN Reason: Fever > 101 or Mild Pain Last Admin: 10/24/17 14:48 Dose: 650 mg Al Hydroxide/Mg Hydroxide (Maalox) 30 ml PO Q6H PRN PRN Reason: Heartburn or Indigestion Albuterol/Ipratropium (Duoneb) 3 ml NEB Q6H PRN PRN Reason: SOB &/or Wheezing Last Admin: 10/21/17 01:30 Dose: 3 ml Albuterol/Ipratropium (Duoneb) 3 ml NEB [id number] [facility] Last Admin: 10/28/17 07:22 Dose: 3 ml Artificial Tears (Tears Naturale) 0 drop EA EYE PRN PRN PRN Reason: Dry Eyes Aspirin (Aspirin) 325 mg PO DAILY [facility] Last Admin: 10/28/17 08:50 Dose: Not Given Atorvastatin Calcium (Lipitor) 20 mg PO HS [facility] Last Admin: 10/27/17 22:18 Dose: 20 mg Bisacodyl (Dulcolax) 10 mg PO DAILYPRN PRN PRN Reason: Constipation Bisacodyl (Dulcolax) 10 mg [place] DAILYPRN PRN PRN Reason: Constipation Calcium Carbonate (Tums) 1,000 mg PO Q4H PRN PRN Reason: Heartburn or Indigestion Dextrose/Water (Dextrose 50%) 25 gm SLOW IVP PRN PRN PRN Reason: Hypoglycemia Enoxaparin Sodium (Lovenox) 40 mg SC 0900 [facility] Last Admin: 10/28/17 08:51 Dose: Not Given Famotidine (Pepcid) 20 mg PO BID [facility] Last Admin: 10/28/17 09:02 Dose: 20 mg Glucagon (Glucagon) 1 mg IM PRN PRN PRN Reason: Hypoglycemia Hydralazine HCl (Apresoline) 10 mg SLOW IVP Q4H PRN PRN Reason: Systolic BP > 180 Dextrose/Water (D5w) 1,000 mls @ 0 mls/hr IV .Q0M PRN; As Directed PRN Reason: Hypoglycemia Metronidazole 500 mg/ Device 100 mls @ 100 mls/hr IVPB Q8HR [facility] Last Admin: 10/28/17 05:56 Dose: 100 mls Insulin Human Lispro (Humalog) 0 units SC .MILD SLIDING SCALE PRN PRN Reason: Mild Correctional Scale Last Admin: 10/24/17 13:11 Dose: 2 unit Insulin Human Lispro (Humalog) 0 units SC .BEDTIME SLIDING SC PRN PRN Reason: Bedtime Correctional Scale Last Admin: 10/20/17 22:56 Dose: 4 unit Loperamide HCl (Imodium) 1 mg PO Q4H PRN PRN Reason: Diarrhea/Loose Stools Last Admin: 10/24/17 19:50 Dose: 1 mg Magnesium Hydroxide (Milk Of Magnesium) 30 ml PO Q8H PRN PRN Reason: Constipation Mineral Oil/White Petrolatum (Eucerin Cream) 0 gm TOP BIDPRN PRN PRN Reason: Dry Skin Ondansetron HCl (Zofran) 4 mg IVP Q6H PRN PRN Reason: Nausea/Vomiting Saccharomyces Boulardii (Florastor) 250 mg PO DAILY [facility] Last Admin: 10/28/17 09:02 Dose: 250 mg Senna (Senokot) 2 tab PO HSPRN PRN PRN Reason: Constipation Sodium Chloride (Flush - Normal Saline) 10 ml IVF Q12HR [facility] Last Admin: 10/28/17 09:03 Dose: 10 ml Sodium Chloride (Flush - Normal Saline) 10 ml IVF PRN PRN PRN Reason: Saline Flush
[2017-10-28] MEDS ORDERED: Lidocaine 1% w/Epinephrine 1:100K 30 ML VIAL ONE (14:42)
[2017-10-28] MEDS: Atorvastatin Calcium 20 MG TAB PO SCH (21:13)
--- NOTE | 2017-10-28 22:39 | CCL ---
DATE OF PROCEDURE: 10/28/2017 INDICATION FOR PROCEDURE: 57-year-old female with syncope and cryptogenic CVA of uncertain etiology with no indication the abov e. She was advised to undergo a Linq implantation which is an implantable loop recorder to determine whether or not she is having any pauses or other significant arrhythmias that could be treated by me dical management. She underwent the procedure today without difficulties or complications. She was taken to cardiac electroplating laborer where she was prepped and draped in sterile fashion. Under sterile technique, the Linq and recorder was easily injected underneath the left fourth intercostal space a nteriorly. There were no difficulties or complications encountered. The sensing was found to be wit hin normal range. IMPRESSION: Successful implantation of a [employer] Linq recorder which is an implantable loop recorder. We will s ee her back for followup and continuation.
[2017-10-29] MEDS: metroNIDAZOLE 500 MG in Premix Bag 1 BAG IVPB SCH (05:45)
[2017-10-29 07:04] LABS: #Eosinphils 0.3 thou/uL (0.0-0.7); #Monocytes 0.7 thou/uL (0.11-0.59); #Neutrophils 7.4 thou/uL (1.40-6.50); %Basophils 0.1 % (0.0-1.0); %Eosinophils 2.9 % (0.0-10.0); %Lymphocytes 19.3 % (21.0-51.0); %Monocytes 6.8 % (0.0-10.0); Hemoglobin 11.3 g/dL (12.0-16.0); Mean Corpuscular Hemoglobin 28.9 pg (27.0-31.0); Mean Corpuscular Volume 90.4 fl (81.0-99.0); Mean Platelet Volume 8.8 fL (7.4-10.4); Platelet Count 278 thou/uL (130-400); RBC Distribution Width 15.3 % (11.5-14.5); White Blood Cell (WBC) Count 10.4 thou/uL (4.8-10.8)
[2017-10-29 07:22] LABS: Anion Gap 12 mmol/L (10-20); BUN (Urea Nitrogen) 19 mg/dL (9.8-20.1); Calc. Creatinine Clearance 125 mL/min (70-130); Calcium 8.8 mg/dL (7.8-10.44); Carbon Dioxide 23 mmol/L (22-29); Chloride 107 mmol/L (98-107); Estimated GFR-MDRD Greater than 90; Glucose 101 mg/dL (70-105); Potassium 3.7 mmol/L (3.5-5.1); Sodium 138 mmol/L (136-145)
--- NOTE | 2017-10-29 07:40 | PDOC.CTH ---
<Mayelin Hurley - Last Filed: 10/29/17 07:41> Cardiology Progress Note - Subjective The pt seen and examined. No overnight events. No cardiac complaints. The LINQ site is ALMA with BB, no hemorrhage or hematoma, tender to palpate around the site. - Objective Vital Signs Temp Pulse Resp BP Pulse Ox 10/29/17 06:25 70 14 10/29/17 04:11 98.6 F 84 18 106/81 94 L 10/29/17 01:52 102/73 10/29/17 00:33 98.6 F 86 18 80/65 L 94 L 10/28/17 23:16 68 16 97 10/28/17 21:20 91/74 10/28/17 20:22 98.0 F 94 16 94 L Admit Weight 173 lb 8.061 oz Weight 171 lb 9.6 oz 10/28/17 10/29/17 10/30/17 06:59 06:59 06:59 Intake Total 200 1270 Output Total 750 800 Balance -550 470 - Physical Examination General/Neuro: alert & oriented x3 Neck: no JVD present Heart: RRR Extremities: other: (No edema) - Telemetry Telemetry Rhythm: SR - Labs Result Diagrams: 10/29/17 06:52 10/29/17 06:52 Troponin/CKMB CK-MB (CK-2) 3.8 ng/mL (0-6.6) 10/27/17 07:21 Troponin I 1.086 ng/mL (< 0.028) H* 10/27/17 07:21 - Assessment/Plan 1. NSTEMI - on BBlocker, ASA, and statin; cont. monitor 2. Acute on Chronic systolic HF - on BBlocker, SU, but no on diuretic; Repeat Echo result is pending at this time; cont. monitor 4. HTN - well controlled with no BP med at this moment; cont. monitor 6. Sepsis - resolved 7. CKD stage 3 - stable 8. COPD exacerbation - stable with RA 9. Hypothyroidism - TSH on 10/27/17 was 3.6; managed by PCP 10. Sleep Apnea 11. Tobacco abuse - Ex smoker, quit in 2018 12. C-diff - on IV antibiotics; managed by PCP 13. CVA - S/p LINQ placement on 10/28/17 for possible embolic stroke. MAR reviewed * Echo on 10/21/17 showed EF 20-25%, apical akinesis, dilated LV, mod MR, mild AR, mild-mod TR, PAP 65mmHg * Repeat echo was taken yesterday and the result is pending at this time; Possible Lifevest before discharge. Review of Systems - Review of Systems Constitutional: reports: no symptoms reported EENTM: reports: no symptoms reported Respiratory: reports: no symptoms reported Cardiac (ROS): reports: no symptoms reported ABD/GI: reports: no symptoms reported : reports: no symptoms reported <Feliciano Mnan - Last Filed: 10/29/17 14:54> Cardiology Progress Note - Objective Vital Signs Temp Pulse Pulse Resp BP BP BP 10/29/17 11:53 98.3 F 80 20 10/29/17 09:23 86 78/64 L 10/29/17 08:32 87 83/67 L 10/29/17 08:00 98.6 F 86 14 10/29/17 06:25 70 14 10/29/17 04:11 98.6 F 84 18 106/81 BP Pulse Ox 10/29/17 11:53 80/54 L 94 L 10/29/17 09:23 10/29/17 08:32 10/29/17 08:00 78/64 L 94 L 10/29/17 06:25 10/29/17 04:11 94 L Admit Weight 173 lb 8.061 oz Weight 171 lb 9.6 oz 10/28/17 10/29/17 10/30/17 06:59 06:59 06:59 Intake Total 200 1270 Output Total 750 800 Balance -550 470 - Labs Result Diagrams: 10/29/17 06:52 10/29/17 06:52 Troponin/CKMB CK-MB (CK-2) 3.8 ng/mL (0-6.6) 10/27/17 07:21 Troponin I 1.086 ng/mL (< 0.028) H* 10/27/17 07:21 - Assessment/Plan The echo from 10-28-17 indicates an EF of 35-40%. Okay to discharge pt. to home. I agree with the A/P by the L[employer] TOWER FIRE WATCHER.
[2017-10-29] MEDS: Lisinopril 2.5 MG TAB PO SCH (09:23)
[2017-10-29] MEDS: Carvedilol 3.125 MG TAB PO SCH ×2 (09:24→15:58)
[2017-10-29] MEDS: Aspirin 325 MG TAB PO SCH (09:25)
[2017-10-29] MEDS: Spironolactone 25 MG TAB PO SCH (09:25)
[2017-10-29] MEDS: metroNIDAZOLE 500 MG TAB PO SCH ×3 (09:26→21:55)
[2017-10-29] MEDS: Famotidine 20 MG TAB PO SCH ×2 (09:26→21:55)
[2017-10-29] MEDS: Saccharomyces boulardii 250 MG CAP PO SCH (09:26)
[2017-10-29] MEDS: Enoxaparin Sodium 40 MG/0.4 ML SYRINGE SC SCH (09:26)
--- NOTE | 2017-10-29 09:34 | PRG ---
DATE OF SERVICE: 10/29/2017 SERVICE: Pulmonary Medicine INTERVAL HISTORY: The patient doing great from a respiratory standpoint. She demonstrates an excell ent cough. She is protecting her airway beautifully this point. She still has a dense right-sided h emiplegia, but otherwise she is making some modest improvements in her neurologic function. PHYSICAL EXAMINATION: VITAL SIGNS: Afebrile, pulse 86, blood pressure 106/81, respirations 14, saturation 94% on room air. GENERAL: The patient is awake, alert, in no apparent distress. LUNGS: Decent air entry. There is no prolonged expiratory phase or wheezing present. HEART: Normal rate, regular. ABDOMEN: Soft, nontender, nondistended. Bowel sounds are positive. MUSCULOSKELETAL: No cyanosis or clubbing. There is no pitting in the bilateral lower extremities. NEUROLOGIC: Dense right-sided hemiplegia is present. LABORATORY DATA: WBC 10.4, hemoglobin 11.3, platelets 278,000. Basic metabolic profile is completel y unremarkable. ASSESSMENT: 1. Acute hypoxic and hypercapnic respiratory failure, resolved. 2. Chronic obstructive pulmonary disease with acute exacerbation, resolved. 3. Non-ST elevation myocardial infarction. 4. Cerebrovascular accident, cardioembolic. 5. Chronic systolic heart failure. 6. Clostridium difficile colitis. 7. Severe sepsis, resolved. DISCUSSION AND PLAN: The patient is doing absolutely fantastic from a respiratory and cardiovascular standpoint. Pulmonary will continue to follow intermittently during this hospital stay, but from my perspective, she is stable for transition out of the hospital once a care facility is in place for h er.
--- NOTE | 2017-10-29 11:42 | PDOC.PN ---
- Subjective Encounter Start Date: 10/29/17 Encounter Start Time: 07:15 Linq implantable recorder placed yesterday, Patient seen and examined. No new complaints. No overnight events - Objective MAR Reviewed: Yes Vital Signs & Weight: Vital Signs (12 hours) Temp Pulse Pulse Resp BP BP BP 10/29/17 09:23 86 78/64 L 10/29/17 08:32 87 83/67 L 10/29/17 08:00 98.6 F 86 14 10/29/17 06:25 70 14 10/29/17 04:11 98.6 F 84 18 106/81 10/29/17 01:52 102/73 10/29/17 00:33 98.6 F 86 18 80/65 L BP Pulse Ox 10/29/17 09:23 10/29/17 08:32 10/29/17 08:00 78/64 L 94 L 10/29/17 06:25 10/29/17 04:11 94 L 10/29/17 01:52 10/29/17 00:33 94 L Weight Admit Weight 173 lb 8.061 oz Weight 171 lb 9.6 oz Most Recent Monitor Data Heart Rate from ECG 88 NIBP 110/96 NIBP BP-Mean 103 Respiration from ECG 23 SpO2 95 I&O: 10/28/17 10/29/17 10/30/17 06:59 06:59 06:59 Intake Total 200 1270 Output Total 750 800 Balance -550 470 Result Diagrams: 10/29/17 06:52 10/29/17 06:52 Additional Labs: Accuchecks 10/29/17 10/29/17 10/28/17 10:31 05:45 21:09 POC Glucose 136 H 98 97 10/28/17 17:04 POC Glucose 101 EKG Reviewed by me: Yes Phys Exam - Physical Examination Constitutional: NAD HEENT: PERRLA, moist MMs, sclera anicteric Neck: no JVD, supple Respiratory: no wheezing, no rales, no rhonchi Cardiovascular: RRR, no significant murmur, no rub Gastrointestinal: soft, non-tender, no distention, positive bowel sounds Musculoskeletal: no edema, pulses present right side weakness Psychiatric: normal affect Skin: no rash, normal turgor Dx/Plan (1) Acidosis, metabolic, with respiratory acidosis Code(s): E87.4 - MIXED DISORDER OF ACID-BASE BALANCE Status: Resolved (2) Acute respiratory failure with hypoxia and hypercapnia Code(s): J96.01 - ACUTE RESPIRATORY FAILURE WITH HYPOXIA; J96.02 - ACUTE RESPIRATORY FAILURE WITH HYPERCAPNIA Status: Resolved Comment: (3) COPD exacerbation Code(s): J44.1 - CHRONIC OBSTRUCTIVE PULMONARY DISEASE W (ACUTE) EXACERBATION Status: Acute Comment: controlled (4) Community acquired bacterial pneumonia Code(s): J15.9 - UNSPECIFIED BACTERIAL PNEUMONIA Status: Acute (5) Sepsis with acute organ dysfunction Code(s): A41.9 - SEPSIS, UNSPECIFIED ORGANISM; R65.20 - SEVERE SEPSIS WITHOUT SEPTIC SHOCK Status: Acute (6) CKD (chronic kidney disease) stage 3, GFR 30-59 ml/min Code(s): N18.3 - CHRONIC KIDNEY DISEASE, STAGE 3 (MODERATE) Status: Chronic (7) Carotid stenosis Code(s): I65.29 - OCCLUSION AND STENOSIS OF UNSPECIFIED CAROTID ARTERY Status : Chronic Comment: (8) Dyslipidemia Code(s): E78.5 - HYPERLIPIDEMIA, UNSPECIFIED Status: Chronic Comment: (9) Hypertension Code(s): I10 - ESSENTIAL (PRIMARY) HYPERTENSION Status: Chronic (10) Hypothyroidism Code(s): E03.9 - HYPOTHYROIDISM, UNSPECIFIED Status: Chronic Comment: (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 - OTHER DISEASES OF VOCAL CORDS Status: Chronic (12) Tobacco dependence Code(s): F17.200 - NICOTINE DEPENDENCE, UNSPECIFIED, UNCOMPLICATED Status: Chronic Comment: (13) VALENTINA (obstructive sleep apnea) Code(s): G47.33 - OBSTRUCTIVE SLEEP APNEA (ADULT) (PEDIATRIC) Status: Suspected Comment: (14) Acute systolic heart failure Code(s): I50.21 - ACUTE SYSTOLIC (CONGESTIVE) HEART FAILURE Status: Acute (15) Moderate mitral regurgitation Code(s): I34.0 - NONRHEUMATIC MITRAL (VALVE) INSUFFICIENCY Status: Acute (16) Moderate tricuspid regurgitation Code(s): I07.1 - RHEUMATIC TRICUSPID INSUFFICIENCY Status: Acute (17) NSTEMI (non-ST elevated myocardial infarction) Code(s): I21.4 - NON-ST ELEVATION (NSTEMI) MYOCARDIAL INFARCTION Status: Acute (18) C. difficile colitis Status: Acute (19) CVA (cerebral vascular accident) Code(s): I63.9 - CEREBRAL INFARCTION, UNSPECIFIED Status: Acute Qualifiers: Laterality of affected vessel: unspecified - Plan cont current plan of care, PT/OT, psychiatric social worker supervisor * change flagyl PO * await placement * medication reviewed as below * symptomatic treatment * start aldactone, coreg, lisinopril at very low dose as tolerated. Review of Systems - Review of Systems Eyes: negative: Pain, Vision Change, Conjunctivae Inflammation, Eyelid Inflammation, Redness, Other ENT: negative: Ear Pain, Ear Discharge, Nose Pain, Nose Discharge, Nose Congestion, Mouth Pain, Mouth Swelling, Throat Pain, Throat Swelling, Other Respiratory: negative: Cough, Dry, Shortness of Breath, Hemoptysis, SOB with Excertion, Pleuritic Pain, Sputum, Wheezing Cardiovascular: negative: chest pain, palpitations, orthopnea, paroxysmal nocturnal dyspnea, edema, light headedness, other Gastrointestinal: negative: Nausea, Vomiting, Abdominal Pain, Diarrhea, Constipation, Melena, Hematochezia, Other Genitourinary: negative: Dysuria, Frequency, Incontinence, Hematuria, Retention , Other Musculoskeletal: negative: Neck Pain, Shoulder Pain, Arm Pain, Back Pain, Hand Pain, Leg Pain, Foot Pain, Other Skin: negative: Rash, Lesions, Praful, Bruising, Other - Medications/Allergies Allergies/Adverse Reactions: Allergies Allergy/AdvReac Type Severity Reaction Status Date / Time Penicillins Allergy Verified 06/15/17 14:48 Sulfa (Sulfonamide Allergy Verified 06/15/17 14:48 Antibiotics) Medications: Current Medications Acetaminophen (Tylenol Elixir) 650 mg PO Q6H PRN PRN Reason: Fever > 101 or Mild Pain Last Admin: 10/24/17 14:48 Dose: 650 mg Al Hydroxide/Mg Hydroxide (Maalox) 30 ml PO Q6H PRN PRN Reason: Heartburn or Indigestion Albuterol/Ipratropium (Duoneb) 3 ml NEB Q6H PRN PRN Reason: SOB &/or Wheezing Last Admin: 10/21/17 01:30 Dose: 3 ml Albuterol/Ipratropium (Duoneb) 3 ml NEB [id number] Last Admin: 10/29/17 06:25 Dose: 3 ml Artificial Tears (Tears Naturale) 0 drop EA EYE PRN PRN PRN Reason: Dry Eyes Aspirin (Aspirin) 325 mg PO DAILY [facility] Last Admin: 10/29/17 09:25 Dose: 325 mg Atorvastatin Calcium (Lipitor) 20 mg PO [facility] Last Admin: 10/28/17 21:13 Dose: 20 mg Bisacodyl (Dulcolax) 10 mg PO DAILYPRN PRN PRN Reason: Constipation Bisacodyl (Dulcolax) 10 mg [place] DAILYPRN PRN PRN Reason: Constipation Calcium Carbonate (Tums) 1,000 mg PO Q4H PRN PRN Reason: Heartburn or Indigestion Carvedilol (Coreg) 1.5625 mg PO BID-[facility] Last Admin: 10/29/17 09:24 Dose: Not Given Dextrose/Water (Dextrose 50%) 25 gm SLOW IVP PRN PRN PRN Reason: Hypoglycemia Enoxaparin Sodium (Lovenox) 40 mg SC 0900 [facility] Last Admin: 10/29/17 09:26 Dose: 40 mg Famotidine (Pepcid) 20 mg PO BID [facility] Last Admin: 10/29/17 09:26 Dose: 20 mg Glucagon (Glucagon) 1 mg IM PRN PRN PRN Reason: Hypoglycemia Hydralazine HCl (Apresoline) 10 mg SLOW IVP Q4H PRN PRN Reason: Systolic BP > 180 Dextrose/Water (D5w) 1,000 mls @ 0 mls/hr IV .Q0M PRN; As Directed PRN Reason: Hypoglycemia Insulin Human Lispro (Humalog) 0 units SC .MILD SLIDING SCALE PRN PRN Reason: Mild Correctional Scale Last Admin: 10/24/17 13:11 Dose: 2 unit Insulin Human Lispro (Humalog) 0 units SC .BEDTIME SLIDING SC PRN PRN Reason: Bedtime Correctional Scale Last Admin: 10/20/17 22:56 Dose: 4 unit Levothyroxine Sodium (Synthroid) 25 mcg PO 0600 [facility] Lisinopril (Zestril) 1.25 mg PO DAILY [facility] Last Admin: 10/29/17 09:23 Dose: Not Given Loperamide HCl (Imodium) 1 mg PO Q4H PRN PRN Reason: Diarrhea/Loose Stools Last Admin: 10/24/17 19:50 Dose: 1 mg Magnesium Hydroxide (Milk Of Magnesium) 30 ml PO Q8H PRN PRN Reason: Constipation Metronidazole (Flagyl) 500 mg PO TID [facility] Last Admin: 10/29/17 09:26 Dose: 500 mg Mineral Oil/White Petrolatum (Eucerin Cream) 0 gm TOP BIDPRN PRN PRN Reason: Dry Skin Ondansetron HCl (Zofran) 4 mg IVP Q6H PRN PRN Reason: Nausea/Vomiting Saccharomyces Boulardii (Florastor) 250 mg PO DAILY [facility] Last Admin: 10/29/17 09:26 Dose: 250 mg Senna (Senokot) 2 tab PO HSPRN PRN PRN Reason: Constipation Sodium Chloride (Flush - Normal Saline) 10 ml IVF Q12HR [facility] Last Admin: 10/29/17 09:26 Dose: 10 ml Sodium Chloride (Flush - Normal Saline) 10 ml IVF PRN PRN PRN Reason: Saline Flush Sodium Chloride (Flush - Normal Saline) 10 ml IVF Q12HR [facility] Last Admin: 10/29/17 09:24 Dose: Not Given Sodium Chloride (Flush - Normal Saline) 10 ml IVF PRN PRN PRN Reason: Saline Flush Spironolactone (Aldactone) 12.5 mg PO QAM-WM [facility] Last Admin: 10/29/17 09:25 Dose: Not Given
[2017-10-29] MEDS: Atorvastatin Calcium 20 MG TAB PO SCH (21:55)
[2017-10-30] MEDS: Levothyroxine Sodium 25 MCG TAB PO SCH (05:14)
[2017-10-30] MEDS: Enoxaparin Sodium 40 MG/0.4 ML SYRINGE SC SCH (09:21)
[2017-10-30] MEDS: Carvedilol 3.125 MG TAB PO SCH ×2 (09:25→15:48)
[2017-10-30] MEDS: Spironolactone 25 MG TAB PO SCH (09:25)
[2017-10-30] MEDS: Saccharomyces boulardii 250 MG CAP PO SCH (09:26)
[2017-10-30] MEDS: metroNIDAZOLE 500 MG TAB PO SCH ×3 (09:26→20:34)
[2017-10-30] MEDS: Lisinopril 2.5 MG TAB PO SCH (09:26)
[2017-10-30] MEDS: Famotidine 20 MG TAB PO SCH ×2 (09:26→20:34)
[2017-10-30] MEDS: Aspirin 325 MG TAB PO SCH (09:26)
--- NOTE | 2017-10-30 12:51 | PRG ---
DATE OF SERVICE: 10/30/2017 SUBJECTIVE: This morning, she is doing well, less short of breath, less cough. She is getting physi chris therapy. She is status post respiratory failure resolved, COPD, CVA. OBJECTIVE: VITAL SIGNS: Sats 90% room air, blood pressure 190/87, temperature 98. CHEST: No wheezing. CARDIAC: Normal S1, S2, no gallops, no mass. IMPRESSION: 1. Cerebrovascular accident, improved. 2. Myocardial infarction. 3. Respiratory failure. 4. Chronic obstructive pulmonary disease. Continue PT, supportive care, and neb treatments, eventually placement.
--- NOTE | 2017-10-30 14:43 | PDOC.PN ---
- Subjective Encounter Start Date: 10/30/17 Encounter Start Time: 09:30 Patient seen and examined. No new complaints. No overnight events. No new focal deficits. - Objective MAR Reviewed: Yes Vital Signs & Weight: Vital Signs (12 hours) Temp Pulse Resp BP BP BP Pulse Ox 10/30/17 14:25 72 20 10/30/17 11:49 97.8 F 78 16 78/58 L 96 10/30/17 09:26 81 119/87 10/30/17 08:00 98.7 F 81 16 119/87 93 L 10/30/17 07:42 93 L 10/30/17 07:41 94 20 93 L 10/30/17 07:40 98.3 F 94 20 93 L 10/30/17 04:58 98.7 F 84 16 119/85 93 L 10/30/17 03:05 91 L Weight Admit Weight 173 lb 8.061 oz Weight 174 lb 14.4 oz Most Recent Monitor Data Heart Rate from ECG 88 NIBP 110/96 NIBP BP-Mean 103 Respiration from ECG 23 SpO2 95 I&O: 10/29/17 10/30/17 10/31/17 06:59 06:59 06:59 Intake Total 1270 510 Output Total 800 900 Balance 470 -390 Result Diagrams: 10/29/17 06:52 10/29/17 06:52 Additional Labs: Accuchecks 10/30/17 10/30/17 10/29/17 11:08 05:55 21:51 POC Glucose 138 H 94 113 H 10/29/17 16:19 POC Glucose 168 H EKG Reviewed by me: Yes (Tele SR) Phys Exam - Physical Examination Constitutional: NAD Respiratory: no wheezing, no rhonchi Cardiovascular: RRR, no rub Gastrointestinal: soft, non-tender, positive bowel sounds Musculoskeletal: no edema Neuro - No new focal deficits. Psychiatric: A&O x 3 Dx/Plan - Plan DVT proph w/SCDs IMPRESSION: 1. Acute CVA ?Embolic s/p Linq recorder 2. NSTEMI 3. s/p Acute hypoxic/hypercapnic resp failure 4. C diff diarrhea 5. Acute on chronic systolic heart failure 6. CKD 3/ Hypothyroidism/HTN / NSVT PLAN: * Cardio/Pulm following * Start gentle IVF due to poor appetite * Cont current meds as below * Placement * Cont Flagyl * Cont ASA/low dose BB and ACEI * AM labs Review of Systems - Review of Systems Respiratory: negative: Cough, Dry, Shortness of Breath, Hemoptysis, SOB with Excertion, Pleuritic Pain, Sputum, Wheezing Cardiovascular: negative: chest pain, palpitations, orthopnea, paroxysmal nocturnal dyspnea, edema, light headedness - Medications/Allergies Allergies/Adverse Reactions: Allergies Allergy/AdvReac Type Severity Reaction Status Date / Time Penicillins Allergy Verified 06/15/17 14:48 Sulfa (Sulfonamide Allergy Verified 06/15/17 14:48 Antibiotics) Medications: Current Medications Acetaminophen (Tylenol Elixir) 650 mg PO Q6H PRN PRN Reason: Fever > 101 or Mild Pain Last Admin: 10/24/17 14:48 Dose: 650 mg Al Hydroxide/Mg Hydroxide (Maalox) 30 ml PO Q6H PRN PRN Reason: Heartburn or Indigestion Albuterol/Ipratropium (Duoneb) 3 ml NEB Q6H PRN PRN Reason: SOB &/or Wheezing Last Admin: 10/21/17 01:30 Dose: 3 ml Albuterol/Ipratropium (Duoneb) 3 ml NEB [id number] COUNTS INCLUDE 234 BEDS AT [facility] Last Admin: 10/30/17 14:25 Dose: 3 ml Artificial Tears (Tears Naturale) 0 drop EA EYE PRN PRN PRN Reason: Dry Eyes Aspirin (Aspirin) 325 mg PO DAILY [facility] 234 BEDS [facility] Last Admin: 10/30/17 09:26 Dose: 325 mg Atorvastatin Calcium (Lipitor) 20 mg PO HS [facility]S INCLUDE 234 BEDS AT [facility] Last Admin: 10/29/17 21:55 Dose: 20 mg Bisacodyl (Dulcolax) 10 mg PO DAILYPRN PRN PRN Reason: Constipation Bisacodyl (Dulcolax) 10 mg [place] DAILYPRN PRN PRN Reason: Constipation Calcium Carbonate (Tums) 1,000 mg PO Q4H PRN PRN Reason: Heartburn or Indigestion Carvedilol (Coreg) 1.5625 mg PO BID-[facility] Last Admin: 10/30/17 09:25 Dose: 1.5625 mg Dextrose/Water (Dextrose 50%) 25 gm SLOW IVP PRN PRN PRN Reason: Hypoglycemia Enoxaparin Sodium (Lovenox) 40 mg SC 0900 [facility]S [facility] 234 BEDS AT [facility] Last Admin: 10/30/17 09:21 Dose: 40 mg Famotidine (Pepcid) 20 mg PO BID [facility]CLUDE 234 BEDS AT [facility] Last Admin: 10/30/17 09:26 Dose: 20 mg Glucagon (Glucagon) 1 mg IM PRN PRN PRN Reason: Hypoglycemia Hydralazine HCl (Apresoline) 10 mg SLOW IVP Q4H PRN PRN Reason: Systolic BP > 180 Dextrose/Water (D5w) 1,000 mls @ 0 mls/hr IV .Q0M PRN; As Directed PRN Reason: Hypoglycemia Insulin Human Lispro (Humalog) 0 units SC .MILD SLIDING SCALE PRN PRN Reason: Mild Correctional Scale Last Admin: 10/24/17 13:11 Dose: 2 unit Insulin Human Lispro (Humalog) 0 units SC .BEDTIME SLIDING SC PRN PRN Reason: Bedtime Correctional Scale Last Admin: 10/20/17 22:56 Dose: 4 unit Levothyroxine Sodium (Synthroid) 25 mcg PO 0600 [facility]S [facility] 234 BEDS AT [facility] Last Admin: 10/30/17 05:14 Dose: 25 mcg Lisinopril (Zestril) 1.25 mg PO DAILY [facility]CLUDE 234 BEDS AT [facility] Last Admin: 10/30/17 09:26 Dose: 1.25 mg Loperamide HCl (Imodium) 1 mg PO Q4H PRN PRN Reason: Diarrhea/Loose Stools Last Admin: 10/24/17 19:50 Dose: 1 mg Magnesium Hydroxide (Milk Of Magnesium) 30 ml PO Q8H PRN PRN Reason: Constipation Metronidazole (Flagyl) 500 mg PO TID [facility]CLUDE 234 BEDS AT [facility] Last Admin: 10/30/17 09:26 Dose: 500 mg Mineral Oil/White Petrolatum (Eucerin Cream) 0 gm TOP BIDPRN PRN PRN Reason: Dry Skin Ondansetron HCl (Zofran) 4 mg IVP Q6H PRN PRN Reason: Nausea/Vomiting Saccharomyces Boulardii (Florastor) 250 mg PO DAILY [facility]CLUDE 234 BEDS AT [facility] Last Admin: 10/30/17 09:26 Dose: 250 mg Senna (Senokot) 2 tab PO HSPRN PRN PRN Reason: Constipation Sodium Chloride (Flush - Normal Saline) 10 ml IVF Q12HR COUNTS INCLUDE 234 BEDS AT [facility] Last Admin: 10/30/17 09:21 Dose: 10 ml Sodium Chloride (Flush - Normal Saline) 10 ml IVF PRN PRN PRN Reason: Saline Flush Sodium Chloride (Flush - Normal Saline) 10 ml IVF Q12HR COUNTS INCLUDE 234 BEDS AT [facility] Last Admin: 10/30/17 09:25 Dose: Not Given Sodium Chloride (Flush - Normal Saline) 10 ml IVF PRN PRN PRN Reason: Saline Flush Spironolactone (Aldactone) 12.5 mg PO QAM-WM COUNTS INCLUDE 234 BEDS AT [facility] Last Admin: 10/30/17 09:25 Dose: 12.5 mg
[2017-10-30] MEDS: Sodium Chloride 0.9% 1,000 ML IV SCH (14:59)
[2017-10-30] MEDS: Acetaminophen 650 MG/20.3 ML UDCUP PO PRN (16:32)
[2017-10-30] MEDS: Atorvastatin Calcium 20 MG TAB PO SCH (20:35)
[2017-10-31] MEDS ORDERED: Sodium Chloride 0.9% 1,000 ML IV SCH (02:45)
[2017-10-31 05:07] LABS: #Eosinphils 0.2 thou/uL (0.0-0.7); #Lymphocytes 2.3 thou/uL (1.20-3.40); #Monocytes 0.8 thou/uL (0.11-0.59); #Neutrophils 7.8 thou/uL (1.40-6.50); %Basophils 0.1 % (0.0-1.0); %Eosinophils 1.8 % (0.0-10.0); %Monocytes 7.3 % (0.0-10.0); %Neutrophils 69.9 % (42.0-75.0); Hemoglobin 10.4 g/dL (12.0-16.0); Mean Corpuscular HGB CONC 32.4 g/dL (32.0-36.0); Mean Corpuscular Hemoglobin 28.9 pg (27.0-31.0); Mean Corpuscular Volume 89.2 fl (81.0-99.0); Platelet Count 254 thou/uL (130-400); RBC Distribution Width 15.5 % (11.5-14.5); Red Blood Cell (RBC) Count 3.61 mill/uL (4.20-5.40); White Blood Cell (WBC) Count 11.1 thou/uL (4.8-10.8)
[2017-10-31 05:31] LABS: Anion Gap 13 mmol/L (10-20); BUN (Urea Nitrogen) 9 mg/dL (9.8-20.1); BUN/Creatinine Ratio 14.75; Calc. Creatinine Clearance 127 mL/min (70-130); Calcium 8.5 mg/dL (7.8-10.44); Carbon Dioxide 22 mmol/L (22-29); Chloride 108 mmol/L (98-107); Estimated GFR-MDRD Greater than 90; Glucose 103 mg/dL (70-105); Magnesium 1.7 mg/dL (1.6-2.6); Phosphorus 3.3 mg/dL (2.3-4.7); Potassium 3.5 mmol/L (3.5-5.1); Sodium 139 mmol/L (136-145)
[2017-10-31] MEDS: Levothyroxine Sodium 25 MCG TAB PO SCH (05:36)
[2017-10-31] MEDS: Sodium Chloride 0.9% 1,000 ML IV SCH ×2 (05:37→13:26)
[2017-10-31] MEDS: Carvedilol 3.125 MG TAB PO SCH ×2 (08:56→16:10)
[2017-10-31] MEDS: Spironolactone 25 MG TAB PO SCH (08:57)
[2017-10-31] MEDS: Lisinopril 2.5 MG TAB PO SCH (08:57)
[2017-10-31] MEDS: Aspirin 325 MG TAB PO SCH (09:22)
[2017-10-31] MEDS: Famotidine 20 MG TAB PO SCH ×2 (09:22→20:31)
[2017-10-31] MEDS: Saccharomyces boulardii 250 MG CAP PO SCH (09:23)
[2017-10-31] MEDS: Enoxaparin Sodium 40 MG/0.4 ML SYRINGE SC SCH (09:23)
[2017-10-31] MEDS: metroNIDAZOLE 500 MG TAB PO SCH ×3 (09:23→20:31)
[2017-10-31] MEDS: Acetaminophen 650 MG/20.3 ML UDCUP PO PRN (18:11)
[2017-10-31] MEDS: Atorvastatin Calcium 20 MG TAB PO SCH (20:31)
--- NOTE | 2017-10-31 21:58 | PDOC.PN ---
- Subjective Encounter Start Date: 10/31/17 Encounter Start Time: 10:00 Patient seen and examined. No new complaints. No overnight events - Objective MAR Reviewed: Yes Vital Signs & Weight: Vital Signs (12 hours) Temp Pulse Pulse Pulse Resp BP BP 10/31/17 20:31 98.4 F 83 16 10/31/17 19:26 10/31/17 15:40 98.6 F 76 18 10/31/17 13:35 80 20 10/31/17 12:23 74 10/31/17 11:24 98.5 F 81 18 10/31/17 10:27 74 72 94/65 94/64 BP BP Pulse Ox 10/31/17 20:31 88/65 L 95 10/31/17 19:26 94 L 10/31/17 15:40 98/70 95 10/31/17 13:35 10/31/17 12:23 82/69 L 10/31/17 11:24 93 L 10/31/17 10:27 Weight Admit Weight 173 lb 8.061 oz Weight 175 lb Most Recent Monitor Data Heart Rate from ECG 88 NIBP 110/96 NIBP BP-Mean 103 Respiration from ECG 23 SpO2 95 I&O: 10/30/17 10/31/17 11/01/17 06:59 06:59 06:59 Intake Total 510 1588 1132 Output Total 900 1575 900 Balance -390 13 232 Result Diagrams: 10/31/17 04:19 10/31/17 04:19 Additional Labs: Accuchecks 10/31/17 10/31/17 10/31/17 17:28 10:51 04:51 POC Glucose 97 114 H 110 EKG Reviewed by me: Yes (Tele SR) Phys Exam - Physical Examination Constitutional: NAD Respiratory: no wheezing, no rhonchi Cardiovascular: RRR, no rub Gastrointestinal: soft, non-tender, positive bowel sounds Musculoskeletal: no edema Neuro - No new focal deficits. Dx/Plan - Plan DVT proph w/lovenox, DVT proph w/SCDs IMPRESSION: 1. Acute CVA ?Embolic s/p Linq recorder 2. NSTEMI 3. s/p Acute hypoxic/hypercapnic resp failure - resolved 4. C diff diarrhea - on Flagyl 5. Acute on chronic systolic heart failure - improved 6. CKD 3/ Hypothyroidism/HTN / NSVT PLAN: * Cardio/Pulm following * DC IVF due to CHF * Cont current meds as below * Await Placement * Cont Flagyl * Cont ASA/ Patient did not get BB and ACEI today due to low BP * Check Cortisol in AM Review of Systems - Review of Systems Respiratory: negative: Cough, Dry, Shortness of Breath, Hemoptysis, SOB with Excertion, Pleuritic Pain, Sputum, Wheezing Cardiovascular: negative: chest pain, palpitations, orthopnea, paroxysmal nocturnal dyspnea, edema, light headedness - Medications/Allergies Allergies/Adverse Reactions: Allergies Allergy/AdvReac Type Severity Reaction Status Date / Time Penicillins Allergy Verified 06/15/17 14:48 Sulfa (Sulfonamide Allergy Verified 06/15/17 14:48 Antibiotics) Medications: Current Medications Acetaminophen (Tylenol Elixir) 650 mg PO Q6H PRN PRN Reason: Fever > 101 or Mild Pain Last Admin: 10/31/17 18:11 Dose: 650 mg Al Hydroxide/Mg Hydroxide (Maalox) 30 ml PO Q6H PRN PRN Reason: Heartburn or Indigestion Albuterol/Ipratropium (Duoneb) 3 ml NEB Q6H PRN PRN Reason: SOB &/or Wheezing Last Admin: 10/21/17 01:30 Dose: 3 ml Albuterol/Ipratropium (Duoneb) 3 ml NEB [id number] [facility] [place] Last Admin: 10/31/17 19:26 Dose: 3 ml Artificial Tears (Tears Naturale) 0 drop EA EYE PRN PRN PRN Reason: Dry Eyes Aspirin (Aspirin) 325 mg PO DAILY [facility] [place] Last Admin: 10/31/17 09:22 Dose: 325 mg Atorvastatin Calcium (Lipitor) 20 mg PO HS [facility] [place] Last Admin: 10/31/17 20:31 Dose: 20 mg Bisacodyl (Dulcolax) 10 mg PO DAILYPRN PRN PRN Reason: Constipation Bisacodyl (Dulcolax) 10 mg [place] DAILYPRN PRN PRN Reason: Constipation Calcium Carbonate (Tums) 1,000 mg PO Q4H PRN PRN Reason: Heartburn or Indigestion Carvedilol (Coreg) 1.5625 mg PO BID-[facility] Last Admin: 10/31/17 16:10 Dose: Not Given Dextrose/Water (Dextrose 50%) 25 gm SLOW IVP PRN PRN PRN Reason: Hypoglycemia Enoxaparin Sodium (Lovenox) 40 mg SC 0900 [facility] [place] Last Admin: 10/31/17 09:23 Dose: 40 mg Famotidine (Pepcid) 20 mg PO BID [facility] [place] Last Admin: 10/31/17 20:31 Dose: 20 mg Glucagon (Glucagon) 1 mg IM PRN PRN PRN Reason: Hypoglycemia Hydralazine HCl (Apresoline) 10 mg SLOW IVP Q4H PRN PRN Reason: Systolic BP > 180 Dextrose/Water (D5w) 1,000 mls @ 0 mls/hr IV .Q0M PRN; As Directed PRN Reason: Hypoglycemia Sodium Chloride (Normal Saline 0.9%) 1,000 mls @ 100 mls/hr IV .Q10H [facility] [place] Last Admin: 10/31/17 13:26 Dose: 1,000 mls Insulin Human Lispro (Humalog) 0 units SC .MILD SLIDING SCALE PRN PRN Reason: Mild Correctional Scale Last Admin: 10/24/17 13:11 Dose: 2 unit Insulin Human Lispro (Humalog) 0 units SC .BEDTIME SLIDING SC PRN PRN Reason: Bedtime Correctional Scale Last Admin: 10/20/17 22:56 Dose: 4 unit Levothyroxine Sodium (Synthroid) 25 mcg PO 0600 [facility] [place] Last Admin: 10/31/17 05:36 Dose: 25 mcg Lisinopril (Zestril) 1.25 mg PO DAILY [facility] [place] Last Admin: 10/31/17 08:57 Dose: Not Given Loperamide HCl (Imodium) 1 mg PO Q4H PRN PRN Reason: Diarrhea/Loose Stools Last Admin: 10/24/17 19:50 Dose: 1 mg Magnesium Hydroxide (Milk Of Magnesium) 30 ml PO Q8H PRN PRN Reason: Constipation Metronidazole (Flagyl) 500 mg PO TID [facility] [place] Last Admin: 10/31/17 20:31 Dose: 500 mg Mineral Oil/White Petrolatum (Eucerin Cream) 0 gm TOP BIDPRN PRN PRN Reason: Dry Skin Ondansetron HCl (Zofran) 4 mg IVP Q6H PRN PRN Reason: Nausea/Vomiting Saccharomyces Boulardii (Florastor) 250 mg PO DAILY [facility] [place] Last Admin: 10/31/17 09:23 Dose: 250 mg Senna (Senokot) 2 tab PO HSPRN PRN PRN Reason: Constipation Sodium Chloride (Flush - Normal Saline) 10 ml IVF Q12HR [facility] [place] Last Admin: 10/31/17 20:32 Dose: Not Given Sodium Chloride (Flush - Normal Saline) 10 ml IVF PRN PRN PRN Reason: Saline Flush Sodium Chloride (Flush - Normal Saline) 10 ml IVF Q12HR [facility] [place] Last Admin: 10/31/17 20:32 Dose: Not Given Sodium Chloride (Flush - Normal Saline) 10 ml IVF PRN PRN PRN Reason: Saline Flush Spironolactone (Aldactone) 12.5 mg PO QAM-[facility] Last Admin: 10/31/17 08:57 Dose: Not Given
[2017-11-01] MEDS: Levothyroxine Sodium 25 MCG TAB PO SCH (05:25)
[2017-11-01] MEDS: Lisinopril 2.5 MG TAB PO SCH (10:09)
[2017-11-01] MEDS: Saccharomyces boulardii 250 MG CAP PO SCH (10:09)
[2017-11-01] MEDS: metroNIDAZOLE 500 MG TAB PO SCH ×3 (10:10→22:04)
[2017-11-01] MEDS: Famotidine 20 MG TAB PO SCH ×2 (10:11→22:03)
[2017-11-01] MEDS: Spironolactone 25 MG TAB PO SCH (10:11)
[2017-11-01] MEDS: Carvedilol 3.125 MG TAB PO SCH ×2 (10:12→16:25)
[2017-11-01] MEDS: Aspirin 325 MG TAB PO SCH (10:15)
[2017-11-01] MEDS: Enoxaparin Sodium 40 MG/0.4 ML SYRINGE SC SCH (10:16)
--- NOTE | 2017-11-01 11:19 | PRG ---
DATE OF SERVICE: 11/01/2017 SERVICE: Pulmonary Medicine. INTERVAL HISTORY: The patient is doing fantastic from a cardiovascular and respiratory standpoint. She denies any current fevers, chills, nausea, vomiting or chest discomfort. She is breathing very c omfortably. She is a little frustrated as the right side does not work. Outside of this, there were no overnight events. She is controlling her airway beautifully. PHYSICAL EXAMINATION: VITAL SIGNS: Afebrile, pulse 80, blood pressure 98/78, respirations 16, saturation 93% on room air. GENERAL: The patient is awake, alert, no apparent distress. LUNGS: Decent air entry. There is a slightly prolonged expiratory phase, but I do not appreciate wh eezing or crackles. HEART: Normal rate and regular. ABDOMEN: Soft, nontender, nondistended. Bowel sounds are positive. MUSCULOSKELETAL: No cyanosis or clubbing. There is no pitting in the bilateral lower extremities. NEUROLOGIC: Grossly nonfocal. ASSESSMENT: 1. Acute hypoxic and hypercapnic respiratory failure, resolved. 2. Chronic obstructive pulmonary disease with acute exacerbation, resolved. 3. Cerebrovascular, cardioembolic. 4. Non-ST elevation myocardial infarction. 5. Chronic systolic heart failure. 6. Clostridium difficile infection. 7. Severe sepsis, resolved. DISCUSSION AND PLAN: The patient is doing absolutely fantastic from a respiratory standpoint. At th is point, she has no further requirements for inpatient Pulmonary or Critical Care opinion. I will s ign off at this time. Please call with additional questions or concerns moving forward.
[2017-11-01 12:38] VITALS: BMI 29.7
--- NOTE | 2017-11-01 13:31 | PDOC.PN ---
- Subjective Encounter Start Date: 11/01/17 Encounter Start Time: 13:29 Subjective: nursing reports beats of Vtach. -: pt upset about not being able to move R side -: denies any swollowing/speech problems - Objective MAR Reviewed: Yes Vital Signs & Weight: Vital Signs (12 hours) Temp Pulse Resp BP Pulse Ox 11/01/17 11:53 97.7 F 83 16 108/77 95 11/01/17 10:09 80 11/01/17 08:00 98 F 80 16 98/78 93 L 11/01/17 07:50 98 F 80 16 93 L 11/01/17 07:16 79 18 94 L 11/01/17 04:50 98.6 F 73 20 106/69 92 L Weight Admit Weight 173 lb 8.061 oz Weight 179 lb Most Recent Monitor Data Heart Rate from ECG 88 NIBP 110/96 NIBP BP-Mean 103 Respiration from ECG 23 SpO2 95 I&O: 10/31/17 11/01/17 11/02/17 06:59 06:59 06:59 Intake Total 1588 2220 Output Total 1575 1550 350 Balance 13 670 -350 Result Diagrams: 11/02/17 04:53 11/02/17 04:53 Additional Labs: Accuchecks 11/01/17 11/01/17 10/31/17 11:07 05:25 22:08 POC Glucose 115 H 107 119 H 10/31/17 17:28 POC Glucose 97 Microbiology 10/22/17 11:05 Stool Stool Lactoferrin - Final 10/22/17 11:05 Stool C. difficile GDH Antigen & Toxins - Final 10/22/17 11:05 Stool Clostridium difficile Toxin A&B PCR - Final 10/20/17 17:50 Nasal swab Influenza Types A,B Direct EIA - Final 10/20/17 17:39 Venous blood - Right Arm Blood Culture - Final NO GROWTH IN 5 DAYS 10/20/17 17:39 Venous blood - Left Arm Blood Culture - Final NO GROWTH IN 5 DAYS Laboratory Tests 10/20/17 10/20/17 10/20/17 17:36 17:39 17:39 WBC 19.0 H Hemoglobin A1c Troponin I B-Natriuretic Peptide 3114.0 H Free T4 1.23 Free T3 3.14 TSH 3rd Generation 10/20/17 10/20/17 10/21/17 17:42 23:04 04:44 WBC 16.4 H Hemoglobin A1c 5.5 Troponin I B-Natriuretic Peptide Free T4 Free T3 TSH 3rd Generation 0.1042 L 10/21/17 10/22/17 10/23/17 10:45 04:19 05:32 WBC 16.3 H 18.7 H Hemoglobin A1c Troponin I 2.273 H* B-Natriuretic Peptide Free T4 Free T3 TSH 3rd Generation 10/24/17 10/25/17 10/27/17 05:02 04:46 07:21 WBC 13.8 H 13.5 H Hemoglobin A1c Troponin I 1.086 H* B-Natriuretic Peptide Free T4 Free T3 TSH 3rd Generation 10/27/17 10/27/17 10/27/17 07:21 07:21 07:21 WBC 15.9 H Hemoglobin A1c Troponin I B-Natriuretic Peptide 1853.6 H Free T4 Free T3 TSH 3rd Generation 3.6203 10/29/17 10/31/17 06:52 04:19 WBC 10.4 11.1 H Hemoglobin A1c Troponin I B-Natriuretic Peptide Free T4 Free T3 TSH 3rd Generation Radiology Reviewed by me: Yes Phys Exam - Physical Examination Constitutional: NAD HEENT: PERRLA, moist MMs, sclera anicteric, oral pharynx no lesions Neck: no JVD Respiratory: no wheezing, no rales, no rhonchi, clear to auscultation bilateral Cardiovascular: RRR, no significant murmur Gastrointestinal: soft, non-tender, no distention, positive bowel sounds Musculoskeletal: no edema, pulses present dense R hemiparesis and neglect Psychiatric: normal affect, A&O x 3 Skin: no rash Dx/Plan (1) Ventricular arrhythmia Code(s): I49.9 - CARDIAC ARRHYTHMIA, UNSPECIFIED Status: Acute Comment: EP consulted (2) CVA (cerebral vascular accident) Code(s): I63.9 - CEREBRAL INFARCTION, UNSPECIFIED Status: Acute Qualifiers: Laterality of affected vessel: unspecified Comment: Caleb cardio-embolic.S/P LINQ recorder 10/28/17.On ASA+statin (3) NSTEMI (non-ST elevated myocardial infarction) Code(s): I21.4 - NON-ST ELEVATION (NSTEMI) MYOCARDIAL INFARCTION Status: Acute Comment: caleb demand ischemia (4) Acute systolic heart failure Code(s): I50.21 - ACUTE SYSTOLIC (CONGESTIVE) HEART FAILURE Status: Acute Comment: ECHO w low EF of 20-25%.repeat ECHO shows improvement to Ef 35-40% ..cardiology following.On BB,SU-I and Aldactone,ASA and statin (5) C. difficile colitis Status: Acute Comment: on PO Flagyl (6) Moderate mitral regurgitation Code(s): I34.0 - NONRHEUMATIC MITRAL (VALVE) INSUFFICIENCY Status: Acute (7) Moderate tricuspid regurgitation Code(s): I07.1 - RHEUMATIC TRICUSPID INSUFFICIENCY Status: Acute (8) Pulmonary hypertension Code(s): I27.20 - PULMONARY HYPERTENSION, UNSPECIFIED Status: Acute (9) CKD (chronic kidney disease) stage 3, GFR 30-59 ml/min Code(s): N18.3 - CHRONIC KIDNEY DISEASE, STAGE 3 (MODERATE) Status: Chronic (10) Dyslipidemia Code(s): E78.5 - HYPERLIPIDEMIA, UNSPECIFIED Status: Chronic Comment: (11) Hypertension Code(s): I10 - ESSENTIAL (PRIMARY) HYPERTENSION Status: Chronic (12) Hypothyroidism Code(s): E03.9 - HYPOTHYROIDISM, UNSPECIFIED Status: Chronic Comment: (13) Acute respiratory failure with hypoxia and hypercapnia Code(s): J96.01 - ACUTE RESPIRATORY FAILURE WITH HYPOXIA; J96.02 - ACUTE RESPIRATORY FAILURE WITH HYPERCAPNIA Status: Resolved Comment: (14) COPD exacerbation Code(s): J44.1 - CHRONIC OBSTRUCTIVE PULMONARY DISEASE W (ACUTE) EXACERBATION Status: Resolved Comment: controlled (15) Sepsis with acute organ dysfunction Code(s): A41.9 - SEPSIS, UNSPECIFIED ORGANISM; R65.20 - SEVERE SEPSIS WITHOUT SEPTIC SHOCK Status: Resolved Comment: Likley due to C.Diff. urine Cx not available - Plan plan discussed w/ family, PT/OT, social welfare clerk, speech therapy, respiratory therapy, incentive spirometry, out of bed/ambulate, DVT proph w/SCDs EP consulted for tachyaaythmias.Hemodynamically stable.on BB -: BP on lower side. hold anti hypertensives w parameters -: repeat ECHo shows improved EF.won't need LifeVest per cardiology -: resume aldactone when BP allows.I/Os. -: awaiting placement.am labs * .cont ASA,statin. * Review of Systems - Review of Systems Constitutional: weakness, malaise ENT: negative: Ear Pain, Ear Discharge, Nose Pain, Nose Discharge, Nose Congestion, Mouth Pain, Mouth Swelling, Throat Pain, Throat Swelling, Other Respiratory: negative: Cough, Dry, Shortness of Breath, Hemoptysis, SOB with Excertion, Pleuritic Pain, Sputum, Wheezing Cardiovascular: negative: chest pain, palpitations, orthopnea, paroxysmal nocturnal dyspnea, edema, light headedness, other Gastrointestinal: negative: Nausea, Vomiting, Abdominal Pain, Diarrhea, Constipation, Melena, Hematochezia, Other Genitourinary: negative: Dysuria, Frequency, Incontinence, Hematuria, Retention , Other Musculoskeletal: negative: Neck Pain, Shoulder Pain, Arm Pain, Back Pain, Hand Pain, Leg Pain, Foot Pain, Other Neurological: Weakness - Medications/Allergies Allergies/Adverse Reactions: Allergies Allergy/AdvReac Type Severity Reaction Status Date / Time Penicillins Allergy Verified 06/15/17 14:48 Sulfa (Sulfonamide Allergy Verified 06/15/17 14:48 Antibiotics) Medications: Current Medications Acetaminophen (Tylenol Elixir) 650 mg PO Q6H PRN PRN Reason: Fever > 101 or Mild Pain Last Admin: 10/31/17 18:11 Dose: 650 mg Al Hydroxide/Mg Hydroxide (Maalox) 30 ml PO Q6H PRN PRN Reason: Heartburn or Indigestion Albuterol/Ipratropium (Duoneb) 3 ml NEB Q6H PRN PRN Reason: SOB &/or Wheezing Last Admin: 10/21/17 01:30 Dose: 3 ml Albuterol/Ipratropium (Duoneb) 3 ml NEB [id number] [facility] Last Admin: 11/01/17 07:16 Dose: 3 ml Artificial Tears (Tears Naturale) 0 drop EA EYE PRN PRN PRN Reason: Dry Eyes Aspirin (Aspirin) 325 mg PO DAILY [facility] Last Admin: 11/01/17 10:15 Dose: Not Given Atorvastatin Calcium (Lipitor) 20 mg PO HS [facility] Last Admin: 10/31/17 20:31 Dose: 20 mg Bisacodyl (Dulcolax) 10 mg PO DAILYPRN PRN PRN Reason: Constipation Bisacodyl (Dulcolax) 10 mg LA DAILYPRN PRN PRN Reason: Constipation Calcium Carbonate (Tums) 1,000 mg PO Q4H PRN PRN Reason: Heartburn or Indigestion Carvedilol (Coreg) 1.5625 mg PO BID-[facility] Last Admin: 11/01/17 10:12 Dose: Not Given Dextrose/Water (Dextrose 50%) 25 gm SLOW IVP PRN PRN PRN Reason: Hypoglycemia Enoxaparin Sodium (Lovenox) 40 mg SC 0900 [facility] Last Admin: 11/01/17 10:16 Dose: Not Given Famotidine (Pepcid) 20 mg PO BID [facility] Last Admin: 11/01/17 10:11 Dose: 20 mg Glucagon (Glucagon) 1 mg IM PRN PRN PRN Reason: Hypoglycemia Hydralazine HCl (Apresoline) 10 mg SLOW IVP Q4H PRN PRN Reason: Systolic BP > 180 Dextrose/Water (D5w) 1,000 mls @ 0 mls/hr IV .Q0M PRN; As Directed PRN Reason: Hypoglycemia Insulin Human Lispro (Humalog) 0 units SC .MILD SLIDING SCALE PRN PRN Reason: Mild Correctional Scale Last Admin: 10/24/17 13:11 Dose: 2 unit Insulin Human Lispro (Humalog) 0 units SC .BEDTIME SLIDING SC PRN PRN Reason: Bedtime Correctional Scale Last Admin: 10/20/17 22:56 Dose: 4 unit Levothyroxine Sodium (Synthroid) 25 mcg PO 0600 [facility] Last Admin: 11/01/17 05:25 Dose: 25 mcg Lisinopril (Zestril) 1.25 mg PO DAILY [facility] Last Admin: 11/01/17 10:09 Dose: Not Given Loperamide HCl (Imodium) 1 mg PO Q4H PRN PRN Reason: Diarrhea/Loose Stools Last Admin: 10/24/17 19:50 Dose: 1 mg Magnesium Hydroxide (Milk Of Magnesium) 30 ml PO Q8H PRN PRN Reason: Constipation Metronidazole (Flagyl) 500 mg PO TID [facility] Last Admin: 11/01/17 10:10 Dose: 500 mg Mineral Oil/White Petrolatum (Eucerin Cream) 0 gm TOP BIDPRN PRN PRN Reason: Dry Skin Ondansetron HCl (Zofran) 4 mg IVP Q6H PRN PRN Reason: Nausea/Vomiting Saccharomyces Boulardii (Florastor) 250 mg PO DAILY [facility] Last Admin: 11/01/17 10:09 Dose: 250 mg Senna (Senokot) 2 tab PO HSPRN PRN PRN Reason: Constipation Sodium Chloride (Flush - Normal Saline) 10 ml IVF Q12HR [facility] Last Admin: 11/01/17 10:15 Dose: 10 ml Sodium Chloride (Flush - Normal Saline) 10 ml IVF PRN PRN PRN Reason: Saline Flush Sodium Chloride (Flush - Normal Saline) 10 ml IVF Q12HR [facility] Last Admin: 11/01/17 10:15 Dose: Not Given Sodium Chloride (Flush - Normal Saline) 10 ml IVF PRN PRN PRN Reason: Saline Flush Spironolactone (Aldactone) 12.5 mg PO QA-[facility] Last Admin: 11/01/17 10:11 Dose: Not Given
[2017-11-01] MEDS: Atorvastatin Calcium 20 MG TAB PO SCH (22:04)
[2017-11-02 05:58] LABS: #Eosinphils 0.2 thou/uL (0.0-0.7); #Lymphocytes 2.1 thou/uL (1.20-3.40); #Monocytes 0.8 thou/uL (0.11-0.59); #Neutrophils 7.9 thou/uL (1.40-6.50); %Basophils 0.3 % (0.0-1.0); %Eosinophils 1.8 % (0.0-10.0); %Lymphocytes 18.7 % (21.0-51.0); %Monocytes 7.4 % (0.0-10.0); %Neutrophils 71.8 % (42.0-75.0); Hemoglobin 11.1 g/dL (12.0-16.0); Mean Corpuscular HGB CONC 31.6 g/dL (32.0-36.0); Mean Corpuscular Hemoglobin 28.1 pg (27.0-31.0); Mean Corpuscular Volume 88.9 fl (81.0-99.0); Mean Platelet Volume 10.1 fL (7.4-10.4); Platelet Count 284 thou/uL (130-400); Red Blood Cell (RBC) Count 3.95 mill/uL (4.20-5.40)
[2017-11-02 06:11] LABS: Anion Gap 11 mmol/L (10-20); BUN (Urea Nitrogen) 6 mg/dL (9.8-20.1); Calc. Creatinine Clearance 125 mL/min (70-130); Calcium 9.2 mg/dL (7.8-10.44); Carbon Dioxide 24 mmol/L (22-29); Estimated GFR-MDRD Greater than 90; Glucose 100 mg/dL (70-105); Potassium 3.8 mmol/L (3.5-5.1); Sodium 139 mmol/L (136-145)
[2017-11-02 06:30] LABS: Chloride 108 mmol/L (98-107)
[2017-11-02] MEDS: Levothyroxine Sodium 25 MCG TAB PO SCH (06:44)
--- NOTE | 2017-11-02 07:48 | CON ---
DATE OF CONSULTATION: 11/01/2017 ELECTROPHYSIOLOGY CONSULTATION DICTATED FOR: Mejia Gore M.D. REFERRING PHYSICIAN: Aniya Mann M.D. REASON FOR CONSULTATION: Ventricular tachycardia. HISTORY OF PRESENT ILLNESS: This is a 57-year-old female who was brought in to the emergency room by EMS. She began experiencing shortness of breath at home while sitting outside. She is having a lot of difficulty breathing and called 911. EMS found the patient cyanotic around the lips and she became unresponsive en route to the hospital and required endotracheal intubation. She has had a somewhat complicated hospitalization. She has been extubated; however, she has also had a recent stroke, was found to have a slightly elevated troponin I and elevated BNP and is in newly found systolic heart failure. She is currently being treated for C. diff infection and had a LINQ loop recorder implanted on 10/28/[address] Mann on the basis of syncope and embolic cryptogenic CVA. An echocardiogram was done revealing her EF had dropped from 55% in 05/2017 to 25%-30%. This was reassessed a couple of days ago and is currently in the 35%-40% range. Over the weekend, the patient had approximately 1 minute wide complex tachycardia approximately 200 beats per minute range prompting the EP consultation. At this point, the patient denies any heart racing, palpitations, syncope or near syncope. She has not had any previous arrhythmia diagnosis. She is not having chest pain or pressure. She denies any stroke or stroke-like symptoms that are new. She is not having swelling in the extremities, any blood in the stool. She does continue to have fecal incontinence and some diarrhea. She has some residual right-sided weakness and right arm pain. She requires substantial help with mobility. PAST MEDICAL HISTORY: 1. Hypothyroidism. 2. History of CVA. 3. History of sinus pauses and bradycardia in the setting of CVA. 4. History of swallowing dysfunction. 5. Tobacco dependence, 4 packs per week. 6. Chronic kidney disease, stage 3. 7. Carotid artery stenosis. 8. Dyslipidemia. 9. Hypertension. 10. Obstructive sleep apnea. 11. COPD. 12. Peripheral vascular disease. SOCIAL HISTORY: Positive for tobacco habituation, 4 packs per week, negative for alcohol abuse or drug abuse. FAMILY HISTORY: Negative for sudden cardiac , cardiac arrhythmias, early onset of coronary artery disease for the age of 55, positive for diabetes. ALLERGIES: PENICILLIN and LISINOPRIL. REVIEW OF SYSTEMS: Twelve point review of systems was conducted and is negative except that listed in HPI. Patient is currently without complaint, although this could be some expressive aphasia with her recent stroke. CURRENT MEDICATIONS: DuoNeb q.6 h., aspirin 325 mg daily, Lipitor 20 mg p.o. at bedtime, Coreg 1.56 mg p.o. b.i.d., Lovenox 40 mg subcutaneous daily, Pepcid 20 mg b.i.d., hydralazine as needed for systolic over 180, insulin Humalog sliding scale, Synthroid 25 mcg p.o. daily, lisinopril 1.25 mg p.o. daily, Flagyl 500 mg p.o. t.i.d., Florastor 250 mg p.o. daily, and spironolactone 12.5 mg p.o. q.a.m. PHYSICAL EXAMINATION: VITAL SIGNS: Temperature 97.7, heart rate 83, respirations are 16, O2 sats 95% on room air, and blood pressure 108/77. GENERAL: This is a pleasant female in no acute distress. Her speech is clear and her affect is appropriate. She does appear to have possibly some expressive aphasia. HEENT: She is normocephalic. Her pupils are equal, round, reactive and accommodating to light. Her oral mucosa is moist and pink. She has adequate dentition. Her sclerae are anicteric. NECK: Supple, without jugular venous distention. Her thyroid is nonpalpable. There is no lymphadenopathy. LUNGS: Clear to auscultation bilaterally without wheezes, crackles or rhonchi. Respirations are even and unlabored. HEART: Rate is regularly regular without significant murmur, rub or gallop. EXTREMITIES: Warm and dry to touch without clubbing, cyanosis or edema. ABDOMEN: Obese, soft, and nontender without palpable masses and positive bowel sounds noted throughout. NEUROLOGIC: Her gait was not assessed. Physical therapy is working with the patient. Patient does have a residual right-sided hemiparesis and neglect. LABORATORY DATA: On 10/31/2017, sodium 139, potassium 3.5, chloride 108, carbon dioxide 22, BUN is 9, creatinine 0.61. Troponins were checked on 2017 and 10/27/2017 and were 2.273 and 1.086 respectively. Hematology on 2017, WBC 11.1, hemoglobin 10.4, hematocrit 32.2, and platelet count is 254. Review of telemetry and EKG, patient is currently maintaining sinus rhythm, mostly in the 70-80 range. There was an episode of nonsustained wide complex tachycardia/VT versus aberrant SVT on 10/29/2017 at 0218 with no repeat episodes since that time. IMPRESSION: 1. Newly found heart failure of unclear origin. Ejection fraction in 05/2017 was 55%, recently dropped to 25%-30% upon hospitalization, but most recently reassessed in the 35%-40% range. 2. Non-ST elevation myocardial infarction with a mildly elevated troponin. According to notes, Cardiology feels this may be demand ischemia, but no heart catheterization has been done at this time. 3. Recent cerebrovascular accident with residual right-sided hemiparesis neglect and some expressive aphasia. 4. Nonsustained wide complex tachycardia/ventricular tachycardia versus aberrancy with supraventricular tachycardia. 5. Status post LINQ loop recorder placement on 10/28/[address] Aniya Mann. PLAN AND RECOMMENDATIONS: 1. Standard heart failure therapy with beta blockers. 2. Recommend discharging the patient with a LifeVest. 3. ICD if EF less than 35% or recurrent VT in 3 months. Thank you again for allowing us to participate in the care of this patient. MACK
[2017-11-02] MEDS: Enoxaparin Sodium 40 MG/0.4 ML SYRINGE SC SCH (09:07)
[2017-11-02] MEDS: Carvedilol 3.125 MG TAB PO SCH ×2 (09:07→18:03)
[2017-11-02] MEDS: Saccharomyces boulardii 250 MG CAP PO SCH (09:08)
[2017-11-02] MEDS: Aspirin 325 MG TAB PO SCH (09:08)
[2017-11-02] MEDS: Lisinopril 2.5 MG TAB PO SCH (09:08)
[2017-11-02] MEDS: Spironolactone 25 MG TAB PO SCH (09:09)
[2017-11-02] MEDS: metroNIDAZOLE 500 MG TAB PO SCH ×3 (09:09→21:51)
[2017-11-02] MEDS: Famotidine 20 MG TAB PO SCH ×2 (09:09→21:51)
--- NOTE | 2017-11-02 14:34 | PDOC.PN ---
- Subjective Encounter Start Date: 11/02/17 Encounter Start Time: 14:33 Subjective: no new complaints. no ac events ON - Objective MAR Reviewed: Yes Vital Signs & Weight: Vital Signs (12 hours) Temp Pulse Resp BP Pulse Ox 11/02/17 12:00 97.6 F 71 18 104/74 96 11/02/17 11:48 83 16 94 L 11/02/17 09:08 78 11/02/17 08:59 97.9 F 83 16 94 L 11/02/17 08:00 97.9 F 78 20 117/85 97 11/02/17 06:48 77 16 94 L 11/02/17 04:00 99.0 F 82 16 115/79 95 Weight Admit Weight 173 lb 8.061 oz Weight 177 lb 1.6 oz Most Recent Monitor Data Heart Rate from ECG 88 NIBP 110/96 NIBP BP-Mean 103 Respiration from ECG 23 SpO2 95 I&O: 11/01/17 11/02/17 11/03/17 06:59 06:59 06:59 Intake Total 2220 960 Output Total 1550 1850 Balance 670 -890 Result Diagrams: 11/02/17 04:53 11/02/17 04:53 Additional Labs: Accuchecks 11/02/17 11/02/17 11/01/17 10:55 05:52 20:50 POC Glucose 106 100 93 11/01/17 17:06 POC Glucose 120 H Microbiology 10/22/17 11:05 Stool Stool Lactoferrin - Final 10/22/17 11:05 Stool C. difficile GDH Antigen & Toxins - Final 10/22/17 11:05 Stool Clostridium difficile Toxin A&B PCR - Final 10/20/17 17:50 Nasal swab Influenza Types A,B Direct EIA - Final 10/20/17 17:39 Venous blood - Right Arm Blood Culture - Final NO GROWTH IN 5 DAYS 10/20/17 17:39 Venous blood - Left Arm Blood Culture - Final NO GROWTH IN 5 DAYS Phys Exam - Physical Examination Constitutional: NAD HEENT: PERRLA, moist MMs, sclera anicteric, oral pharynx no lesions Neck: no nodes, no JVD, supple, full ROM Respiratory: no wheezing, no rales, no rhonchi, clear to auscultation bilateral Cardiovascular: RRR, no significant murmur, no rub, gallop Gastrointestinal: soft, non-tender, no distention, positive bowel sounds Musculoskeletal: no edema, pulses present R hemipareisis w geeta dysarthria and neglect Psychiatric: normal affect, A&O x 3 Dx/Plan (1) Ventricular arrhythmia Code(s): I49.9 - CARDIAC ARRHYTHMIA, UNSPECIFIED Status: Acute Comment: EP eval done. may need Life-vest (2) CVA (cerebral vascular accident) Code(s): I63.9 - CEREBRAL INFARCTION, UNSPECIFIED Status: Acute Qualifiers: Laterality of affected vessel: unspecified Comment: Caleb cardio-embolic.S/P LINQ recorder 10/28/17.On ASA+statin (3) NSTEMI (non-ST elevated myocardial infarction) Code(s): I21.4 - NON-ST ELEVATION (NSTEMI) MYOCARDIAL INFARCTION Status: Acute Comment: caleb demand ischemia (4) Acute systolic heart failure Code(s): I50.21 - ACUTE SYSTOLIC (CONGESTIVE) HEART FAILURE Status: Acute Comment: ECHO w low EF of 20-25%.repeat ECHO shows improvement to Ef 35-40% ..cardiology following.On BB,SU-I and Aldactone,ASA and statin (5) C. difficile colitis Status: Acute Comment: on PO Flagyl (6) Moderate mitral regurgitation Code(s): I34.0 - NONRHEUMATIC MITRAL (VALVE) INSUFFICIENCY Status: Acute (7) Moderate tricuspid regurgitation Code(s): I07.1 - RHEUMATIC TRICUSPID INSUFFICIENCY Status: Acute (8) Pulmonary hypertension Code(s): I27.20 - PULMONARY HYPERTENSION, UNSPECIFIED Status: Acute (9) CKD (chronic kidney disease) stage 3, GFR 30-59 ml/min Code(s): N18.3 - CHRONIC KIDNEY DISEASE, STAGE 3 (MODERATE) Status: Chronic (10) Dyslipidemia Code(s): E78.5 - HYPERLIPIDEMIA, UNSPECIFIED Status: Chronic Comment: (11) Hypertension Code(s): I10 - ESSENTIAL (PRIMARY) HYPERTENSION Status: Chronic (12) Hypothyroidism Code(s): E03.9 - HYPOTHYROIDISM, UNSPECIFIED Status: Chronic Comment: (13) Acute respiratory failure with hypoxia and hypercapnia Code(s): J96.01 - ACUTE RESPIRATORY FAILURE WITH HYPOXIA; J96.02 - ACUTE RESPIRATORY FAILURE WITH HYPERCAPNIA Status: Resolved Comment: (14) COPD exacerbation Code(s): J44.1 - CHRONIC OBSTRUCTIVE PULMONARY DISEASE W (ACUTE) EXACERBATION Status: Resolved Comment: controlled (15) Sepsis with acute organ dysfunction Code(s): A41.9 - SEPSIS, UNSPECIFIED ORGANISM; R65.20 - SEVERE SEPSIS WITHOUT SEPTIC SHOCK Status: Resolved Comment: Likley due to C.Diff. urine Cx not available - Plan PT/OT, speech therapy, out of bed/ambulate, DVT proph w/SCDs Conr meds as above. Awaiting placement -: cardiology to decide if she needs Lifevest as recommeneded by EP -: cont cardioprudent meds. ASA,statin,BB,SU-I,aldactone -: PO flagyl for CDiff * . Review of Systems - Review of Systems Constitutional: weakness, malaise. negative: fever, chills, sweats, other ENT: negative: Ear Pain, Ear Discharge, Nose Pain, Nose Discharge, Nose Congestion, Mouth Pain, Mouth Swelling, Throat Pain, Throat Swelling, Other Respiratory: negative: Cough, Dry, Shortness of Breath, Hemoptysis, SOB with Excertion, Pleuritic Pain, Sputum, Wheezing Cardiovascular: negative: chest pain, palpitations, orthopnea, paroxysmal nocturnal dyspnea, edema, light headedness, other Gastrointestinal: negative: Nausea, Vomiting, Abdominal Pain, Diarrhea, Constipation, Melena, Hematochezia, Other Genitourinary: negative: Dysuria, Frequency, Incontinence, Hematuria, Retention , Other Musculoskeletal: negative: Neck Pain, Shoulder Pain, Arm Pain, Back Pain, Hand Pain, Leg Pain, Foot Pain, Other Skin: negative: Rash, Lesions, Praful, Bruising, Other Neurological: Weakness - Medications/Allergies Allergies/Adverse Reactions: Allergies Allergy/AdvReac Type Severity Reaction Status Date / Time Penicillins Allergy Verified 06/15/17 14:48 Sulfa (Sulfonamide Allergy Verified 06/15/17 14:48 Antibiotics) Medications: Current Medications Acetaminophen (Tylenol Elixir) 650 mg PO Q6H PRN PRN Reason: Fever > 101 or Mild Pain Last Admin: 10/31/17 18:11 Dose: 650 mg Al Hydroxide/Mg Hydroxide (Maalox) 30 ml PO Q6H PRN PRN Reason: Heartburn or Indigestion Albuterol/Ipratropium (Duoneb) 3 ml NEB Q6H PRN PRN Reason: SOB &/or Wheezing Last Admin: 10/21/17 01:30 Dose: 3 ml Albuterol/Ipratropium (Duoneb) 3 ml NEB [id number] [facility] Last Admin: 11/02/17 11:48 Dose: 3 ml Artificial Tears (Tears Naturale) 0 drop EA EYE PRN PRN PRN Reason: Dry Eyes Aspirin (Aspirin) 325 mg PO DAILY [facility] Last Admin: 11/02/17 09:08 Dose: 325 mg Atorvastatin Calcium (Lipitor) 20 mg PO HS [facility] Last Admin: 11/01/17 22:04 Dose: 20 mg Bisacodyl (Dulcolax) 10 mg PO DAILYPRN PRN PRN Reason: Constipation Bisacodyl (Dulcolax) 10 mg [place] DAILYPRN PRN PRN Reason: Constipation Calcium Carbonate (Tums) 1,000 mg PO Q4H PRN PRN Reason: Heartburn or Indigestion Carvedilol (Coreg) 1.5625 mg PO BID-[facility] Last Admin: 11/02/17 09:07 Dose: 1.5625 mg Dextrose/Water (Dextrose 50%) 25 gm SLOW IVP PRN PRN PRN Reason: Hypoglycemia Enoxaparin Sodium (Lovenox) 40 mg SC 0900 [facility] Last Admin: 11/02/17 09:07 Dose: 40 mg Famotidine (Pepcid) 20 mg PO BID [facility] Last Admin: 11/02/17 09:09 Dose: 20 mg Glucagon (Glucagon) 1 mg IM PRN PRN PRN Reason: Hypoglycemia Hydralazine HCl (Apresoline) 10 mg SLOW IVP Q4H PRN PRN Reason: Systolic BP > 180 Dextrose/Water (D5w) 1,000 mls @ 0 mls/hr IV .Q0M PRN; As Directed PRN Reason: Hypoglycemia Insulin Human Lispro (Humalog) 0 units SC .MILD SLIDING SCALE PRN PRN Reason: Mild Correctional Scale Last Admin: 10/24/17 13:11 Dose: 2 unit Insulin Human Lispro (Humalog) 0 units SC .BEDTIME SLIDING SC PRN PRN Reason: Bedtime Correctional Scale Last Admin: 10/20/17 22:56 Dose: 4 unit Levothyroxine Sodium (Synthroid) 25 mcg PO 0600 [facility] Last Admin: 11/02/17 06:44 Dose: 25 mcg Lisinopril (Zestril) 1.25 mg PO DAILY [facility] Last Admin: 11/02/17 09:08 Dose: 1.25 mg Loperamide HCl (Imodium) 1 mg PO Q4H PRN PRN Reason: Diarrhea/Loose Stools Last Admin: 10/24/17 19:50 Dose: 1 mg Magnesium Hydroxide (Milk Of Magnesium) 30 ml PO Q8H PRN PRN Reason: Constipation Metronidazole (Flagyl) 500 mg PO TID [facility] Last Admin: 11/02/17 09:09 Dose: 500 mg Mineral Oil/White Petrolatum (Eucerin Cream) 0 gm TOP BIDPRN PRN PRN Reason: Dry Skin Ondansetron HCl (Zofran) 4 mg IVP Q6H PRN PRN Reason: Nausea/Vomiting Saccharomyces Boulardii (Florastor) 250 mg PO DAILY [facility] Last Admin: 11/02/17 09:08 Dose: 250 mg Senna (Senokot) 2 tab PO HSPRN PRN PRN Reason: Constipation Sodium Chloride (Flush - Normal Saline) 10 ml IVF Q12HR [facility] Last Admin: 11/02/17 09:10 Dose: 10 ml Sodium Chloride (Flush - Normal Saline) 10 ml IVF PRN PRN PRN Reason: Saline Flush Sodium Chloride (Flush - Normal Saline) 10 ml IVF Q12HR [facility] Last Admin: 11/02/17 09:10 Dose: Not Given Sodium Chloride (Flush - Normal Saline) 10 ml IVF PRN PRN PRN Reason: Saline Flush Spironolactone (Aldactone) 12.5 mg PO QAM-[facility] Last Admin: 11/02/17 09:09 Dose: 12.5 mg
--- NOTE | 2017-11-02 16:28 | PDOC.CTH ---
<Nelly Singh - Last Filed: 11/02/17 16:27> Cardiology Progress Note - Subjective EP progress note: Patient seen and examined. No change overnight. No new cardiac complaints. - Objective Vital Signs Temp Pulse Pulse Pulse Resp BP BP 11/02/17 15:59 97.8 F 70 14 11/02/17 13:41 79 86 98/76 86/75 L 11/02/17 12:00 97.6 F 71 18 11/02/17 11:48 83 16 11/02/17 09:08 78 11/02/17 08:59 97.9 F 83 16 11/02/17 08:00 97.9 F 78 20 11/02/17 06:48 77 16 BP Pulse Ox 11/02/17 15:59 90/67 95 11/02/17 13:41 11/02/17 12:00 104/74 96 11/02/17 11:48 94 L 11/02/17 09:08 11/02/17 08:59 94 L 11/02/17 08:00 117/85 97 11/02/17 06:48 94 L Admit Weight 173 lb 8.061 oz Weight 177 lb 1.6 oz 11/01/17 11/02/17 11/03/17 06:59 06:59 06:59 Intake Total 2220 960 500 Output Total 1550 1850 450 Balance 670 -890 50 - Physical Examination General/Neuro: NAD Neck: no JVD present Lungs: CTA, unlabored respirations Heart: PMI normal, RRR Abdomen: no HSM, NT/ND, soft - Telemetry Telemetry Rhythm: NSR - Labs Result Diagrams: 11/02/17 04:53 11/02/17 04:53 Troponin/CKMB CK-MB (CK-2) 3.8 ng/mL (0-6.6) 10/27/17 07:21 Troponin I 1.086 ng/mL (< 0.028) H* 10/27/17 07:21 - Assessment/Plan Cardiomyopathy with reduced EF. Somewhat recovered, now 35-40%. Episode of VT ( 200 bpm range) on 10/29 at 2:15, without recurrence. Re-evaluate EF in 3 months. ICD if EF <35% or recurrence of VT. Otherwise standard heart failure therapy with beta blockers as tolerated. <Bao,Mejia - Last Filed: 11/02/17 16:46> Cardiology Progress Note - Objective Vital Signs Temp Pulse Pulse Pulse Resp BP BP 11/02/17 15:59 97.8 F 70 14 11/02/17 13:41 79 86 98/76 86/75 L 11/02/17 12:00 97.6 F 71 18 11/02/17 11:48 83 16 11/02/17 09:08 78 11/02/17 08:59 97.9 F 83 16 11/02/17 08:00 97.9 F 78 20 11/02/17 06:48 77 16 BP Pulse Ox 11/02/17 15:59 90/67 95 11/02/17 13:41 11/02/17 12:00 104/74 96 11/02/17 11:48 94 L 11/02/17 09:08 11/02/17 08:59 94 L 11/02/17 08:00 117/85 97 11/02/17 06:48 94 L Admit Weight 173 lb 8.061 oz Weight 177 lb 1.6 oz 11/01/17 11/02/17 11/03/17 06:59 06:59 06:59 Intake Total 2220 960 500 Output Total 1550 1850 450 Balance 670 -890 50 - Labs Result Diagrams: 11/02/17 04:53 11/02/17 04:53 Troponin/CKMB CK-MB (CK-2) 3.8 ng/mL (0-6.6) 10/27/17 07:21 Troponin I 1.086 ng/mL (< 0.028) H* 10/27/17 07:21 Attending Addendum - Attending Addendum Date/Time: 11/02/17 [id number] I personally evaluated the patient and discussed the management with Ms Singh. I agree with the History, Examination, Assessment and Plan documented above with any addition or exceptions noted below. Cardiomyopathy with reduced EF. Somewhat recovered, now 35-40%. Episode of NS- VT (200 bpm range) on 10/29 at 2:15, without recurrence. Re-evaluate EF in 3 months. ICD if EF <35% or recurrence of VT. Otherwise standard heart failure therapy with beta blockers as tolerated.
--- NOTE | 2017-11-02 19:49 | EKG ---
Test Reason : Blood Pressure : / mmHG Vent. Rate : 104 BPM Atrial Rate : 104 BPM P-R Int : 136 ms QRS Dur : 104 ms QT Int : 338 ms P-R-T Axes : 051 000 123 degrees QTc Int : 444 ms Sinus tachycardia Left ventricular hypertrophy with repolarization abnormality Anterior infarct (cited on or before 20-OCT-2017) Abnormal ECG When compared with ECG of 20-OCT-2017 17:40, (Unconfirmed) Premature ventricular complexes are no longer Present Serial changes of evolving Anterior infarct Present Confirmed by JOHN HARE (2) on 11/02/2017 7:49:14 PM Referred By: RUPERTO Confirmed By:JOHN HARE
[2017-11-02] MEDS: Atorvastatin Calcium 20 MG TAB PO SCH (21:51)
[2017-11-03] MEDS: Levothyroxine Sodium 25 MCG TAB PO SCH (05:53)
[2017-11-03] MEDS: Spironolactone 25 MG TAB PO SCH (10:03)
[2017-11-03] MEDS: Saccharomyces boulardii 250 MG CAP PO SCH (10:04)
[2017-11-03] MEDS: Famotidine 20 MG TAB PO SCH ×2 (10:04→21:03)
[2017-11-03] MEDS: Aspirin 325 MG TAB PO SCH (10:04)
[2017-11-03] MEDS: Carvedilol 3.125 MG TAB PO SCH ×2 (10:04→18:15)
[2017-11-03] MEDS: Lisinopril 2.5 MG TAB PO SCH (10:05)
[2017-11-03] MEDS: metroNIDAZOLE 500 MG TAB PO SCH ×3 (10:07→21:03)
[2017-11-03] MEDS: Enoxaparin Sodium 40 MG/0.4 ML SYRINGE SC SCH (10:08)
--- NOTE | 2017-11-03 15:09 | PDOC.PN ---
- Subjective Encounter Start Date: 11/03/17 Encounter Start Time: 15:07 Subjective: feels Ok.no new complaints. no swollowing issues -: still not able to move R arm or leg - Objective MAR Reviewed: Yes Vital Signs & Weight: Vital Signs (12 hours) Temp Pulse Resp BP BP Pulse Ox 11/03/17 14:10 73 16 97 11/03/17 12:00 98.2 F 73 18 100/72 96 11/03/17 10:05 84 11/03/17 08:05 98.0 F 84 16 98 11/03/17 08:03 84 16 98 11/03/17 08:00 98 F 83 16 103/82 93 L 11/03/17 03:22 98.2 F 78 18 109/73 95 Weight Admit Weight 173 lb 8.061 oz Weight 171 lb 6.4 oz Most Recent Monitor Data Heart Rate from ECG 88 NIBP 110/96 NIBP BP-Mean 103 Respiration from ECG 23 SpO2 95 I&O: 11/02/17 11/03/17 11/04/17 06:59 06:59 06:59 Intake Total 960 820 240 Output Total 1850 1850 325 Balance -890 -1030 -85 Result Diagrams: 11/02/17 04:53 11/02/17 04:53 Additional Labs: Accuchecks 11/03/17 11/03/17 11/02/17 10:57 05:53 22:38 POC Glucose 110 97 91 11/02/17 16:48 POC Glucose 104 Phys Exam - Physical Examination Constitutional: NAD HEENT: PERRLA, moist MMs, sclera anicteric, oral pharynx no lesions Neck: no nodes, no JVD, supple, full ROM Respiratory: no wheezing, no rales, no rhonchi, clear to auscultation bilateral Cardiovascular: RRR, no significant murmur, no rub, gallop Gastrointestinal: soft, non-tender, no distention, positive bowel sounds Musculoskeletal: no edema, pulses present R arm cold w barely palpable radial pulse Neurological: non-focal, normal sensation, moves all 4 limbs Psychiatric: normal affect, A&O x 3 Skin: no rash Dx/Plan (1) Ventricular arrhythmia Code(s): I49.9 - CARDIAC ARRHYTHMIA, UNSPECIFIED Status: Acute Comment: EP eval done.LINQ recorder in place (2) CVA (cerebral vascular accident) Code(s): I63.9 - CEREBRAL INFARCTION, UNSPECIFIED Status: Acute Qualifiers: Laterality of affected vessel: unspecified Comment: Caleb cardio-embolic.S/P LINQ recorder 10/28/17.On ASA+statin (3) NSTEMI (non-ST elevated myocardial infarction) Code(s): I21.4 - NON-ST ELEVATION (NSTEMI) MYOCARDIAL INFARCTION Status: Acute Comment: caleb demand ischemia (4) Acute systolic heart failure Code(s): I50.21 - ACUTE SYSTOLIC (CONGESTIVE) HEART FAILURE Status: Acute Comment: ECHO w low EF of 20-25%.repeat ECHO shows improvement to Ef 35-40% ..cardiology following.On BB,SU-I and Aldactone,ASA and statin (5) C. difficile colitis Status: Acute Comment: on PO Flagyl (6) Moderate mitral regurgitation Code(s): I34.0 - NONRHEUMATIC MITRAL (VALVE) INSUFFICIENCY Status: Acute (7) Moderate tricuspid regurgitation Code(s): I07.1 - RHEUMATIC TRICUSPID INSUFFICIENCY Status: Acute (8) Pulmonary hypertension Code(s): I27.20 - PULMONARY HYPERTENSION, UNSPECIFIED Status: Acute (9) CKD (chronic kidney disease) stage 3, GFR 30-59 ml/min Code(s): N18.3 - CHRONIC KIDNEY DISEASE, STAGE 3 (MODERATE) Status: Chronic (10) Dyslipidemia Code(s): E78.5 - HYPERLIPIDEMIA, UNSPECIFIED Status: Chronic Comment: (11) Hypertension Code(s): I10 - ESSENTIAL (PRIMARY) HYPERTENSION Status: Chronic (12) Hypothyroidism Code(s): E03.9 - HYPOTHYROIDISM, UNSPECIFIED Status: Chronic Comment: (13) Acute respiratory failure with hypoxia and hypercapnia Code(s): J96.01 - ACUTE RESPIRATORY FAILURE WITH HYPOXIA; J96.02 - ACUTE RESPIRATORY FAILURE WITH HYPERCAPNIA Status: Resolved Comment: (14) COPD exacerbation Code(s): J44.1 - CHRONIC OBSTRUCTIVE PULMONARY DISEASE W (ACUTE) EXACERBATION Status: Resolved Comment: controlled (15) Sepsis with acute organ dysfunction Code(s): A41.9 - SEPSIS, UNSPECIFIED ORGANISM; R65.20 - SEVERE SEPSIS WITHOUT SEPTIC SHOCK Status: Resolved Comment: Caleb due to C.Diff. urine Cx not available - Plan continue antibiotics, PT/OT, public health social worker, speech therapy, respiratory therapy, incentive spirometry, out of bed/ambulate, DVT proph w/SCDs accepted a one remote [facility].will need to repeat CDiff -: check RUE arterial US? emboli. -: cont ASA,statin.not on any anticoagulation.is in NSR -: Po flagyl.contact precaution -: DC likley soon if no clot in RUE & repeat CDiff negative * . Review of Systems - Review of Systems Constitutional: weakness, malaise ENT: negative: Ear Pain, Ear Discharge, Nose Pain, Nose Discharge, Nose Congestion, Mouth Pain, Mouth Swelling, Throat Pain, Throat Swelling, Other Respiratory: negative: Cough, Dry, Shortness of Breath, Hemoptysis, SOB with Excertion, Pleuritic Pain, Sputum, Wheezing Cardiovascular: negative: chest pain, palpitations, orthopnea, paroxysmal nocturnal dyspnea, edema, light headedness, other Gastrointestinal: negative: Nausea, Vomiting, Abdominal Pain, Diarrhea, Constipation, Melena, Hematochezia, Other Genitourinary: negative: Dysuria, Frequency, Incontinence, Hematuria, Retention , Other Musculoskeletal: negative: Neck Pain, Shoulder Pain, Arm Pain, Back Pain, Hand Pain, Leg Pain, Foot Pain, Other Skin: negative: Rash, Lesions, Praful, Bruising, Other Neurological: Weakness - Medications/Allergies Allergies/Adverse Reactions: Allergies Allergy/AdvReac Type Severity Reaction Status Date / Time Penicillins Allergy Verified 06/15/17 14:48 Sulfa (Sulfonamide Allergy Verified 06/15/17 14:48 Antibiotics) Medications: Current Medications Acetaminophen (Tylenol Elixir) 650 mg PO Q6H PRN PRN Reason: Fever > 101 or Mild Pain Last Admin: 10/31/17 18:11 Dose: 650 mg Al Hydroxide/Mg Hydroxide (Maalox) 30 ml PO Q6H PRN PRN Reason: Heartburn or Indigestion Albuterol/Ipratropium (Duoneb) 3 ml NEB Q6H PRN PRN Reason: SOB &/or Wheezing Last Admin: 10/21/17 01:30 Dose: 3 ml Albuterol/Ipratropium (Duoneb) 3 ml NEB [id number] [facility] Last Admin: 11/03/17 14:10 Dose: 3 ml Artificial Tears (Tears Naturale) 0 drop EA EYE PRN PRN PRN Reason: Dry Eyes Aspirin (Aspirin) 325 mg PO DAILY [facility] Last Admin: 11/03/17 10:04 Dose: 325 mg Atorvastatin Calcium (Lipitor) 20 mg PO HS [facility] Last Admin: 11/02/17 21:51 Dose: 20 mg Bisacodyl (Dulcolax) 10 mg PO DAILYPRN PRN PRN Reason: Constipation Bisacodyl (Dulcolax) 10 mg [place] DAILYPRN PRN PRN Reason: Constipation Calcium Carbonate (Tums) 1,000 mg PO Q4H PRN PRN Reason: Heartburn or Indigestion Carvedilol (Coreg) 1.5625 mg PO BID-[facility] Last Admin: 11/03/17 10:04 Dose: 1.5625 mg Dextrose/Water (Dextrose 50%) 25 gm SLOW IVP PRN PRN PRN Reason: Hypoglycemia Enoxaparin Sodium (Lovenox) 40 mg SC 0900 [facility] Last Admin: 11/03/17 10:08 Dose: 40 mg Famotidine (Pepcid) 20 mg PO BID [facility] Last Admin: 11/03/17 10:04 Dose: 20 mg Glucagon (Glucagon) 1 mg IM PRN PRN PRN Reason: Hypoglycemia Hydralazine HCl (Apresoline) 10 mg SLOW IVP Q4H PRN PRN Reason: Systolic BP > 180 Dextrose/Water (D5w) 1,000 mls @ 0 mls/hr IV .Q0M PRN; As Directed PRN Reason: Hypoglycemia Insulin Human Lispro (Humalog) 0 units SC .MILD SLIDING SCALE PRN PRN Reason: Mild Correctional Scale Last Admin: 10/24/17 13:11 Dose: 2 unit Insulin Human Lispro (Humalog) 0 units SC .BEDTIME SLIDING SC PRN PRN Reason: Bedtime Correctional Scale Last Admin: 10/20/17 22:56 Dose: 4 unit Levothyroxine Sodium (Synthroid) 25 mcg PO 0600 [facility] Last Admin: 11/03/17 05:53 Dose: 25 mcg Lisinopril (Zestril) 1.25 mg PO DAILY [facility] Last Admin: 11/03/17 10:05 Dose: 1.25 mg Loperamide HCl (Imodium) 1 mg PO Q4H PRN PRN Reason: Diarrhea/Loose Stools Last Admin: 10/24/17 19:50 Dose: 1 mg Magnesium Hydroxide (Milk Of Magnesium) 30 ml PO Q8H PRN PRN Reason: Constipation Metronidazole (Flagyl) 500 mg PO TID [facility] Last Admin: 11/03/17 14:26 Dose: 500 mg Mineral Oil/White Petrolatum (Eucerin Cream) 0 gm TOP BIDPRN PRN PRN Reason: Dry Skin Ondansetron HCl (Zofran) 4 mg IVP Q6H PRN PRN Reason: Nausea/Vomiting Saccharomyces Boulardii (Florastor) 250 mg PO DAILY [facility] Last Admin: 11/03/17 10:04 Dose: 250 mg Senna (Senokot) 2 tab PO HSPRN PRN PRN Reason: Constipation Sodium Chloride (Flush - Normal Saline) 10 ml IVF Q12HR [facility] Last Admin: 11/03/17 10:08 Dose: 10 ml Sodium Chloride (Flush - Normal Saline) 10 ml IVF PRN PRN PRN Reason: Saline Flush Sodium Chloride (Flush - Normal Saline) 10 ml IVF Q12HR [facility] Last Admin: 11/03/17 10:08 Dose: Not Given Sodium Chloride (Flush - Normal Saline) 10 ml IVF PRN PRN PRN Reason: Saline Flush Spironolactone (Aldactone) 12.5 mg PO QAM-[facility] Last Admin: 11/03/17 10:03 Dose: 12.5 mg
[2017-11-03] MEDS: Atorvastatin Calcium 20 MG TAB PO SCH (21:02)
[2017-11-04] MEDS: Levothyroxine Sodium 25 MCG TAB PO SCH (06:45)
--- NOTE | 2017-11-04 08:34 | PRG ---
DATE OF SERVICE: 11/03/2017 ELECTROPHYSIOLOGY FOLLOWUP NOTE SUBJECTIVE: Ms. Livingston seems to be doing fair. No new symptoms noted. OBJECTIVE: VITAL SIGNS: Blood pressure is 100/72, pulse 73, respiration is 18, temperature 98.2 degrees Fahrenh eit. GENERAL: Reveals alert and oriented woman, in no apparent distress. NECK: Supple. Jugular veins not distended. CHEST: Coarse without crackles. CARDIOVASCULAR: Heart sounds are regular to rate and rhythm. No murmur or gallop. ABDOMEN: Benign. Bowel sounds positive. EXTREMITIES: Lower extremities without edema, clubbing or cyanosis. DATABASE: The telemetry strips reviewed reveals sinus rhythm. ASSESSMENT AND PLAN: Ms. Livingston is a 57-year-old woman with congestive heart failure initially marisabel rely but there moderately reduced LVEF at 35%-40%. She has an episode of VT in the acute phase of he r illness. On 10/29/2017 without recurrence, this could have been induced due to atrial tachycardia with aberration. At this point, she appears to be stable for now, no definite indication for ICD imp lant present. Recommend increased beta dave as tolerated. Reevaluation of LV function might be n ecessary in 3 months. If further worsening occurs, an EF is less than 35%, ICD implantation could be considered.
[2017-11-04] MEDS: Aspirin 325 MG TAB PO SCH (08:52)
[2017-11-04] MEDS: Lisinopril 2.5 MG TAB PO SCH (08:52)
[2017-11-04] MEDS: Carvedilol 3.125 MG TAB PO SCH ×2 (08:53→16:43)
[2017-11-04] MEDS: Saccharomyces boulardii 250 MG CAP PO SCH (08:53)
[2017-11-04] MEDS: Spironolactone 25 MG TAB PO SCH (08:54)
[2017-11-04] MEDS: metroNIDAZOLE 500 MG TAB PO SCH ×3 (08:54→22:09)
[2017-11-04] MEDS: Enoxaparin Sodium 40 MG/0.4 ML SYRINGE SC SCH (08:55)
[2017-11-04] MEDS: Famotidine 20 MG TAB PO SCH ×2 (08:55→22:09)
--- NOTE | 2017-11-04 09:37 | PDOC.CTH ---
<Nelly Singh - Last Filed: 11/04/17 09:38> Cardiology Progress Note - Subjective EP progress note: Patient seen and evaluated. No new cardiac complaints. She is anticipating discharge to rehab today. - Objective Vital Signs Temp Pulse Resp BP BP Pulse Ox 11/04/17 08:52 78 11/04/17 07:59 97.7 F 78 16 98 11/04/17 07:23 84 16 11/04/17 04:00 98.8 F 78 16 98/71 94 L 11/04/17 00:30 74 16 96 11/04/17 00:00 97.8 F 88 16 95 11/03/17 23:59 80/64 L 11/03/17 23:02 76/66 L Admit Weight 173 lb 8.061 oz Weight 170 lb 11.2 oz 11/03/17 11/04/17 11/05/17 06:59 06:59 06:59 Intake Total 820 680 Output Total 1850 975 Balance -1030 -295 - Physical Examination General/Neuro: NAD, other: (expressive aphasia) Neck: carotid US brisk, no JVD present Lungs: unlabored respirations Heart: RRR Abdomen: NT/ND, soft Extremities: + edema B - Telemetry Telemetry Rhythm: NSR - Labs Result Diagrams: 11/02/17 04:53 11/02/17 04:53 Troponin/CKMB CK-MB (CK-2) 3.8 ng/mL (0-6.6) 10/27/17 07:21 Troponin I 1.086 ng/mL (< 0.028) H* 10/27/17 07:21 - Assessment/Plan Continue plan as before. Cardiomyopathy with reduced EF of 20-25% on admission, now 35-40%. Episode of VT (200 bpm range) on 10/29 at 2:15, without recurrence. Re-evaluate EF in 3 months. ICD if EF <35% or recurrence of VT. Otherwise standard heart failure therapy with beta blockers as tolerated to be managed by cardiology. <Mejia Gore - Last Filed: 11/04/17 15:50> Cardiology Progress Note - Objective Vital Signs Temp Pulse Resp BP BP Pulse Ox 11/04/17 15:47 90/70 11/04/17 13:19 76 15 11/04/17 11:30 98 F 68 16 84/71 L 94 L 11/04/17 08:52 78 11/04/17 08:00 97.7 F 78 16 11/04/17 07:59 97.7 F 78 16 98 11/04/17 07:23 84 16 11/04/17 04:00 98.8 F 78 16 98/71 94 L Admit Weight 173 lb 8.061 oz Weight 170 lb 11.2 oz 11/03/17 11/04/17 11/05/17 06:59 06:59 06:59 Intake Total 820 680 Output Total 1850 975 Balance -1030 -295 - Labs Result Diagrams: 11/02/17 04:53 11/02/17 04:53 Troponin/CKMB CK-MB (CK-2) 3.8 ng/mL (0-6.6) 10/27/17 07:21 Troponin I 1.086 ng/mL (< 0.028) H* 10/27/17 07:21 - Assessment/Plan NS WCT episode poss VT vs AT with aberration. Attending Addendum - Attending Addendum Date/Time: 11/04/17 [id number] I personally evaluated the patient and discussed the management with MS Singh. I agree with the History, Examination, Assessment and Plan documented above with any addition or exceptions noted below.
--- NOTE | 2017-11-04 17:26 | PRG ---
DATE OF SERVICE: 11/04/2017 SUBJECTIVE: The patient is seen and examined at bedside. She is doing well. She does not have much complains to offer, but her blood pressure is running on the lower side, but she denies any dizzines s or headache. OBJECTIVE: VITAL SIGNS: Blood pressure is 84/71, pulse is 76, respiratory rate is 15 and O2 saturation is 94% o n room air. HEENT: Her head is atraumatic and normocephalic. Eyes are PERRLA. Conjunctivae pinkish. Oral muco sa is moist. NECK: Supple. No lymphadenopathy. LUNGS: Clear. HEART: S1 and S2, somewhat distant. No S3, no S4. The left upper chest shows the place where the L INQ recorder was placed. ABDOMEN: Soft and nontender. Bowel sounds are present. EXTREMITIES: 1+ peripheral edema similar bilaterally. NEUROLOGIC: She is alert and oriented x3. There is no any sensory deficit present. Motor deficit, right side upper extremity and lower extremity with some contractions of the lower extremity. LABORATORY DATA: None today. IMPRESSION: 1. Hypotension. I am going to stop her lisinopril completely. We will keep her only on small dose of carvedilol. The case was discussed with Dr. Gore and he wants to make some adjustment to her medi cine since her blood pressure is running low all the time. 2. Ventricular tachycardia. EP evaluation done. LINQ recorder placed. If she has more ventricular tachycardias recorded, she will have probably defibrillator placed later. 3. History of cerebrovascular accident. 4. [id number] myocardial infarction. 5. Acute systolic heart failure with an ejection fraction of 35% to 40%. 6. Clostridium difficile colitis, on Flagyl. 7. Pulmonary hypertension. 8. Chronic kidney disease stage 3. 9. Hypertension. 10. Hypothyroidism. 11. Acute respiratory failure with hypoxia and hypercapnia, resolved. 12. Chronic obstructive pulmonary disease exacerbation, resolved. 13. Sepsis with acute organ dysfunction, resolved. PLAN: The patient was supposed to be transferred today to [facility] for reha bilitation, but her blood pressure was low at 84 systolic, so the discharge was postponed. She will be watched overnight. Her medications will be adjusted. I just stopped her lisinopril and will see how she does only on carvedilol. In the next 24-48 hours, we should be able to make decision what re gimen she needs to stay on and she will be able to be transferred to this new facility. In the meant candy, we will continue her Flagyl 3 times a day, and aspirin and statin.
[2017-11-04] MEDS: Atorvastatin Calcium 20 MG TAB PO SCH (22:09)
[2017-11-05] MEDS: Levothyroxine Sodium 25 MCG TAB PO SCH (05:59)
[2017-11-05] MEDS: Aspirin 325 MG TAB PO SCH (10:20)
[2017-11-05] MEDS: Saccharomyces boulardii 250 MG CAP PO SCH (10:20)
[2017-11-05] MEDS: Carvedilol 3.125 MG TAB PO SCH ×2 (10:21→16:49)
[2017-11-05] MEDS: Spironolactone 25 MG TAB PO SCH (10:21)
[2017-11-05] MEDS: metroNIDAZOLE 500 MG TAB PO SCH ×2 (10:21→14:59)
[2017-11-05] MEDS: Famotidine 20 MG TAB PO SCH (10:21)
[2017-11-05] MEDS: Enoxaparin Sodium 40 MG/0.4 ML SYRINGE SC SCH (10:22)
--- NOTE | 2017-11-05 11:53 | PDOC.PN ---
- Subjective Encounter Start Date: 11/05/17 Encounter Start Time: 07:40 -: old records requested/rev Patient seen and examined. No new complaints. No overnight events - Objective MAR Reviewed: Yes Vital Signs & Weight: Vital Signs (12 hours) Temp Pulse Pulse Pulse Pulse Pulse Resp 11/05/17 11:00 98.7 F 74 15 11/05/17 09:35 81 80 83 70 11/05/17 08:02 98.1 F 70 16 11/05/17 06:59 64 16 11/05/17 04:00 98.1 F 81 16 11/05/17 00:48 98.6 F 67 18 11/05/17 00:38 61 18 BP BP BP BP BP BP Pulse Ox 11/05/17 11:00 94/67 95 11/05/17 09:35 102/70 80/62 L 106/73 98/74 11/05/17 08:02 86/70 L 92 L 11/05/17 06:59 11/05/17 04:00 99/69 93 L 11/05/17 00:48 94/66 95 11/05/17 00:38 Weight Admit Weight 173 lb 8.061 oz Weight 171 lb 14.4 oz Most Recent Monitor Data Heart Rate from ECG 88 NIBP 110/96 NIBP BP-Mean 103 Respiration from ECG 23 SpO2 95 I&O: 11/04/17 11/05/17 11/06/17 06:59 06:59 06:59 Intake Total 680 820 Output Total 975 1250 Balance -295 -430 Result Diagrams: 11/02/17 04:53 11/02/17 04:53 Additional Labs: Accuchecks 11/05/17 11/05/17 11/04/17 10:46 05:16 22:18 POC Glucose 122 H 135 H 174 H 11/04/17 16:57 POC Glucose 120 H EKG Reviewed by me: Yes Phys Exam - Physical Examination Constitutional: NAD HEENT: PERRLA, moist MMs, sclera anicteric Neck: no JVD, supple Respiratory: no wheezing, no rales, no rhonchi Cardiovascular: RRR, no significant murmur, no rub Gastrointestinal: soft, non-tender, no distention, positive bowel sounds Musculoskeletal: no edema, pulses present right side weakness Psychiatric: normal affect, A&O x 3 Skin: normal turgor Dx/Plan (1) Acidosis, metabolic, with respiratory acidosis Code(s): E87.4 - MIXED DISORDER OF ACID-BASE BALANCE Status: Resolved (2) Acute respiratory failure with hypoxia and hypercapnia Code(s): J96.01 - ACUTE RESPIRATORY FAILURE WITH HYPOXIA; J96.02 - ACUTE RESPIRATORY FAILURE WITH HYPERCAPNIA Status: Resolved Comment: (3) COPD exacerbation Code(s): J44.1 - CHRONIC OBSTRUCTIVE PULMONARY DISEASE W (ACUTE) EXACERBATION Status: Resolved Comment: controlled (4) Community acquired bacterial pneumonia Code(s): J15.9 - UNSPECIFIED BACTERIAL PNEUMONIA Status: Resolved (5) Sepsis with acute organ dysfunction Code(s): A41.9 - SEPSIS, UNSPECIFIED ORGANISM; R65.20 - SEVERE SEPSIS WITHOUT SEPTIC SHOCK Status: Resolved Comment: Likley due to C.Diff. 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 - OTHER DISEASES OF VOCAL CORDS Status: Chronic (12) Tobacco dependence Code(s): F17.200 - NICOTINE DEPENDENCE, UNSPECIFIED, UNCOMPLICATED Status: Chronic Comment: (13) VALENTINA (obstructive sleep apnea) Code(s): G47.33 - OBSTRUCTIVE SLEEP APNEA (ADULT) (PEDIATRIC) Status: Suspected Comment: (14) Acute systolic heart failure Code(s): I50.21 - ACUTE SYSTOLIC (CONGESTIVE) HEART FAILURE Status: Acute Comment: ECHO w low EF of 20-25%.repeat ECHO shows improvement to Ef 35-40% ..cardiology following.On BB,SU-I and Aldactone,ASA and statin (15) Moderate mitral regurgitation Code(s): I34.0 - NONRHEUMATIC MITRAL (VALVE) INSUFFICIENCY Status: Acute (16) Moderate tricuspid regurgitation Code(s): I07.1 - RHEUMATIC TRICUSPID INSUFFICIENCY Status: Acute (17) NSTEMI (non-ST elevated myocardial infarction) Code(s): I21.4 - NON-ST ELEVATION (NSTEMI) MYOCARDIAL INFARCTION Status: Acute Comment: caleb demand ischemia (18) C. difficile colitis Status: Resolved Comment: on PO Flagyl (19) CVA (cerebral vascular accident) Code(s): I63.9 - CEREBRAL INFARCTION, UNSPECIFIED Status: Acute Qualifiers: Laterality of affected vessel: unspecified Comment: Caleb cardio-embolic.S/P LINQ recorder 10/28/17.On ASA+statin - Plan cont current plan of care, PT/OT, social worker assistant * pt is not on ACEI or ARB as well as aldosterone dave at this time due to hypotension * medication reviewed as below * symptomatic treatment * DC to SNU. Review of Systems - Review of Systems ENT: negative: Ear Pain, Ear Discharge, Nose Pain, Nose Discharge, Nose Congestion, Mouth Pain, Mouth Swelling, Throat Pain, Throat Swelling, Other Respiratory: negative: Cough, Dry, Shortness of Breath, Hemoptysis, SOB with Excertion, Pleuritic Pain, Sputum, Wheezing Cardiovascular: negative: chest pain, palpitations, orthopnea, paroxysmal nocturnal dyspnea, edema, light headedness, other Gastrointestinal: negative: Nausea, Vomiting, Abdominal Pain, Diarrhea, Constipation, Melena, Hematochezia, Other Genitourinary: negative: Dysuria, Frequency, Incontinence, Hematuria, Retention , Other Musculoskeletal: negative: Neck Pain, Shoulder Pain, Arm Pain, Back Pain, Hand Pain, Leg Pain, Foot Pain, Other - Medications/Allergies Allergies/Adverse Reactions: Allergies Allergy/AdvReac Type Severity Reaction Status Date / Time Penicillins Allergy Verified 06/15/17 14:48 Sulfa (Sulfonamide Allergy Verified 06/15/17 14:48 Antibiotics) Medications: Current Medications Acetaminophen (Tylenol Elixir) 650 mg PO Q6H PRN PRN Reason: Fever > 101 or Mild Pain Last Admin: 10/31/17 18:11 Dose: 650 mg Al Hydroxide/Mg Hydroxide (Maalox) 30 ml PO Q6H PRN PRN Reason: Heartburn or Indigestion Albuterol/Ipratropium (Duoneb) 3 ml NEB Q6H PRN PRN Reason: SOB &/or Wheezing Last Admin: 10/21/17 01:30 Dose: 3 ml Albuterol/Ipratropium (Duoneb) 3 ml NEB [id number] [facility] Last Admin: 11/05/17 06:59 Dose: 3 ml Artificial Tears (Tears Naturale) 0 drop EA EYE PRN PRN PRN Reason: Dry Eyes Aspirin (Aspirin) 325 mg PO DAILY [facility] Last Admin: 11/05/17 10:20 Dose: 325 mg Atorvastatin Calcium (Lipitor) 20 mg PO HS [facility] Last Admin: 11/04/17 22:09 Dose: 20 mg Bisacodyl (Dulcolax) 10 mg PO DAILYPRN PRN PRN Reason: Constipation Bisacodyl (Dulcolax) 10 mg SD DAILYPRN PRN PRN Reason: Constipation Calcium Carbonate (Tums) 1,000 mg PO Q4H PRN PRN Reason: Heartburn or Indigestion Carvedilol (Coreg) 1.5625 mg PO BID-[facility] Last Admin: 11/05/17 10:21 Dose: 1.5625 mg Dextrose/Water (Dextrose 50%) 25 gm SLOW IVP PRN PRN PRN Reason: Hypoglycemia Enoxaparin Sodium (Lovenox) 40 mg SC 0900 [facility] Last Admin: 11/05/17 10:22 Dose: 40 mg Famotidine (Pepcid) 20 mg PO BID [facility] Last Admin: 11/05/17 10:21 Dose: 20 mg Glucagon (Glucagon) 1 mg IM PRN PRN PRN Reason: Hypoglycemia Hydralazine HCl (Apresoline) 10 mg SLOW IVP Q4H PRN PRN Reason: Systolic BP > 180 Dextrose/Water (D5w) 1,000 mls @ 0 mls/hr IV .Q0M PRN; As Directed PRN Reason: Hypoglycemia Insulin Human Lispro (Humalog) 0 units SC .MILD SLIDING SCALE PRN PRN Reason: Mild Correctional Scale Last Admin: 10/24/17 13:11 Dose: 2 unit Insulin Human Lispro (Humalog) 0 units SC .BEDTIME SLIDING SC PRN PRN Reason: Bedtime Correctional Scale Last Admin: 10/20/17 22:56 Dose: 4 unit Levothyroxine Sodium (Synthroid) 25 mcg PO 0600 [facility] Last Admin: 11/05/17 05:59 Dose: 25 mcg Loperamide HCl (Imodium) 1 mg PO Q4H PRN PRN Reason: Diarrhea/Loose Stools Last Admin: 10/24/17 19:50 Dose: 1 mg Magnesium Hydroxide (Milk Of Magnesium) 30 ml PO Q8H PRN PRN Reason: Constipation Metronidazole (Flagyl) 500 mg PO TID [facility] Last Admin: 11/05/17 10:21 Dose: 500 mg Mineral Oil/White Petrolatum (Eucerin Cream) 0 gm TOP BIDPRN PRN PRN Reason: Dry Skin Ondansetron HCl (Zofran) 4 mg IVP Q6H PRN PRN Reason: Nausea/Vomiting Saccharomyces Boulardii (Florastor) 250 mg PO DAILY [facility] Last Admin: 11/05/17 10:20 Dose: 250 mg Senna (Senokot) 2 tab PO HSPRN PRN PRN Reason: Constipation Sodium Chloride (Flush - Normal Saline) 10 ml IVF Q12HR [facility] Last Admin: 11/05/17 10:23 Dose: 10 ml Sodium Chloride (Flush - Normal Saline) 10 ml IVF PRN PRN PRN Reason: Saline Flush Sodium Chloride (Flush - Normal Saline) 10 ml IVF Q12HR [facility] Last Admin: 11/04/17 22:17 Dose: Not Given Sodium Chloride (Flush - Normal Saline) 10 ml IVF PRN PRN PRN Reason: Saline Flush Spironolactone (Aldactone) 12.5 mg PO QAM-WM [facility] Last Admin: 11/05/17 10:21 Dose: 12.5 mg
--- NOTE | 2017-11-05 13:23 | DIS ---
DATE OF ADMISSION: 10/20/2017 DATE OF DISCHARGE: 11/05/2017 PRIMARY CARE PHYSICIAN: [facility]. DISCHARGE DISPOSITION: [facility] home. PRIMARY DISCHARGE DIAGNOSES: 1. Status post acute respiratory failure. 2. Clostridium difficile colitis, treated in hospital. 3. Community-acquired bacterial pneumonia, treated in hospital. 4. Chronic obstructive pulmonary disease exacerbation. 5. Metabolic and respiratory acidosis, improved. 6. Non-ST elevation myocardial infarction. 7. Moderate mitral regurgitation. 8. Moderate tricuspid regurgitation. 9. Acute cerebrovascular accident with right-sided weakness. 10. Acute systolic heart failure. 11. Ventricular tachyarrhythmia. SECONDARY DISCHARGE DIAGNOSES: Carotid stenosis, chronic kidney disease stage 3, dyslipidemia, hyper tension, hypothyroidism, and tobacco dependence. PRIMARY PROCEDURE/OPERATION: Endotracheal intubation, ventilatory support, central line placement, L INX procedure by Dr. Mann, implantable loop recorder placement by Dr. Mann. RADIOLOGICAL INVESTIGATION: Echocardiography, chest x-ray, CT brain, brain MRI. SIGNIFICANT LABORATORY DATA: Hemoglobin 11.1, INR 1.1, creatinine 0.63. Urinalysis showed hematuria . Urine drug screen negative. C. diff positive. Repeat Clostridium difficile negative. Blood cult ure negative. DISCHARGE MEDICATIONS: Aspirin 325 mg p.o. daily, Lipitor 20 mg p.o. at bedtime, Coreg 1.5625 mg p.o . b.i.d., vitamin B12 1000 mcg p.o. daily, Colace 100 mg p.o. b.i.d., Pepcid 20 mg p.o. b.i.d., fish oil 1000 mg p.o. b.i.d., DuoNeb q.6 hourly p.r.n., Synthroid 25 mcg p.o. daily, multivitamin 1 tablet p.o. daily. CONTRAINDICATIONS: The patient is not on SU inhibitor, ARB and aldosterone dave because of low b lood pressure and patient is not tolerating this medication at this point and that is why contraindic ated. That medication can be restarted as an outpatient basis when hemodynamics improves. CODE STATUS: FULL CODE. INPATIENT CONSULTANTS: Dr. Mann was following while in hospital. Dr. Rodney was following while in hospital. Dr. Bao Ba was consulted while in hospital. TEST RESULTS PENDING ON DISCHARGE: None. ALLERGIES: PENICILLIN and SULFA DRUGS. DISCHARGE PLAN: Post hospital, patient will follow up with primary care physician. The patient is p lanned for discharge to [facility]. HOSPITAL COURSE: A 57-year-old female who was admitted on 10/20/2017. Please see Dr. Lambert's H&P for further detail. On admission, the patient had COPD flareup and she had acute respiratory acidosi s as well as hypoxia. She was suffering from COPD flareup. She required intubation. She was admitt ed to ICU. [facility] was managing ventilator. We also found non-ST elevation ME because of elevated troponin. Cardiology was consulted and when we did echocardiography, we found systolic heart failure with valvular regurgitation. Patient also had Clostridium difficile antigen positive and toxin positive and that is why we treated her with C. difficile infection. She also had pneumonia that was treated with cefepime. Next few days, patient was extubated and transferred to telemetry floor. [facility] when she was intubated, at that time, we found that patient was having right-sided weakness and that is why we did CT brain and MRI brain confirmed CVA. The patient has finished C. diff treatment while in hospital. She has finished treatment for pneumon ia while in hospital. Her culture remained negative. Repeat Clostridium difficile is negative. The patient had repeat echocardiography which showed a still low EF and she also had nonsustained mehreen tricular tachycardia and that is why implantable loop recorder was placed. This patient will need fu ture AICD in the next few months. That is why patient is instructed to follow up with Cardiology and bicycle messenger. This patient was not tolerating SU inhibitor and ARB as well as aldosterone b locker because of low blood pressure and that is why she is only on low dose of beta dave therapy. The patient will need further adjustment of medication as an outpatient basis. Patient was requiring placement and with help of casey saw operator, we finally arranged [facility] for her placement. The patient is seen and examined at bedside today. Please see my progress note from today for furthe r detail.
[2017-11-05 15:30] VITALS: BP 108/67; TEMP 98.8
--- NOTE | 2017-11-05 15:45 | PRG ---
DATE OF SERVICE: 11/05/2017 SUBJECTIVE: Mrs. Livingston seems to be doing well. No new cardiac symptoms are present. OBJECTIVE DATA: VITAL SIGNS: Blood pressure is 86/70, supine 102/70, standing 98/74. Heart rate 70, respiratory rat e 15, and temperature 98.7 degrees Fahrenheit. GENERAL: Alert and oriented woman in no apparent distress. NECK: Supple. Jugular veins not distended. CHEST: Coarse, no crackles. CARDIOVASCULAR: Heart sounds are regular rate and rhythm. No murmur or gallop. ABDOMEN: Benign. Bowel sounds positive. EXTREMITIES: No edema, clubbing, or cyanosis. DATABASE: The telemetry strips reveal sinus rhythm with a short run of supraventricular tachycardia with occasional aberration is seen. ASSESSMENT AND PLAN: Mrs. Livingston is a pleasant 57-year-old woman, who had history of LV dysfunction present with non-ST elevation myocardial infarction, had nonsustained wide complex tachyarrhythmia, which though has not recurred. Wide complex tachycardia versus SVT with aberration is a differential diagnosis of this. She had improving LV function and during the hospitalization, LV was 35% to 40%. She will be managed with beta blockers and she has requested to return in case further palpitations , dizziness, loss of consciousness occurred. For now, she is not a candidate for ICD within 3 months with adequate medical management reevaluation of LV function prudent to consider prophylactic ICD im plant at that time or if further ventricular arrhythmias occurred. She had a C. diff, for which she received for treatment. She also has borderline blood pressures as well which is being adjusted. She is being discharged today. Routine follow up again in the office in 3 months requested.
--- NOTE | 2017-11-17 15:08 | EKG ---
Test Reason : Blood Pressure : / mmHG Vent. Rate : 134 BPM Atrial Rate : 134 BPM P-R Int : 162 ms QRS Dur : 102 ms QT Int : 272 ms P-R-T Axes : 042 028 162 degrees QTc Int : 406 ms Sinus tachycardia with occasional Premature ventricular complexes Anterior infarct , age undetermined Abnormal ECG Confirmed by ROCCO PEARSON D.O. ([id number]), restaurant expeditor IRMA ROGERS ([id number]) on 11/17/2017 3:07:32 PM Referred By: Confirmed By:ROCCO PEARSON D.O.
== END 2017-11-05 17:38 | DRG 853 ==
LOC: ERS 17:34 → CCU 19:00 → 2SE 10-26 13:32
PROVIDERS: ADMIT Internal Medicine Infectious Disease; ATTEND Internal Medicine Infectious Disease
PROC: 5A1955Z Respiratory Ventilation, Greater than 96 Consecutive Hours (ICD-10-PCS; principal; 2017-10-20)
PROC: 0JH632Z Insertion of Monitoring Device into Chest Subcutaneous Tissue and Fascia, Percutaneous Approach (ICD-10-PCS; 2017-10-28)
DX: A41.9 Sepsis, unspecified organism (principal); I21.4 Non-ST elevation (NSTEMI) myocardial infarction; I63.9 Cerebral infarction, unspecified; I50.21 Acute systolic (congestive) heart failure; J96.01 Acute respiratory failure with hypoxia; J96.02 Acute respiratory failure with hypercapnia; I47.2 Ventricular tachycardia; N18.3 Chronic kidney disease, stage 3 (moderate); J15.9 Unspecified bacterial pneumonia; I13.0 Hypertensive heart and chronic kidney disease with heart failure and stage 1 through stage 4 chronic kidney disease, or unspecified chronic kidney disease; E87.4 Mixed disorder of acid-base balance; J44.1 Chronic obstructive pulmonary disease with (acute) exacerbation; A04.72 Enterocolitis due to Clostridium difficile, not specified as recurrent; G81.91 Hemiplegia, unspecified affecting right dominant side; R47.01 Aphasia; R65.20 Severe sepsis without septic shock; G47.33 Obstructive sleep apnea (adult) (pediatric); E78.5 Hyperlipidemia, unspecified; F17.210 Nicotine dependence, cigarettes, uncomplicated; R73.9 Hyperglycemia, unspecified; I34.0 Nonrheumatic mitral (valve) insufficiency; I36.1 Nonrheumatic tricuspid (valve) insufficiency; J98.01 Acute bronchospasm; I27.20 Pulmonary hypertension, unspecified; J38.3 Other diseases of vocal cords; I65.29 Occlusion and stenosis of unspecified carotid artery; Z86.73 Personal history of transient ischemic attack (TIA), and cerebral infarction without residual deficits; Z88.0 Allergy status to penicillin; Z88.2 Allergy status to sulfonamides; Z79.82 Long term (current) use of aspirin; Z79.899 Other long term (current) drug therapy
CPT/HCPCS: 33282; 36415; 36416; 51702; 70450; 70551; 71045; 80048; 80053; 80061; 80069; 80306; 80307; 81003; 81015; 82140; 82533; 82550; 82553; 82805; 83036; 83605; 83630; 83735; 83880; 84439; 84443; 84481; 84484; 84703; 85007; 85025; 85027; 85379; 85610; 85730; 87040; 87324; 87449; 87493; 87804; 93005; 93010; 93306; 94002; 94003; 94640; 94644; 96365; 96367; 96368; 96375; A4216; C1764; G8978-GP-CL; G8978-GP-CN; G8979-GP-CL; G8979-GP-CM; G8987-GO-CM; G8988-GO-CK; G8996-GN-CI; G8996-GN-CJ; G8996-GN-CL; G8997-GN-CI; J0692; J1650; J1940; J1956; J2001; J2060; J2270; J2543; J2704; J2920; J2930; J3010; J3370; J3475; J7050; J7611; J7620; S0028